=== PATIENT | male | born 1955 | race Caucasian/White ===

== ENCOUNTER 2016-06-03 07:30 | Emergency (ER) | payer OTHER ==
[~2016-06-03 07:30] MED LIST: /DIVA50TA PO; /TAMS4CA PO; BACL10TA PO; CARB20TAXR PO; CIPR250T2 PO; COLA50CA3 PO; DEPA1TAB3 PO; DILA2TAB PO; DUCO5TAB PO; FLOM5CAP PO; KETO10TAB PO; LEVA500T PO; MIRA3350 PO; NORCOTAB PO; PERCOCET PO; PROT1TAB2 PO; SENN8.6T76 PO; SENO8.6T9 PO; SOMA350T PO; TEGR200T PO; TYLE325T5 PO; ULTR50TA PO; toradol PO
--- NOTE | 2016-06-03 08:37 | REP ---
Portable chest: Single view. History: Chest pain left-sided. Comparison study: April 17, 2016. Findings: EKG monitoring electrodes overlie the chest. Heart size is borderline. Pulmonary vasculature is not increased. The lung love are clear. The pleural angles are sharp. No significant bony abnormality is seen. Impression: No active disease. Signed by Nelson Field MD 06/03/2016 08:28 A
[2016-06-03 08:39] LABS: BASO # 0.1 K/mm3 (0.0-0.2); BASO % 1.9 % (0.0-1.0); EOS # 0.2 K/mm3 (0.0-0.50); EOS % 2.6 % (0.0-3.0); LARGE UNSTAINED CELL # 0.1 K/mm3 (0.0-0.4); LYMPH # 1.7 K/mm3 (1.5-4.5); LYMPH % 27.6 % (24.0-44.0); MEAN CORPUSCULAR HEMOGLOBIN 26.5 pg (27.0-33.0); MEAN CORPUSCULAR HGB CONC 32.4 g/dl (32.0-36.5); MEAN CORPUSCULAR VOLUME 81.6 fl (80.0-96.0); MONO # 0.3 K/mm3 (0.0-0.8); NEUTROPHILS # 3.5 K/mm3 (1.8-7.7); NEUTROPHILS % 60.8 % (36.0-66.0); PLATELET COUNT, AUTOMATED 234 k/mm3 (150-450); WHITE BLOOD COUNT 5.7 K/mm3 (4.0-10.0)
[2016-06-03 08:42] LABS: INR 1.03
[2016-06-03] MEDS ORDERED: ASPIRIN 81 MG CHEW TABLET As Ordered ONE (08:45)
[2016-06-03 08:52] LABS: ANION GAP 8 MEQ/L (8-16); BLOOD UREA NITROGEN 18 MG/DL (7-18); CALCIUM LEVEL 8.8 MG/DL (8.8-10.2); CARBON DIOXIDE LEVEL 24 MEQ/L (21-32); CHLORIDE LEVEL 111 MEQ/L (98-107); CREATININE FOR GFR 0.78 MG/DL (0.70-1.30); GLOMERULAR FILTRATION RATE > 60.0 (>49); GLUCOSE, FASTING 94 MG/DL (80-110); POTASSIUM SERUM 4.6 MEQ/L (3.5-5.1); SODIUM LEVEL 143 MEQ/L (136-145)
[2016-06-03] MEDS ORDERED: ISOVUE-370 76% 100ML VIAL (Q9967) As Ordered ONE (10:05)
--- NOTE | 2016-06-03 11:41 | REP ---
CT pulmonary angiogram: With IV contrast. History: Chest pain. Comparison studies: Comparison chest CT with contrast June 22, 2012. Contrast dose: 75 cc's of Isovue [address] technique: Helical scanning is acquired and overlapping 1.5 mm and contiguous 3 mm axial images are reformatted. In addition, a 3-D work station is deployed to generate thick slab maximum intensity projection images in sagittal and coronal imaging projections. CT pulmonary angiographic findings: There is good opacification of the pulmonary arterial tree and there is no CT evidence of pulmonary embolism. The thoracic aorta enhances homogeneously and is normal in caliber, course and contour. There is no evidence of pleural or pericardial effusion. An accessory splenule is noted in the left upper quadrant. No adrenal lesion is seen. There is a cyst in the upper pole left kidney and there is evidence of fatty infiltration of the liver. Maximal intensity projection images show no evidence of vessel cutoff or filling defect. Visualization of the lung love show no evidence of significant pulmonary nodule or mass. No infiltrate is seen. Impression: No CT evidence of pulmonary embolism. Small cyst upper pole left kidney. Fatty infiltration of the liver. Otherwise no acute disease. Signed by Nelson Field MD 06/03/2016 02:05 P
--- NOTE | 2016-06-03 13:27 | EDDOCDS ---
Nurse's Notes [facility] Name: Ricardo Funez Age: 61 yrs Sex: Male : 1955 Arrival Date: 06/03/2016 Time: 07:30 Bed 11 Private MD: Diagnosis: Chest pain, unspecified Presentation: 06/03 07:39 Presenting complaint: Patient states: Pt presents with c/o left sided chest pain off dls and on since Sunday night after shoveling. Pt also has harsh cough. Aspirin was not taken prior to arrival. Adult Sepsis Screening: The patient does not have new or worsening altered mentation. Patient's respiratory rate is less than 22. Systolic blood pressure is greater than 100. Patient has a qSOFA score of 0- Negative Sepsis Screen. Suicide/Homicide risk assessment- the patient denies having any suicidal and/or homicidal ideations and does not present with any other emotional, behavioral or mental health complaints. Status: Patient is not a field services analyst or dependent. Transition of care: patient was not received from another setting of care. 07:39 Acuity: FRANCESCO Level 3 dls 07:39 Method Of Arrival: Walkin/Carried/Asstd dls Triage Assessment: 07:42 General: Appears in no apparent distress, well developed, well nourished, well groomed, dls Behavior is cooperative. Pain: Pain currently is 4 out of 10 on a pain scale. HIV screening NA for this visit Offered previously. Cardiovascular: Chest pain is described as Pain is 4 out of 10 on a pain scale. radiates Does not radiate. began 4 days ago. 13:26 Cardiovascular: Chest pain episodes are continuous. pml Historical: - Allergies: no known allergies; - Home Meds: 1. Depakote 500 mg Oral TbEC 1 tab 2 times per day 2. Flonase 50 mcg/actuation Nasal spsn 1 spray 2 times per day 3. Tegretol 200 mg Oral tab every 8 hours - PMHx: Chronic Back pain; Hypercholesterolemia; Hypertension; Kidney stones; Pancreatitis; Seizure Disorder; - PSHx: none; - Social history: Smoking status: Patient/guardian denies using No barriers to communication noted, The patient speaks fluent Pashto. - Family history: Not pertinent. - : The pt / caregiver states he / she is not on anticoagulants. Home medication list is obtained from [employer] import data. - Exposure Risk Screening:: None identified. Screenin:06 Screening information is obtained from the patient. Fall risk: No risks identified. pml Assistance ADL's: requires no assistance with activities of daily living. Abuse/DV Screen: The patient / caregiver reports he/she is: not in a situation that causes fear, pain or injury. Nutritional screening: No deficits noted. Advance Directives: Currently, there is no health care proxy. home support is adequate. Assessment: 08:06 General: Appears in no apparent distress, Behavior is appropriate for age, cooperative. pml Pain: Location: anterior aspect of left upper chest and left breast Pain currently is 5 out of 10 on a pain scale. Neurological: Level of Consciousness is awake, alert, Oriented to person, place, time. Cardiovascular: Capillary refill < 3 seconds Rhythm is sinus rhythm No ectopy. Cardiovascular: Chest pain is described as mild. Respiratory: Airway is patent Respiratory effort is even, unlabored. Respiratory: Breath sounds are clear bilaterally. Reports cough that is non-productive, since this AM. GI: Abdomen is non- distended. Derm: Skin is pink, warm & dry. 09:00 Adult Sepsis Screening: The patient does not have new or worsening altered mentation. pml Patient's respiratory rate is less than 22. Systolic blood pressure is greater than 100. Patient has a qSOFA score of 0- Negative Sepsis Screen. 09:15 General: Resting on stretcher, voices no complaints, resps easy and unlabored, skin pml p/w/d. sinus rhythm on monitor. . 10:33 General: Pt to CT - tolerated well, reports some intermittent nausea that resolved pml approx [address] scan. sinus rhythm on monitor. resps easy and unlabored, skin p/w/d . 11:00 Adult Sepsis Screening: The patient does not have new or worsening altered mentation. pml Patient's respiratory rate is less than 22. Patient has a qSOFA score of 0- Negative Sepsis Screen. 11:55 General: Appears in no apparent distress, Behavior is appropriate for age, crying. pml Pain: Location: anterior aspect of left upper chest Pain currently is 3 out of 10 on a pain scale. Neurological: Level of Consciousness is awake, alert, Oriented to person, place, time. Cardiovascular: Capillary refill < 3 seconds Rhythm is sinus rhythm No ectopy. Derm: Skin is pink, warm & dry. 12:45 General: diet tray provided. pt tolerating without difficulty. reports pain is 1/10. pml 13:24 General: Appears in no apparent distress, comfortable, Behavior is appropriate for age, pml cooperative. 13:24 Pain: Location: anterior aspect of left upper chest Pain currently is 1 out of 10 on a pml pain scale. Neurological: Level of Consciousness is awake, alert, Oriented to person, place, time. Cardiovascular: Capillary refill < 3 seconds Rhythm is sinus rhythm No ectopy. Respiratory: Airway is patent Respiratory effort is even, unlabored. Derm: Skin is pink, warm & dry. Vital Signs: 07:42 BP 148 / 94; Pulse 66; Resp 18; Temp 96.2(O); Pulse Ox 96% ; Weight 102.06 kg (R); dls Height 5 ft. 5 in. (165.10 cm); Pain 4/10; 07:51 BP 134 / 85 (auto/); pml 07:53 Pulse 62 MON; Pulse Ox 98% ; pml 08:06 Pulse 62 MON; Pulse Ox 98% ; pml 08:06 BP 125 / 61 (auto/); pml 08:21 Pulse 60 MON; Pulse Ox 97% ; pml 08:21 BP 124 / 76 (auto/); pml 08:36 Pulse 58 MON; Pulse Ox 97% ; pml 08:36 BP 122 / 59 (auto/); pml 08:51 Pulse 62 MON; Pulse Ox 96% ; pml 08:51 BP 118 / 64 (auto/); pml 09:06 Pulse 62 MON; Pulse Ox 97% ; pml 09:06 BP 112 / 72 (auto/); pml 09:21 Pulse 54 MON; Pulse Ox 97% ; pml 09:21 BP 112 / 72 (auto/); pml 09:36 Pulse 56 MON; Pulse Ox 95% ; pml 09:36 BP 113 / 76 (auto/); pml 09:51 Pulse 58 MON; Pulse Ox 97% ; pml 09:51 BP 115 / 78 (auto/); pml 10:06 Pulse 60 MON; Pulse Ox 97% ; pml 10:06 BP 109 / 77 (auto/); pml 10:32 Pulse 66 MON; Pulse Ox 99% ; pml 10:32 BP 139 / 85 (auto/); pml 10:36 BP 129 / 66 (auto/); pml 10:36 Pulse 62 MON; Pulse Ox 93% ; pml 10:51 Pulse 58 MON; Pulse Ox 96% ; pml 10:51 BP 126 / 74 (auto/); pml 11:06 Pulse 56 MON; Pulse Ox 96% ; pml 11:06 BP 137 / 75 (auto/); pml 11:21 Pulse 54 MON; Pulse Ox 96% ; pml 11:21 BP 136 / 77 (auto/); pml 11:36 Pulse 56 MON; Pulse Ox 97% ; pml 11:36 BP 140 / 77 (auto/); pml 11:56 Pulse 58 MON; Pulse Ox 97% ; pml 11:56 BP 107 / 65 (auto/); pml 12:06 Pulse 56 MON; Pulse Ox 97% ; pml 12:06 BP 105 / 64 (auto/); pml 12:21 Pulse 58 MON; Pulse Ox 97% ; pml 12:21 BP 106 / 67 (auto/); pml 12:36 Pulse 58 MON; Pulse Ox 98% ; pml 12:36 BP 108 / 68 (auto/); pml 13:25 BP 130 / 73; Pulse 78; Resp 18; Temp 97.1; Pulse Ox 96% on R/A; Pain 1/10; pml 07:42 Body Mass Index 37.44 (102.06 kg, 165.10 cm) [facility] Vitals: 07:42 Log In Time: June 03, 2016 at 07:31. [facility] ED Course: 07:31 Patient visited by Codie Velasquez Reg. hs2 07:31 Patient moved to Waiting hs2 07:41 Triage Initiated dls 07:45 Katy Gaming,RN is Primary Nurse. dls 07:45 Patient moved to 11 dls 07:54 Patient visited by Molly Pack. nb2 07:54 Placed in gown. Bed in low position. Call light in reach. Side rails up X2. Cardiac nb2 monitor on. Pulse ox on. NIBP on. 07:54 EKG done. (by ED staff). Reviewed by Jeremiah Landrum MD. dem1 07:56 Patient visited by Bri Vickers. dem1 08:05 [facility] Payment Agreement was scanned into [employer] and attached to record. dm19 08:06 The patient / caregiver is instructed regarding the plan of care and ED course. pml 08:06 Inserted peripheral IV: 20gauge IV in left hand and blood collected. Patient tolerated pml the procedure well. 08:08 Patient visited by Katy Gaming,RN. pml 08:15 Jeremiah Landrum MD is Attending Physician. ml 08:15 Patient visited by Jeremiah Landrum MD. ml 08:41 Chest, 1 View Returned. EDMS 09:17 Patient visited by Jyoti Leon PCA. ct3 09:58 Patient visited by Jyoti Leon PCA. ct3 10:07 Property. Warm blanket given. ct3 10:08 Patient visited by Jyoti Leon PCA. ct3 10:34 Patient visited by Katy Gaming,TABITHA. pml 11:07 Patient visited by Jyoti Leon PCA. ct3 11:45 Patient visited by Jyoti Leon PCA. ct3 12:04 CT Chest Angio R/O PE Returned. EDMS 12:15 EKG done. (by ED staff). Reviewed by Jeremiah Landrum MD. ct3 12:16 Patient visited by Jyoti Leon PCA. ct3 12:19 Patient visited by Katy Gaming RN. pml 12:46 Odette Epperson is Referral Physician. ml 12:47 Patient visited by Jyoti Leon PCA. ct3 12:47 Diet: Patient given regular meal. ct3 13:25 Discontinued lock intact, bleeding controlled, pressure dressing applied, No pml redness/swelling at site. No procedures done that require assistance. Administered Medications: 08:47 Drug: Aspirin 324 mg [aspirin 81 mg chewable tablet (4 tabs)] Route: PO; pml Order Results: Lab Order: CBC with Diff; SPEC'M 06/03/16 08:04 Test: WHITE BLOOD COUNT; Value: 5.7; Range: 4.0-10.0; Units: K/mm3; Status: F Test: RED BLOOD COUNT; Value: 5.77; Range: 4.30-6.10; Units: M/mm3; Status: F Test: HEMOGLOBIN; Value: 15.3; Range: 14.0-18.0; Units: g/dl; Status: F Test: HEMATOCRIT; Value: 47.1; Range: 42.0-52.0; Units: %; Status: F Test: MEAN CORPUSCULAR VOLUME; Value: 81.6; Range: 80.0-96.0; Units: fl; Status: F Test: MEAN CORPUSCULAR HEMOGLOBIN; Value: 26.5; Range: 27.0-33.0; Abnormal: Below low normal; Units: pg; Status: F Test: MEAN CORPUSCULAR HGB CONC; Value: 32.4; Range: 32.0-36.5; Units: g/dl; Status: F Test: RED CELL DISTRIBUTION WIDTH; Value: 14.0; Range: 11.5-14.5; Units: %; Status: F Test: PLATELET COUNT, AUTOMATED; Value: 234; Range: 150-450; Units: k/mm3; Status: F Test: NEUTROPHILS %; Value: 60.8; Range: 36.0-66.0; Units: %; Status: F Test: LYMPH %; Value: 27.6; Range: 24.0-44.0; Units: %; Status: F Test: MONO %; Value: 5.0; Range: 0.0-5.0; Units: %; Status: F Test: EOS %; Value: 2.6; Range: 0.0-3.0; Units: %; Status: F Test: BASO %; Value: 1.9; Range: 0.0-1.0; Abnormal: Above high normal; Units: %; Status: F Test: LARGE UNSTAINED CELL %; Value: 2.0; Range: 0.0-4.0; Units: %; Status: F Test: NEUTROPHILS #; Value: 3.5; Range: 1.8-7.7; Units: K/mm3; Status: F Test: LYMPH #; Value: 1.7; Range: 1.5-4.5; Units: K/mm3; Status: F Test: MONO #; Value: 0.3; Range: 0.0-0.8; Units: K/mm3; Status: F Test: EOS #; Value: 0.2; Range: 0.0-0.50; Units: K/mm3; Status: F Test: BASO #; Value: 0.1; Range: 0.0-0.2; Units: K/mm3; Status: F Test: LARGE UNSTAINED CELL #; Value: 0.1; Range: 0.0-0.4; Units: K/mm3; Status: F Lab Order: MED Profile; SPEC06/03/16 08:04 Test: GLUCOSE, FASTING; Value: 94; Range: 80-110; Units: MG/DL; Status: F Test: BLOOD UREA NITROGEN; Value: 18; Range: 7-18; Units: MG/DL; Status: F Test: CREATININE FOR GFR; Value: 0.78; Range: 0.70-1.30; Units: MG/DL; Status: F Test: GLOMERULAR FILTRATION RATE; Value: > 60.0; Range: >49; Status: F Test: SODIUM LEVEL; Value: 143; Range: 136-145; Units: MEQ/L; Status: F Test: POTASSIUM SERUM; Value: 4.6; Range: 3.5-5.1; Units: MEQ/L; Status: F Test: CHLORIDE LEVEL; Value: 111; Range: 98-107; Abnormal: Above high normal; Units: MEQ/L; Status: F Test: CARBON DIOXIDE LEVEL; Value: 24; Range: 21-32; Units: MEQ/L; Status: F Test: ANION GAP; Value: 8; Range: 8-16; Units: MEQ/L; Status: F Test: CALCIUM LEVEL; Value: 8.8; Range: 8.8-10.2; Units: MG/DL; Status: F Test Note: ; Units are mL/min/1.73 m2 Chronic Kidney Disease Staging per NKF: Stage I & II GFR >=60 Normal to Mildly Decreased Stage III GFR 30-59 Moderately Decreased Stage IV GFR 15-29 Severely Decreased Stage V GFR <15 Very Little GFR Left ESRD GFR <15 on MANAGEMENT EXPERT Lab Order: CIP; SPEC'06/03/16 08:04 Test: CPK CREATINE PHOSPHOKINASE; Value: 280; Range: 39-308; Units: U/L; Status: F Test: CK-MB VALUE MASS; Value: 2.1; Range: 0.0-3.6; Units: NG/ML; Status: F Test: MB/CK RELATIVE INDEX; Value: 0.75; Range: < OR =4; Status: F Test Note: ; DIAGNOSIS CRITERIA MMB ng/ml Relative Index (RI) NON-AMI < or = 5 N/A ISRA[place] ZONE > 5 < or = 4 AMI > 5 > 4 Lab Order: Troponin; [facility]06/03/16 08:04 Test: TROPONIN I; Value: < 0.02; Range: < 0.10; Units: NG/ML; Status: F Test Note: ; Troponin I Reference Interval for Siemens [place] LOCI: 99th Percentile= 0.00-0.045 ng/ml Risk Stratification: <= 0.10 ng/ml Decreased Risk for Adverse Clinical Events. 0.10-1.50 ng/ml Increased Risk for Adverse Clinical Events. Evaluation of additional criterion and/or repeat testing in 2-6 hours is suggested to rule out myocardial damage. >= 1.50 ng/ml Indicative of Myocardial Injury. Lab Order: D-Dimer Quant; 06/03/16 08:04 Test: D-DIMER QUANT; Value: < 270.0; Range: <500; Units: ng/ml; Status: F Lab Order: PT/INR; 06/03/16 08:04 Test: PROTHROMBIN TIME; Value: 13.6; Range: 12.3-14.5; Units: SECONDS; Status: F Test: INR; Value: 1.03; Status: F Test Note: ; THERAPUTIC HUMAN INR VALUES INDICATIONS NORMAL RANGES PROPHYLAXIS/TREATMENT OF: VENOUS THROMBOSIS 2.0-3.0 PULMONARY EMBOLISM 2.0-3.0 PREVENTION OF SYSTEMIC EMBOLISM FROM: TISSUE HEART VALVES 2.0-3.0 ACUTE MYOCARDIAL INFARCTION 2.0-3.0 VALVULAR HEART DISEASE 2.0-3.0 ATRIAL FIBRILLATION 2.0-3.0 MECHANICAL VALVES(HIGH RISK) 2.5-3.5 RECURRENT MYOCARDIAL INFARCTION 2.5-3.5 Lab Order: PTT; [facility]06/03/16 08:04 Test: PARTIAL THROMBOPLASTIN TIME; Value: 29.3; Range: 26.6-37.1; Units: SECONDS; Status: F Lab Order: CARDIAC MARKER PANEL; [facility]06/03/16 11:57 Test: CPK CREATINE PHOSPHOKINASE; Value: 228; Range: 39-308; Units: U/L; Status: F Test: CK-MB VALUE MASS; Value: 2.0; Range: 0.0-3.6; Units: NG/ML; Status: F Test: MB/CK RELATIVE INDEX; Value: 0.87; Range: < OR =4; Status: F Test: TROPONIN I; Value: < 0.02; Range: < 0.10; Units: NG/ML; Status: F Test Note: ; DIAGNOSIS CRITERIA MMB ng/ml Relative Index (RI) NON-AMI < or = 5 N/A ISRAEL ZONE > 5 < or = 4 AMI > 5 > 4 Radiology Order: Chest, 1 View Test: Chest, 1 View REASON FOR EXAMINATION: Chest Pain; Portable chest: Single view.; ; History: Chest pain left-sided.; ; Comparison study: April 17, 2016.; ; Findings: EKG monitoring electrodes overlie the chest. Heart size is; borderline. Pulmonary vasculature is not increased. The lung love are clear.; The pleural angles are sharp. No significant bony abnormality is seen.; ; Impression:; ; No active disease.; ; ; Signed by; Nelson Field MD 06/03/2016 08:28 A; Radiology Order: CT Chest Angio R/O PE Test: CT Chest Angio R/O PE REASON FOR EXAMINATION: cp; CT pulmonary angiogram: With IV contrast.; ; History: Chest pain.; ; Comparison studies: Comparison chest CT with contrast June 22, 2012.; ; Contrast dose: 75 cc's of Isovue 370 are administered intravenously.; ; CT technique: Helical scanning is acquired and overlapping 1.5 mm and contiguous; 3 mm axial images are reformatted. In addition, a 3-D work station is deployed; to generate thick slab maximum intensity projection images in sagittal and; coronal imaging projections.; ; CT pulmonary angiographic findings: There is good opacification of the pulmonary; arterial tree and there is no CT evidence of pulmonary embolism. The thoracic; aorta enhances homogeneously and is normal in caliber, course and contour. There; is no evidence of pleural or pericardial effusion. An accessory splenule is; noted in the left upper quadrant. No adrenal lesion is seen. There is a cyst in; the upper pole left kidney and there is evidence of fatty infiltration of the; liver. Maximal intensity projection images show no evidence of vessel cutoff or; filling defect. Visualization of the lung love show no evidence of significant; pulmonary nodule or mass. No infiltrate is seen.; ; Impression:; ; No CT evidence of pulmonary embolism. Small cyst upper pole left kidney. Fatty; infiltration of the liver. Otherwise no acute disease.; ; ; ; ; Unreviewed; Outcome: 12:47 Discharge ordered by Provider. 13:25 Discharge Assessment: Patient awake, alert and oriented x 3. No cognitive and/or pml functional deficits noted. Patient verbalized understanding of disposition instructions. patient administered narcotics - no. The following High Risk Discharge criteria are identified: None. Discharged to home ambulatory. Condition: good Condition: stable. Discharge instructions given to patient, Instructed on discharge instructions, follow up and referral plans. Demonstrated understanding of instructions, Pt was receptive of discharge instructions/ teaching. CT Study completed. 13:26 Patient left the ED. pml Signatures: Dispatcher [employer] EDMS Jeremiah Landrum MD MD ml Scott, Debra, RN RN dls Jyoti Leon, WELDING ROD COATER WELDING ROD COATER ct3 Katy Gaming RN RN pml Mack, Demeishia dem1 Codie Velasquez, Reg Reg hs2 Molly Pack2 Gale Tejada dm19 MTDD
--- NOTE | 2016-06-03 13:27 | EDDOCDS ---
Physician Documentation [facility] Name: Ricardo Funez Age: 61 yrs Sex: Male : 1955 Arrival Date: 06/03/2016 Time: 07:30 Bed 11 Private MD: Disposition: 06/03/16 12:47 Discharged to Home/Self Care. Impression: Chest pain, unspecified. - Condition is Stable. - Discharge Instructions: Nonspecific Chest Pain. - Medication Reconciliation, Local Pharmacy Hours form. - Follow up: Odette Epperson; When: 1 week. Follow up: Private Physician; When: 1 week. - Problem is new. - Symptoms have improved. - Notes: call to schedule follow up with dr epperson. return if worsening symptoms Historical: - Allergies: no known allergies; - Home Meds: 1. Depakote 500 mg Oral TbEC 1 tab 2 times per day 2. Flonase 50 mcg/actuation Nasal spsn 1 spray 2 times per day 3. Tegretol 200 mg Oral tab every 8 hours - PMHx: Chronic Back pain; Hypercholesterolemia; Hypertension; Kidney stones; Pancreatitis; Seizure Disorder; - PSHx: none; - Social history: Smoking status: Patient/guardian denies using No barriers to communication noted, The patient speaks fluent Trinidadian. - Family history: Not pertinent. - : The pt / caregiver states he / she is not on anticoagulants. Home medication list is obtained from [employer] import data. - Exposure Risk Screening:: None identified. Vital Signs: 06/03 07:42 BP 148 / 94; Pulse 66; Resp 18; Temp 96.2(O); Pulse Ox 96% ; Weight 102.06 kg / 225 lbs dls (R); Height 5 ft. 5 in. (165.10 cm); Pain 4/10; 07:51 BP 134 / 85 (auto/); pml 07:53 Pulse 62 MON; Pulse Ox 98% ; pml 08:06 Pulse 62 MON; Pulse Ox 98% ; pml 08:06 BP 125 / 61 (auto/); pml 08:21 Pulse 60 MON; Pulse Ox 97% ; pml 08:21 BP 124 / 76 (auto/); pml 08:36 Pulse 58 MON; Pulse Ox 97% ; pml 08:36 BP 122 / 59 (auto/); pml 08:51 Pulse 62 MON; Pulse Ox 96% ; pml 08:51 BP 118 / 64 (auto/); pml 09:06 Pulse 62 MON; Pulse Ox 97% ; pml 09:06 BP 112 / 72 (auto/); pml 09:21 Pulse 54 MON; Pulse Ox 97% ; pml 09:21 BP 112 / 72 (auto/); pml 09:36 Pulse 56 MON; Pulse Ox 95% ; pml 09:36 BP 113 / 76 (auto/); pml 09:51 Pulse 58 MON; Pulse Ox 97% ; pml 09:51 BP 115 / 78 (auto/); pml 10:06 Pulse 60 MON; Pulse Ox 97% ; pml 10:06 BP 109 / 77 (auto/); pml 10:32 Pulse 66 MON; Pulse Ox 99% ; pml 10:32 BP 139 / 85 (auto/); pml 10:36 BP 129 / 66 (auto/); pml 10:36 Pulse 62 MON; Pulse Ox 93% ; pml 10:51 Pulse 58 MON; Pulse Ox 96% ; pml 10:51 BP 126 / 74 (auto/); pml 11:06 Pulse 56 MON; Pulse Ox 96% ; pml 11:06 BP 137 / 75 (auto/); pml 11:21 Pulse 54 MON; Pulse Ox 96% ; pml 11:21 BP 136 / 77 (auto/); pml 11:36 Pulse 56 MON; Pulse Ox 97% ; pml 11:36 BP 140 / 77 (auto/); pml 11:56 Pulse 58 MON; Pulse Ox 97% ; pml 11:56 BP 107 / 65 (auto/); pml 12:06 Pulse 56 MON; Pulse Ox 97% ; pml 12:06 BP 105 / 64 (auto/); pml 12:21 Pulse 58 MON; Pulse Ox 97% ; pml 12:21 BP 106 / 67 (auto/); pml 12:36 Pulse 58 MON; Pulse Ox 98% ; pml 12:36 BP 108 / 68 (auto/); pml 13:25 BP 130 / 73; Pulse 78; Resp 18; Temp 97.1; Pulse Ox 96% on R/A; Pain 06/06; pml 07:42 Body Mass Index 37.44 (102.06 kg, 165.10 cm) dls MDM: 07:48 ECG WITH READING ER PHYS+CARDIAG ordered. EDMS 08:05 [facility] Payment Agreement was scanned into [employer] and attached to record. dm19 08:20 IV Saline Lock ordered. ml 08:20 Aspirin Chewable Tablet 324 mg PO once ordered. ml 08:22 CBC with Diff Ordered. EDMS 08:22 MED Profile Ordered. EDMS 08:22 CIP Ordered. EDMS 08:22 Troponin Ordered. EDMS 08:22 D-Dimer Quant Ordered. EDMS 08:22 PT/INR Ordered. EDMS 08:22 PTT Ordered. EDMS 08:22 Chest, 1 View Ordered. EDMS 08:22 Financial registration complete. dm19 09:17 CBC with Diff Reviewed. ml 09:17 MED Profile Reviewed. ml 09:17 CIP Reviewed. ml 09:17 Troponin Reviewed. ml 09:17 D-Dimer Quant Reviewed. ml 09:17 PT/INR Reviewed. ml 09:17 PTT Reviewed. ml 09:17 Chest, 1 View Reviewed. ml 09:59 Repeat EKG (put time details section) ordered. ml 09:59 Redraw CIP &Troponin (put time in details section) ordered. ml 10:00 CT Chest Angio R/O PE Ordered. EDMS 10:08 Redraw CIP &Troponin (put time in details section) complete. ar3 10:08 Repeat EKG (put time details section) complete. ar3 10:08 ECG WITH READING ER PHYS ordered. EDMS 10:09 CARDIAC MARKER PANEL Ordered. EDMS 12:29 REGULAR+DIET ordered. EDMS 12:41 CARDIAC MARKER PANEL Reviewed. ml 12:41 CT Chest Angio R/O PE Reviewed. ml Administered Medications: 08:47 Drug: Aspirin 324 mg [aspirin 81 mg chewable tablet (4 tabs)] Route: PO; pml Signatures: Dispatcher [employer] EDGA Jeremiah Landrum MD MD ml Scott, Debra RN RN Halima Oh, MIRELA [employer] ar3 Katy Gaming RN RN pml McLear, Diane dm19 The chart was reviewed and I authenticate all verbal orders and agree with the evaluation and treatment provided.Attachments: 08:05 [facility] Payment Agreement dm19 MTDD
--- NOTE | 2016-06-03 22:58 | ECGEPIP ---
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
--- NOTE | 2016-06-03 23:01 | ECGEPIP ---
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
[2016-06-05] MEDS ORDERED: NEOSPORIN OINT 0.9 GM PKT (FLOOR STOCK) As Ordered ONE (02:33)
--- NOTE | 2016-06-06 11:04 | EDDOCDS ---
Physician Documentation [facility] Name: Ricardo Funez Age: 61 yrs Sex: Male : 1955 Arrival Date: 06/03/2016 Time: 07:30 Bed 11 Private MD: Disposition: 06/03/16 12:47 Discharged to Home/Self Care. Impression: Chest pain, unspecified. - Condition is Stable. - Discharge Instructions: Nonspecific Chest Pain. - Medication Reconciliation, Local Pharmacy Hours form. - Follow up: Odette Epperson; When: 1 week. Follow up: Private Physician; When: 1 week. - Problem is new. - Symptoms have improved. - Notes: call to schedule follow up with dr epperson. return if worsening symptoms Historical: - Allergies: no known allergies; - Home Meds: 1. Depakote 500 mg Oral TbEC 1 tab 2 times per day 2. Flonase 50 mcg/actuation Nasal spsn 1 spray 2 times per day 3. Tegretol 200 mg Oral tab every 8 hours - PMHx: Chronic Back pain; Hypercholesterolemia; Hypertension; Kidney stones; Pancreatitis; Seizure Disorder; - PSHx: none; - Social history: Smoking status: Patient/guardian denies using No barriers to communication noted, The patient speaks fluent Mongolian. - Family history: Not pertinent. - : The pt / caregiver states he / she is not on anticoagulants. Home medication list is obtained from [employer] import data. - Exposure Risk Screening:: None identified. Vital Signs: 06/03 07:42 BP 148 / 94; Pulse 66; Resp 18; Temp 96.2(O); Pulse Ox 96% ; Weight 102.06 kg / 225 lbs dls (R); Height 5 ft. 5 in. (165.10 cm); Pain 4/10; 07:51 BP 134 / 85 (auto/); pml 07:53 Pulse 62 MON; Pulse Ox 98% ; pml 08:06 Pulse 62 MON; Pulse Ox 98% ; pml 08:06 BP 125 / 61 (auto/); pml 08:21 Pulse 60 MON; Pulse Ox 97% ; pml 08:21 BP 124 / 76 (auto/); pml 08:36 Pulse 58 MON; Pulse Ox 97% ; pml 08:36 BP 122 / 59 (auto/); pml 08:51 Pulse 62 MON; Pulse Ox 96% ; pml 08:51 BP 118 / 64 (auto/); pml 09:06 Pulse 62 MON; Pulse Ox 97% ; pml 09:06 BP 112 / 72 (auto/); pml 09:21 Pulse 54 MON; Pulse Ox 97% ; pml 09:21 BP 112 / 72 (auto/); pml 09:36 Pulse 56 MON; Pulse Ox 95% ; pml 09:36 BP 113 / 76 (auto/); pml 09:51 Pulse 58 MON; Pulse Ox 97% ; pml 09:51 BP 115 / 78 (auto/); pml 10:06 Pulse 60 MON; Pulse Ox 97% ; pml 10:06 BP 109 / 77 (auto/); pml 10:32 Pulse 66 MON; Pulse Ox 99% ; pml 10:32 BP 139 / 85 (auto/); pml 10:36 BP 129 / 66 (auto/); pml 10:36 Pulse 62 MON; Pulse Ox 93% ; pml 10:51 Pulse 58 MON; Pulse Ox 96% ; pml 10:51 BP 126 / 74 (auto/); pml 11:06 Pulse 56 MON; Pulse Ox 96% ; pml 11:06 BP 137 / 75 (auto/); pml 11:21 Pulse 54 MON; Pulse Ox 96% ; pml 11:21 BP 136 / 77 (auto/); pml 11:36 Pulse 56 MON; Pulse Ox 97% ; pml 11:36 BP 140 / 77 (auto/); pml 11:56 Pulse 58 MON; Pulse Ox 97% ; pml 11:56 BP 107 / 65 (auto/); pml 12:06 Pulse 56 MON; Pulse Ox 97% ; pml 12:06 BP 105 / 64 (auto/); pml 12:21 Pulse 58 MON; Pulse Ox 97% ; pml 12:21 BP 106 / 67 (auto/); pml 12:36 Pulse 58 MON; Pulse Ox 98% ; pml 12:36 BP 108 / 68 (auto/); pml 13:25 BP 130 / 73; Pulse 78; Resp 18; Temp 97.1; Pulse Ox 96% on R/A; Pain 06/06; pml 07:42 Body Mass Index 37.44 (102.06 kg, 165.10 cm) dls MDM: 07:48 ECG WITH READING ER PHYS+CARDIAG ordered. EDMS 08:05 [facility] [place] into [employer] and attached to record. dm19 08:20 IV Saline Lock ordered. ml 08:20 Aspirin Chewable Tablet 324 mg PO once ordered. ml 08:22 CBC with Diff Ordered. EDMS 08:22 MED Profile Ordered. EDMS 08:22 CIP Ordered. EDMS 08:22 Troponin Ordered. EDMS 08:22 D-Dimer Quant Ordered. EDMS 08:22 PT/INR Ordered. EDMS 08:22 PTT Ordered. EDMS 08:22 Chest, 1 View Ordered. EDMS 08:22 Financial registration complete. dm19 09:17 CBC with Diff Reviewed. ml 09:17 MED Profile Reviewed. ml 09:17 CIP Reviewed. ml 09:17 Troponin Reviewed. ml 09:17 D-Dimer Quant Reviewed. ml 09:17 PT/INR Reviewed. ml 09:17 PTT Reviewed. ml 09:17 Chest, 1 View Reviewed. ml 09:59 Repeat EKG (put time details section) ordered. ml 09:59 Redraw CIP &Troponin (put time in details section) ordered. ml 10:00 CT Chest Angio R/O PE Ordered. EDMS 10:08 Redraw CIP &Troponin (put time in details section) complete. ar3 10:08 Repeat EKG (put time details section) complete. ar3 10:08 ECG WITH READING ER PHYS ordered. EDMS 10:09 CARDIAC MARKER PANEL Ordered. EDMS 12:29 REGULAR+DIET ordered. EDMS 12:41 CARDIAC MARKER PANEL Reviewed. ml 12:41 CT Chest Angio R/O PE Reviewed. ml 15:19 T-Sheet-- Draft Copy was scanned into [employer] and attached to record. klr 06/04 08:54 ECG/EKG was scanned into [employer] and attached to record. gb 08:55 Radiology Report was scanned into [employer] and attached to record. gb Administered Medications: 06/03 08:47 Drug: Aspirin 324 mg [aspirin 81 mg chewable tablet (4 tabs)] Route: PO; pml Signatures: Dispatcher [employer] EDTX Jeremiah Landrum MD MD ml Scott, Debra RN RN dls Ileana Akers, Reg Reg gb Halima Cespedes, FOREIGN BANKNOTE TELLER FOREIGN BANKNOTE TELLER ar3 Katy Gaming RN RN pml Redder, Kathie klr McLear, Diane dm19 The chart was reviewed and I authenticate all verbal orders and agree with the evaluation and treatment provided.Attachments: 08:05 [facility] [place] dm19 15:19 T-Sheet-- Draft Copy klr 06/04 08:54 ECG/EKG gb Chart Complete MTDD
--- NOTE | 2016-06-06 11:04 | EDDOCDS ---
Physician Documentation [facility] Name: Ricardo Funez Age: 61 yrs Sex: Male : 1955 Arrival Date: 06/03/2016 Time: 07:30 Bed 11 Private MD: Disposition: 06/03/16 12:47 Discharged to Home/Self Care. Impression: Chest pain, unspecified. - Condition is Stable. - Discharge Instructions: Nonspecific Chest Pain. - Medication Reconciliation, Local Pharmacy Hours form. - Follow up: Odette Epperson; When: 1 week. Follow up: Private Physician; When: 1 week. - Problem is new. - Symptoms have improved. - Notes: call to schedule follow up with dr epperson. return if worsening symptoms Historical: - Allergies: no known allergies; - Home Meds: 1. Depakote 500 mg Oral TbEC 1 tab 2 times per day 2. Flonase 50 mcg/actuation Nasal spsn 1 spray 2 times per day 3. Tegretol 200 mg Oral tab every 8 hours - PMHx: Chronic Back pain; Hypercholesterolemia; Hypertension; Kidney stones; Pancreatitis; Seizure Disorder; - PSHx: none; - Social history: Smoking status: Patient/guardian denies using No barriers to communication noted, The patient speaks fluent Finnish. - Family history: Not pertinent. - : The pt / caregiver states he / she is not on anticoagulants. Home medication list is obtained from [employer] import data. - Exposure Risk Screening:: None identified. Vital Signs: 06/03 07:42 BP 148 / 94; Pulse 66; Resp 18; Temp 96.2(O); Pulse Ox 96% ; Weight 102.06 kg / 225 lbs dls (R); Height 5 ft. 5 in. (165.10 cm); Pain 4/10; 07:51 BP 134 / 85 (auto/); pml 07:53 Pulse 62 MON; Pulse Ox 98% ; pml 08:06 Pulse 62 MON; Pulse Ox 98% ; pml 08:06 BP 125 / 61 (auto/); pml 08:21 Pulse 60 MON; Pulse Ox 97% ; pml 08:21 BP 124 / 76 (auto/); pml 08:36 Pulse 58 MON; Pulse Ox 97% ; pml 08:36 BP 122 / 59 (auto/); pml 08:51 Pulse 62 MON; Pulse Ox 96% ; pml 08:51 BP 118 / 64 (auto/); pml 09:06 Pulse 62 MON; Pulse Ox 97% ; pml 09:06 BP 112 / 72 (auto/); pml 09:21 Pulse 54 MON; Pulse Ox 97% ; pml 09:21 BP 112 / 72 (auto/); pml 09:36 Pulse 56 MON; Pulse Ox 95% ; pml 09:36 BP 113 / 76 (auto/); pml 09:51 Pulse 58 MON; Pulse Ox 97% ; pml 09:51 BP 115 / 78 (auto/); pml 10:06 Pulse 60 MON; Pulse Ox 97% ; pml 10:06 BP 109 / 77 (auto/); pml 10:32 Pulse 66 MON; Pulse Ox 99% ; pml 10:32 BP 139 / 85 (auto/); pml 10:36 BP 129 / 66 (auto/); pml 10:36 Pulse 62 MON; Pulse Ox 93% ; pml 10:51 Pulse 58 MON; Pulse Ox 96% ; pml 10:51 BP 126 / 74 (auto/); pml 11:06 Pulse 56 MON; Pulse Ox 96% ; pml 11:06 BP 137 / 75 (auto/); pml 11:21 Pulse 54 MON; Pulse Ox 96% ; pml 11:21 BP 136 / 77 (auto/); pml 11:36 Pulse 56 MON; Pulse Ox 97% ; pml 11:36 BP 140 / 77 (auto/); pml 11:56 Pulse 58 MON; Pulse Ox 97% ; pml 11:56 BP 107 / 65 (auto/); pml 12:06 Pulse 56 MON; Pulse Ox 97% ; pml 12:06 BP 105 / 64 (auto/); pml 12:21 Pulse 58 MON; Pulse Ox 97% ; pml 12:21 BP 106 / 67 (auto/); pml 12:36 Pulse 58 MON; Pulse Ox 98% ; pml 12:36 BP 108 / 68 (auto/); pml 13:25 BP 130 / 73; Pulse 78; Resp 18; Temp 97.1; Pulse Ox 96% on R/A; Pain 06/06; pml 07:42 Body Mass Index 37.44 (102.06 kg, 165.10 cm) dls MDM: 07:48 ECG WITH READING ER PHYS+CARDIAG ordered. EDMS 08:05 [facility] [place] was scanned into [employer]. and attached to record. dm19 08:20 IV Saline Lock ordered. ml 08:20 Aspirin Chewable Tablet 324 mg PO once ordered. ml 08:22 CBC with Diff Ordered. EDMS 08:22 MED Profile Ordered. EDMS 08:22 CIP Ordered. EDMS 08:22 Troponin Ordered. EDMS 08:22 D-Dimer Quant Ordered. EDMS 08:22 PT/INR Ordered. EDMS 08:22 PTT Ordered. EDMS 08:22 Chest, 1 View Ordered. EDMS 08:22 Financial registration complete. dm19 09:17 CBC with Diff Reviewed. ml 09:17 MED Profile Reviewed. ml 09:17 CIP Reviewed. ml 09:17 Troponin Reviewed. ml 09:17 D-Dimer Quant Reviewed. ml 09:17 PT/INR Reviewed. ml 09:17 PTT Reviewed. ml 09:17 Chest, 1 View Reviewed. ml 09:59 Repeat EKG (put time details section) ordered. ml 09:59 Redraw CIP &Troponin (put time in details section) ordered. ml 10:00 CT Chest Angio R/O PE Ordered. EDMS 10:08 Redraw CIP &Troponin (put time in details section) complete. ar3 10:08 Repeat EKG (put time details section) complete. ar3 10:08 ECG WITH READING ER PHYS ordered. EDMS 10:09 CARDIAC MARKER PANEL Ordered. EDMS 12:29 REGULAR+DIET ordered. EDMS 12:41 CARDIAC MARKER PANEL Reviewed. ml 12:41 CT Chest Angio R/O PE Reviewed. ml 15:19 T-Sheet-- Draft Copy was scanned into [employer]. and attached to record. klr 06/04 08:54 ECG/EKG was scanned into [employer] and attached to record. gb 08:55 Radiology Report was scanned into [employer] and attached to record. gb Administered Medications: 06/03 08:47 Drug: Aspirin 324 mg [aspirin 81 mg chewable tablet (4 tabs)] Route: PO; pml Signatures: Dispatcher [employer] EDOH Jeremiah Landrum MD MD ml Scott, Debra RN RN dls Ileana Akers, Reg Reg gb Halima Cespedes, BOATBUILDER SUPERVISOR BOATBUILDER SUPERVISOR ar3 Katy Gaming RN RN pml Redder, Kathie klr McLear, Diane dm19 The chart was reviewed and I authenticate all verbal orders and agree with the evaluation and treatment provided.Attachments: 08:05 [facility] [place] dm19 15:19 T-Sheet-- Draft Copy klr 06/04 08:54 ECG/EKG gb Chart Complete MTDD
--- NOTE | 2016-06-06 11:05 | EDDOCDS ---
Nurse's Notes [facility] Name: Ricardo Santos Age: 61 yrs Sex: Male : 1955 Arrival Date: 06/03/2016 Time: 07:30 Bed 11 Private MD: Diagnosis: Chest pain, unspecified Presentation: 06/03 07:39 Presenting complaint: Patient states: Pt presents with c/o left sided chest pain off dls and on since Sunday night after shoveling. Pt also has harsh cough. Aspirin was not taken prior to arrival. Adult Sepsis Screening: The patient does not have new or worsening altered mentation. Patient's respiratory rate is less than 22. Systolic blood pressure is greater than 100. Patient has a qSOFA score of 0- Negative Sepsis Screen. Suicide/Homicide risk assessment- the patient denies having any suicidal and/or homicidal ideations and does not present with any other emotional, behavioral or mental health complaints. Status: Patient is not a health services information specialist or dependent. Transition of care: patient was not received from another setting of care. 07:39 Acuity: FRANCESCO Level 3 dls 07:39 Method Of Arrival: Walkin/Carried/Asstd dls Triage Assessment: 07:42 General: Appears in no apparent distress, well developed, well nourished, well groomed, dls Behavior is cooperative. Pain: Pain currently is 4 out of 10 on a pain scale. HIV screening NA for this visit Offered previously. Cardiovascular: Chest pain is described as Pain is 4 out of 10 on a pain scale. radiates Does not radiate. began 4 days ago. 13:26 Cardiovascular: Chest pain episodes are continuous. pml Historical: - Allergies: no known allergies; - Home Meds: 1. Depakote 500 mg Oral TbEC 1 tab 2 times per day 2. Flonase 50 mcg/actuation Nasal spsn 1 spray 2 times per day 3. Tegretol 200 mg Oral tab every 8 hours - PMHx: Chronic Back pain; Hypercholesterolemia; Hypertension; Kidney stones; Pancreatitis; Seizure Disorder; - PSHx: none; - Social history: Smoking status: Patient/guardian denies using No barriers to communication noted, The patient speaks fluent Kyrgyz. - Family history: Not pertinent. - : The pt / caregiver states he / she is not on anticoagulants. Home medication list is obtained from [employer] import data. - Exposure Risk Screening:: None identified. Screenin:06 Screening information is obtained from the patient. Fall risk: No risks identified. pml Assistance ADL's: requires no assistance with activities of daily living. Abuse/DV Screen: The patient / caregiver reports he/she is: not in a situation that causes fear, pain or injury. Nutritional screening: No deficits noted. Advance Directives: Currently, there is no health care proxy. home support is adequate. Assessment: 08:06 General: Appears in no apparent distress, Behavior is appropriate for age, cooperative. pml Pain: Location: anterior aspect of left upper chest and left breast Pain currently is 5 out of 10 on a pain scale. Neurological: Level of Consciousness is awake, alert, Oriented to person, place, time. Cardiovascular: Capillary refill < 3 seconds Rhythm is sinus rhythm No ectopy. Cardiovascular: Chest pain is described as mild. Respiratory: Airway is patent Respiratory effort is even, unlabored. Respiratory: Breath sounds are clear bilaterally. Reports cough that is non-productive, since this AM. GI: Abdomen is non- distended. Derm: Skin is pink, warm & dry. 09:00 Adult Sepsis Screening: The patient does not have new or worsening altered mentation. pml Patient's respiratory rate is less than 22. Systolic blood pressure is greater than 100. Patient has a qSOFA score of 0- Negative Sepsis Screen. 09:15 General: Resting on stretcher, voices no complaints, resps easy and unlabored, skin pml p/w/d. sinus rhythm on monitor. . 10:33 General: Pt to CT - tolerated well, reports some intermittent nausea that resolved pml approx [address] scan. sinus rhythm on monitor. resps easy and unlabored, skin p/w/d . 11:00 Adult Sepsis Screening: The patient does not have new or worsening altered mentation. pml Patient's respiratory rate is less than 22. Patient has a qSOFA score of 0- Negative Sepsis Screen. 11:55 General: Appears in no apparent distress, Behavior is appropriate for age, crying. pml Pain: Location: anterior aspect of left upper chest Pain currently is 3 out of 10 on a pain scale. Neurological: Level of Consciousness is awake, alert, Oriented to person, place, time. Cardiovascular: Capillary refill < 3 seconds Rhythm is sinus rhythm No ectopy. Derm: Skin is pink, warm & dry. 12:45 General: diet tray provided. pt tolerating without difficulty. reports pain is 1/10. pml 13:24 General: Appears in no apparent distress, comfortable, Behavior is appropriate for age, pml cooperative. 13:24 Pain: Location: anterior aspect of left upper chest Pain currently is 1 out of 10 on a pml pain scale. Neurological: Level of Consciousness is awake, alert, Oriented to person, place, time. Cardiovascular: Capillary refill < 3 seconds Rhythm is sinus rhythm No ectopy. Respiratory: Airway is patent Respiratory effort is even, unlabored. Derm: Skin is pink, warm & dry. Vital Signs: 07:42 BP 148 / 94; Pulse 66; Resp 18; Temp 96.2(O); Pulse Ox 96% ; Weight 102.06 kg (R); dls Height 5 ft. 5 in. (165.10 cm); Pain 4/10; 07:51 BP 134 / 85 (auto/); pml 07:53 Pulse 62 MON; Pulse Ox 98% ; pml 08:06 Pulse 62 MON; Pulse Ox 98% ; pml 08:06 BP 125 / 61 (auto/); pml 08:21 Pulse 60 MON; Pulse Ox 97% ; pml 08:21 BP 124 / 76 (auto/); pml 08:36 Pulse 58 MON; Pulse Ox 97% ; pml 08:36 BP 122 / 59 (auto/); pml 08:51 Pulse 62 MON; Pulse Ox 96% ; pml 08:51 BP 118 / 64 (auto/); pml 09:06 Pulse 62 MON; Pulse Ox 97% ; pml 09:06 BP 112 / 72 (auto/); pml 09:21 Pulse 54 MON; Pulse Ox 97% ; pml 09:21 BP 112 / 72 (auto/); pml 09:36 Pulse 56 MON; Pulse Ox 95% ; pml 09:36 BP 113 / 76 (auto/); pml 09:51 Pulse 58 MON; Pulse Ox 97% ; pml 09:51 BP 115 / 78 (auto/); pml 10:06 Pulse 60 MON; Pulse Ox 97% ; pml 10:06 BP 109 / 77 (auto/); pml 10:32 Pulse 66 MON; Pulse Ox 99% ; pml 10:32 BP 139 / 85 (auto/); pml 10:36 BP 129 / 66 (auto/); pml 10:36 Pulse 62 MON; Pulse Ox 93% ; pml 10:51 Pulse 58 MON; Pulse Ox 96% ; pml 10:51 BP 126 / 74 (auto/); pml 11:06 Pulse 56 MON; Pulse Ox 96% ; pml 11:06 BP 137 / 75 (auto/); pml 11:21 Pulse 54 MON; Pulse Ox 96% ; pml 11:21 BP 136 / 77 (auto/); pml 11:36 Pulse 56 MON; Pulse Ox 97% ; pml 11:36 BP 140 / 77 (auto/); pml 11:56 Pulse 58 MON; Pulse Ox 97% ; pml 11:56 BP 107 / 65 (auto/); pml 12:06 Pulse 56 MON; Pulse Ox 97% ; pml 12:06 BP 105 / 64 (auto/); pml 12:21 Pulse 58 MON; Pulse Ox 97% ; pml 12:21 BP 106 / 67 (auto/); pml 12:36 Pulse 58 MON; Pulse Ox 98% ; pml 12:36 BP 108 / 68 (auto/); pml 13:25 BP 130 / 73; Pulse 78; Resp 18; Temp 97.1; Pulse Ox 96% on R/A; Pain 1/10; pml 07:42 Body Mass Index 37.44 (102.06 kg, 165.10 cm) [facility] Vitals: 07:42 Log In Time: June 03, 2016 at 07:31. [facility] ED Course: 07:31 Patient visited by Codie Velasquez Reg. hs2 07:31 Patient moved to Waiting hs2 07:41 Triage Initiated dls 07:45 Katy Gaming,RN is Primary Nurse. dls 07:45 Patient moved to 11 dls 07:54 Patient visited by Molly Pack. nb2 07:54 Placed in gown. Bed in low position. Call light in reach. Side rails up X2. Cardiac nb2 monitor on. Pulse ox on. NIBP on. 07:54 EKG done. (by ED staff). Reviewed by Jeremiah Landrum MD. dem1 07:56 Patient visited by Bri Vickers. dem1 08:05 [facility] Payment Agreement was scanned into [employer]@ [employer] and attached to record. dm19 08:06 The patient / caregiver is instructed regarding the plan of care and ED course. pml 08:06 Inserted peripheral IV: 20gauge IV in left hand and blood collected. Patient tolerated pml the procedure well. 08:08 Patient visited by Katy Gaming,RN. pml 08:15 Jeremiah Landrum MD is Attending Physician. ml 08:15 Patient visited by Jeremiah Landrum MD. ml 08:41 Chest, 1 View Returned. EDMS 09:17 Patient visited by Jyoti Leon PCA. ct3 09:58 Patient visited by Jyoti Leon PCA. ct3 10:07 Property. Warm blanket given. ct3 10:08 Patient visited by Jyoti Leon PCA. ct3 10:34 Patient visited by Katy Gaming,TABITHA. pml 11:07 Patient visited by Jyoti Leon PCA. ct3 11:45 Patient visited by Jyoti Leon PCA. ct3 12:04 CT Chest Angio R/O PE Returned. EDMS 12:15 EKG done. (by ED staff). Reviewed by Jeremiah Landrum MD. ct3 12:16 Patient visited by Jyoti Leon PCA. ct3 12:19 Patient visited by Katy Gaming,TABITHA. pml 12:46 Odette Epperson is Referral Physician. ml 12:47 Patient visited by Jyoti Leon PCA. ct3 12:47 Diet: Patient given regular meal. ct3 13:25 Discontinued lock intact, bleeding controlled, pressure dressing applied, No pml redness/swelling at site. No procedures done that require assistance. 14:30 CT Chest Angio R/O PE Returned. EDMS 15:19 T-Sheet-- Draft Copy was scanned into [employer] and attached to record. klr 23:42 EKG-ADULT Returned. EDMS 23:42 ECG WITH READING ER PHYS Returned. EDMS 06/04 08:54 ECG/EKG was scanned into [employer] and attached to record. gb 08:55 Radiology Report was scanned into [employer] and attached to record. gb Administered Medications: 06/03 08:47 Drug: Aspirin 324 mg [aspirin 81 mg chewable tablet (4 tabs)] Route: PO; pml Order Results: Lab Order: CBC with Diff; SPEC'M 06/03/16 08:04 Test: WHITE BLOOD COUNT; Value: 5.7; Range: 4.0-10.0; Units: K/mm3; Status: F Test: RED BLOOD COUNT; Value: 5.77; Range: 4.30-6.10; Units: M/mm3; Status: F Test: HEMOGLOBIN; Value: 15.3; Range: 14.0-18.0; Units: g/dl; Status: F Test: HEMATOCRIT; Value: 47.1; Range: 42.0-52.0; Units: %; Status: F Test: MEAN CORPUSCULAR VOLUME; Value: 81.6; Range: 80.0-96.0; Units: fl; Status: F Test: MEAN CORPUSCULAR HEMOGLOBIN; Value: 26.5; Range: 27.0-33.0; Abnormal: Below low normal; Units: pg; Status: F Test: MEAN CORPUSCULAR HGB CONC; Value: 32.4; Range: 32.0-36.5; Units: g/dl; Status: F Test: RED CELL DISTRIBUTION WIDTH; Value: 14.0; Range: 11.5-14.5; Units: %; Status: F Test: PLATELET COUNT, AUTOMATED; Value: 234; Range: 150-450; Units: k/mm3; Status: F Test: NEUTROPHILS %; Value: 60.8; Range: 36.0-66.0; Units: %; Status: F Test: LYMPH %; Value: 27.6; Range: 24.0-44.0; Units: %; Status: F Test: MONO %; Value: 5.0; Range: 0.0-5.0; Units: %; Status: F Test: EOS %; Value: 2.6; Range: 0.0-3.0; Units: %; Status: F Test: BASO %; Value: 1.9; Range: 0.0-1.0; Abnormal: Above high normal; Units: %; Status: F Test: LARGE UNSTAINED CELL %; Value: 2.0; Range: 0.0-4.0; Units: %; Status: F Test: NEUTROPHILS #; Value: 3.5; Range: 1.8-7.7; Units: K/mm3; Status: F Test: LYMPH #; Value: 1.7; Range: 1.5-4.5; Units: K/mm3; Status: F Test: MONO #; Value: 0.3; Range: 0.0-0.8; Units: K/mm3; Status: F Test: EOS #; Value: 0.2; Range: 0.0-0.50; Units: K/mm3; Status: F Test: BASO #; Value: 0.1; Range: 0.0-0.2; Units: K/mm3; Status: F Test: LARGE UNSTAINED CELL #; Value: 0.1; Range: 0.0-0.4; Units: K/mm3; Status: F Lab Order: MED Profile; SPEC'M 06/03/16 08:04 Test: GLUCOSE, FASTING; Value: 94; Range: 80-110; Units: MG/DL; Status: F Test: BLOOD UREA NITROGEN; Value: 18; Range: 7-18; Units: MG/DL; Status: F Test: CREATININE FOR GFR; Value: 0.78; Range: 0.70-1.30; Units: MG/DL; Status: F Test: GLOMERULAR FILTRATION RATE; Value: > 60.0; Range: >49; Status: F Test: SODIUM LEVEL; Value: 143; Range: 136-145; Units: MEQ/L; Status: F Test: POTASSIUM SERUM; Value: 4.6; Range: 3.5-5.1; Units: MEQ/L; Status: F Test: CHLORIDE LEVEL; Value: 111; Range: 98-107; Abnormal: Above high normal; Units: MEQ/L; Status: F Test: CARBON DIOXIDE LEVEL; Value: 24; Range: 21-32; Units: MEQ/L; Status: F Test: ANION GAP; Value: 8; Range: 8-16; Units: MEQ/L; Status: F Test: CALCIUM LEVEL; Value: 8.8; Range: 8.8-10.2; Units: MG/DL; Status: F Test Note: ; Units are mL/min/1.73 m2 Chronic Kidney Disease Staging per NKF: Stage I & II GFR >=60 Normal to Mildly Decreased Stage III GFR 30-59 Moderately Decreased Stage IV GFR 15-29 Severely Decreased Stage V GFR <15 Very Little GFR Left ESRD GFR <15 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 Lab Order: CIP; SPEC'M 06/03/16 08:04 Test: CPK CREATINE PHOSPHOKINASE; Value: 280; Range: 39-308; Units: U/L; Status: F Test: CK-MB VALUE MASS; Value: 2.1; Range: 0.0-3.6; Units: NG/ML; Status: F Test: MB/CK RELATIVE INDEX; Value: 0.75; Range: < OR =4; Status: F Test Note: ; DIAGNOSIS CRITERIA MMB ng/ml Relative Index (RI) NON-AMI < or = 5 N/A ISRAEL ZONE > 5 < or = 4 AMI > 5 > 4 Lab Order: Troponin; [facility] 06/03/16 08:04 Test: TROPONIN I; Value: < 0.02; Range: < 0.10; Units: NG/ML; Status: F Test Note: ; Troponin I Reference Interval for [place] LOCI: 99th Percentile= 0.00-0.045 ng/ml Risk Stratification: <= 0.10 ng/ml Decreased Risk for Adverse Clinical Events. 0.10-1.50 ng/ml Increased Risk for Adverse Clinical Events. Evaluation of additional criterion and/or repeat testing in 2-6 hours is suggested to rule out myocardial damage. >= 1.50 ng/ml Indicative of Myocardial Injury. Lab Order: D-Dimer Quant; [facility] 06/03/16 08:04 Test: D-DIMER QUANT; Value: < 270.0; Range: <500; Units: ng/ml; Status: F Lab Order: PT/INR; [facility] 06/03/16 08:04 Test: PROTHROMBIN TIME; Value: 13.6; Range: 12.3-14.5; Units: SECONDS; Status: F Test: INR; Value: 1.03; Status: F Test Note: ; THERAPUTIC HUMAN INR VALUES INDICATIONS NORMAL RANGES PROPHYLAXIS/TREATMENT OF: VENOUS THROMBOSIS 2.0-3.0 PULMONARY EMBOLISM 2.0-3.0 PREVENTION OF SYSTEMIC EMBOLISM FROM: TISSUE HEART VALVES 2.0-3.0 ACUTE MYOCARDIAL INFARCTION 2.0-3.0 VALVULAR HEART DISEASE 2.0-3.0 ATRIAL FIBRILLATION 2.0-3.0 MECHANICAL VALVES(HIGH RISK) 2.5-3.5 RECURRENT MYOCARDIAL INFARCTION 2.5-3.5 Lab Order: PTT; [facility] 06/03/16 08:04 Test: PARTIAL THROMBOPLASTIN TIME; Value: 29.3; Range: 26.6-37.1; Units: SECONDS; Status: F Lab Order: CARDIAC MARKER PANEL; SPEC'M 06/03/16 11:57 Test: CPK CREATINE PHOSPHOKINASE; Value: 228; Range: 39-308; Units: U/L; Status: F Test: CK-MB VALUE MASS; Value: 2.0; Range: 0.0-3.6; Units: NG/ML; Status: F Test: MB/CK RELATIVE INDEX; Value: 0.87; Range: < OR =4; Status: F Test: TROPONIN I; Value: < 0.02; Range: < 0.10; Units: NG/ML; Status: F Test Note: ; DIAGNOSIS CRITERIA MMB ng/ml Relative Index (RI) NON-AMI < or = 5 N/A ISRAEL ZONE > 5 < or = 4 AMI > 5 > 4 Radiology Order: EKG-ADULT Test: EKG-ADULT REASON FOR EXAMINATION: Chest Pain; Stationary ECG Study; [facility] - ED; ; Test Date: 2016-06-03; Pat Name: RICARDO SANTOS Department:; Room: -; Gender: M Sanitary Aide: dm; : 1955 Requested By: Jeremiah Landrum; Order Number: [id number] Reading MD: Tab Malik; Measurements; Intervals [place]; Rate: 58 P: 39; MT: 175 QRS: -17; QRSD: 77 T: 11; QT: 414; QTc: 409; Interpretive Statements; SINUS BRADYCARDIA; NONSPECIFIC T-WAVE ABNORMALITY; SIMILAR TO 02/09/15; Electronically Signed On 06-03-2016 22:58:29 EST by Tab Malik; Radiology Order: Chest, 1 View Test: Chest, 1 View REASON FOR EXAMINATION: Chest Pain; Portable chest: Single view.; ; History: Chest pain left-sided.; ; Comparison study: April 17, 2016.; ; Findings: EKG monitoring electrodes overlie the chest. Heart size is; borderline. Pulmonary vasculature is not increased. The lung love are clear.; The pleural angles are sharp. No significant bony abnormality is seen.; ; Impression:; ; No active disease.; ; ; Signed by; Nelson Field MD 06/03/2016 08:28 A; Radiology Order: CT Chest Angio R/O PE Test: CT Chest Angio R/O PE REASON FOR EXAMINATION: cp; CT pulmonary angiogram: With IV contrast.; ; History: Chest pain.; ; Comparison studies: Comparison chest CT with contrast June 22, 2012.; ; Contrast dose: 75 cc's of Isovue 370 are administered intravenously.; ; CT technique: Helical scanning is acquired and overlapping 1.5 mm and contiguous; 3 mm axial images are reformatted. In addition, a 3-D work station is deployed; to generate thick slab maximum intensity projection images in sagittal and; coronal imaging projections.; ; CT pulmonary angiographic findings: There is good opacification of the pulmonary; arterial tree and there is no CT evidence of pulmonary embolism. The thoracic; aorta enhances homogeneously and is normal in caliber, course and contour. There; is no evidence of pleural or pericardial effusion. An accessory splenule is; noted in the left upper quadrant. No adrenal lesion is seen. There is a cyst in; the upper pole left kidney and there is evidence of fatty infiltration of the; liver. Maximal intensity projection images show no evidence of vessel cutoff or; filling defect. Visualization of the lung love show no evidence of significant; pulmonary nodule or mass. No infiltrate is seen.; ; Impression:; ; No CT evidence of pulmonary embolism. Small cyst upper pole left kidney. Fatty; infiltration of the liver. Otherwise no acute disease.; ; ; Signed by; Nelson Field MD 06/03/2016 02:05 P; Radiology Order: ECG WITH READING ER PHYS Test: ECG WITH READING ER PHYS REASON FOR EXAMINATION: CHEST PAIN; Stationary ECG Study; [facility] - ED; ; Test Date: 2016-06-03; Pat Name: RICARDO SANTOS Department:; Room: -; Gender: M Sanitary Aide: ct; : 1955 Requested By: Jeremiah Landrum; Order Number: [id number] Reading MD: Tab Malik; Measurements; Intervals [place]; Rate: 59 P: 53; MT: 193 QRS: -15; QRSD: 72 T: 7; QT: 428; QTc: 427; Interpretive Statements; SINUS BRADYCARDIA; ; Electronically Signed On 06-03-2016 23:01:25 EST by Tab Malik; Outcome: 12:47 Discharge ordered by Provider. 13:25 Discharge Assessment: Patient awake, alert and oriented x 3. No cognitive and/or pml functional deficits noted. Patient verbalized understanding of disposition instructions. patient administered narcotics - no. The following High Risk Discharge criteria are identified: None. Discharged to home ambulatory. Condition: good Condition: stable. Discharge instructions given to patient, Instructed on discharge instructions, follow up and referral plans. Demonstrated understanding of instructions, Pt was receptive of discharge instructions/ teaching. CT Study completed. 13:26 Patient left the ED. pml Signatures: Dispatcher [employer] EDMS Jeremiah Landrum MD MD ml Scott, Debra, RN RN dls Ileana Akers, Reg Reg gb Leon, Jyoti, BEATER LEAD BEATER LEAD ct3 Katy Gaming RN RN pml Bri Vickers dem1 Codie Velasquez, Reg Reg hs2 Pamela Malcolm Nicole nb2 Gale Tejada dm19 Chart Complete NERISSA
== END 2016-06-03 13:26 | disposition home or self-care (01) ==
LOC: M ED 07:30
DX: R07.9 Chest pain, unspecified (principal); R05 Cough; R00.1 Bradycardia, unspecified; I10 Essential (primary) hypertension; E78.5 Hyperlipidemia, unspecified; E78.00 Pure hypercholesterolemia, unspecified; M54.9 Dorsalgia, unspecified; G89.29 Other chronic pain; G40.909 Epilepsy, unspecified, not intractable, without status epilepticus; Z87.442 Personal history of urinary calculi; Z87.19 Personal history of other diseases of the digestive system; Z79.899 Other long term (current) drug therapy

== ENCOUNTER 2016-06-08 09:48 | Emergency (ER) | payer OTHER ==
[2016-06-08 12:04] LABS: BASO % 0.6 % (0.0-1.0); EOS # 0.1 K/mm3 (0.0-0.50); EOS % 2.1 % (0.0-3.0); LARGE UNSTAINED CELL # 0.1 K/mm3 (0.0-0.4); LARGE UNSTAINED CELL % 1.9 % (0.0-4.0); LYMPH % 30.5 % (24.0-44.0); MEAN CORPUSCULAR HEMOGLOBIN 26.9 pg (27.0-33.0); MEAN CORPUSCULAR HGB CONC 33.3 g/dl (32.0-36.5); MEAN CORPUSCULAR VOLUME 80.7 fl (80.0-96.0); MONO # 0.3 K/mm3 (0.0-0.8); NEUTROPHILS % 59.9 % (36.0-66.0); PLATELET COUNT, AUTOMATED 240 k/mm3 (150-450); RED CELL DISTRIBUTION WIDTH 13.2 % (11.5-14.5); WHITE BLOOD COUNT 6.6 K/mm3 (4.0-10.0)
[2016-06-08 12:30] LABS: ANION GAP 5 MEQ/L (8-16); BLOOD UREA NITROGEN 19 MG/DL (7-18); CALCIUM LEVEL 8.7 MG/DL (8.8-10.2); CARBAMAZEPINE (TEGRETOL) LEVEL < 0.5 UG/ML (4.0-10.0); CARBON DIOXIDE LEVEL 30 MEQ/L (21-32); CHLORIDE LEVEL 105 MEQ/L (98-107); CREATININE FOR GFR 0.82 MG/DL (0.70-1.30); GLOMERULAR FILTRATION RATE > 60.0 (>49); GLUCOSE, FASTING 79 MG/DL (80-110); SODIUM LEVEL 140 MEQ/L (136-145)
--- NOTE | 2016-06-08 13:13 | REP ---
PA and lateral chest 06/08/2016 Indication: Chest pain Comparison: CTA chest 06/03/2016 portable chest 06/03 17, PA and lateral chest 01/09/2016 Findings: Cardiomediastinal silhouette is normal. Lungs are clear bilaterally. There are mild degenerative changes in the thoracic spine. Soft tissues are within normal limits . Impression : no acute cardiopulmonary process or interval change Signed by Christy Bills MD 06/08/2016 01:05 P
--- NOTE | 2016-06-08 14:02 | REP ---
CT HEAD WITHOUT CONTRAST: HISTORY: Neuropathy. COMPARISON: 02/05/2016. Areas of decreased attentuation are present in the periventricular white matter. This represents small vessel ischemic disease. There is no intraparenchymal hemorrhage, mass, or midline shift. The ventricular system is normal in appearance. The subarachnoid space in the posterior fossa is dilated consistent with minimal cerebellar volume loss. There is no extracerebral collection. The visualized sinuses are clear. IMPRESSION: 1. Small vessel ischemic disease. 2. Minimal cerebellar volume loss. Signed by Placido Garrett MD 06/08/2016 02:21 P
--- NOTE | 2016-06-08 14:19 | EDDOCDS ---
Physician Documentation [facility] Name: Ricardo Funez Age: 61 yrs Sex: Male : 1955 Arrival Date: 06/08/2016 Time: 09:48 Bed 14 Private MD: Nikkie Vega D Disposition: 06/08/16 13:45 Discharged to Home/Self Care. Impression: Chest pain, unspecified. - Condition is Stable. - Discharge Instructions: Nonspecific Chest Pain. - Medication Reconciliation, Local Pharmacy Hours form. - Follow up: Nikkie Vega; When: 2 - 3 days; Reason: Further diagnostic work-up, Continuance of care. - Problem is an ongoing problem. - Symptoms are unchanged. Historical: - Allergies: no known allergies; - Home Meds: 1. Depakote 500 mg Oral TbEC 1 tab 2 times per day (Last dose: 06/04/2016) 2. Flonase 50 mcg/actuation Nasal spsn 1 spray 2 times per day (Last dose: 06/08/2016) 3. Tegretol 200 mg Oral tab every 8 hours (Last dose: 06/04/2016) - PMHx: Chronic Back pain; Hypercholesterolemia; Hypertension; Kidney stones; Pancreatitis; Seizure Disorder; - PSHx: none; - Social history: Smoking status: Patient states former smoker of tobacco. No barriers to communication noted, The patient speaks fluent Icelandic. - Family history: Not pertinent. - : The pt / caregiver states he / she is not on anticoagulants. Home medication list is obtained from the patient. - Exposure Risk Screening:: None identified. Vital Signs: 06/08 09:49 BP 185 / 100; Pulse 65; Resp 16; Temp 96.9; Pulse Ox 99% ; Weight 108.86 kg / 240 lbs; cmb Height 5 ft. 5 in. (165.10 cm); Pain 8/10; 09:58 BP 160 / 90 (auto/); jo3 09:59 Pulse 60 MON; Pulse Ox 98% ; jo3 10:13 BP 159 / 95 (auto/); jo3 10:13 Pulse 62 MON; Pulse Ox 97% ; jo3 10:28 BP 158 / 90 (auto/); jo3 10:28 Pulse 64 MON; Pulse Ox 96% ; jo3 10:41 Pulse 64 MON; Pulse Ox 97% ; jo3 10:43 BP 139 / 84 (auto/); jo3 10:58 BP 142 / 83 (auto/); jo3 10:58 Pulse 60 MON; Pulse Ox 97% ; jo3 11:13 BP 147 / 83 (auto/); jo3 11:13 Pulse 60 MON; Pulse Ox 97% ; jo3 11:38 BP 142 / 76 (auto/); jo3 11:38 Pulse 66 MON; Pulse Ox 98% ; jo3 11:43 BP 139 / 67 (auto/); jo3 11:43 Pulse 60 MON; Pulse Ox 96% ; jo3 11:58 BP 159 / 71 (auto/); jo3 11:58 Pulse 62 MON; Pulse Ox 96% ; jo3 12:13 BP 158 / 70 (auto/); jo3 12:13 Pulse 62 MON; Pulse Ox 96% ; jo3 12:28 BP 172 / 83 (auto/); jo3 12:28 Pulse 74 MON; jo3 12:43 BP 143 / 75 (auto/); jo3 12:43 Pulse 64 MON; Pulse Ox 97% ; jo3 12:58 BP 129 / 84 (auto/); jo3 12:58 Pulse 58 MON; Pulse Ox 98% ; jo3 13:42 BP 155 / 89 (auto/); jo3 13:42 Pulse 60 MON; Resp 18; Temp 97.3(T); Pulse Ox 97% ; jo3 09:49 Body Mass Index 39.94 (108.86 kg, 165.10 cm) cmb MDM: 09:55 ECG WITH READING ER PHYS+CARDIAG ordered. EDMS 11:10 [employer]/Pulse Ox/q 30 min VS ordered. dwg 11:10 IV Saline Lock ordered. dwg 11:10 Rhythm Strip to chart ordered. dwg 11:10 Undress patient appropriately for examination ordered. dwg 11:11 Basic Metabolic Profile Ordered. EDMS 11:11 CBC with Diff Ordered. EDMS 11:11 Cardiac Injury Profile Ordered. EDMS 11:11 Troponin Ordered. EDMS 11:20 VALPROIC ACID (DEPAKOTE) Ordered. EDMS 12:10 CT Spine,Cervical W/o Contrast Ordered. EDMS 12:11 Chest, 2 View (pa\E\lat) Ordered. EDMS 12:12 CARBAMAZEPINE (TEGRETOL) LEVEL Ordered. EDMS 12:32 Basic Metabolic Profile Reviewed. ke 12:32 CBC with Diff Reviewed. ke 12:32 VALPROIC ACID (DEPAKOTE) Reviewed. ke 12:32 CARBAMAZEPINE (TEGRETOL) LEVEL Reviewed. ke 12:32 Cardiac Injury Profile Reviewed. ke 12:32 Troponin Reviewed. ke 13:04 [facility] Payment Agreement was scanned into [employer] and attached to record. jp5 13:04 Financial registration complete. jp5 13:10 CT Head Without Contrast Ordered. EDMS Signatures: Dispatcher [employer] EDMS Lucien [place], Jose Matthews RN, RESEARCH EPIDEMIOLOGIST RESEARCH EPIDEMIOLOGIST Kierra MancusoRN RN jo3 Cait Anguiano RN RN rocky4 Jennifer Pahceco jp5 The chart was reviewed and I authenticate all verbal orders and agree with the evaluation and treatment provided.Corrections: (The following items were deleted from the chart) 11:20 11:15 VALPROIC ACID (DEPAKOTE)+LAB ordered. EDMS EDMS 12:12 12:10 CARBAMAZEPINE (TEGRETOL) LEVEL+LAB ordered. EDMS EDMS 12:39 11:11 ECG WITH READING ER PHYS+CARDIAG ordered. EDMS EDMS Attachments: 13:04 [facility] Payment Agreement jp5 MTDD
--- NOTE | 2016-06-08 14:19 | EDDOCDS ---
Nurse's Notes [facility] Name: Ricardo Funez Age: 61 yrs Sex: Male : 1955 Arrival Date: 06/08/2016 Time: 09:48 Bed 14 Private MD: Nikkie Vega D Diagnosis: Chest pain, unspecified Presentation: 06/08 09:53 Presenting complaint: Patient states: chest pain onset 1 hour ago 01/04 , was seen here [facility] Sunday for samer states both arms and hands and left leg are tingling 4 days. Aspirin was not taken prior to arrival. Adult Sepsis Screening: The patient does not have new or worsening altered mentation. Patient's respiratory rate is less than 22. Systolic blood pressure is greater than 100. Patient has a qSOFA score of 0- Negative Sepsis Screen. Suicide/Homicide risk assessment- the patient denies having any suicidal and/or homicidal ideations and does not present with any other emotional, behavioral or mental health complaints. Status: Patient is not a technical services librarian or dependent. Transition of care: patient was not received from another setting of care. 09:53 Acuity: FRANCESCO Level 3 [facility] 09:53 Method Of Arrival: Walkin/Carried/Asstd [facility] 09:53 Red Flag criteria, patient assessed and taken directly to a bed. [facility] Triage Assessment: 09:56 General: Appears. [facility] 14:17 HIV screening NA for this visit Offered previously. jo3 Historical: - Allergies: no known allergies; - Home Meds: 1. Depakote 500 mg Oral TbEC 1 tab 2 times per day (Last dose: 06/04/2016) 2. Flonase 50 mcg/actuation Nasal spsn 1 spray 2 times per day (Last dose: 06/08/2016) 3. Tegretol 200 mg Oral tab every 8 hours (Last dose: 06/04/2016) - PMHx: Chronic Back pain; Hypercholesterolemia; Hypertension; Kidney stones; Pancreatitis; Seizure Disorder; - PSHx: none; - Social history: Smoking status: Patient states former smoker of tobacco. No barriers to communication noted, The patient speaks fluent Jamaican. - Family history: Not pertinent. - : The pt / caregiver states he / she is not on anticoagulants. Home medication list is obtained from the patient. - Exposure Risk Screening:: None identified. Screenin:59 Screening information is obtained from the patient. Fall risk: No risks identified. jo3 Assistance ADL's: requires no assistance with activities of daily living. Abuse/DV Screen: The patient / caregiver reports he/she is: not in a situation that causes fear, pain or injury. Nutritional screening: No deficits noted. Advance Directives: There is no active DNR order. home support is adequate. Assessment: 10:10 General: Appears in no apparent distress, comfortable, Behavior is anxious, jo3 cooperative, pleasant. Neurological: Level of Consciousness is awake, alert, Oriented to person, place, time. Neurological: Freight Breaker are equal bilaterally Moves all extremities. Gait is steady, Speech is normal, Facial symmetry appears normal, Pupils are PERRLA, Pt reports MARIJA upper extremity "tingling". This too has been consistent since his last visit to the ED. When asked, pt states that he has no new symptoms since his discharge from the ED last week . Cardiovascular: Capillary refill is brisk Heart tones S1 S2 present Rhythm is sinus rhythm No ectopy. Chest pain Pt denies CP at this time. Reports that he continues to have the same CP that he has been having since his last visit to the ED. States that CP, when it occurs, is sharp in nature and goes across anterior chest equally on both sides. Cannot remember if pain worsens with breathing or palpation. CP is not accompanied by SOB or any other symptoms when it occurs. . Respiratory: Airway is patent Respiratory effort is even, unlabored. Derm: Skin is pink, warm & dry. normal. 11:00 Reassessment: Patient appears in no apparent distress at this time. No significant jo3 changes noted at this time. Awaiting visit from ED provider. Aware of plan of care . 11:44 Reassessment:. General: Appears in no apparent distress, comfortable, Behavior is jo3 cooperative. General: Pt reports that he has some CP at this time. Provider notified. No ECG changes noted . Neurological: Level of Consciousness is awake, alert, Oriented to person, place, time. Respiratory: Airway is patent Respiratory effort is even, unlabored. Derm: Skin is pink, warm & dry. 12:40 Reassessment: Patient appears in no apparent distress at this time. Patient states jo3 feeling better. Patient states symptoms have improved. Denies pain at this time. Awaiting results for disposition. Aware of plan of care . 13:30 Reassessment: Patient appears in no apparent distress at this time. Patient denies pain jo3 at this time. Awaiting disposition at this time. Aware of plan of care . 14:00 General: Appears in no apparent distress, comfortable, Behavior is appropriate for age, jo3 cooperative. Neurological: No deficits noted. Respiratory: Airway is patent Respiratory effort is even, unlabored. Derm: Skin is pink, warm & dry. Vital Signs: 09:49 BP 185 / 100; Pulse 65; Resp 16; Temp 96.9; Pulse Ox 99% ; Weight 108.86 kg; Height 5 cmb ft. 5 in. (165.10 cm); Pain 8/10; 09:58 BP 160 / 90 (auto/); jo3 09:59 Pulse 60 MON; Pulse Ox 98% ; jo3 10:13 BP 159 / 95 (auto/); jo3 10:13 Pulse 62 MON; Pulse Ox 97% ; jo3 10:28 BP 158 / 90 (auto/); jo3 10:28 Pulse 64 MON; Pulse Ox 96% ; jo3 10:41 Pulse 64 MON; Pulse Ox 97% ; jo3 10:43 BP 139 / 84 (auto/); jo3 10:58 BP 142 / 83 (auto/); jo3 10:58 Pulse 60 MON; Pulse Ox 97% ; jo3 11:13 BP 147 / 83 (auto/); jo3 11:13 Pulse 60 MON; Pulse Ox 97% ; jo3 11:38 BP 142 / 76 (auto/); jo3 11:38 Pulse 66 MON; Pulse Ox 98% ; jo3 11:43 BP 139 / 67 (auto/); jo3 11:43 Pulse 60 MON; Pulse Ox 96% ; jo3 11:58 BP 159 / 71 (auto/); jo3 11:58 Pulse 62 MON; Pulse Ox 96% ; jo3 12:13 BP 158 / 70 (auto/); jo3 12:13 Pulse 62 MON; Pulse Ox 96% ; jo3 12:28 BP 172 / 83 (auto/); jo3 12:28 Pulse 74 MON; jo3 12:43 BP 143 / 75 (auto/); jo3 12:43 Pulse 64 MON; Pulse Ox 97% ; jo3 12:58 BP 129 / 84 (auto/); jo3 12:58 Pulse 58 MON; Pulse Ox 98% ; jo3 13:42 BP 155 / 89 (auto/); jo3 13:42 Pulse 60 MON; Resp 18; Temp 97.3(T); Pulse Ox 97% ; jo3 09:49 Body Mass Index 39.94 (108.86 kg, 165.10 cm) cmb Vitals: 09:49 Log In Time: June 08, 2016 at 09:48. cmb ED Course: 09:49 Patient visited by Yue Duran. cmb 09:49 Nikkie Vega is Private Physician. cmb 09:49 Patient moved to Waiting cmb 09:51 RN notified that patient meets Red Flag criteria. cmb 09:51 Patient moved to 14 cmb 09:55 Triage Initiated mk4 09:59 The patient / caregiver is instructed regarding the plan of care and ED course. Cardiac jo3 monitor on. Pulse ox on. NIBP on. 10:06 Patient visited by Bri Vickers. dem1 10:06 EKG done. (by ED staff). Reviewed by Tab Malik MD. dem1 10:45 Patient visited by Kierra Ness,TABITHA. jo3 11:24 Patient visited by Jyoti Leon PCA. ct3 11:30 Inserted saline lock: 18 gauge in right antecubital area. Labs drawn. (by ED staff). jo3 Sent per order to lab. 11:48 Patient visited by Kierra Ness,TABITHA. jo3 11:48 VALPROIC ACID (DEPAKOTE) Sent. jo3 11:48 Basic Metabolic Profile Sent. jo3 11:48 CBC with Diff Sent. jo3 11:48 Cardiac Injury Profile Sent. jo3 11:48 Troponin Sent. jo3 12:04 Jose Navarro FNP is PHCP. ke 12:04 Patient visited by Jose Navarro FNP. ke 12:04 Patient visited by Jose Navarro FNP. ke 12:14 CARBAMAZEPINE (TEGRETOL) LEVEL Sent. jo3 12:31 Patient visited by Jose Navarro FNP. ke 13:04 [facility] Payment Agreement was scanned into [employer] and attached to record. jp5 13:05 Patient visited by Jose Navarro FNP. ke 13:34 Patient visited by Jose Navarro FNP. ke 13:42 Discontinued IV lock intact, bleeding controlled, pressure dressing applied, No jo3 redness/swelling at site. No procedures done that require assistance. 13:45 Nikkie Vega is Referral Physician. ke 13:45 Chest, 2 View (pa\\E\\lat) Returned. EDMS 14:14 Patient visited by Kierra Ness RN. jo3 Order Results: Lab Order: Basic Metabolic Profile; SPEC'M 06/08/16 11:41 Test: GLUCOSE, FASTING; Value: 79; Range: 80-110; Abnormal: Below low normal; Units: MG/DL; Status: F Test: BLOOD UREA NITROGEN; Value: 19; Range: 7-18; Abnormal: Above high normal; Units: MG/DL; Status: F Test: CREATININE FOR GFR; Value: 0.82; Range: 0.70-1.30; Units: MG/DL; Status: F Test: GLOMERULAR FILTRATION RATE; Value: > 60.0; Range: >49; Status: F Test: SODIUM LEVEL; Value: 140; Range: 136-145; Units: MEQ/L; Status: F Test: POTASSIUM SERUM; Value: 5.0; Range: 3.5-5.1; Units: MEQ/L; Status: F Test: CHLORIDE LEVEL; Value: 105; Range: 98-107; Units: MEQ/L; Status: F Test: CARBON DIOXIDE LEVEL; Value: 30; Range: 21-32; Units: MEQ/L; Status: F Test: ANION GAP; Value: 5; Range: 8-16; Abnormal: Below low normal; Units: MEQ/L; Status: F Test: CALCIUM LEVEL; Value: 8.7; Range: 8.8-10.2; Abnormal: Below low normal; Units: MG/DL; Status: F Test Note: ; Units are mL/min/1.73 m2 Chronic Kidney Disease Staging per NKF: Stage I & II GFR >=60 Normal to Mildly Decreased Stage III GFR 30-59 Moderately Decreased Stage IV GFR 15-29 Severely Decreased Stage V GFR <15 Very Little GFR Left ESRD GFR <15 on SENIOR SALES COMPENSATION ANALYST Lab Order: CBC with Diff; SPEC'M 06/08/16 11:41 Test: WHITE BLOOD COUNT; Value: 6.6; Range: 4.0-10.0; Units: K/mm3; Status: F Test: RED BLOOD COUNT; Value: 5.73; Range: 4.30-6.10; Units: M/mm3; Status: F Test: HEMOGLOBIN; Value: 15.4; Range: 14.0-18.0; Units: g/dl; Status: F Test: HEMATOCRIT; Value: 46.3; Range: 42.0-52.0; Units: %; Status: F Test: MEAN CORPUSCULAR VOLUME; Value: 80.7; Range: 80.0-96.0; Units: fl; Status: F Test: MEAN CORPUSCULAR HEMOGLOBIN; Value: 26.9; Range: 27.0-33.0; Abnormal: Below low normal; Units: pg; Status: F Test: MEAN CORPUSCULAR HGB CONC; Value: 33.3; Range: 32.0-36.5; Units: g/dl; Status: F Test: RED CELL DISTRIBUTION WIDTH; Value: 13.2; Range: 11.5-14.5; Units: %; Status: F Test: PLATELET COUNT, AUTOMATED; Value: 240; Range: 150-450; Units: k/mm3; Status: F Test: NEUTROPHILS %; Value: 59.9; Range: 36.0-66.0; Units: %; Status: F Test: LYMPH %; Value: 30.5; Range: 24.0-44.0; Units: %; Status: F Test: MONO %; Value: 5.0; Range: 0.0-5.0; Units: %; Status: F Test: EOS %; Value: 2.1; Range: 0.0-3.0; Units: %; Status: F Test: BASO %; Value: 0.6; Range: 0.0-1.0; Units: %; Status: F Test: LARGE UNSTAINED CELL %; Value: 1.9; Range: 0.0-4.0; Units: %; Status: F Test: NEUTROPHILS #; Value: 4.0; Range: 1.8-7.7; Units: K/mm3; Status: F Test: LYMPH #; Value: 2.0; Range: 1.5-4.5; Units: K/mm3; Status: F Test: MONO #; Value: 0.3; Range: 0.0-0.8; Units: K/mm3; Status: F Test: EOS #; Value: 0.1; Range: 0.0-0.50; Units: K/mm3; Status: F Test: BASO #; Value: 0.0; Range: 0.0-0.2; Units: K/mm3; Status: F Test: LARGE UNSTAINED CELL #; Value: 0.1; Range: 0.0-0.4; Units: K/mm3; Status: F Lab Order: Cardiac Injury Profile; SPEC'M 06/08/16 11:41 Test: CPK CREATINE PHOSPHOKINASE; Value: 194; Range: 39-308; Units: U/L; Status: F Test: CK-MB VALUE MASS; Value: 1.5; Range: 0.0-3.6; Units: NG/ML; Status: F Test: MB/CK RELATIVE INDEX; Value: 0.77; Range: < OR =4; Status: F Test Note: ; DIAGNOSIS CRITERIA MMB ng/ml Relative Index (RI) NON-AMI < or = 5 N/A [place] ZONE > 5 < or = 4 AMI > 5 > 4 Lab Order: Troponin; SPEC'M 06/08/16 11:41 Test: TROPONIN I; Value: < 0.02; Range: < 0.10; Units: NG/ML; Status: F Test Note: ; Troponin I Reference Interval for [place] LOCI: 99th Percentile= 0.00-0.045 ng/ml Risk Stratification: <= 0.10 ng/ml Decreased Risk for Adverse Clinical Events. 0.10-1.50 ng/ml Increased Risk for Adverse Clinical Events. Evaluation of additional criterion and/or repeat testing in 2-6 hours is suggested to rule out myocardial damage. >= 1.50 ng/ml Indicative of Myocardial Injury. Lab Order: VALPROIC ACID (DEPAKOTE); SPEC'M 06/08/16 11:41 Test: VALPROIC ACID (DEPAKOTE); Value: < 3.0; Range: 50.0-100.0; Abnormal: Below low normal; Units: UG/ML; Status: F Lab Order: CARBAMAZEPINE (TEGRETOL) LEVEL; SPEC'M 06/08/16 11:41 Test: CARBAMAZEPINE (TEGRETOL) LEVEL; Value: < 0.5; Range: 4.0-10.0; Abnormal: Below low normal; Units: UG/ML; Status: F Radiology Order: Chest, 2 View (pa\\E\\lat) Test: Chest, 2 View (pa\\E\\lat) REASON FOR EXAMINATION: Chest Pain; PA and lateral chest 06/08/2016; ; Indication: Chest pain; ; Comparison: CTA chest 06/03/2016 portable chest 06/03 17, PA and lateral chest; 01/09/2016; ; Findings: Cardiomediastinal silhouette is normal. Lungs are clear bilaterally.; There are mild degenerative changes in the thoracic spine.; ; Soft tissues are within normal limits .; ; Impression : no acute cardiopulmonary process or interval change; ; ; Signed by; Christy Bills MD 06/08/2016 01:05 P; Outcome: 13:45 Discharge ordered by Provider. ke 14:00 Discharge Assessment: Patient awake, alert and oriented x 3. No cognitive and/or jo3 functional deficits noted. Patient verbalized understanding of disposition instructions. patient administered narcotics - no. The following High Risk Discharge criteria are identified: None. Discharged to home ambulatory, with significant other. Condition: stable Condition: improved. Discharge instructions given to patient, Instructed on discharge instructions, follow up and referral plans. Demonstrated understanding of instructions, Pt was receptive of discharge instructions/ teaching. CT Study completed. Property sent home with patient. 14:17 Patient left the ED. jo3 Signatures: Dispatcher [employer] EDMS Jose Navarro, LAND DEVELOPER LAND DEVELOPER Kierra MancusoRN RN jo3 Jyoti Leon, INFECTION CONTROL COORDINATOR INFECTION CONTROL COORDINATOR ct3 Bri Vickers [place] cmb King, Margaret, RN RN rocky4 Jennifer Pacheco MTDD
--- NOTE | 2016-06-08 17:27 | REP ---
CT cervical spine without contrast 06/08/2016 Indication: chest pain Comparison: CT cervical spine 10/27/2014 at [facility], and 01/09/2013 performed at [facility]. Technique: 2 mm contiguous spiral axial sections performed through the cervical spine without contrast. Sagittal and coronal reconstructed images were also created and provided for interpretation. There is no evidence of acute cervical spine fracture. There is mild reversal of cervical lordosis in the upper cervical spine. As previously noted there is ossification of the posterior longitudinal ligament from mid C2 through the level of the posterior disc space at C 3-4, unchanged from prior studies. Moderate degenerative disc changes noted C3-4, and C5-6 with disc space narrowing, small posterior osteophytes at both levels and anterior marginal osteophytes at C4-5 and C5-6. There is also endplate sclerosis at C5-6. Prevertebral soft tissues at C2 are mildly generous in size but unchanged from prior studies. Impression 1. No acute fracture in the cervical spine. Soft tissues are stable in appearance. 2. Stable ossification of the posterior longitudinal ligament from mid C2 through C3-C4 disc space level. 3. Moderate degenerative disc changes C3-4 and C5-6 without change Signed by Christy Bills MD 06/08/2016 05:18 P
--- NOTE | 2016-06-09 07:21 | ECGEPIP ---
Stationary ECG Study [facility] - ED Test Date: 2016-06-08 Pat Name: MARCIN SANTOS Department: Room: - Gender: M Shade Bander: javi : 1955 Requested By: Tab Garcia Order Number: [id number] Reading MD: Consuelo Valenzuela Measurements Intervals [place] Rate: 60 P: 51 CA: 190 QRS: -21 QRSD: 77 T: 5 QT: 398 QTc: 400 Interpretive Statements SINUS RHYTHM SEPTAL MYOCARDIAL INFARCTION, PROBABLY OLD SIMILAR 06/03/16 Electronically Signed On 06-09-2016 7:21:06 EST by Consuelo Valenzuela
--- NOTE | 2016-06-10 15:18 | EDDOCDS ---
Physician Documentation [facility] Name: Ricardo Funez Age: 61 yrs Sex: Male : 1955 Arrival Date: 06/08/2016 Time: 09:48 Bed 14 Private MD: Nikkie Vega D Disposition: 06/08/16 13:45 Discharged to Home/Self Care. Impression: Chest pain, unspecified. - Condition is Stable. - Discharge Instructions: Nonspecific Chest Pain. - Medication Reconciliation, Local Pharmacy Hours form. - Follow up: Nikkie Vega; When: 2 - 3 days; Reason: Further diagnostic work-up, Continuance of care. - Problem is an ongoing problem. - Symptoms are unchanged. Historical: - Allergies: no known allergies; - Home Meds: 1. Depakote 500 mg Oral TbEC 1 tab 2 times per day (Last dose: 06/04/2016) 2. Flonase 50 mcg/actuation Nasal spsn 1 spray 2 times per day (Last dose: 06/08/2016) 3. Tegretol 200 mg Oral tab every 8 hours (Last dose: 06/04/2016) - PMHx: Chronic Back pain; Hypercholesterolemia; Hypertension; Kidney stones; Pancreatitis; Seizure Disorder; - PSHx: none; - Social history: Smoking status: Patient states former smoker of tobacco. No barriers to communication noted, The patient speaks fluent Macedonian. - Family history: Not pertinent. - : The pt / caregiver states he / she is not on anticoagulants. Home medication list is obtained from the patient. - Exposure Risk Screening:: None identified. Vital Signs: 06/08 09:49 BP 185 / 100; Pulse 65; Resp 16; Temp 96.9; Pulse Ox 99% ; Weight 108.86 kg / 240 lbs; cmb Height 5 ft. 5 in. (165.10 cm); Pain 8/10; 09:58 BP 160 / 90 (auto/); jo3 09:59 Pulse 60 MON; Pulse Ox 98% ; jo3 10:13 BP 159 / 95 (auto/); jo3 10:13 Pulse 62 MON; Pulse Ox 97% ; jo3 10:28 BP 158 / 90 (auto/); jo3 10:28 Pulse 64 MON; Pulse Ox 96% ; jo3 10:41 Pulse 64 MON; Pulse Ox 97% ; jo3 10:43 BP 139 / 84 (auto/); jo3 10:58 BP 142 / 83 (auto/); jo3 10:58 Pulse 60 MON; Pulse Ox 97% ; jo3 11:13 BP 147 / 83 (auto/); jo3 11:13 Pulse 60 MON; Pulse Ox 97% ; jo3 11:38 BP 142 / 76 (auto/); jo3 11:38 Pulse 66 MON; Pulse Ox 98% ; jo3 11:43 BP 139 / 67 (auto/); jo3 11:43 Pulse 60 MON; Pulse Ox 96% ; jo3 11:58 BP 159 / 71 (auto/); jo3 11:58 Pulse 62 MON; Pulse Ox 96% ; jo3 12:13 BP 158 / 70 (auto/); jo3 12:13 Pulse 62 MON; Pulse Ox 96% ; jo3 12:28 BP 172 / 83 (auto/); jo3 12:28 Pulse 74 MON; jo3 12:43 BP 143 / 75 (auto/); jo3 12:43 Pulse 64 MON; Pulse Ox 97% ; jo3 12:58 BP 129 / 84 (auto/); jo3 12:58 Pulse 58 MON; Pulse Ox 98% ; jo3 13:42 BP 155 / 89 (auto/); jo3 13:42 Pulse 60 MON; Resp 18; Temp 97.3(T); Pulse Ox 97% ; jo3 09:49 Body Mass Index 39.94 (108.86 kg, 165.10 cm) cmb MDM: 09:55 ECG WITH READING ER PHYS+CARDIAG ordered. EDMS 11:10 Curing Oven Attendant/Pulse Ox/q 30 min VS ordered. dwg 11:10 IV Saline Lock ordered. dwg 11:10 Rhythm Strip to chart ordered. dwg 11:10 Undress patient appropriately for examination ordered. dwg 11:11 Basic Metabolic Profile Ordered. EDMS 11:11 CBC with Diff Ordered. EDMS 11:11 Cardiac Injury Profile Ordered. EDMS 11:11 Troponin Ordered. EDMS 11:20 VALPROIC ACID (DEPAKOTE) Ordered. EDMS 12:10 CT Spine,Cervical W/o Contrast Ordered. EDMS 12:11 Chest, 2 View (pa\E\lat) Ordered. EDMS 12:12 CARBAMAZEPINE (TEGRETOL) LEVEL Ordered. EDMS 12:32 Basic Metabolic Profile Reviewed. ke 12:32 CBC with Diff Reviewed. ke 12:32 VALPROIC ACID (DEPAKOTE) Reviewed. ke 12:32 CARBAMAZEPINE (TEGRETOL) LEVEL Reviewed. ke 12:32 Cardiac Injury Profile Reviewed. ke 12:32 Troponin Reviewed. ke 13:04 [facility] Payment Agreement was scanned into [employer] and attached to record. jp5 13:04 Financial registration complete. jp5 13:10 CT Head Without Contrast Ordered. EDMS 06/09 09:37 T-Sheet-- Draft Copy was scanned into [employer] and attached to record. gb 09:37 ECG/EKG was scanned into [employer] and attached to record. gb Signatures: Dispatcher [employer] EDMS Lucien Colorado, RN RN Ileana Quiles, Elijah Reg gb Jose Navarro, WIREWORKER SUPERVISOR WIREWORKER SUPERVISOR Kierra Mancuso,RN RN jo3 Cait Anguiano, RN RN Jennifer Zamudio jp5 The chart was reviewed and I authenticate all verbal orders and agree with the evaluation and treatment provided.Corrections: (The following items were deleted from the chart) 06/08 11:20 11:15 VALPROIC ACID (DEPAKOTE)+LAB ordered. EDMS EDMS 12:12 12:10 CARBAMAZEPINE (TEGRETOL) LEVEL+LAB ordered. EDMS EDMS 12:39 11:11 ECG WITH READING ER PHYS+CARDIAG ordered. EDMS EDMS Attachments: 13:04 [facility] Payment Agreement jp5 06/09 09:37 T-Sheet-- Draft Copy gb 09:37 ECG/EKG gb Chart Complete MTDD
--- NOTE | 2016-06-10 15:18 | EDDOCDS ---
Physician Documentation [facility] Name: Ricardo Funez Age: 61 yrs Sex: Male : 1955 Arrival Date: 06/08/2016 Time: 09:48 Bed 14 Private MD: Nikkie Vega D Disposition: 06/08/16 13:45 Discharged to Home/Self Care. Impression: Chest pain, unspecified. - Condition is Stable. - Discharge Instructions: Nonspecific Chest Pain. - Medication Reconciliation, Local Pharmacy Hours form. - Follow up: Nikkie Vega; When: 2 - 3 days; Reason: Further diagnostic work-up, Continuance of care. - Problem is an ongoing problem. - Symptoms are unchanged. Historical: - Allergies: no known allergies; - Home Meds: 1. Depakote 500 mg Oral TbEC 1 tab 2 times per day (Last dose: 06/04/2016) 2. Flonase 50 mcg/actuation Nasal spsn 1 spray 2 times per day (Last dose: 06/08/2016) 3. Tegretol 200 mg Oral tab every 8 hours (Last dose: 06/04/2016) - PMHx: Chronic Back pain; Hypercholesterolemia; Hypertension; Kidney stones; Pancreatitis; Seizure Disorder; - PSHx: none; - Social history: Smoking status: Patient states former smoker of tobacco. No barriers to communication noted, The patient speaks fluent Kiswahili. - Family history: Not pertinent. - : The pt / caregiver states he / she is not on anticoagulants. Home medication list is obtained from the patient. - Exposure Risk Screening:: None identified. Vital Signs: 06/08 09:49 BP 185 / 100; Pulse 65; Resp 16; Temp 96.9; Pulse Ox 99% ; Weight 108.86 kg / 240 lbs; cmb Height 5 ft. 5 in. (165.10 cm); Pain 8/10; 09:58 BP 160 / 90 (auto/); jo3 09:59 Pulse 60 MON; Pulse Ox 98% ; jo3 10:13 BP 159 / 95 (auto/); jo3 10:13 Pulse 62 MON; Pulse Ox 97% ; jo3 10:28 BP 158 / 90 (auto/); jo3 10:28 Pulse 64 MON; Pulse Ox 96% ; jo3 10:41 Pulse 64 MON; Pulse Ox 97% ; jo3 10:43 BP 139 / 84 (auto/); jo3 10:58 BP 142 / 83 (auto/); jo3 10:58 Pulse 60 MON; Pulse Ox 97% ; jo3 11:13 BP 147 / 83 (auto/); jo3 11:13 Pulse 60 MON; Pulse Ox 97% ; jo3 11:38 BP 142 / 76 (auto/); jo3 11:38 Pulse 66 MON; Pulse Ox 98% ; jo3 11:43 BP 139 / 67 (auto/); jo3 11:43 Pulse 60 MON; Pulse Ox 96% ; jo3 11:58 BP 159 / 71 (auto/); jo3 11:58 Pulse 62 MON; Pulse Ox 96% ; jo3 12:13 BP 158 / 70 (auto/); jo3 12:13 Pulse 62 MON; Pulse Ox 96% ; jo3 12:28 BP 172 / 83 (auto/); jo3 12:28 Pulse 74 MON; jo3 12:43 BP 143 / 75 (auto/); jo3 12:43 Pulse 64 MON; Pulse Ox 97% ; jo3 12:58 BP 129 / 84 (auto/); jo3 12:58 Pulse 58 MON; Pulse Ox 98% ; jo3 13:42 BP 155 / 89 (auto/); jo3 13:42 Pulse 60 MON; Resp 18; Temp 97.3(T); Pulse Ox 97% ; jo3 09:49 Body Mass Index 39.94 (108.86 kg, 165.10 cm) cmb MDM: 09:55 ECG WITH READING ER PHYS+CARDIAG ordered. EDMS 11:10 Health Care Liaison/Pulse Ox/q 30 min VS ordered. dwg 11:10 IV Saline Lock ordered. dwg 11:10 Rhythm Strip to chart ordered. dwg 11:10 Undress patient appropriately for examination ordered. dwg 11:11 Basic Metabolic Profile Ordered. EDMS 11:11 CBC with Diff Ordered. EDMS 11:11 Cardiac Injury Profile Ordered. EDMS 11:11 Troponin Ordered. EDMS 11:20 VALPROIC ACID (DEPAKOTE) Ordered. EDMS 12:10 CT Spine,Cervical W/o Contrast Ordered. EDMS 12:11 Chest, 2 View (pa\E\lat) Ordered. EDMS 12:12 CARBAMAZEPINE (TEGRETOL) LEVEL Ordered. EDMS 12:32 Basic Metabolic Profile Reviewed. ke 12:32 CBC with Diff Reviewed. ke 12:32 VALPROIC ACID (DEPAKOTE) Reviewed. ke 12:32 CARBAMAZEPINE (TEGRETOL) LEVEL Reviewed. ke 12:32 Cardiac Injury Profile Reviewed. ke 12:32 Troponin Reviewed. ke 13:04 [facility] Payment Agreement was scanned into [employer] and attached to record. jp5 13:04 Financial registration complete. jp5 13:10 CT Head Without Contrast Ordered. EDMS 06/09 09:37 T-Sheet-- Draft Copy was scanned into [employer] and attached to record. gb 09:37 ECG/EKG was scanned into [employer] and attached to record. gb Signatures: Dispatcher [employer] EDMS Lucien Colorado, RN RN Ileana Quiles, Elijah Reg gb Jose Navarro, ARTIFICIAL MARBLE WORKER ARTIFICIAL MARBLE WORKER Kierra Mancuso,RN RN jo3 Cait Anguiano, RN RN Jennifer Zamudio jp5 The chart was reviewed and I authenticate all verbal orders and agree with the evaluation and treatment provided.Corrections: (The following items were deleted from the chart) 06/08 11:20 11:15 VALPROIC ACID (DEPAKOTE)+LAB ordered. EDMS EDMS 12:12 12:10 CARBAMAZEPINE (TEGRETOL) LEVEL+LAB ordered. EDMS EDMS 12:39 11:11 ECG WITH READING ER PHYS+CARDIAG ordered. EDMS EDMS Attachments: 13:04 [facility] Payment Agreement jp5 06/09 09:37 T-Sheet-- Draft Copy gb 09:37 ECG/EKG gb Chart Complete MTDD
--- NOTE | 2016-06-10 15:18 | EDDOCDS ---
Nurse's Notes [facility] Name: Ricardo Santos Age: 61 yrs Sex: Male : 1955 Arrival Date: 06/08/2016 Time: 09:48 Bed 14 Private MD: Nikkie Vega D Diagnosis: Chest pain, unspecified Presentation: 06/08 09:53 Presenting complaint: Patient states: chest pain onset 1 hour ago 01/04 , was seen here [facility] Sunday for samer states both arms and hands and left leg are tingling 4 days. Aspirin was not taken prior to arrival. Adult Sepsis Screening: The patient does not have new or worsening altered mentation. Patient's respiratory rate is less than 22. Systolic blood pressure is greater than 100. Patient has a qSOFA score of 0- Negative Sepsis Screen. Suicide/Homicide risk assessment- the patient denies having any suicidal and/or homicidal ideations and does not present with any other emotional, behavioral or mental health complaints. Status: Patient is not a customer service analyst or dependent. Transition of care: patient was not received from another setting of care. 09:53 Acuity: FRANCESCO Level 3 [facility] 09:53 Method Of Arrival: Walkin/Carried/Asstd [facility] 09:53 Red Flag criteria, patient assessed and taken directly to a bed. [facility] Triage Assessment: 09:56 General: Appears. [facility] 14:17 HIV screening NA for this visit Offered previously. jo3 Historical: - Allergies: no known allergies; - Home Meds: 1. Depakote 500 mg Oral TbEC 1 tab 2 times per day (Last dose: 06/04/2016) 2. Flonase 50 mcg/actuation Nasal spsn 1 spray 2 times per day (Last dose: 06/08/2016) 3. Tegretol 200 mg Oral tab every 8 hours (Last dose: 06/04/2016) - PMHx: Chronic Back pain; Hypercholesterolemia; Hypertension; Kidney stones; Pancreatitis; Seizure Disorder; - PSHx: none; - Social history: Smoking status: Patient states former smoker of tobacco. No barriers to communication noted, The patient speaks fluent [place]. - Family history: Not pertinent. - : The pt / caregiver states he / she is not on anticoagulants. Home medication list is obtained from the patient. - Exposure Risk Screening:: None identified. Screenin:59 Screening information is obtained from the patient. Fall risk: No risks identified. jo3 Assistance ADL's: requires no assistance with activities of daily living. Abuse/DV Screen: The patient / caregiver reports he/she is: not in a situation that causes fear, pain or injury. Nutritional screening: No deficits noted. Advance Directives: There is no active DNR order. home support is adequate. Assessment: 10:10 General: Appears in no apparent distress, comfortable, Behavior is anxious, jo3 cooperative, pleasant. Neurological: Level of Consciousness is awake, alert, Oriented to person, place, time. Neurological: Budget Accountant are equal bilaterally Moves all extremities. Gait is steady, Speech is normal, Facial symmetry appears normal, Pupils are PERRLA, Pt reports MARIJA upper extremity "tingling". This too has been consistent since his last visit to the ED. When asked, pt states that he has no new symptoms since his discharge from the ED last week . Cardiovascular: Capillary refill is brisk Heart tones S1 S2 present Rhythm is sinus rhythm No ectopy. Chest pain Pt denies CP at this time. Reports that he continues to have the same CP that he has been having since his last visit to the ED. States that CP, when it occurs, is sharp in nature and goes across anterior chest equally on both sides. Cannot remember if pain worsens with breathing or palpation. CP is not accompanied by SOB or any other symptoms when it occurs. . Respiratory: Airway is patent Respiratory effort is even, unlabored. Derm: Skin is pink, warm & dry. normal. 11:00 Reassessment: Patient appears in no apparent distress at this time. No significant jo3 changes noted at this time. Awaiting visit from ED provider. Aware of plan of care . 11:44 Reassessment:. General: Appears in no apparent distress, comfortable, Behavior is jo3 cooperative. General: Pt reports that he has some CP at this time. Provider notified. No ECG changes noted . Neurological: Level of Consciousness is awake, alert, Oriented to person, place, time. Respiratory: Airway is patent Respiratory effort is even, unlabored. Derm: Skin is pink, warm & dry. 12:40 Reassessment: Patient appears in no apparent distress at this time. Patient states jo3 feeling better. Patient states symptoms have improved. Denies pain at this time. Awaiting results for disposition. Aware of plan of care . 13:30 Reassessment: Patient appears in no apparent distress at this time. Patient denies pain jo3 at this time. Awaiting disposition at this time. Aware of plan of care . 14:00 General: Appears in no apparent distress, comfortable, Behavior is appropriate for age, jo3 cooperative. Neurological: No deficits noted. Respiratory: Airway is patent Respiratory effort is even, unlabored. Derm: Skin is pink, warm & dry. Vital Signs: 09:49 BP 185 / 100; Pulse 65; Resp 16; Temp 96.9; Pulse Ox 99% ; Weight 108.86 kg; Height 5 cmb ft. 5 in. (165.10 cm); Pain 8/10; 09:58 BP 160 / 90 (auto/); jo3 09:59 Pulse 60 MON; Pulse Ox 98% ; jo3 10:13 BP 159 / 95 (auto/); jo3 10:13 Pulse 62 MON; Pulse Ox 97% ; jo3 10:28 BP 158 / 90 (auto/); jo3 10:28 Pulse 64 MON; Pulse Ox 96% ; jo3 10:41 Pulse 64 MON; Pulse Ox 97% ; jo3 10:43 BP 139 / 84 (auto/); jo3 10:58 BP 142 / 83 (auto/); jo3 10:58 Pulse 60 MON; Pulse Ox 97% ; jo3 11:13 BP 147 / 83 (auto/); jo3 11:13 Pulse 60 MON; Pulse Ox 97% ; jo3 11:38 BP 142 / 76 (auto/); jo3 11:38 Pulse 66 MON; Pulse Ox 98% ; jo3 11:43 BP 139 / 67 (auto/); jo3 11:43 Pulse 60 MON; Pulse Ox 96% ; jo3 11:58 BP 159 / 71 (auto/); jo3 11:58 Pulse 62 MON; Pulse Ox 96% ; jo3 12:13 BP 158 / 70 (auto/); jo3 12:13 Pulse 62 MON; Pulse Ox 96% ; jo3 12:28 BP 172 / 83 (auto/); jo3 12:28 Pulse 74 MON; jo3 12:43 BP 143 / 75 (auto/); jo3 12:43 Pulse 64 MON; Pulse Ox 97% ; jo3 12:58 BP 129 / 84 (auto/); jo3 12:58 Pulse 58 MON; Pulse Ox 98% ; jo3 13:42 BP 155 / 89 (auto/); jo3 13:42 Pulse 60 MON; Resp 18; Temp 97.3(T); Pulse Ox 97% ; jo3 09:49 Body Mass Index 39.94 (108.86 kg, 165.10 cm) cmb Vitals: 09:49 Log In Time: June 08, 2016 at 09:48. cmb ED Course: 09:49 Patient visited by Yue Duran. cmb 09:49 Nikkie Vega is Private Physician. cmb 09:49 Patient moved to Waiting cmb 09:51 RN notified that patient meets Red Flag criteria. cmb 09:51 Patient moved to 14 cmb 09:55 Triage Initiated mk4 09:59 The patient / caregiver is instructed regarding the plan of care and ED course. Cardiac jo3 monitor on. Pulse ox on. NIBP on. 10:06 Patient visited by Bri Vickers. dem1 10:06 EKG done. (by ED staff). Reviewed by Tab Malik MD. dem1 10:45 Patient visited by Kierra Ness,TABITHA. jo3 11:24 Patient visited by Jyoti Leon PCA. ct3 11:30 Inserted saline lock: 18 gauge in right antecubital area. Labs drawn. (by ED staff). jo3 Sent per order to lab. 11:48 Patient visited by Kierra Ness,TABITHA. jo3 11:48 VALPROIC ACID (DEPAKOTE) Sent. jo3 11:48 Basic Metabolic Profile Sent. jo3 11:48 CBC with Diff Sent. jo3 11:48 Cardiac Injury Profile Sent. jo3 11:48 Troponin Sent. jo3 12:04 Jose Navarro FNP is PHCP. ke 12:04 Patient visited by Jose Navarro FNP. ke 12:04 Patient visited by Jose Navarro FNP. ke 12:14 CARBAMAZEPINE (TEGRETOL) LEVEL Sent. jo3 12:31 Patient visited by Jose Navarro FNP. ke 13:04 [facility] Payment Agreement was scanned into [employer] and attached to record. jp5 13:05 Patient visited by Jose Navarro FNP. ke 13:34 Patient visited by Jose Navarro FNP. ke 13:42 Discontinued IV lock intact, bleeding controlled, pressure dressing applied, No jo3 redness/swelling at site. No procedures done that require assistance. 13:45 Nikkie Vega is Referral Physician. ke 13:45 Chest, 2 View (pa\\E\\lat) Returned. EDMS 14:14 Patient visited by Kierra Ness,TABITHA. jo3 14:28 CT Head Without Contrast Returned. EDMS 17:33 CT Spine,Cervical W/o Contrast Returned. EDMS 06/09 07:41 EKG-ADULT Returned. EDMS 09:37 T-Sheet-- Draft Copy was scanned into [employer] and attached to record. gb 09:37 ECG/EKG was scanned into [employer] and attached to record. gb Order Results: Lab Order: Basic Metabolic Profile; SPEC'M 06/08/16 11:41 Test: GLUCOSE, FASTING; Value: 79; Range: 80-110; Abnormal: Below low normal; Units: MG/DL; Status: F Test: BLOOD UREA NITROGEN; Value: 19; Range: 7-18; Abnormal: Above high normal; Units: MG/DL; Status: F Test: CREATININE FOR GFR; Value: 0.82; Range: 0.70-1.30; Units: MG/DL; Status: F Test: GLOMERULAR FILTRATION RATE; Value: > 60.0; Range: >49; Status: F Test: SODIUM LEVEL; Value: 140; Range: 136-145; Units: MEQ/L; Status: F Test: POTASSIUM SERUM; Value: 5.0; Range: 3.5-5.1; Units: MEQ/L; Status: F Test: CHLORIDE LEVEL; Value: 105; Range: 98-107; Units: MEQ/L; Status: F Test: CARBON DIOXIDE LEVEL; Value: 30; Range: 21-32; Units: MEQ/L; Status: F Test: ANION GAP; Value: 5; Range: 8-16; Abnormal: Below low normal; Units: MEQ/L; Status: F Test: CALCIUM LEVEL; Value: 8.7; Range: 8.8-10.2; Abnormal: Below low normal; Units: MG/DL; Status: F Test Note: ; Units are mL/min/1.73 m2 Chronic Kidney Disease Staging per NKF: Stage I & II GFR >=60 Normal to Mildly Decreased Stage III GFR 30-59 Moderately Decreased Stage IV GFR 15-29 Severely Decreased Stage V GFR <15 Very Little GFR Left ESRD GFR <15 on PHYSICIAN'S ASSISTANT Lab Order: CBC with Diff; SPEC'M 06/08/16 11:41 Test: WHITE BLOOD COUNT; Value: 6.6; Range: 4.0-10.0; Units: K/mm3; Status: F Test: RED BLOOD COUNT; Value: 5.73; Range: 4.30-6.10; Units: M/mm3; Status: F Test: HEMOGLOBIN; Value: 15.4; Range: 14.0-18.0; Units: g/dl; Status: F Test: HEMATOCRIT; Value: 46.3; Range: 42.0-52.0; Units: %; Status: F Test: MEAN CORPUSCULAR VOLUME; Value: 80.7; Range: 80.0-96.0; Units: fl; Status: F Test: MEAN CORPUSCULAR HEMOGLOBIN; Value: 26.9; Range: 27.0-33.0; Abnormal: Below low normal; Units: pg; Status: F Test: MEAN CORPUSCULAR HGB CONC; Value: 33.3; Range: 32.0-36.5; Units: g/dl; Status: F Test: RED CELL DISTRIBUTION WIDTH; Value: 13.2; Range: 11.5-14.5; Units: %; Status: F Test: PLATELET COUNT, AUTOMATED; Value: 240; Range: 150-450; Units: k/mm3; Status: F Test: NEUTROPHILS %; Value: 59.9; Range: 36.0-66.0; Units: %; Status: F Test: LYMPH %; Value: 30.5; Range: 24.0-44.0; Units: %; Status: F Test: MONO %; Value: 5.0; Range: 0.0-5.0; Units: %; Status: F Test: EOS %; Value: 2.1; Range: 0.0-3.0; Units: %; Status: F Test: BASO %; Value: 0.6; Range: 0.0-1.0; Units: %; Status: F Test: LARGE UNSTAINED CELL %; Value: 1.9; Range: 0.0-4.0; Units: %; Status: F Test: NEUTROPHILS #; Value: 4.0; Range: 1.8-7.7; Units: K/mm3; Status: F Test: LYMPH #; Value: 2.0; Range: 1.5-4.5; Units: K/mm3; Status: F Test: MONO #; Value: 0.3; Range: 0.0-0.8; Units: K/mm3; Status: F Test: EOS #; Value: 0.1; Range: 0.0-0.50; Units: K/mm3; Status: F Test: BASO #; Value: 0.0; Range: 0.0-0.2; Units: K/mm3; Status: F Test: LARGE UNSTAINED CELL #; Value: 0.1; Range: 0.0-0.4; Units: K/mm3; Status: F Lab Order: Cardiac Injury Profile; SPEC'M 06/08/16 11:41 Test: CPK CREATINE PHOSPHOKINASE; Value: 194; Range: 39-308; Units: U/L; Status: F Test: CK-MB VALUE MASS; Value: 1.5; Range: 0.0-3.6; Units: NG/ML; Status: F Test: MB/CK RELATIVE INDEX; Value: 0.77; Range: < OR =4; Status: F Test Note: ; DIAGNOSIS CRITERIA MMB ng/ml Relative Index (RI) NON-AMI < or = 5 N/A [place]RAEL ZONE > 5 < or = 4 AMI > 5 > 4 Lab Order: Troponin; SPEC'M 06/08/16 11:41 Test: TROPONIN I; Value: < 0.02; Range: < 0.10; Units: NG/ML; Status: F Test Note: ; Troponin I Reference Interval for [employer] LOCI: 99th Percentile= 0.00-0.045 ng/ml Risk Stratification: <= 0.10 ng/ml Decreased Risk for Adverse Clinical Events. 0.10-1.50 ng/ml Increased Risk for Adverse Clinical Events. Evaluation of additional criterion and/or repeat testing in 2-6 hours is suggested to rule out myocardial damage. >= 1.50 ng/ml Indicative of Myocardial Injury. 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; : 1955 Requested By: Tab Garcia; Order Number: [id number] Reading MD: Consuelo Valenzuela; Measurements; Intervals [place]; Rate: 60 P: 51; MT: 190 QRS: -21; QRSD: 77 T: 5; QT: 398; QTc: 400; Interpretive Statements; SINUS RHYTHM; SEPTAL MYOCARDIAL INFARCTION, PROBABLY OLD; SIMILAR 06/03/16; Electronically Signed On 06-09-2016 7:21:06 EST by Consuelo Valenzuela; Radiology Order: Chest, 2 View (pa\\E\\lat) Test: Chest, 2 View (pa\\E\\lat) REASON FOR EXAMINATION: Chest Pain; PA and lateral chest 06/08/2016; ; Indication: Chest pain; ; Comparison: CTA chest 06/03/2016 portable chest 06/03 16, PA and lateral chest; 01/09/2016; ; Findings: Cardiomediastinal silhouette is normal. Lungs are clear bilaterally.; There are mild degenerative changes in the thoracic spine.; ; Soft tissues are within normal limits .; ; Impression : no acute cardiopulmonary process or interval change; ; ; Signed by; Christy Bills MD 06/08/2016 01:05 P; Radiology Order: CT Spine,Cervical W/o Contrast Test: CT Spine,Cervical W/o Contrast REASON FOR EXAMINATION: Chest Pain; CT cervical spine without contrast 06/08/2016; ; Indication: chest pain; ; Comparison: CT cervical spine 10/27/2014 at [facility], and 01/09/2013 performed at; [facility].; ; Technique: 2 mm contiguous spiral axial sections performed through the cervical; spine without contrast. Sagittal and coronal reconstructed images were also; created and provided for interpretation.; ; There is no evidence of acute cervical spine fracture. There is mild reversal of; cervical lordosis in the upper cervical spine. As previously noted there is; ossification of the posterior longitudinal ligament from mid C2 through the level; of the posterior disc space at C 3-4, unchanged from prior studies.; ; Moderate degenerative disc changes noted C3-4, and C5-6 with disc space; narrowing, small posterior osteophytes at both levels and anterior marginal; osteophytes at C4-5 and C5-6. There is also endplate sclerosis at C5-6.; Prevertebral soft tissues at C2 are mildly generous in size but unchanged from; prior studies.; ; Impression; 1. No acute fracture in the cervical spine. Soft tissues are stable in; appearance.; 2. Stable ossification of the posterior longitudinal ligament from mid C2; through C3-C4 disc space level.; 3. Moderate degenerative disc changes C3-4 and C5-6 without change; ; ; Signed by; Christy Bills MD 06/08/2016 05:18 P; Radiology Order: CT Head Without Contrast Test: CT Head Without Contrast REASON FOR EXAMINATION: neurapathy; CT HEAD WITHOUT CONTRAST:; ; HISTORY: Neuropathy.; ; COMPARISON: 02/05/2016.; ; Areas of decreased attentuation are present in the periventricular white matter.; This represents small vessel ischemic disease. There is no intraparenchymal; hemorrhage, mass, or midline shift. The ventricular system is normal in; appearance. The subarachnoid space in the posterior fossa is dilated consistent; with minimal cerebellar volume loss. There is no extracerebral collection. The; visualized sinuses are clear.; ; IMPRESSION:; ; 1. Small vessel ischemic disease.; ; 2. Minimal cerebellar volume loss.; ; ; Signed by; Placido Garrett MD 06/08/2016 02:21 P; Outcome: 06/08 13:45 Discharge ordered by Provider. ke 14:00 Discharge Assessment: Patient awake, alert and oriented x 3. No cognitive and/or jo3 functional deficits noted. Patient verbalized understanding of disposition instructions. patient administered narcotics - no. The following High Risk Discharge criteria are identified: None. Discharged to home ambulatory, with significant other. Condition: stable Condition: improved. Discharge instructions given to patient, Instructed on discharge instructions, follow up and referral plans. Demonstrated understanding of instructions, Pt was receptive of discharge instructions/ teaching. CT Study completed. Property sent home with patient. 14:17 Patient left the ED. jo3 Signatures: Dispatcher [employer] EDMS Ileana Akers, Reg Reg Jose Gamez, DARKROOM TECHNICIAN DARKROOM TECHNICIAN Kierra Mancuso,RN RN jo3 Jyoti Leon, FRUIT CUTTER FRUIT CUTTER ct3 Bri Vickers [place] cmb King, Margaret, RN RN mk4 Jennifer Pacheco jp5 Chart Complete [facility]ERIS[facility]
== END 2016-06-08 14:17 | disposition home or self-care (01) ==
LOC: M ED 09:48
DX: R07.89 Other chest pain (principal); I10 Essential (primary) hypertension; M54.9 Dorsalgia, unspecified; G89.29 Other chronic pain; Z87.442 Personal history of urinary calculi; Z87.891 Personal history of nicotine dependence; E78.00 Pure hypercholesterolemia, unspecified; G40.909 Epilepsy, unspecified, not intractable, without status epilepticus; Z87.19 Personal history of other diseases of the digestive system; Z79.899 Other long term (current) drug therapy

== ENCOUNTER 2016-06-13 06:18 | Emergency (ER) | payer OTHER ==
[2016-06-13 06:53] LABS: BASO % 0.3 % (0.0-1.0); EOS # 0.1 K/mm3 (0.0-0.50); LARGE UNSTAINED CELL # 0.1 K/mm3 (0.0-0.4); LARGE UNSTAINED CELL % 1.4 % (0.0-4.0); LYMPH # 1.5 K/mm3 (1.5-4.5); LYMPH % 26.6 % (24.0-44.0); MEAN CORPUSCULAR HGB CONC 33.5 g/dl (32.0-36.5); MEAN CORPUSCULAR VOLUME 80.7 fl (80.0-96.0); MONO # 0.2 K/mm3 (0.0-0.8); MONO % 3.3 % (0.0-5.0); NEUTROPHILS # 3.8 K/mm3 (1.8-7.7); NEUTROPHILS % 66.3 % (36.0-66.0); PLATELET COUNT, AUTOMATED 258 k/mm3 (150-450); RED CELL DISTRIBUTION WIDTH 13.3 % (11.5-14.5); WHITE BLOOD COUNT 5.8 K/mm3 (4.0-10.0)
[2016-06-13 07:16] LABS: ANION GAP 6 MEQ/L (8-16); BLOOD UREA NITROGEN 18 MG/DL (7-18); CALCIUM LEVEL 8.6 MG/DL (8.8-10.2); CARBON DIOXIDE LEVEL 27 MEQ/L (21-32); CHLORIDE LEVEL 110 MEQ/L (98-107); CREATININE FOR GFR 0.87 MG/DL (0.70-1.30); GLOMERULAR FILTRATION RATE > 60.0 (>49); GLUCOSE, FASTING 91 MG/DL (80-110); POTASSIUM SERUM 4.4 MEQ/L (3.5-5.1); SODIUM LEVEL 143 MEQ/L (136-145)
[2016-06-13 07:28] LABS: ALBUMIN 3.7 GM/DL (3.2-5.2); ALBUMIN/GLOBULIN RATIO 1.12 (1.00-1.93); ALKALINE PHOSPHATASE 94 U/L (45-117); ALT/SGPT 42 U/L (12-78); AST/SGOT 17 U/L (15-37); BILIRUBIN,DIRECT < 0.1 MG/DL (0.0-0.2); BILIRUBIN,TOTAL 0.3 MG/DL (0.2-1.0); CARBAMAZEPINE (TEGRETOL) LEVEL 9.4 UG/ML (4.0-10.0)
[2016-06-13] MEDS ORDERED: ACETAMINOPHEN 325 MG TAB As Ordered ONE (08:49)
--- NOTE | 2016-06-13 09:31 | EDDOCDS ---
Nurse's Notes [facility] Name: Ricardo Funez Age: 61 yrs Sex: Male : 1955 Arrival Date: 06/13/2016 Time: 06:18 Bed 11 Private MD: Nikkie Vega D Diagnosis: Chest pain, unspecified;Paresthesia of skin-suspect cervical radilcular symptoms and/or bilateral Carpal Tunnel, Cubital Tunnel Syndromes;Gastro-esophageal reflux disease with esophagitis;Spinal stenosis, cervical region Presentation: 06/13 06:24 Presenting complaint: EMS states: pt started having chest pain at approx 5:30 this AM, mlc described as stabbing. pt reports feeling dizzy and having left upper quad pain. 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 Adult Sepsis Screening: The patient does not have new or worsening altered mentation. Patient's respiratory rate is less than 22. Systolic blood pressure is greater than 100. Patient has a qSOFA score of 0- Negative Sepsis Screen. Status: Patient is not a equipment service associate or dependent. Transition of care: patient was not received from another setting of care. 06:24 Acuity: [place] Level 2 [facility] [place]:24 Method Of Arrival: Amb[place] [facility] [place] 06:28 Suicide/Homicide risk assessment- the patient denies having any suicidal and/or mlc homicidal ideations and does not present with any other emotional, behavioral or mental health complaints. 06:56 Care prior to arrival: Medications administered prior to arrival: ASA, NTG. mlc Triage Assessment: 06:28 General: Appears in no apparent distress, comfortable, Behavior is cooperative, quiet. mlc Pain: Location: xyphoid area Pain currently is 7 out of 10 on a pain scale. HIV screening NA for this visit Offered previously. The patient is triaged at the bedside. See Assessment in Nurses Notes section of ED record. Neurological: Level of Consciousness is awake, alert, obeys commands, Oriented to person, place, time. Cardiovascular: Rhythm is sinus rhythm Chest pain is described as Pain is 7 out of 10 on a pain scale. radiates Does not radiate. episodes are continuous began 1 hour prior to arrival. Derm: Skin is normal. Historical: - Allergies: No known drug Allergies; - Home Meds: 1. Depakote 500 mg Oral TbEC 1 tab 2 times per day (Last dose: 06/12/2016 18:30) 2. Tegretol 200 mg Oral tab every 12 hours (Last dose: 06/12/2016 18:30) 3. Flonase 50 mcg/actuation Nasal spsn 1 spray 2 times per day (Last dose: 06/12/2016 18:30) - PMHx: Chronic Back pain; Hypercholesterolemia; Hypertension; Kidney stones; Pancreatitis; Seizure Disorder; - PSHx: back; - The history from nurses notes was reviewed: and I agree with what is documented. - Social history: Smoking status: Patient states was never smoker of tobacco. No barriers to communication noted, The patient speaks fluent Wolof. - Family history: Not pertinent. - : The pt / caregiver states he / she is not on anticoagulants. Home medication list is obtained from the patient, [employer] import data. - Hospitalizations: : No recent hospitalization is reported. - Exposure Risk Screening:: None identified. - Immunization history:: All immunizations up-to-date. - Social history:: the patient is a non-smoker, the patient does not drink alcohol. Screenin:29 Screening information is obtained from the patient. Fall risk: No risks identified. mlc Assistance ADL's: requires no assistance with activities of daily living. Abuse/DV Screen: The patient / caregiver reports he/she is: not in a situation that causes fear, pain or injury. Nutritional screening: No deficits noted. Advance Directives: Currently, there is a health care proxy, Santa Funez, . home support is adequate. Assessment: 06:47 General: Appears in no apparent distress, comfortable, Behavior is appropriate for age, mlc cooperative. Pain: Location: xyphoid area Pain currently is 7 out of 10 on a pain scale. Neurological: Level of Consciousness is awake, alert, Oriented to person, place, time. Cardiovascular: Heart tones S1 S2 present Edema is 1+ to left ankle Rhythm is sinus rhythm. Respiratory: Airway is patent Respiratory effort is even, unlabored, Respiratory pattern is regular, Breath sounds are clear bilaterally. Reports cough that is. Derm: Skin is normal. 07:27 General: Appears in no apparent distress, comfortable, Behavior is appropriate for age, js13 cooperative. Pain: Pain currently is 7 out of 10 on a pain scale. Pain: Location: head and chest. Neurological: Level of Consciousness is awake, alert. Neurological: Level of Consciousness is awake, alert. Cardiovascular: Rhythm is sinus rhythm Chest pain is described as Pain is 7 out of 10 on a pain scale. quality is stabbing, radiates Does not radiate. Respiratory: Airway is patent Respiratory effort is even, unlabored, Respiratory pattern is regular, symmetrical. Derm: Skin is pink, warm & dry. 08:12 General: Appears in no apparent distress, comfortable, Behavior is appropriate for age, js13 cooperative. Neurological: Level of Consciousness is awake, alert. Cardiovascular: Rhythm is sinus rhythm Chest pain is described as Pain is 5 out of 10 on a pain scale. Respiratory: Airway is patent Respiratory effort is even, unlabored, Respiratory pattern is regular, symmetrical. Derm: Skin is pink, warm & dry. 08:45 Adult Sepsis Screening: The patient does not have new or worsening altered mentation. js13 Patient's respiratory rate is less than 22. Systolic blood pressure is greater than 100. Patient has a qSOFA score of 0- Negative Sepsis Screen. 09:27 General: Appears in no apparent distress, comfortable, Behavior is appropriate for age, js13 cooperative. Pain: Pain currently is 4 out of 10 on a pain scale. Neurological: Level of Consciousness is awake, alert. Cardiovascular: Rhythm is sinus rhythm Chest pain is described as Pain is 3 out of 10 on a pain scale. Respiratory: Airway is patent Respiratory effort is even, unlabored, Respiratory pattern is regular, symmetrical. Derm: Skin is pink, warm & dry. Vital Signs: 06:26 BP 117 / 67; Pulse 81; Resp 18; Temp 97.6(O); Pulse Ox 96% on R/A; Weight 113.4 kg (R); jarad Height 5 ft. 5 in. (165.10 cm) (R); Pain 7/10; 07:03 BP 123 / 69 (auto/); 13 07:03 Pulse 66 MON; Resp 16; Pulse Ox 98% on 2 lpm NC; 07:18 BP 108 / 56 (auto/); 07:18 Pulse 68 MON; Resp 16; Pulse Ox 96% on 2 lpm NC; 13 07:33 BP 126 / 62 (auto/); 13 07:33 Pulse 66 MON; Resp 16; Pulse Ox 97% on 2 lpm NC; 13 07:48 BP 126 / 70 (auto/); 07:48 Pulse 66 MON; Resp 16; Pulse Ox 96% on 2 lpm NC; js13 08:18 BP 132 / 80 (auto/); js13 08:18 Pulse 70 MON; Resp 16; Pulse Ox 98% on 2 lpm NC; js13 08:33 BP 135 / 62 (auto/); js13 08:33 Pulse 66 MON; Resp 16; Pulse Ox 98% on 2 lpm NC; js13 08:48 BP 137 / 70 (auto/); js13 08:48 Pulse 64 MON; Resp 16; Pulse Ox 98% on 2 lpm NC; js13 09:03 BP 127 / 86 (auto/); js13 09:03 Pulse 68 MON; Resp 16; Pulse Ox 99% on 2 lpm NC; js13 09:18 BP 124 / 64 (auto/); js13 09:18 Pulse 66 MON; Resp 16; Temp 97.9(O); Pulse Ox 99% on 2 lpm NC; Pain 4/10; js13 09:29 Pain 4/10; js13 06:26 Body Mass Index 41.60 (113.40 kg, 165.10 cm) jarad Vitals: 06:28 Log In Time N/A - ambulance arrival. [facility] [place] Course: 06:20 Patient visited by Farhana Massey, Plane Tender. ml3 06:20 Nikkie Vega is Private Physician. ml3 06:20 Michelle Mcdowell,RN is Primary Nurse. ml3 06:20 Patient moved to Waiting ml3 06:20 Patient moved to 11 ml3 06:25 Triage Initiated mlc 06:26 Patient visited by Patricia Ross PCA. ajrad 06:26 Pt greeted and oriented to ED. Patient advised of names of staff involved in care, jarad location of call jean, wait times and NPO status. Patient has correct armband on for positive identification. Placed in gown. Bed in low position. Call light in reach. Side rails up X2. electronic device monitor on. Pulse ox on. NIBP on. 06:30 Patient visited by Michelle Mcdowell RN. mlc 06:30 EKG done. (by ED staff). Reviewed by Jorge Guillen DO. cln 06:31 Patient visited by Nancy Shepherd PCA. cln 06:46 Basic Metabolic Profile Sent. mlc 06:46 CBC with Diff Sent. mlc 06:46 Cardiac Injury Profile Sent. mlc 06:46 Troponin Sent. mlc 06:47 Maintain field IV. Site clean & dry. Gauge & site: 22g left hand. . mlc 06:49 Patient visited by Michelle Mcdowell RN. mlc 07:01 Kierra Soria,RN is Primary Nurse. js13 07:02 Tab Malik MD is Attending Physician. pc 07:05 Patient visited by Tab Malik MD. pc 07:18 The patient / caregiver is instructed regarding the plan of care and ED course. js13 07:18 Inserted saline lock: 18 gauge in right antecubital area and blood collected. The js13 patient tolerated the procedure well. No procedures done that require assistance. Labs drawn. (by ED staff). Sent per order to lab. 07:27 LIVER PROFILE Sent. js13 07:30 Patient visited by Kierra Soria RN. js13 07:30 O2 via nasal cannula \T\ 2L/min. js13 08:14 Patient visited by Kierra Soria RN. js13 08:45 Patient visited by Jyoti Leon PCA. ct3 08:55 [facility] Payment Agreement was scanned into [employer] and attached to record. lg 09:17 Nikkie Vega is Referral Physician. pc 09:17 Toby Jack is Referral Physician. pc 09:17 Latoya Dinero MD is Referral Physician. pc 09:18 Trino Chirinos MD is Referral Physician. pc 09:28 Discontinued IV lock intact, bleeding controlled, pressure dressing applied, No js13 redness/swelling at site. Administered Medications: 08:30 Drug: Acetaminophen 650 mg [acetaminophen 325 mg tablet (2 tabs)] Route: PO; js13 09:29 Follow up: Pain 4/10 Adult; Response: Pain is decreased js13 Order Results: Lab Order: Basic Metabolic Profile; SPEC'M 06/13/16 06:44 Test: GLUCOSE, FASTING; Value: 91; Range: 80-110; Units: MG/DL; Status: F Test: BLOOD UREA NITROGEN; Value: 18; Range: 7-18; Units: MG/DL; Status: F Test: CREATININE FOR GFR; Value: 0.87; Range: 0.70-1.30; Units: MG/DL; Status: F Test: GLOMERULAR FILTRATION RATE; Value: > 60.0; Range: >49; Status: F Test: SODIUM LEVEL; Value: 143; Range: 136-145; Units: MEQ/L; Status: F Test: POTASSIUM SERUM; Value: 4.4; Range: 3.5-5.1; Units: MEQ/L; Status: F Test: CHLORIDE LEVEL; Value: 110; Range: 98-107; Abnormal: Above high normal; Units: MEQ/L; Status: F Test: CARBON DIOXIDE LEVEL; Value: 27; Range: 21-32; Units: MEQ/L; Status: F Test: ANION GAP; Value: 6; Range: 8-16; Abnormal: Below low normal; Units: MEQ/L; Status: F Test: CALCIUM LEVEL; Value: 8.6; Range: 8.8-10.2; Abnormal: Below low normal; Units: MG/DL; Status: F Test Note: ; Units are mL/min/1.73 m2 Chronic Kidney Disease Staging per NKF: Stage I & II GFR >=60 Normal to Mildly Decreased Stage III GFR 30-59 Moderately Decreased Stage IV GFR 15-29 Severely Decreased Stage V GFR <15 Very Little GFR Left ESRD GFR <15 on FITTER MACHINIST Lab Order: CBC with Diff; SPEC'M 06/13/16 06:44 Test: WHITE BLOOD COUNT; Value: 5.8; Range: 4.0-10.0; Units: K/mm3; Status: F Test: RED BLOOD COUNT; Value: 5.54; Range: 4.30-6.10; Units: M/mm3; Status: F Test: HEMOGLOBIN; Value: 15.0; Range: 14.0-18.0; Units: g/dl; Status: F Test: HEMATOCRIT; Value: 44.7; Range: 42.0-52.0; Units: %; Status: F Test: MEAN CORPUSCULAR VOLUME; Value: 80.7; Range: 80.0-96.0; Units: fl; Status: F Test: MEAN CORPUSCULAR HEMOGLOBIN; Value: 27.0; Range: 27.0-33.0; Units: pg; Status: F Test: MEAN CORPUSCULAR HGB CONC; Value: 33.5; Range: 32.0-36.5; Units: g/dl; Status: F Test: RED CELL DISTRIBUTION WIDTH; Value: 13.3; Range: 11.5-14.5; Units: %; Status: F Test: PLATELET COUNT, AUTOMATED; Value: 258; Range: 150-450; Units: k/mm3; Status: F Test: NEUTROPHILS %; Value: 66.3; Range: 36.0-66.0; Abnormal: Above high normal; Units: %; Status: F Test: LYMPH %; Value: 26.6; Range: 24.0-44.0; Units: %; Status: F Test: MONO %; Value: 3.3; Range: 0.0-5.0; Units: %; Status: F Test: EOS %; Value: 2.0; Range: 0.0-3.0; Units: %; Status: F Test: BASO %; Value: 0.3; Range: 0.0-1.0; Units: %; Status: F Test: LARGE UNSTAINED CELL %; Value: 1.4; Range: 0.0-4.0; Units: %; Status: F Test: NEUTROPHILS #; Value: 3.8; Range: 1.8-7.7; Units: K/mm3; Status: F Test: LYMPH #; Value: 1.5; Range: 1.5-4.5; Units: K/mm3; Status: F Test: MONO #; Value: 0.2; Range: 0.0-0.8; Units: K/mm3; Status: F Test: EOS #; Value: 0.1; Range: 0.0-0.50; Units: K/mm3; Status: F Test: BASO #; Value: 0.0; Range: 0.0-0.2; Units: K/mm3; Status: F Test: LARGE UNSTAINED CELL #; Value: 0.1; Range: 0.0-0.4; Units: K/mm3; Status: F Lab Order: Cardiac Injury Profile; SPEC'M 06/13/16 06:44 Test: CPK CREATINE PHOSPHOKINASE; Value: 118; Range: 39-308; Units: U/L; Status: F Test: CK-MB VALUE MASS; Value: 1.4; Range: 0.0-3.6; Units: NG/ML; Status: F Test: MB/CK RELATIVE INDEX; Value: 1.18; Range: < OR =4; Status: F Test Note: ; DIAGNOSIS CRITERIA MMB ng/ml Relative Index (RI) NON-AMI < or = 5 N/A [place] > 5 < or = 4 AMI > 5 > 4 Lab Order: Troponin; [facility] 06/13/16 06:44 Test: TROPONIN I; Value: < 0.02; Range: < 0.10; Units: NG/ML; Status: F Test Note: ; Troponin I Reference Interval for [facility] LOCI: 99th Percentile= 0.00-0.045 ng/ml Risk Stratification: <= 0.10 ng/ml Decreased Risk for Adverse Clinical Events. 0.10-1.50 ng/ml Increased Risk for Adverse Clinical Events. Evaluation of additional criterion and/or repeat testing in 2-6 hours is suggested to rule out myocardial damage. >= 1.50 ng/ml Indicative of Myocardial Injury. Lab Order: Lipase; SPEC' 06/13/16 06:44 Test: LIPASE; Value: 276; Range: 73-393; Units: U/L; Status: F Lab Order: DEPAKOTE; SPEC' 06/13/16 06:44 Test: VALPROIC ACID (DEPAKOTE); Value: 77.8; Range: 50.0-100.0; Units: UG/ML; Status: F Lab Order: Tegretol Level; [facility] 06/13/16 06:44 Test: CARBAMAZEPINE (TEGRETOL) LEVEL; Value: 9.4; Range: 4.0-10.0; Units: UG/ML; Status: F Lab Order: LIVER PROFILE; SPEC' 06/13/16 06:44 Test: AST/SGOT; Value: 17; Range: 15-37; Units: U/L; Status: F Test: ALT/SGPT; Value: 42; Range: 12-78; Units: U/L; Status: F Test: ALKALINE PHOSPHATASE; Value: 94; Range: 45-117; Units: U/L; Status: F Test: BILIRUBIN,TOTAL; Value: 0.3; Range: 0.2-1.0; Units: MG/DL; Status: F Test: BILIRUBIN,DIRECT; Value: < 0.1; Range: 0.0-0.2; Units: MG/DL; Status: F Test: TOTAL PROTEIN; Value: 7.0; Range: 6.4-8.2; Units: GM/DL; Status: F Test: ALBUMIN; Value: 3.7; Range: 3.2-5.2; Units: GM/DL; Status: F Test: ALBUMIN/GLOBULIN RATIO; Value: 1.12; Range: 1.00-1.93; Status: F Outcome: 09:19 Discharge ordered by Provider. 09:28 Discharge Assessment: Patient awake, alert and oriented x 3. No cognitive and/or 13 functional deficits noted. Patient verbalized understanding of disposition instructions. patient administered narcotics - no. The following High Risk Discharge criteria are identified: None. Discharged to home ambulatory, with significant other. Condition: stable. Discharge instructions given to patient, Instructed on discharge instructions, follow up and referral plans. medication usage, Demonstrated understanding of instructions, medications, Pt was receptive of discharge instructions/ teaching. Prescriptions given X 1. No special radiology studies were completed. Property :Personal belongings accompany Pt. 09:30 Patient left the ED. js13 Signatures: Tab Malik MD MD Shan Minor, Reg Reg lg Bryson, MarleenJustoAna Maria, Plane Tender Unit ml3 Patricia Ross, CHORUS DANCER CHORUS DANCER jarad Jyoti Leon, CHORUS DANCER CHORUS DANCER ct3 Kierra Soria,RN RN js13 Michelle Mcdowell RN RN mlc Nichols, Crystal, CHORUS DANCER CHORUS DANCER cln Corrections: (The following items were deleted from the chart) 07: 06:28 Home Meds: Depakote 500 mg Oral TbEC 1 tab 2 times per day; [facility] [place] js13 : 06:28 Home Meds: Tegretol 200 mg Oral tab every 12 hours; [facility] [place] js13 : 06:28 Home Meds: Flonase 50 mcg/actuation Nasal spsn 1 spray 2 times per day; [facility] [place] js13 MTDD
--- NOTE | 2016-06-13 09:31 | EDDOCDS ---
Physician Documentation [facility] Name: Ricardo Funez Age: 61 yrs Sex: Male : 1955 Arrival Date: 06/13/2016 Time: 06:18 Bed 11 Private MD: Nikkie Vega D Disposition: 06/13 08:59 Critical Care: Critical care not applicable. pc Disposition: 06/13/16 09:19 Discharged to Home/Self Care. Impression: Chest pain, unspecified, Paresthesia of skin - suspect cervical radilcular symptoms and/or bilateral Carpal Tunnel, Cubital Tunnel Syndromes, Gastro-esophageal reflux disease with esophagitis, Spinal stenosis, cervical region. - Condition is Stable. - Discharge Instructions: Nonspecific Chest Pain, Gastroesophageal Reflux Disease, Adult, Paresthesia. - Prescriptions for Protonix 40 mg Oral Tablet - take 1 tablet by ORAL route once daily; 30 tablet. - Medication Reconciliation, Local Pharmacy Hours form. - Follow up: Nikkie Vega; When: Call to arrange an appointment; Reason: Continuance of care. Follow up: Toby Jack; When: Call to arrange an appointment; Reason: Further diagnostic work-up, Recheck today's complaints, To establish care. Follow up: Latoya Dinero MD; When: Per Dr. Shaver, call to arrange a follow up appointment. Follow up: Trino Chirinos MD; When: Call to arrange an appointment; Reason: Further diagnostic work-up, To establish care. - Problem is an ongoing problem. - Symptoms have improved. HPI: 08:50 This 61 yrs old Male presents to ER via Ambulance with complaints of pc Epigastric Pain. 08:50 The history is obtained from the patient. He has multiple complaints. He has had pc recurring epigastric pain for 2 weeks, not associated with exertion, occurring mostly when laying down. The pain does not radiate and is not associated with any other symptoms. He has intermittent paresthesias of both hands, waking up with numb hands almost daily. He denies any weakness of his wrists or hands. He has known cervical disc disease with spinal stenosis. He has been having headaches since running out of his Depakote and Tegretol last week, but did restart them 2 days ago. He has been seen in this ED twice and his PCP's office once for the same in the past 10 days. Historical: - Allergies: No known drug Allergies; - Home Meds: 1. Depakote 500 mg Oral TbEC 1 tab 2 times per day (Last dose: 06/12/2016 18:30) 2. Tegretol 200 mg Oral tab every 12 hours (Last dose: 06/12/2016 18:30) 3. Flonase 50 mcg/actuation Nasal spsn 1 spray 2 times per day (Last dose: 06/12/2016 18:30) - PMHx: Chronic Back pain; Hypercholesterolemia; Hypertension; Kidney stones; Pancreatitis; Seizure Disorder; - PSHx: back; - The history from nurses notes was reviewed: and I agree with what is documented. - Social history: Smoking status: Patient states was never smoker of tobacco. No barriers to communication noted, The patient speaks fluent Swazi. - Family history: Not pertinent. - : The pt / caregiver states he / she is not on anticoagulants. Home medication list is obtained from the patient, [employer] import data. - Hospitalizations: : No recent hospitalization is reported. - Exposure Risk Screening:: None identified. - Immunization history:: All immunizations up-to-date. - Social history:: the patient is a non-smoker, the patient does not drink alcohol. ROS: 08:50 All systems are negative except as listed. pc Exam: 08:50 General Appearance: no acute distress, alert. pc 08:50 EENT: normal eye inspection, ears, nose and throat normal, pharynx normal, mucous membranes moist 08:50 Neck: The exam reveals no acute abnormalities. ROM is normal and painless. No nuchal rigidity is noted.. 08:50 Respiratory: no respiratory distress, normal breath sounds, chest non-tender. 08:50 CVS: regular pulse rate, regular rhythm, normal S1 and S2, no murmurs, strong peripheral pulses, normal capillary refill. 08:50 Abdomen: soft, no organomegaly, normal bowel sounds, mild tenderness in the epigastric area, without rebound, voluntary guarding is not appreciated, involuntary guarding is not appreciated. 08:50 Back: normal inspection. 08:50 Skin: skin color is normal, warm, dry. 08:50 Extremities: The extremities have a grossly normal appearance, are non-tender, without acute ROM abnormalities. 08:50 Neuro: oriented x 3, cranial nerves normal as tested, no motor deficits, no sensory deficits, mildly positive Tinel's biaterally . 08:50 Psych: normal mood. Vital Signs: 06:26 BP 117 / 67; Pulse 81; Resp 18; Temp 97.6(O); Pulse Ox 96% on R/A; Weight 113.4 kg / jarad 250 lbs (R); Height 5 ft. 5 in. (165.10 cm) (R); Pain 7/10; 07:03 BP 123 / 69 (auto/); js13 07:03 Pulse 66 MON; Resp 16; Pulse Ox 98% on 2 lpm NC; js13 07:18 BP 108 / 56 (auto/); js13 07:18 Pulse 68 MON; Resp 16; Pulse Ox 96% on 2 lpm NC; js13 07:33 BP 126 / 62 (auto/); js13 07:33 Pulse 66 MON; Resp 16; Pulse Ox 97% on 2 lpm NC; js13 07:48 BP 126 / 70 (auto/); js13 07:48 Pulse 66 MON; Resp 16; Pulse Ox 96% on 2 lpm NC; js13 08:18 BP 132 / 80 (auto/); js13 08:18 Pulse 70 MON; Resp 16; Pulse Ox 98% on 2 lpm NC; js13 08:33 BP 135 / 62 (auto/); js13 08:33 Pulse 66 MON; Resp 16; Pulse Ox 98% on 2 lpm NC; js13 08:48 BP 137 / 70 (auto/); js13 08:48 Pulse 64 MON; Resp 16; Pulse Ox 98% on 2 lpm NC; js13 09:03 BP 127 / 86 (auto/); js13 09:03 Pulse 68 MON; Resp 16; Pulse Ox 99% on 2 lpm NC; js13 09:18 BP 124 / 64 (auto/); js13 09:18 Pulse 66 MON; Resp 16; Temp 97.9(O); Pulse Ox 99% on 2 lpm NC; Pain 4/10; js13 09:29 Pain 4/10; js13 06:26 Body Mass Index 41.60 (113.40 kg, 165.10 cm) jarad MDM: 06:25 ECG WITH READING ER PHYS+CARDIAG ordered. EDMS 06:31 Choral Teacher/Pulse Ox/q 30 min VS ordered. may 06:31 IV Saline Lock ordered. may 06:31 Rhythm Strip to chart ordered. may 06:31 Undress patient appropriately for examination ordered. linda 06:32 Basic Metabolic Profile Ordered. EDMS 06:32 CBC with Diff Ordered. EDMS 06:32 Cardiac Injury Profile Ordered. EDMS 06:32 Troponin Ordered. EDMS 07:07 Misc. Nursing Order ordered. pc 07:07 Lipase Ordered. EDMS 07:07 DEPAKOTE Ordered. EDMS 07:07 Tegretol Level Ordered. EDMS 07:14 LIVER PROFILE Ordered. EDMS 07:29 Basic Metabolic Profile Reviewed. pc 07:29 CBC with Diff Reviewed. pc 07:29 Cardiac Injury Profile Reviewed. pc 07:29 Troponin Reviewed. pc 07:29 Lipase Reviewed. pc 07:29 DEPAKOTE Reviewed. pc 07:29 Tegretol Level Reviewed. pc 07:29 LIVER PROFILE Reviewed. pc 08:34 Financial registration complete. lg 08:55 [facility] Payment Agreement was scanned into [employer] and attached to record. lg 08:57 Differential Diagnosis: recurrent chest pain, r/o ACS; epigastric pain, likely GERD; pc paresthesias of bilateral UE's, r/o cervical radiculopathy and/or carpal and cubital tunnels syndrome; headaches with negative CTs. Plan: labs, EKG, d/w Neurology. Data reviewed: old medical records, vital signs, nurses notes, EKG(s), lab test results. Test interpretation: LAB - all labs as ordered have been reviewed, interpreted and considered in the overall management of the clinical presentation;. 08:57 Test interpretation: EKG. pc 08:59 The patient has been re-examined and re-evaluated. The patient's symptoms have mildly pc improved after treatment. Physician consultation: Dr. Karthikeyan Shaver regarding patient's condition, and he will arrange for Dr. Mik Dinero to see him for his seizures and for EMG studies and possible MRI. 08:59 Physician consultation: Dr. Toby Jack regarding patient's condition, and he will pc arrange to have him seen for stress testing. Disposition: The historical points, examination findings, and any diagnostic results supporting the provided diagnosis, were discussed with the patient or legal guardian. The need for outpatient follow up with the provider listed on their discharge instructions was discussed. They were encouraged to return to [facility], or the nearest ED, if symptoms worsen/persist, or for any other questions/concerns. 09:29 Acetaminophen Tablet 650 mg PO once ordered. EC:57 Rate is 74 beats/min. Rhythm is regular, Normal Sinus Rhythm. QRS [place] is Normal. [place] pc interval is normal. QRS interval is normal. QT interval is normal. No Q waves. T waves are Normal. No ST changes noted. Clinical impression: Normal Sinus Rhythm. Administered Medications: 08:30 Drug: Acetaminophen 650 mg [acetaminophen 325 mg tablet (2 tabs)] Route: PO; 13 09:29 Follow up: Pain 09/04 Adult; Response: Pain is decreased js Signatures: Dispatcher [employer] EDNE Tab Malik MD MD pc Newman, TABITHA Gardner RN, LoriLee, Reg Reg lg Sullivan, Jennifer, RN RN [facility] Michelle Mcdowell RN RN [facility] [place] The chart was reviewed and I authenticate all verbal orders and agree with the evaluation and treatment provided.Corrections: (The following items were deleted from the chart) 07:13 07:07 LIVER PROFILE+LAB ordered. [facility] 07:27 06:28 Home Meds: Depakote 500 mg Oral TbEC 1 tab 2 times per day; [place] [id number] 07:27 06:28 Home Meds: Tegretol 200 mg Oral tab every 12 hours; [place] [id number] :27 06:28 Home Meds: Flonase 50 mcg/actuation Nasal spsn 1 spray 2 times per day; [place] [id number] 08:57 08:50 Neuro: oriented x 3, cranial nerves normal as tested, no motor deficits, no pc sensory deficits, pc Attachments: 08:55 [facility]
--- NOTE | 2016-06-14 07:54 | ECGEPIP ---
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
--- NOTE | 2016-06-15 10:31 | EDDOCDS ---
Physician Documentation [facility] Name: Ricardo Funez Age: 61 yrs Sex: Male : 1955 Arrival Date: 06/13/2016 Time: 06:18 Bed 11 Private MD: Nikkie Vega D Disposition: 06/13 08:59 Critical Care: Critical care not applicable. pc Disposition: 06/13/16 09:19 Discharged to Home/Self Care. Impression: Chest pain, unspecified, Paresthesia of skin - suspect cervical radilcular symptoms and/or bilateral Carpal Tunnel, Cubital Tunnel Syndromes, Gastro-esophageal reflux disease with esophagitis, Spinal stenosis, cervical region. - Condition is Stable. - Discharge Instructions: Nonspecific Chest Pain, Gastroesophageal Reflux Disease, Adult, Paresthesia. - Prescriptions for Protonix 40 mg Oral Tablet - take 1 tablet by ORAL route once daily; 30 tablet. - Medication Reconciliation, Local Pharmacy Hours form. - Follow up: Nikkie Vega; When: Call to arrange an appointment; Reason: Continuance of care. Follow up: Toby Jack; When: Call to arrange an appointment; Reason: Further diagnostic work-up, Recheck today's complaints, To establish care. Follow up: Latoya Dinero MD; When: Per Dr. Shaver, call to arrange a follow up appointment. Follow up: Trino Chirinos MD; When: Call to arrange an appointment; Reason: Further diagnostic work-up, To establish care. - Problem is an ongoing problem. - Symptoms have improved. HPI: 08:50 This 61 yrs old Male presents to ER via Ambulance with complaints of pc Epigastric Pain. 08:50 The history is obtained from the patient. He has multiple complaints. He has had pc recurring epigastric pain for 2 weeks, not associated with exertion, occurring mostly when laying down. The pain does not radiate and is not associated with any other symptoms. He has intermittent paresthesias of both hands, waking up with numb hands almost daily. He denies any weakness of his wrists or hands. He has known cervical disc disease with spinal stenosis. He has been having headaches since running out of his Depakote and Tegretol last week, but did restart them 2 days ago. He has been seen in this ED twice and his PCP's office once for the same in the past 10 days. Historical: - Allergies: No known drug Allergies; - Home Meds: 1. Depakote 500 mg Oral TbEC 1 tab 2 times per day (Last dose: 06/12/2016 18:30) 2. Tegretol 200 mg Oral tab every 12 hours (Last dose: 06/12/2016 18:30) 3. Flonase 50 mcg/actuation Nasal spsn 1 spray 2 times per day (Last dose: 06/12/2016 18:30) - PMHx: Chronic Back pain; Hypercholesterolemia; Hypertension; Kidney stones; Pancreatitis; Seizure Disorder; - PSHx: back; - The history from nurses notes was reviewed: and I agree with what is documented. - Social history: Smoking status: Patient states was never smoker of tobacco. No barriers to communication noted, The patient speaks fluent Vietnamese. - Family history: Not pertinent. - : The pt / caregiver states he / she is not on anticoagulants. Home medication list is obtained from the patient, [employer] import data. - Hospitalizations: : No recent hospitalization is reported. - Exposure Risk Screening:: None identified. - Immunization history:: All immunizations up-to-date. - Social history:: the patient is a non-smoker, the patient does not drink alcohol. ROS: 08:50 All systems are negative except as listed. pc Exam: 08:50 General Appearance: no acute distress, alert. pc 08:50 EENT: normal eye inspection, ears, nose and throat normal, pharynx normal, mucous membranes moist 08:50 Neck: The exam reveals no acute abnormalities. ROM is normal and painless. No nuchal rigidity is noted.. 08:50 Respiratory: no respiratory distress, normal breath sounds, chest non-tender. 08:50 CVS: regular pulse rate, regular rhythm, normal S1 and S2, no murmurs, strong peripheral pulses, normal capillary refill. 08:50 Abdomen: soft, no organomegaly, normal bowel sounds, mild tenderness in the epigastric area, without rebound, voluntary guarding is not appreciated, involuntary guarding is not appreciated. 08:50 Back: normal inspection. 08:50 Skin: skin color is normal, warm, dry. 08:50 Extremities: The extremities have a grossly normal appearance, are non-tender, without acute ROM abnormalities. 08:50 Neuro: oriented x 3, cranial nerves normal as tested, no motor deficits, no sensory deficits, mildly positive Tinel's biaterally . 08:50 Psych: normal mood. Vital Signs: 06:26 BP 117 / 67; Pulse 81; Resp 18; Temp 97.6(O); Pulse Ox 96% on R/A; Weight 113.4 kg / jarad 250 lbs (R); Height 5 ft. 5 in. (165.10 cm) (R); Pain 7/10; 07:03 BP 123 / 69 (auto/); js13 07:03 Pulse 66 MON; Resp 16; Pulse Ox 98% on 2 lpm NC; js13 07:18 BP 108 / 56 (auto/); js13 07:18 Pulse 68 MON; Resp 16; Pulse Ox 96% on 2 lpm NC; js13 07:33 BP 126 / 62 (auto/); js13 07:33 Pulse 66 MON; Resp 16; Pulse Ox 97% on 2 lpm NC; js13 07:48 BP 126 / 70 (auto/); js13 07:48 Pulse 66 MON; Resp 16; Pulse Ox 96% on 2 lpm NC; js13 08:18 BP 132 / 80 (auto/); js13 08:18 Pulse 70 MON; Resp 16; Pulse Ox 98% on 2 lpm NC; js13 08:33 BP 135 / 62 (auto/); js13 08:33 Pulse 66 MON; Resp 16; Pulse Ox 98% on 2 lpm NC; js13 08:48 BP 137 / 70 (auto/); js13 08:48 Pulse 64 MON; Resp 16; Pulse Ox 98% on 2 lpm NC; js13 09:03 BP 127 / 86 (auto/); js13 09:03 Pulse 68 MON; Resp 16; Pulse Ox 99% on 2 lpm NC; js13 09:18 BP 124 / 64 (auto/); js13 09:18 Pulse 66 MON; Resp 16; Temp 97.9(O); Pulse Ox 99% on 2 lpm NC; Pain 4/10; js13 09:29 Pain 4/10; js13 06:26 Body Mass Index 41.60 (113.40 kg, 165.10 cm) jarad MDM: 06:25 ECG WITH READING ER PHYS+CARDIAG ordered. EDMS 06:31 Book Retailer/Pulse Ox/q 30 min VS ordered. may 06:31 IV Saline Lock ordered. may 06:31 Rhythm Strip to chart ordered. may 06:31 Undress patient appropriately for examination ordered. linda 06:32 Basic Metabolic Profile Ordered. EDMS 06:32 CBC with Diff Ordered. EDMS 06:32 Cardiac Injury Profile Ordered. EDMS 06:32 Troponin Ordered. EDMS 07:07 Misc. Nursing Order ordered. pc 07:07 Lipase Ordered. EDMS 07:07 DEPAKOTE Ordered. EDMS 07:07 Tegretol Level Ordered. EDMS 07:14 LIVER PROFILE Ordered. EDMS 07:29 Basic Metabolic Profile Reviewed. pc 07:29 CBC with Diff Reviewed. pc 07:29 Cardiac Injury Profile Reviewed. pc 07:29 Troponin Reviewed. pc 07:29 Lipase Reviewed. pc 07:29 DEPAKOTE Reviewed. pc 07:29 Tegretol Level Reviewed. pc 07:29 LIVER PROFILE Reviewed. pc 08:34 Financial registration complete. lg 08:55 [facility] Payment Agreement was scanned into [employer] and attached to record. lg 08:57 Differential Diagnosis: recurrent chest pain, r/o ACS; epigastric pain, likely GERD; pc paresthesias of bilateral UE's, r/o cervical radiculopathy and/or carpal and cubital tunnels syndrome; headaches with negative CTs. Plan: labs, EKG, d/w Neurology. Data reviewed: old medical records, vital signs, nurses notes, EKG(s), lab test results. Test interpretation: LAB - all labs as ordered have been reviewed, interpreted and considered in the overall management of the clinical presentation;. 08:57 Test interpretation: EKG. pc 08:59 The patient has been re-examined and re-evaluated. The patient's symptoms have mildly pc improved after treatment. Physician consultation: Dr. Karthikeyan Shaver regarding patient's condition, and he will arrange for Dr. Mik Dienro to see him for his seizures and for EMG studies and possible MRI. 08:59 Physician consultation: Dr. Toby Jack regarding patient's condition, and he will pc arrange to have him seen for stress testing. Disposition: The historical points, examination findings, and any diagnostic results supporting the provided diagnosis, were discussed with the patient or legal guardian. The need for outpatient follow up with the provider listed on their discharge instructions was discussed. They were encouraged to return to [facility], or the nearest ED, if symptoms worsen/persist, or for any other questions/concerns. 09:29 Acetaminophen Tablet 650 mg PO once ordered. js13 14: Trend VS was scanned into [employer] and attached to record. gb 14:26 Rhythm Strip was scanned into [employer] and attached to record. gb 14:27 PCR was scanned into [employer] and attached to record. gb 16:00 ECG/EKG was scanned into [employer] and attached to record. gj EC:57 Rate is 74 beats/min. Rhythm is regular, Normal Sinus Rhythm. QRS [place] is Normal. PA pc interval is normal. QRS interval is normal. QT interval is normal. No Q waves. T waves are Normal. No ST changes noted. Clinical impression: Normal Sinus Rhythm. Administered Medications: 08:30 Drug: Acetaminophen 650 mg [acetaminophen 325 mg tablet (2 tabs)] Route: PO; js13 09:29 Follow up: Pain 4/10 Adult; Response: Pain is decreased js13 Signatures: Dispatcher [employer] EDMS Tab Malik MD MD pc Newman, Jill New, RN RN jan Barnhardt, Gloria, Reg Reg gb Shan Minor, Reg Reg lg Kierra Soria RN RN [facility] Michelle Mcdowell RN RN mlc Beck, Gabriela gjb The chart was reviewed and I authenticate all verbal orders and agree with the evaluation and treatment provided.Corrections: (The following items were deleted from the chart) 07:13 07:07 LIVER PROFILE+LAB ordered. EDWV EDWV 07: 06:28 Home Meds: Depakote 500 mg Oral TbEC 1 tab 2 times per day; [place] [id number] 07: 06:28 Home Meds: Tegretol 200 mg Oral tab every 12 hours; [place] [address] 07: 06:28 Home Meds: Flonase 50 mcg/actuation Nasal spsn 1 spray 2 times per day; [place] [address] 08:57 08:50 Neuro: oriented x 3, cranial nerves normal as tested, no motor deficits, no pc sensory deficits, pc Attachments: 08:55 [facility] Payment Agreement lg 16:00 ECG/EKG gj Chart Complete MTDD
--- NOTE | 2016-06-15 10:31 | EDDOCDS ---
Physician Documentation [facility] Name: Ricardo Funez Age: 61 yrs Sex: Male : 1955 Arrival Date: 06/13/2016 Time: 06:18 Bed 11 Private MD: Nikkie Vega D Disposition: 06/13 08:59 Critical Care: Critical care not applicable. pc Disposition: 06/13/16 09:19 Discharged to Home/Self Care. Impression: Chest pain, unspecified, Paresthesia of skin - suspect cervical radilcular symptoms and/or bilateral Carpal Tunnel, Cubital Tunnel Syndromes, Gastro-esophageal reflux disease with esophagitis, Spinal stenosis, cervical region. - Condition is Stable. - Discharge Instructions: Nonspecific Chest Pain, Gastroesophageal Reflux Disease, Adult, Paresthesia. - Prescriptions for Protonix 40 mg Oral Tablet - take 1 tablet by ORAL route once daily; 30 tablet. - Medication Reconciliation, Local Pharmacy Hours form. - Follow up: Nikkie Vega; When: Call to arrange an appointment; Reason: Continuance of care. Follow up: Toby Jack; When: Call to arrange an appointment; Reason: Further diagnostic work-up, Recheck today's complaints, To establish care. Follow up: Latoya Dinero MD; When: Per Dr. Shaver, call to arrange a follow up appointment. Follow up: Trino Chirinos MD; When: Call to arrange an appointment; Reason: Further diagnostic work-up, To establish care. - Problem is an ongoing problem. - Symptoms have improved. HPI: 08:50 This 61 yrs old Male presents to ER via Ambulance with complaints of pc Epigastric Pain. 08:50 The history is obtained from the patient. He has multiple complaints. He has had pc recurring epigastric pain for 2 weeks, not associated with exertion, occurring mostly when laying down. The pain does not radiate and is not associated with any other symptoms. He has intermittent paresthesias of both hands, waking up with numb hands almost daily. He denies any weakness of his wrists or hands. He has known cervical disc disease with spinal stenosis. He has been having headaches since running out of his Depakote and Tegretol last week, but did restart them 2 days ago. He has been seen in this ED twice and his PCP's office once for the same in the past 10 days. Historical: - Allergies: No known drug Allergies; - Home Meds: 1. Depakote 500 mg Oral TbEC 1 tab 2 times per day (Last dose: 06/12/2016 18:30) 2. Tegretol 200 mg Oral tab every 12 hours (Last dose: 06/12/2016 18:30) 3. Flonase 50 mcg/actuation Nasal spsn 1 spray 2 times per day (Last dose: 06/12/2016 18:30) - PMHx: Chronic Back pain; Hypercholesterolemia; Hypertension; Kidney stones; Pancreatitis; Seizure Disorder; - PSHx: back; - The history from nurses notes was reviewed: and I agree with what is documented. - Social history: Smoking status: Patient states was never smoker of tobacco. No barriers to communication noted, The patient speaks fluent [place]. - Family history: Not pertinent. - : The pt / caregiver states he / she is not on anticoagulants. Home medication list is obtained from the patient, [employer] import data. - Hospitalizations: : No recent hospitalization is reported. - Exposure Risk Screening:: None identified. - Immunization history:: All immunizations up-to-date. - Social history:: the patient is a non-smoker, the patient does not drink alcohol. ROS: 08:50 All systems are negative except as listed. pc Exam: 08:50 General Appearance: no acute distress, alert. pc 08:50 EENT: normal eye inspection, ears, nose and throat normal, pharynx normal, mucous membranes moist 08:50 Neck: The exam reveals no acute abnormalities. ROM is normal and painless. No nuchal rigidity is noted.. 08:50 Respiratory: no respiratory distress, normal breath sounds, chest non-tender. 08:50 CVS: regular pulse rate, regular rhythm, normal S1 and S2, no murmurs, strong peripheral pulses, normal capillary refill. 08:50 Abdomen: soft, no organomegaly, normal bowel sounds, mild tenderness in the epigastric area, without rebound, voluntary guarding is not appreciated, involuntary guarding is not appreciated. 08:50 Back: normal inspection. 08:50 Skin: skin color is normal, warm, dry. 08:50 Extremities: The extremities have a grossly normal appearance, are non-tender, without acute ROM abnormalities. 08:50 Neuro: oriented x 3, cranial nerves normal as tested, no motor deficits, no sensory deficits, mildly positive Tinel's biaterally . 08:50 Psych: normal mood. Vital Signs: 06:26 BP 117 / 67; Pulse 81; Resp 18; Temp 97.6(O); Pulse Ox 96% on R/A; Weight 113.4 kg / jarad 250 lbs (R); Height 5 ft. 5 in. (165.10 cm) (R); Pain 7/10; 07:03 BP 123 / 69 (auto/); js13 07:03 Pulse 66 MON; Resp 16; Pulse Ox 98% on 2 lpm NC; js13 07:18 BP 108 / 56 (auto/); js13 07:18 Pulse 68 MON; Resp 16; Pulse Ox 96% on 2 lpm NC; js13 07:33 BP 126 / 62 (auto/); js13 07:33 Pulse 66 MON; Resp 16; Pulse Ox 97% on 2 lpm NC; js13 07:48 BP 126 / 70 (auto/); js13 07:48 Pulse 66 MON; Resp 16; Pulse Ox 96% on 2 lpm NC; js13 08:18 BP 132 / 80 (auto/); js13 08:18 Pulse 70 MON; Resp 16; Pulse Ox 98% on 2 lpm NC; js13 08:33 BP 135 / 62 (auto/); js13 08:33 Pulse 66 MON; Resp 16; Pulse Ox 98% on 2 lpm NC; js13 08:48 BP 137 / 70 (auto/); js13 08:48 Pulse 64 MON; Resp 16; Pulse Ox 98% on 2 lpm NC; js13 09:03 BP 127 / 86 (auto/); js13 09:03 Pulse 68 MON; Resp 16; Pulse Ox 99% on 2 lpm NC; js13 09:18 BP 124 / 64 (auto/); js13 09:18 Pulse 66 MON; Resp 16; Temp 97.9(O); Pulse Ox 99% on 2 lpm NC; Pain 4/10; js13 09:29 Pain 4/10; js13 06:26 Body Mass Index 41.60 (113.40 kg, 165.10 cm) jarad MDM: 06:25 ECG WITH READING ER PHYS+CARDIAG ordered. EDMS 06:31 Cartridge Maker/Pulse Ox/q 30 min VS ordered. may 06:31 IV Saline Lock ordered. may 06:31 Rhythm Strip to chart ordered. may 06:31 Undress patient appropriately for examination ordered. linda 06:32 Basic Metabolic Profile Ordered. EDMS 06:32 CBC with Diff Ordered. EDMS 06:32 Cardiac Injury Profile Ordered. EDMS 06:32 Troponin Ordered. EDMS 07:07 Misc. Nursing Order ordered. pc 07:07 Lipase Ordered. EDMS 07:07 DEPAKOTE Ordered. EDMS 07:07 Tegretol Level Ordered. EDMS 07:14 LIVER PROFILE Ordered. EDMS 07:29 Basic Metabolic Profile Reviewed. pc 07:29 CBC with Diff Reviewed. pc 07:29 Cardiac Injury Profile Reviewed. pc 07:29 Troponin Reviewed. pc 07:29 Lipase Reviewed. pc 07:29 DEPAKOTE Reviewed. pc 07:29 Tegretol Level Reviewed. pc 07:29 LIVER PROFILE Reviewed. pc 08:34 Financial registration complete. lg 08:55 [facility] [place] was scanned into [employer] and attached to record. lg 08:57 Differential Diagnosis: recurrent chest pain, r/o ACS; epigastric pain, likely GERD; pc paresthesias of bilateral UE's, r/o cervical radiculopathy and/or carpal and cubital tunnels syndrome; headaches with negative CTs. Plan: labs, EKG, d/w Neurology. Data reviewed: old medical records, vital signs, nurses notes, EKG(s), lab test results. Test interpretation: LAB - all labs as ordered have been reviewed, interpreted and considered in the overall management of the clinical presentation;. 08:57 Test interpretation: EKG. pc 08:59 The patient has been re-examined and re-evaluated. The patient's symptoms have mildly pc improved after treatment. Physician consultation: Dr. Karthikeyan Shaver regarding patient's condition, and he will arrange for Dr. Mik Dinero to see him for his seizures and for EMG studies and possible MRI. 08:59 Physician consultation: Dr. Toby Jack regarding patient's condition, and he will pc arrange to have him seen for stress testing. Disposition: The historical points, examination findings, and any diagnostic results supporting the provided diagnosis, were discussed with the patient or legal guardian. The need for outpatient follow up with the provider listed on their discharge instructions was discussed. They were encouraged to return to [facility], or the nearest ED, if symptoms worsen/persist, or for any other questions/concerns. 09:29 Acetaminophen Tablet 650 mg PO once ordered. js13 14: Trend VS was scanned into [employer] and attached to record. gb 14:26 Rhythm Strip was scanned into [employer] and attached to record. gb 14:27 PCR was scanned into [employer] and attached to record. gb 16:00 ECG/EKG was scanned into [employer] and attached to record. gj EC:57 Rate is 74 beats/min. Rhythm is regular, Normal Sinus Rhythm. QRS [place] is Normal. ID pc interval is normal. QRS interval is normal. QT interval is normal. No Q waves. T waves are Normal. No ST changes noted. Clinical impression: Normal Sinus Rhythm. Administered Medications: 08:30 Drug: Acetaminophen 650 mg [acetaminophen 325 mg tablet (2 tabs)] Route: PO; js13 09:29 Follow up: Pain 4/10 Adult; Response: Pain is decreased js13 Signatures: Dispatcher [employer] EDMS Tab Malik MD MD pc Newman, Jill New, RN RN jan Barnhardt, Gloria, Reg Reg gb Shan Minor, Reg Reg lg Kierra Soria RN RN [facility] Michelle Mcdowell RN RN mlc Beck, Gabriela gjb The chart was reviewed and I authenticate all verbal orders and agree with the evaluation and treatment provided.Corrections: (The following items were deleted from the chart) 07:13 07:07 LIVER PROFILE+LAB ordered. EDWI EDWI 07: 06:28 Home Meds: Depakote 500 mg Oral TbEC 1 tab 2 times per day; [place] [id number] 07: 06:28 Home Meds: Tegretol 200 mg Oral tab every 12 hours; [place] [id number] 07: 06:28 Home Meds: Flonase 50 mcg/actuation Nasal spsn 1 spray 2 times per day; [place] [id number] 08:57 08:50 Neuro: oriented x 3, cranial nerves normal as tested, no motor deficits, no pc sensory deficits, pc Attachments: 08:55 [facility] Payment Agreement lg 16:00 ECG/EKG gj Chart Complete MTDD
--- NOTE | 2016-06-15 10:31 | EDDOCDS ---
Nurse's Notes [facility] Name: Ricardo Santos Age: 61 yrs Sex: Male : 1955 Arrival Date: 06/13/2016 Time: 06:18 Bed 11 Private MD: Nikkie Vega D Diagnosis: Chest pain, unspecified;Paresthesia of skin-suspect cervical radilcular symptoms and/or bilateral Carpal Tunnel, Cubital Tunnel Syndromes;Gastro-esophageal reflux disease with esophagitis;Spinal stenosis, cervical region Presentation: 06/13 06:24 Presenting complaint: EMS states: pt started having chest pain at approx 5:30 this AM, mlc described as stabbing. pt reports feeling dizzy and having left upper quad pain. 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 Adult Sepsis Screening: The patient does not have new or worsening altered mentation. Patient's respiratory rate is less than 22. Systolic blood pressure is greater than 100. Patient has a qSOFA score of 0- Negative Sepsis Screen. Status: Patient is not a director of casework services or dependent. Transition of care: patient was not received from another setting of care. 06:24 Acuity: [facility] Level 2 [facility] 06:24 Method Of Arrival: Ambulance [facility] 06:28 Suicide/Homicide risk assessment- the patient denies having any suicidal and/or mlc homicidal ideations and does not present with any other emotional, behavioral or mental health complaints. 06:56 Care prior to arrival: Medications administered prior to arrival: ASA, NTG. mlc Triage Assessment: 06:28 General: Appears in no apparent distress, comfortable, Behavior is cooperative, quiet. mlc Pain: Location: xyphoid area Pain currently is 7 out of 10 on a pain scale. HIV screening NA for this visit Offered previously. The patient is triaged at the bedside. See Assessment in Nurses Notes section of ED record. Neurological: Level of Consciousness is awake, alert, obeys commands, Oriented to person, place, time. Cardiovascular: Rhythm is sinus rhythm Chest pain is described as Pain is 7 out of 10 on a pain scale. radiates Does not radiate. episodes are continuous began 1 hour prior to arrival. Derm: Skin is normal. Historical: - Allergies: No known drug Allergies; - Home Meds: 1. Depakote 500 mg Oral TbEC 1 tab 2 times per day (Last dose: 06/12/2016 18:30) 2. Tegretol 200 mg Oral tab every 12 hours (Last dose: 06/12/2016 18:30) 3. Flonase 50 mcg/actuation Nasal spsn 1 spray 2 times per day (Last dose: 06/12/2016 18:30) - PMHx: Chronic Back pain; Hypercholesterolemia; Hypertension; Kidney stones; Pancreatitis; Seizure Disorder; - PSHx: back; - The history from nurses notes was reviewed: and I agree with what is documented. - Social history: Smoking status: Patient states was never smoker of tobacco. No barriers to communication noted, The patient speaks fluent Georgian. - Family history: Not pertinent. - : The pt / caregiver states he / she is not on anticoagulants. Home medication list is obtained from the patient, [employer] import data. - Hospitalizations: : No recent hospitalization is reported. - Exposure Risk Screening:: None identified. - Immunization history:: All immunizations up-to-date. - Social history:: the patient is a non-smoker, the patient does not drink alcohol. Screenin:29 Screening information is obtained from the patient. Fall risk: No risks identified. mlc Assistance ADL's: requires no assistance with activities of daily living. Abuse/DV Screen: The patient / caregiver reports he/she is: not in a situation that causes fear, pain or injury. Nutritional screening: No deficits noted. Advance Directives: Currently, there is a health care proxy, Santa Santos, . home support is adequate. Assessment: 06:47 General: Appears in no apparent distress, comfortable, Behavior is appropriate for age, mlc cooperative. Pain: Location: xyphoid area Pain currently is 7 out of 10 on a pain scale. Neurological: Level of Consciousness is awake, alert, Oriented to person, place, time. Cardiovascular: Heart tones S1 S2 present Edema is 1+ to left ankle Rhythm is sinus rhythm. Respiratory: Airway is patent Respiratory effort is even, unlabored, Respiratory pattern is regular, Breath sounds are clear bilaterally. Reports cough that is. Derm: Skin is normal. 07:27 General: Appears in no apparent distress, comfortable, Behavior is appropriate for age, js13 cooperative. Pain: Pain currently is 7 out of 10 on a pain scale. Pain: Location: head and chest. Neurological: Level of Consciousness is awake, alert. Neurological: Level of Consciousness is awake, alert. Cardiovascular: Rhythm is sinus rhythm Chest pain is described as Pain is 7 out of 10 on a pain scale. quality is stabbing, radiates Does not radiate. Respiratory: Airway is patent Respiratory effort is even, unlabored, Respiratory pattern is regular, symmetrical. Derm: Skin is pink, warm & dry. 08:12 General: Appears in no apparent distress, comfortable, Behavior is appropriate for age, js13 cooperative. Neurological: Level of Consciousness is awake, alert. Cardiovascular: Rhythm is sinus rhythm Chest pain is described as Pain is 5 out of 10 on a pain scale. Respiratory: Airway is patent Respiratory effort is even, unlabored, Respiratory pattern is regular, symmetrical. Derm: Skin is pink, warm & dry. 08:45 Adult Sepsis Screening: The patient does not have new or worsening altered mentation. js13 Patient's respiratory rate is less than 22. Systolic blood pressure is greater than 100. Patient has a qSOFA score of 0- Negative Sepsis Screen. 09:27 General: Appears in no apparent distress, comfortable, Behavior is appropriate for age, js13 cooperative. Pain: Pain currently is 4 out of 10 on a pain scale. Neurological: Level of Consciousness is awake, alert. Cardiovascular: Rhythm is sinus rhythm Chest pain is described as Pain is 3 out of 10 on a pain scale. Respiratory: Airway is patent Respiratory effort is even, unlabored, Respiratory pattern is regular, symmetrical. Derm: Skin is pink, warm & dry. Vital Signs: 06:26 BP 117 / 67; Pulse 81; Resp 18; Temp 97.6(O); Pulse Ox 96% on R/A; Weight 113.4 kg (R); jarad Height 5 ft. 5 in. (165.10 cm) (R); Pain 7/10; 07:03 BP 123 / 69 (auto/); 13 07:03 Pulse 66 MON; Resp 16; Pulse Ox 98% on 2 lpm NC; 07:18 BP 108 / 56 (auto/); 07:18 Pulse 68 MON; Resp 16; Pulse Ox 96% on 2 lpm NC; 13 07:33 BP 126 / 62 (auto/); 13 07:33 Pulse 66 MON; Resp 16; Pulse Ox 97% on 2 lpm NC; 13 07:48 BP 126 / 70 (auto/); 07:48 Pulse 66 MON; Resp 16; Pulse Ox 96% on 2 lpm NC; js13 08:18 BP 132 / 80 (auto/); js13 08:18 Pulse 70 MON; Resp 16; Pulse Ox 98% on 2 lpm NC; js13 08:33 BP 135 / 62 (auto/); js13 08:33 Pulse 66 MON; Resp 16; Pulse Ox 98% on 2 lpm NC; js13 08:48 BP 137 / 70 (auto/); js13 08:48 Pulse 64 MON; Resp 16; Pulse Ox 98% on 2 lpm NC; js13 09:03 BP 127 / 86 (auto/); js13 09:03 Pulse 68 MON; Resp 16; Pulse Ox 99% on 2 lpm NC; js13 09:18 BP 124 / 64 (auto/); js13 09:18 Pulse 66 MON; Resp 16; Temp 97.9(O); Pulse Ox 99% on 2 lpm NC; Pain 4/10; js13 09:29 Pain 4/10; js13 06:26 Body Mass Index 41.60 (113.40 kg, 165.10 cm) jarad Vitals: 06:28 Log In Time N/A - ambulance arrival. [facility] ED Course: 06:20 Patient visited by Farhana Massey, Assembly Associate. ml3 06:20 Nikkie Vega is Private Physician. ml3 06:20 Michelle Mcdowell,RN is Primary Nurse. ml3 06:20 Patient moved to Waiting ml3 06:20 Patient moved to 11 ml3 06:25 Triage Initiated mlc 06:26 Patient visited by Patricia Ross PCA. jarad 06:26 Pt greeted and oriented to ED. Patient advised of names of staff involved in care, jarad location of call jean, wait times and NPO status. Patient has correct armband on for positive identification. Placed in gown. Bed in low position. Call light in reach. Side rails up X2. bus monitor on. Pulse ox on. NIBP on. 06:30 Patient visited by Michelle Mcdowell RN. mlc 06:30 EKG done. (by ED staff). Reviewed by Jose Enrique Guillen DO. cln 06:31 Patient visited by Nancy Shepherd PCA. cln 06:46 Basic Metabolic Profile Sent. mlc 06:46 CBC with Diff Sent. mlc 06:46 Cardiac Injury Profile Sent. mlc 06:46 Troponin Sent. mlc 06:47 Maintain field IV. Site clean & dry. Gauge & site: 22g left hand. . mlc 06:49 Patient visited by Michelle Mcdowell RN. mlc 07:01 Kierra Soria,RN is Primary Nurse. js13 07:02 Tab Malik MD is Attending Physician. pc 07:05 Patient visited by Tab Malik MD. pc 07:18 The patient / caregiver is instructed regarding the plan of care and ED course. js13 07:18 Inserted saline lock: 18 gauge in right antecubital area and blood collected. The js13 patient tolerated the procedure well. No procedures done that require assistance. Labs drawn. (by ED staff). Sent per order to lab. 07:27 LIVER PROFILE Sent. js13 07:30 Patient visited by Kierra Soria RN. js13 07:30 O2 via nasal cannula \T\ 2L/min. js13 08:14 Patient visited by Kierra Soria RN. js13 08:45 Patient visited by Jyoti Leon PCA. ct3 08:55 [facility] Payment Agreement was scanned into [employer] and attached to record. lg 09:17 Nikkie Vega is Referral Physician. pc 09:17 Toby Jack is Referral Physician. pc 09:17 Latoya Dinero MD is Referral Physician. pc 09:18 Trino Chirinos MD is Referral Physician. pc 09:28 Discontinued IV lock intact, bleeding controlled, pressure dressing applied, No js13 redness/swelling at site. 14:26 Trend VS was scanned into [employer] and attached to record. gb 14:26 Rhythm Strip was scanned into [employer] and attached to record. gb 14:27 PCR was scanned into [employer] and attached to record. gb 16:00 ECG/EKG was scanned into [employer] and attached to record. gjb 06/14 08:22 EKG-ADULT Returned. EDMS Administered Medications: 06/13 08:30 Drug: Acetaminophen 650 mg [acetaminophen 325 mg tablet (2 tabs)] Route: PO; js13 09:29 Follow up: Pain 4/10 Adult; Response: Pain is decreased js13 Attachments: 14:26 Trend VS gb 14:26 Rhythm Strip gb Order Results: Lab Order: Basic Metabolic Profile; SPEC'M 06/13/16 06:44 Test: GLUCOSE, FASTING; Value: 91; Range: 80-110; Units: MG/DL; Status: F Test: BLOOD UREA NITROGEN; Value: 18; Range: 7-18; Units: MG/DL; Status: F Test: CREATININE FOR GFR; Value: 0.87; Range: 0.70-1.30; Units: MG/DL; Status: F Test: GLOMERULAR FILTRATION RATE; Value: > 60.0; Range: >49; Status: F Test: SODIUM LEVEL; Value: 143; Range: 136-145; Units: MEQ/L; Status: F Test: POTASSIUM SERUM; Value: 4.4; Range: 3.5-5.1; Units: MEQ/L; Status: F Test: CHLORIDE LEVEL; Value: 110; Range: 98-107; Abnormal: Above high normal; Units: MEQ/L; Status: F Test: CARBON DIOXIDE LEVEL; Value: 27; Range: 21-32; Units: MEQ/L; Status: F Test: ANION GAP; Value: 6; Range: 8-16; Abnormal: Below low normal; Units: MEQ/L; Status: F Test: CALCIUM LEVEL; Value: 8.6; Range: 8.8-10.2; Abnormal: Below low normal; Units: MG/DL; Status: F Test Note: ; Units are mL/min/1.73 m2 Chronic Kidney Disease Staging per NKF: Stage I & II GFR >=60 Normal to Mildly Decreased Stage III GFR 30-59 Moderately Decreased Stage IV GFR 15-29 Severely Decreased Stage V GFR <15 Very Little GFR Left ESRD GFR <15 on INFANTRY SENIOR SERGEANT Lab Order: CBC with Diff; SPEC'M 06/13/16 06:44 Test: WHITE BLOOD COUNT; Value: 5.8; Range: 4.0-10.0; Units: K/mm3; Status: F Test: RED BLOOD COUNT; Value: 5.54; Range: 4.30-6.10; Units: M/mm3; Status: F Test: HEMOGLOBIN; Value: 15.0; Range: 14.0-18.0; Units: g/dl; Status: F Test: HEMATOCRIT; Value: 44.7; Range: 42.0-52.0; Units: %; Status: F Test: MEAN CORPUSCULAR VOLUME; Value: 80.7; Range: 80.0-96.0; Units: fl; Status: F Test: MEAN CORPUSCULAR HEMOGLOBIN; Value: 27.0; Range: 27.0-33.0; Units: pg; Status: F Test: MEAN CORPUSCULAR HGB CONC; Value: 33.5; Range: 32.0-36.5; Units: g/dl; Status: F Test: RED CELL DISTRIBUTION WIDTH; Value: 13.3; Range: 11.5-14.5; Units: %; Status: F Test: PLATELET COUNT, AUTOMATED; Value: 258; Range: 150-450; Units: k/mm3; Status: F Test: NEUTROPHILS %; Value: 66.3; Range: 36.0-66.0; Abnormal: Above high normal; Units: %; Status: F Test: LYMPH %; Value: 26.6; Range: 24.0-44.0; Units: %; Status: F Test: MONO %; Value: 3.3; Range: 0.0-5.0; Units: %; Status: F Test: EOS %; Value: 2.0; Range: 0.0-3.0; Units: %; Status: F Test: BASO %; Value: 0.3; Range: 0.0-1.0; Units: %; Status: F Test: LARGE UNSTAINED CELL %; Value: 1.4; Range: 0.0-4.0; Units: %; Status: F Test: NEUTROPHILS #; Value: 3.8; Range: 1.8-7.7; Units: K/mm3; Status: F Test: LYMPH #; Value: 1.5; Range: 1.5-4.5; Units: K/mm3; Status: F Test: MONO #; Value: 0.2; Range: 0.0-0.8; Units: K/mm3; Status: F Test: EOS #; Value: 0.1; Range: 0.0-0.50; Units: K/mm3; Status: F Test: BASO #; Value: 0.0; Range: 0.0-0.2; Units: K/mm3; Status: F Test: LARGE UNSTAINED CELL #; Value: 0.1; Range: 0.0-0.4; Units: K/mm3; Status: F Lab Order: Cardiac Injury Profile; SPEC'M 06/13/16 06:44 Test: CPK CREATINE PHOSPHOKINASE; Value: 118; Range: 39-308; Units: U/L; Status: F Test: CK-MB VALUE MASS; Value: 1.4; Range: 0.0-3.6; Units: NG/ML; Status: F Test: MB/CK RELATIVE INDEX; Value: 1.18; Range: < OR =4; Status: F Test Note: ; DIAGNOSIS CRITERIA MMB ng/ml Relative Index (RI) NON-AMI < or = 5 N/A ISRAEL ZONE > 5 < or = 4 AMI > 5 > 4 Lab Order: Troponin; SPEC06/13/16 06:44 Test: TROPONIN I; Value: < 0.02; Range: < 0.10; Units: NG/ML; Status: F Test Note: ; Troponin I Reference Interval for Collabera LOCI: 99th Percentile= 0.00-0.045 ng/ml Risk Stratification: <= 0.10 ng/ml Decreased Risk for Adverse Clinical Events. 0.10-1.50 ng/ml Increased Risk for Adverse Clinical Events. Evaluation of additional criterion and/or repeat testing in 2-6 hours is suggested to rule out myocardial damage. >= 1.50 ng/ml Indicative of Myocardial Injury. Lab Order: Lipase; SPEC'M 06/13/16 06:44 Test: LIPASE; Value: 276; Range: 73-393; Units: U/L; Status: F Lab Order: DEPAKOTE; SPEC'M 06/13/16 06:44 Test: VALPROIC ACID (DEPAKOTE); Value: 77.8; Range: 50.0-100.0; Units: UG/ML; Status: F Lab Order: Tegretol Level; SPECM 06/13/16 06:44 Test: CARBAMAZEPINE (TEGRETOL) LEVEL; Value: 9.4; Range: 4.0-10.0; Units: UG/ML; Status: F Lab Order: LIVER PROFILE; SPEC'M 06/13/16 06:44 Test: AST/SGOT; Value: 17; Range: 15-37; Units: U/L; Status: F Test: ALT/SGPT; Value: 42; Range: 12-78; Units: U/L; Status: F Test: ALKALINE PHOSPHATASE; Value: 94; Range: 45-117; Units: U/L; Status: F Test: BILIRUBIN,TOTAL; Value: 0.3; Range: 0.2-1.0; Units: MG/DL; Status: F Test: BILIRUBIN,DIRECT; Value: < 0.1; Range: 0.0-0.2; Units: MG/DL; Status: F Test: TOTAL PROTEIN; Value: 7.0; Range: 6.4-8.2; Units: GM/DL; Status: F Test: ALBUMIN; Value: 3.7; Range: 3.2-5.2; Units: GM/DL; Status: F Test: ALBUMIN/GLOBULIN RATIO; Value: 1.12; Range: 1.00-1.93; Status: F Radiology Order: EKG-ADULT Test: EKG-ADULT REASON FOR EXAMINATION: Chest Pain; Stationary ECG Study; [facility] - ED; ; Test Date: 2016-06-13; Pat Name: RICARDO SANTOS Department:; Room: -; Gender: M [employer]:; : 1955 Requested By: JOSE ENRIQUE Mancia; Order Number: [id number] Reading MD: Consuelo Valenzuela; Measurements; Intervals [place]; Rate: 74 P: 57; NH: 192 QRS: -21; QRSD: 74 T: 64; QT: 353; QTc: 392; Interpretive Statements; SINUS RHYTHM; BORDERLINE LEFT AXIS DEVIATION; NONSPECIFIC T-WAVE ABNORMALITY; DELAYED R PROGRESSION; INCREASED RATE 06/08/16; Electronically Signed On 06-14-2016 7:54:11 EST by Consuelo Valenzuela; Outcome: 09:19 Discharge ordered by Provider. 09:28 Discharge Assessment: Patient awake, alert and oriented x 3. No cognitive and/or js13 functional deficits noted. Patient verbalized understanding of disposition instructions. patient administered narcotics - no. The following High Risk Discharge criteria are identified: None. Discharged to home ambulatory, with significant other. Condition: stable. Discharge instructions given to patient, Instructed on discharge instructions, follow up and referral plans. medication usage, Demonstrated understanding of instructions, medications, Pt was receptive of discharge instructions/ teaching. Prescriptions given X 1. No special radiology studies were completed. Property :Personal belongings accompany Pt. 09:30 Patient left the ED. js13 Signatures: Dispatcher [employer] EDMS Tab Malik MD MD pc Oswald, Ileana, Reg Reg gb Shan Minor, Reg Reg lg Bryson, Farhana, Assembly Associate Unit ml3 Patricia Ross, ANAESTHETIC TECHNICIAN ANAESTHETIC TECHNICIAN jarad Jyoti Leon, ANAESTHETIC TECHNICIAN ANAESTHETIC TECHNICIAN ct3 Kierra SoriaRN RN js13 Michelle Mcdowell RN RN Jeanie Lima Crystal, ANAESTHETIC TECHNICIAN ANAESTHETIC TECHNICIAN cln Corrections: (The following items were deleted from the chart) : 06:28 Home Meds: Depakote 500 mg Oral TbEC 1 tab 2 times per day; [facility] js13 06:28 Home Meds: Tegretol 200 mg Oral tab every 12 hours; [facility] js13 06:28 Home Meds: Flonase 50 mcg/actuation Nasal spsn 1 spray 2 times per day; [facility] js13 Chart Complete [facility]
== END 2016-06-13 09:30 | disposition home or self-care (01) ==
LOC: M ED 06:18
DX: R07.9 Chest pain, unspecified (principal); M48.02 Spinal stenosis, cervical region; R20.9 Unspecified disturbances of skin sensation; K21.0 Gastro-esophageal reflux disease with esophagitis; G89.29 Other chronic pain; M54.9 Dorsalgia, unspecified; E78.00 Pure hypercholesterolemia, unspecified; I10 Essential (primary) hypertension; G40.909 Epilepsy, unspecified, not intractable, without status epilepticus; Z79.899 Other long term (current) drug therapy

== ENCOUNTER 2016-09-12 06:11 | Emergency (ER) | payer OTHER ==
[~2016-09-12] VITALS: Ht 165.1 cm; Wt 117.9 kg
[~2016-09-12 06:11] MED LIST changes: +FLON1SPR
[2016-09-12] MEDS ORDERED: IBUPROFEN 800 MG TAB PO ONE (07:30)
--- NOTE | 2016-09-12 07:32 | REP ---
Clinical: Lower chest pain. Rule out pneumonia. Technique: PA and lateral. Comparison: 06/08/2016. Findings: Mediastinum and cardiac silhouette are normal. Lung love demonstrate chronic-appearing changes. No focal consolidation, effusion, or pneumothorax. Skeletal structures appear intact. Impression: No focal consolidation. Signed by Justin Esteban MD 09/12/2016 07:23 A
[2016-09-12] MEDS ORDERED: TESS100C PO (08:15)
[2016-09-12 08:29] VITALS: BP 159/96
[2016-09-12] MEDS ORDERED: METAL LOCK LOOP XX ONE (15:31)
== END 2016-09-12 08:30 | disposition home or self-care (01) ==
LOC: M ED 07:41
DX: J06.9 Acute upper respiratory infection, unspecified (principal); S39.012A Strain of muscle, fascia and tendon of lower back, initial encounter; X58.XXXA Exposure to other specified factors, initial encounter; Y92.89 Other specified places as the place of occurrence of the external cause; Y93.89 Activity, other specified; Y99.8 Other external cause status; Z79.899 Other long term (current) drug therapy

== ENCOUNTER 2016-09-16 07:17 | Emergency (ER) | payer OTHER ==
[~2016-09-16] VITALS: Ht 165.1 cm; Wt 120.2 kg
[~2016-09-16 07:17] MED LIST changes: +TESS100C PO
[2016-09-16 07:31] VITALS: BP 172/88
[2016-09-16] MEDS ORDERED: CLAR1TAB2 PO (08:06)
[2016-09-16] MEDS ORDERED: IBUP600T26 PO (08:06)
== END 2016-09-16 08:16 | disposition home or self-care (01) ==
LOC: M ED 07:51
DX: H65.03 Acute serous otitis media, bilateral (principal); Z79.899 Other long term (current) drug therapy

== ENCOUNTER 2016-09-23 12:09 | Emergency (ER) | payer OTHER ==
[~2016-09-23] VITALS: Ht 165.1 cm; Wt 120.2 kg
[~2016-09-23 12:09] MED LIST changes: +CLAR1TAB2 PO; +IBUP600T26 PO
[2016-09-23 13:33] VITALS: BP 141/72
--- NOTE | 2016-09-23 15:17 | REP ---
RIGHT KNEE, FIVE VIEWS: HISTORY: Trauma. There is no acute fracture or dislocation. There is narrowing of the joint spaces. An osteophyte is present on the patella. IMPRESSION: Degenerative change, as described above. Signed by Placido Garrett MD 09/23/2016 03:57 P
== END 2016-09-23 13:41 | disposition home or self-care (01) ==
LOC: M ED 12:38
DX: S83.91XA Sprain of unspecified site of right knee, initial encounter (principal); W19.XXXA Unspecified fall, initial encounter; Y92.39 Other specified sports and athletic area as the place of occurrence of the external cause; Y93.54 Activity, bowling; Y99.8 Other external cause status; M54.5 Low back pain; R56.9 Unspecified convulsions; Z86.73 Personal history of transient ischemic attack (TIA), and cerebral infarction without residual deficits; Z87.442 Personal history of urinary calculi; Z79.899 Other long term (current) drug therapy

== ENCOUNTER 2016-09-29 18:02 | Emergency (ER) | payer OTHER ==
[~2016-09-29] VITALS: Ht 165.1 cm; Wt 120.2 kg
[2016-09-29 18:04] VITALS: BP 156/73
[2016-09-29] MEDS ORDERED: KETOROLAC 30 MG/ML VIAL (J1885) IM ONE (18:30)
[2016-09-29] MEDS ORDERED: METAL LOCK LOOP XX ONE (18:51)
== END 2016-09-29 20:31 | disposition home or self-care (01) ==
LOC: M ED 18:36
DX: M25.561 Pain in right knee (principal); R56.9 Unspecified convulsions; G47.9 Sleep disorder, unspecified; M54.5 Low back pain; Z79.899 Other long term (current) drug therapy; Z87.442 Personal history of urinary calculi
CPT/HCPCS: 73564; 96372; 99282; J1885

== ENCOUNTER 2016-10-14 12:17 | Emergency (ER) | payer OTHER, SELFPAY ==
[~2016-10-14] VITALS: Ht 165.1 cm; Wt 120.2 kg
[2016-10-14 13:12] VITALS: BP 150/71
== END 2016-10-14 13:18 | disposition home or self-care (01) ==
LOC: M ED 13:05
DX: S83.91XD Sprain of unspecified site of right knee, subsequent encounter (principal); W18.09XD Striking against other object with subsequent fall, subsequent encounter; Y92.39 Other specified sports and athletic area as the place of occurrence of the external cause; Y93.54 Activity, bowling; Y99.8 Other external cause status; G47.33 Obstructive sleep apnea (adult) (pediatric); G40.909 Epilepsy, unspecified, not intractable, without status epilepticus; Z87.442 Personal history of urinary calculi; Z96.0 Presence of urogenital implants; Z79.899 Other long term (current) drug therapy

== ENCOUNTER 2016-10-24 16:42 | Emergency (ER) | payer OTHER ==
[~2016-10-24] VITALS: Ht 165.1 cm; Wt 117.9 kg
[2016-10-24 16:42] VITALS: BP 147/84
[2016-10-24] MEDS ORDERED: AMOX875T PO (17:11)
[2016-10-25] MEDS ORDERED: PROPOFOL 200 MG/20 ML VIAL As Ordered ONE (07:40)
== END 2016-10-24 17:18 | disposition home or self-care (01) ==
LOC: M ED 17:16
DX: H65.92 Unspecified nonsuppurative otitis media, left ear (principal); G43.909 Migraine, unspecified, not intractable, without status migrainosus; Z87.442 Personal history of urinary calculi; Z79.899 Other long term (current) drug therapy

== ENCOUNTER → 2016-11-02 | Outpatient (REF) | payer OTHER ==
[~2016-11-02] MED LIST changes: +AMOX875T PO
[2016-11-02 18:53] LABS: BASO % 0.6 % (0.0-1.0); EOS # 0.1 K/mm3 (0.0-0.50); LARGE UNSTAINED CELL # 0.1 K/mm3 (0.0-0.4); LARGE UNSTAINED CELL % 1.3 % (0.0-4.0); LYMPH # 2.3 K/mm3 (1.5-4.5); LYMPH % 35.6 % (24.0-44.0); MEAN CORPUSCULAR HEMOGLOBIN 28.3 pg (27.0-33.0); MEAN CORPUSCULAR HGB CONC 33.5 g/dl (32.0-36.5); MEAN CORPUSCULAR VOLUME 84.6 fl (80.0-96.0); MONO # 0.4 K/mm3 (0.0-0.8); NEUTROPHILS # 3.5 K/mm3 (1.8-7.7); NEUTROPHILS % 54.5 % (36.0-66.0); PLATELET COUNT, AUTOMATED 249 k/mm3 (150-450); RED CELL DISTRIBUTION WIDTH 13.3 % (11.5-14.5); WHITE BLOOD COUNT 6.4 K/mm3 (4.0-10.0)
[2016-11-02 19:42] LABS: ALBUMIN 3.9 GM/DL (3.2-5.2); ALBUMIN/GLOBULIN RATIO 1.05 (1.00-1.93); ALKALINE PHOSPHATASE 108 U/L (45-117); ALT/SGPT 54 U/L (12-78); AMYLASE 46 U/L (25-115); ANION GAP 4 MEQ/L (8-16); AST/SGOT 16 U/L (15-37); BILIRUBIN,TOTAL 0.2 MG/DL (0.2-1.0); BLOOD UREA NITROGEN 16 MG/DL (7-18); CALCIUM LEVEL 9.3 MG/DL (8.8-10.2); CARBON DIOXIDE LEVEL 31 MEQ/L (21-32); CHLORIDE LEVEL 105 MEQ/L (98-107); GLOMERULAR FILTRATION RATE > 60.0 (>49); GLUCOSE, FASTING 105 MG/DL (80-110); POTASSIUM SERUM 4.4 MEQ/L (3.5-5.1); SODIUM LEVEL 140 MEQ/L (136-145); TOTAL PROTEIN 7.6 GM/DL (6.4-8.2)
== END ==
LOC: M SFHCPLAZ 15:07
PROVIDERS: ATTEND Nurse Practitioner Family
DX: R51 Headache (principal); R10.84 Generalized abdominal pain; G40.909 Epilepsy, unspecified, not intractable, without status epilepticus

== ENCOUNTER → 2016-11-03 | Outpatient (CLI) | payer OTHER ==
--- NOTE | 2016-11-03 07:50 | REP ---
Right upper quadrant sonography: History: Generalized abdominal pain. Question pancreatitis. Findings: Scan quality is inhibited to some degree by patient body habitus. Scanning through the right upper quadrant of the abdomen demonstrates normal sized thin-walled gallbladder without evidence of stone or polyp. Common bile duct is normal measuring 0.5 cm in greatest diameter. There is poor insonation of a hyperechoic liver diffusely consistent with fatty infiltration of the liver. No focal liver lesion is seen. The liver is not well visualized. The pancreas is obscured by abdominal gas. There is no visible ascites or right renal abnormality. The right kidney measures 13.6 x 7.4 x 7.1 cm. Impression: Findings consistent with significant fatty infiltration of the liver. Scan quality inhibited by bowel gas and patient body habitus. Otherwise negative. Signed by Nelson Field MD 11/03/2016 09:36 A
== END ==
LOC: M RAD 06:17
PROVIDERS: ATTEND Nurse Practitioner Family
DX: R10.84 Generalized abdominal pain (principal); K76.0 Fatty (change of) liver, not elsewhere classified; R93.9 Diagnostic imaging inconclusive due to excess body fat of patient

== ENCOUNTER → 2016-11-30 | Outpatient (CLI) | payer OTHER ==
[~2016-11-30] MED LIST changes: +ASPI81TA85 PO; +IBUP-1022 PO; +IBUP-1114 PO; -IBUP600T26 PO; +LEVA1TAB2 PO; -LEVA500T PO; +XARE15TA PO
--- NOTE | 2016-11-30 10:23 | REP ---
Hepatobiliary scan and gallbladder ejection fraction: History: Generalized abdominal pain. Dyspepsia. Technique: 6.6 mCi of technetium-99m mebrofenin was injected and sequential anterior images are acquired. 65 minutes after the mebrofenin injection, the patient consumed 8 ounces Ensure and an additional 60 minutes of imaging was acquired. Regions of interest are plotted around the gallbladder. Findings: The initial hepatocellular parenchymal uptake phase is normal and homogeneous. Intra- and extra-hepatic bile ducts and duodenum are labeled by the 10 -minute image. The gallbladder is first labeled on the 20 -minute image. There is normal washout from the liver parenchyma into the gallbladder and small intestine on subsequent images. The gallbladder ejection fraction is 58 %. Values greater than 35 % are considered normal with this technique. Impression: Normal hepatobiliary scan and normal gallbladder ejection fraction. Signed by Nelson Field MD 11/30/2016 10:13 A
== END ==
LOC: M RAD 06:55
PROVIDERS: ATTEND Nurse Practitioner Family
DX: R10.84 Generalized abdominal pain (principal); R10.13 Epigastric pain

== ENCOUNTER → 2016-12-04 | Outpatient (REF) | payer OTHER, SELFPAY | LOC: M SFHCPLAZ 09:22 | PROVIDERS: ATTEND Physician Assistant | DX: Z53.8 Procedure and treatment not carried out for other reasons (principal) ==

== ENCOUNTER → 2016-12-05 | Outpatient (CLI) | payer OTHER, SELFPAY ==
[2016-12-05 19:32] LABS: BASO # 0.1 K/mm3 (0.0-0.2); BASO % 0.8 % (0.0-1.0); EOS # 0.2 K/mm3 (0.0-0.50); EOS % 2.7 % (0.0-3.0); LARGE UNSTAINED CELL # 0.2 K/mm3 (0.0-0.4); LARGE UNSTAINED CELL % 2.5 % (0.0-4.0); LYMPH # 2.3 K/mm3 (1.5-4.5); LYMPH % 30.1 % (24.0-44.0); MEAN CORPUSCULAR HEMOGLOBIN 27.4 pg (27.0-33.0); MEAN CORPUSCULAR HGB CONC 32.9 g/dl (32.0-36.5); MEAN CORPUSCULAR VOLUME 83.2 fl (80.0-96.0); MONO # 0.4 K/mm3 (0.0-0.8); MONO % 5.8 % (0.0-5.0); NEUTROPHILS # 4.1 K/mm3 (1.8-7.7); NEUTROPHILS % 58.1 % (36.0-66.0); PLATELET COUNT, AUTOMATED 220 k/mm3 (150-450); RED CELL DISTRIBUTION WIDTH 13.5 % (11.5-14.5); WHITE BLOOD COUNT 7.1 K/mm3 (4.0-10.0)
[2016-12-05 19:42] LABS: INR 0.97
[2016-12-05 19:45] LABS: ANION GAP 5 MEQ/L (8-16); BLOOD UREA NITROGEN 16 MG/DL (7-18); CALCIUM LEVEL 8.9 MG/DL (8.8-10.2); CARBON DIOXIDE LEVEL 26 MEQ/L (21-32); CHLORIDE LEVEL 107 MEQ/L (98-107); CREATININE FOR GFR 0.74 MG/DL (0.70-1.30); GLOMERULAR FILTRATION RATE > 60.0 (>49); GLUCOSE, FASTING 80 MG/DL (80-110); POTASSIUM SERUM 4.5 MEQ/L (3.5-5.1); SODIUM LEVEL 138 MEQ/L (136-145)
== END ==
LOC: M LAB 17:01
PROVIDERS: ATTEND Physician Assistant
DX: Z01.812 Encounter for preprocedural laboratory examination (principal)

== ENCOUNTER 2016-12-18 17:13 | Emergency (ER) | payer OTHER ==
[~2016-12-18] VITALS: Ht 165.1 cm; Wt 120.4 kg
[~2016-12-18 17:13] MED LIST changes: -ASPI81TA85 PO; -IBUP-1114 PO; -XARE15TA PO
[2016-12-18] MEDS ORDERED: ASPI81TA85 PO (17:53)
--- NOTE | 2016-12-18 19:00 | REPUSA ---
Clinical history: Pain, swelling. Findings: There is a small area echogenic wall thickening in the distal right superficial femoral. T he common femoral, proximal superficial femoral, popliteal, and other deep venous structures compress normally and demonstrate normal color Doppler flow. Normal venous waveforms with augmentation are se en. Impression: Findings suspicious for a chronic nonocclusive thrombus in the distal right superficial femoral vein. .
[2016-12-18] MEDS ORDERED: XARE15TA PO (19:28)
[2016-12-18 19:33] VITALS: BP 151/98
== END 2016-12-18 19:39 | disposition home or self-care (01) ==
LOC: M ED 17:13
DX: I82.811 Embolism and thrombosis of superficial veins of right lower extremity (principal); Z87.442 Personal history of urinary calculi; Z96.0 Presence of urogenital implants; Z79.82 Long term (current) use of aspirin; Z79.899 Other long term (current) drug therapy

== ENCOUNTER → 2016-12-26 | Outpatient (CLI) | payer OTHER ==
[~2016-12-26] MED LIST changes: +ASPI81TA85 PO; +IBUP-1114 PO; +XARE15TA PO
--- NOTE | 2016-12-26 14:50 | REP ---
RIGHT LOWER EXTREMITY DOPPLER VENOUS ULTRASOUND: 12/26/2016 CLINICAL HISTORY: Followup possible DVT distal femoral vein. COMPARISON: 12/18/2016, 12/10/2013. FINDINGS: On today's study, standard duplex techniques were utilized. The distal superficial femoral vein of the deep system is suggested nonoccluding DVT, age indeterminate, on the previous examination. On today's study, the deep venous system was studied from the groin to the popliteal fossa. The color images show patency of the vessels throughout, particular the distal femoral vein which compresses poorly, fills completely wall to wall, and shows good augmentation and respiratory variation. There is still significant edema and swelling of the leg with pain which limits the compressibility of this region. Above and below, there is normal compressibility and similar filling of the vessel with color flow and both respiratory variation, augmented flow normal. IMPRESSION: There is no Doppler venous ultrasound evidence for DVT in the right lower extremity. The distal femoral vein on today's study is again poorly visualized in essence due to edema and swelling of the leg, but it is completely filled with color on flow images, and there was good respiratory variation and augmentation of flow at that vessel, above and below. I cannot see nonocclusive thrombus at this level today. Signed by Yash Chatman MD 12/26/2016 07:05 P
== END ==
LOC: M RAD 13:42
PROVIDERS: ATTEND Nurse Practitioner Family
DX: R93.8 Abnormal findings on diagnostic imaging of other specified body structures (principal)

== ENCOUNTER 2017-01-24 15:15 | Outpatient (RCR) | payer OTHER ==
[~2017-01-24 15:15] MED LIST changes: -IBUP-1114 PO
== END 2017-01-25 ==
LOC: M PT 15:15
PROVIDERS: ATTEND Orthopaedic Surgery
DX: Z51.89 Encounter for other specified aftercare (principal); S83.241A Other tear of medial meniscus, current injury, right knee, initial encounter; X58.XXXA Exposure to other specified factors, initial encounter; Y92.9 Unspecified place or not applicable; Y93.9 Activity, unspecified; Y99.9 Unspecified external cause status

== ENCOUNTER 2017-02-09 07:32 | Outpatient (RCR) | payer MEDICAID, OTHER ==
[2017-02-19] MEDS ORDERED: TYLE325T5 PO (20:56)
[2017-02-19] MEDS ORDERED: IBUP-1114 PO (20:56)
== END 2017-02-24 ==
LOC: M PT 07:32
PROVIDERS: ATTEND Orthopaedic Surgery
DX: Z51.89 Encounter for other specified aftercare (principal); S83.241A Other tear of medial meniscus, current injury, right knee, initial encounter; X58.XXXA Exposure to other specified factors, initial encounter; Y92.9 Unspecified place or not applicable; Y93.9 Activity, unspecified; Y99.9 Unspecified external cause status

== ENCOUNTER 2017-02-19 20:47 | Emergency (ER) | payer MEDICAID ==
[~2017-02-19] VITALS: Ht 165.1 cm; Wt 120.5 kg
[2017-02-19] MEDS ORDERED: TYLE325T5 PO (20:56)
[2017-02-19] MEDS ORDERED: IBUP-1114 PO (20:56)
[2017-02-19] MEDS ORDERED: OXYCODONE/APAP 5MG/325MG(BULK FOR ED) 1 TABLET PO ONE (23:00)
[2017-02-19 23:13] VITALS: BP 171/99
== END 2017-02-19 23:14 | disposition home or self-care (01) ==
LOC: M ED 20:47
DX: M25.461 Effusion, right knee (principal); I10 Essential (primary) hypertension; E78.00 Pure hypercholesterolemia, unspecified; G47.30 Sleep apnea, unspecified; Z98.890 Other specified postprocedural states; Z79.899 Other long term (current) drug therapy; Z87.442 Personal history of urinary calculi

== ENCOUNTER → 2017-02-23 | Outpatient (CLI) | payer MEDICAID ==
[~2017-02-23] MED LIST changes: +IBUP-1114 PO
--- NOTE | 2017-02-23 08:19 | REP ---
Right lower extremity deep vein duplex ultrasound: The deep veins demonstrate normal compression, normal Doppler color flow and normal Doppler waveforms with respiration augmentation at multiple levels from the popliteal vein to the common femoral vein. Impression: There is no right lower extremity deep vein thrombus. Signed by Lucien Kenny MD 02/23/2017 08:10 A
== END ==
LOC: M RAD 07:15
PROVIDERS: ATTEND Physician Assistant Medical
DX: M25.561 Pain in right knee (principal)

== ENCOUNTER 2017-02-28 15:16 | Emergency (ER) | payer MEDICAID, OTHER ==
[~2017-02-28] VITALS: Ht 167.6 cm; Wt 118.2 kg
--- NOTE | 2017-02-28 16:09 | REP ---
Portable chest, 03:57 p.m., single PA view: Comparison is a 09/12/2016 and 12/10/2013. Lung love are clear. Cardiac size is upper normal. The laura, mediastinum, bony thorax are unremarkable. There is a tiny granuloma of the right hemidiaphragm, unchanged from both prior studies. Impression: Essentially negative PA l chest. There is no interval change. Signed by Lucien Kenny MD 02/28/2017 04:01 P
[2017-02-28 16:10] LABS: BASO # 0.1 10^3/uL (0.0-0.2); BASO % 0.8 % (0.0-1.0); EOS # 0.2 10^3/uL (0.0-0.50); EOS % 2.6 % (0.0-3.0); IMMATURE GRANULOCYTE % 0.5 % (0-0); LYMPH # 2.6 10^3/uL (1.5-4.5); LYMPH % 34.1 % (24.0-44.0); MEAN CORPUSCULAR HEMOGLOBIN 26.4 pg (27.0-33.0); MEAN CORPUSCULAR HGB CONC 32.8 g/dl (32.0-36.5); MEAN CORPUSCULAR VOLUME 80.4 fl (80.0-96.0); MONO # 0.7 10^3/uL (0.0-0.8); MONO % 8.5 % (0.0-5.0); NEUTROPHILS # 4.1 10^3/uL (1.8-7.7); NEUTROPHILS % 53.5 % (36.0-66.0); PLATELET COUNT, AUTOMATED 169 10^3/uL (150-450); RED CELL DISTRIBUTION WIDTH 13.5 % (11.5-14.5); WHITE BLOOD COUNT 7.7 10^3/uL (4.0-10.0)
[2017-02-28 16:13] LABS: ADD MORPHOLOGY? NO
[2017-02-28 16:32] LABS: ALBUMIN 3.6 GM/DL (3.2-5.2); ALBUMIN/GLOBULIN RATIO 1.06 (1.00-1.93); ALKALINE PHOSPHATASE 110 U/L (45-117); ALT/SGPT 62 U/L (12-78); ANION GAP 9 MEQ/L (8-16); AST/SGOT 16 U/L (15-37); BILIRUBIN,DIRECT < 0.1 MG/DL (0.0-0.2); BILIRUBIN,TOTAL 0.3 MG/DL (0.2-1.0); BLOOD UREA NITROGEN 16 MG/DL (7-18); CALCIUM LEVEL 8.5 MG/DL (8.8-10.2); CARBON DIOXIDE LEVEL 25 MEQ/L (21-32); CHLORIDE LEVEL 105 MEQ/L (98-107); CREATININE FOR GFR 0.78 MG/DL (0.70-1.30); GLOMERULAR FILTRATION RATE > 60.0 (>49); GLUCOSE, FASTING 78 MG/DL (80-110); POTASSIUM SERUM 4.3 MEQ/L (3.5-5.1); SODIUM LEVEL 139 MEQ/L (136-145)
[2017-02-28] MEDS ORDERED: ASPIRIN 81 MG CHEW TABLET PO ONE (18:15)
[2017-02-28] MEDS: NITROGLYCERIN 0.4 MG SUBL TABLET SL PRN ×2 (18:24→19:11)
[2017-02-28 18:39] LABS: CARBAMAZEPINE (TEGRETOL) LEVEL 5.4 UG/ML (4.0-10.0)
[2017-02-28] MEDS ORDERED: ISOVUE-370 76% 100ML VIAL (Q9967) As Ordered ONE (18:39)
[2017-02-28 18:44] VITALS: BP 142/67
--- NOTE | 2017-02-28 19:00 | REPUSA ---
CLINICAL HISTORY: Edema. COMMENTS: Real time sonography with duplex doppler of the extremities bilaterally was performed with attention to the major deep venous structures. Evaluation reveals the common femoral, superficial femoral and popliteal veins bilaterally to be comp letely compressible without intraluminal thrombus. There is normal spontaneous phasic flow and augmen tation in all deep veins. The greater saphenous/common femoral vein junctions are patent bilaterally. IMPRESSION: No evidence of DVT in the lower extremities bilaterally. Thank you for your kind referral of this patient.
[2017-02-28 19:11] VITALS: BP 133/67
--- NOTE | 2017-02-28 19:40 | REPUSA ---
CLINICAL HISTORY: CP, exclude PE. TECHNIQUE: Multiple incremental axial, coronal and oblique images are obtained from the thoracic inle t to the upper abdomen. Intravenous contrast material was administered as per pulmonary embolism prot ocol. COMMENTS: There is excellent opacification of pulmonary arterial system without evidence for pulmonary embolism . Aorta is of normal caliber without evidence for dissection or aneurysm. There is no evidence of pleural or parenchymal mass. There are no pleural effusions. There is no evid ence of hilar or mediastinal lymphadenopathy. The heart and great vessels are within normal limits. Images of the upper abdomen demonstrate no evidence of adrenal mass. Small hital hernia is seen with thickening distal esophageal wall. Consider follow-up with upper endoscopy. The bony structures are free of lytic or blastic lesions. Multilevel degenerative changes are seen in volving the visualized thoracolumbar spine. Scattered calcifications are seen involving the aorta and major branches compatible with atherosclero sis. IMPRESSION: No evidence for pulmonary embolism. Small hital hernia is seen with thickening distal esophageal wall. Consider follow-up with upper end oscopy. Thank you for your kind referral of this patient.
--- NOTE | 2017-03-01 06:57 | ED PDOC ---
Post-Departure Follow-Up radiology report faxed to Consuelo Madrigal MD Mar 01, 2017 06:57
--- NOTE | 2017-03-01 07:54 | ECGEPIP ---
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
== END 2017-02-28 20:59 | disposition home or self-care (01) ==
LOC: M ED 15:16
DX: R07.9 Chest pain, unspecified (principal); R60.0 Localized edema; E78.9 Disorder of lipoprotein metabolism, unspecified; K75.81 Nonalcoholic steatohepatitis (NASH); M51.9 Unspecified thoracic, thoracolumbar and lumbosacral intervertebral disc disorder; R56.9 Unspecified convulsions; Z79.899 Other long term (current) drug therapy; Z87.442 Personal history of urinary calculi
CPT/HCPCS: 71010; 71275; 80048; 80076; 80156; 80164; 82550; 82553; 83690; 84443; 85025; 93000; 93041; 93970; 94760; 99285; Q9967

== ENCOUNTER 2017-06-25 05:45 | Emergency (ER) | payer OTHER | END 2017-06-25 07:22 | disposition home or self-care (01) | LOC: M ED 05:45 | DX: J20.9 Acute bronchitis, unspecified (principal); I25.10 Atherosclerotic heart disease of native coronary artery without angina pectoris; I10 Essential (primary) hypertension; K21.9 Gastro-esophageal reflux disease without esophagitis; I25.2 Old myocardial infarction; Z87.442 Personal history of urinary calculi; Z98.890 Other specified postprocedural states; Z86.69 Personal history of other diseases of the nervous system and sense organs | CPT/HCPCS: 71046 ==

== ENCOUNTER 2017-08-17 11:06 | Emergency (ER) | payer OTHER ==
[2017-08-17] MEDS: NS 1,000 ML IV (12:10)
[2017-08-17] MEDS: PANTOPRAZOLE 40MG INJ (PROTONIX) (C9113) IV (12:36)
[2017-08-17] MEDS: KETOROLAC 30 MG/ML VIAL (J1885) IV (12:36)
[2017-08-17] MEDS: ONDANSETRON 4MG/2ML VIAL (J2405) IV (12:37)
[2017-08-17 13:30] LABS: KETONE, URINE AUTO RFX NEGATIVE (NEGATIVE); LEUKOCYTE ESTERASE UR AUTO RFX NEGATIVE (NEGATIVE); MUCUS, URINE RFX SMALL (NEGATIVE); NITRITE, URINE AUTO RFX NEGATIVE (NEGATIVE); RBC, URINE AUTO RFX 0 /HPF (0-3); SQUAM EPITHELIAL CELL UR AURFX 0 /HPF (0-6); WBC, URINE AUTO RFX 0 /HPF (0-3)
[2017-08-17 13:32] LABS: BASO % 0.3 % (0.0-1.0); EOS # 0.1 10^3/uL (0.0-0.50); EOS % 1.1 % (0.0-3.0); HEMATOCRIT 49.7 % (42.0-52.0); IMMATURE GRANULOCYTE % 0.2 % (0-3.0); LYMPH # 0.5 10^3/uL (1.5-4.5); LYMPH % 5.7 % (24.0-44.0); MEAN CORPUSCULAR HEMOGLOBIN 26.1 pg (27.0-33.0); MEAN CORPUSCULAR HGB CONC 32.2 g/dl (32.0-36.5); MEAN CORPUSCULAR VOLUME 80.9 fl (80.0-96.0); MONO # 0.3 10^3/uL (0.0-0.8); MONO % 3.6 % (0.0-5.0); NEUTROPHILS # 7.9 10^3/uL (1.8-7.7); NEUTROPHILS % 89.1 % (36.0-66.0); PLATELET COUNT, AUTOMATED 208 10^3/uL (150-450); RED BLOOD COUNT 6.14 10^6/uL (4.30-6.10); RED CELL DISTRIBUTION WIDTH 13.9 % (11.5-14.5); WHITE BLOOD COUNT 8.9 10^3/uL (4.0-10.0)
[2017-08-17 13:33] LABS: ALBUMIN 3.9 GM/DL (3.2-5.2); ALBUMIN/GLOBULIN RATIO 0.95 (1.00-1.93); ALKALINE PHOSPHATASE 110 U/L (45-117); ALT/SGPT 62 U/L (12-78); ANION GAP 7 MEQ/L (8-16); AST/SGOT 24 U/L (7-37); BILIRUBIN,DIRECT 0.1 MG/DL (0.0-0.2); BILIRUBIN,TOTAL 0.6 MG/DL (0.2-1.0); BLOOD UREA NITROGEN 19 MG/DL (7-18); CALCIUM LEVEL 8.5 MG/DL (8.8-10.2); CARBON DIOXIDE LEVEL 26 MEQ/L (21-32); CHLORIDE LEVEL 108 MEQ/L (98-107); CREATININE FOR GFR 0.89 MG/DL (0.70-1.30); GLOMERULAR FILTRATION RATE > 60.0 (>49); GLUCOSE, FASTING 92 MG/DL (70-100); LIPASE 1359 U/L (73-393); POTASSIUM SERUM 4.4 MEQ/L (3.5-5.1); SODIUM LEVEL 141 MEQ/L (136-145)
[2017-08-17 13:42] LABS: INR 0.93; PROTHROMBIN TIME 12.5 SECONDS (12.4-14.5)
[2017-08-17] MEDS: PERCOCET 5MG/325MG TAB PO (14:55)
[2017-08-17 16:26] LABS: ETHYL ALCOHOL (ETHANOL) < 0.003 % (0.000-0.010)
== END 2017-08-17 15:30 | disposition home or self-care (01) ==
LOC: M ED 11:06
DX: K85.90 Acute pancreatitis without necrosis or infection, unspecified (principal); J45.909 Unspecified asthma, uncomplicated; G89.29 Other chronic pain; Z79.2 Long term (current) use of antibiotics; Z87.442 Personal history of urinary calculi
CPT/HCPCS: C9113

== ENCOUNTER 2017-08-20 05:59 | Emergency (ER) | payer OTHER ==
[2017-08-20 07:39] LABS: BASO % 0.4 % (0.0-1.0); EOS # 0.2 10^3/uL (0.0-0.50); EOS % 3.8 % (0.0-3.0); HEMATOCRIT 44.9 % (42.0-52.0); HEMOGLOBIN 14.4 g/dl (14.0-18.0); IMMATURE GRANULOCYTE % 0.4 % (0-3.0); LYMPH # 1.3 10^3/uL (1.5-4.5); LYMPH % 27.8 % (24.0-44.0); MEAN CORPUSCULAR HEMOGLOBIN 25.7 pg (27.0-33.0); MEAN CORPUSCULAR HGB CONC 32.1 g/dl (32.0-36.5); MEAN CORPUSCULAR VOLUME 80.2 fl (80.0-96.0); MONO # 0.4 10^3/uL (0.0-0.8); MONO % 8.2 % (0.0-5.0); NEUTROPHILS # 2.7 10^3/uL (1.8-7.7); NEUTROPHILS % 59.4 % (36.0-66.0); PLATELET COUNT, AUTOMATED 184 10^3/uL (150-450); RED CELL DISTRIBUTION WIDTH 13.3 % (11.5-14.5); WHITE BLOOD COUNT 4.5 10^3/uL (4.0-10.0)
[2017-08-20] MEDS ORDERED: ISOVUE-370 76% 100ML VIAL (Q9967) As Ordered (07:46)
[2017-08-20 07:48] LABS: ALBUMIN 3.5 GM/DL (3.2-5.2); ALBUMIN/GLOBULIN RATIO 0.95 (1.00-1.93); ALKALINE PHOSPHATASE 85 U/L (45-117); ALT/SGPT 58 U/L (12-78); ANION GAP 5 MEQ/L (8-16); AST/SGOT 24 U/L (7-37); BILIRUBIN,DIRECT 0.1 MG/DL (0.0-0.2); BILIRUBIN,TOTAL 0.4 MG/DL (0.2-1.0); BLOOD UREA NITROGEN 22 MG/DL (7-18); CALCIUM LEVEL 8.3 MG/DL (8.8-10.2); CARBON DIOXIDE LEVEL 27 MEQ/L (21-32); CHLORIDE LEVEL 109 MEQ/L (98-107); CREATININE FOR GFR 0.77 MG/DL (0.70-1.30); GLOMERULAR FILTRATION RATE > 60.0 (>49); GLUCOSE, FASTING 99 MG/DL (70-100); LIPASE 106 U/L (73-393); POTASSIUM SERUM 4.3 MEQ/L (3.5-5.1); SODIUM LEVEL 141 MEQ/L (136-145); TOTAL PROTEIN 7.2 GM/DL (6.4-8.2)
[2017-08-20] MEDS: ONDANSETRON 4MG/2ML VIAL (J2405) IV (07:50)
[2017-08-20] MEDS: NS 1,000 ML IV (07:50)
[2017-08-20] MEDS: MORPHINE 4 MG/ML 1ML VIAL (J2270) IV (07:51)
== END 2017-08-20 09:45 | disposition home or self-care (01) ==
LOC: M ED 05:59
DX: R10.12 Left upper quadrant pain (principal); R10.32 Left lower quadrant pain; I10 Essential (primary) hypertension; E78.5 Hyperlipidemia, unspecified; K21.9 Gastro-esophageal reflux disease without esophagitis; Z87.442 Personal history of urinary calculi; I25.2 Old myocardial infarction; Z86.73 Personal history of transient ischemic attack (TIA), and cerebral infarction without residual deficits; Z98.890 Other specified postprocedural states; Z80.7 Family history of other malignant neoplasms of lymphoid, hematopoietic and related tissues; Z80.0 Family history of malignant neoplasm of digestive organs; Z79.899 Other long term (current) drug therapy; Z79.2 Long term (current) use of antibiotics
CPT/HCPCS: J2270

== ENCOUNTER → 2017-09-12 | Outpatient (REF) | payer OTHER ==
[2017-09-12 12:20] LABS: BASO # 0.1 10^3/uL (0.0-0.2); EOS # 0.2 10^3/uL (0.0-0.50); EOS % 2.9 % (0.0-3.0); HEMATOCRIT 45.2 % (42.0-52.0); HEMOGLOBIN 14.7 g/dl (13.5-17.5); IMMATURE GRANULOCYTE % 0.3 % (0-3.0); LYMPH % 31.2 % (24.0-44.0); MEAN CORPUSCULAR HEMOGLOBIN 26.2 pg (27.0-33.0); MEAN CORPUSCULAR HGB CONC 32.5 g/dl (32.0-36.5); MEAN CORPUSCULAR VOLUME 80.4 fl (80.0-96.0); MONO # 0.5 10^3/uL (0.0-0.8); MONO % 8.4 % (0.0-5.0); NEUTROPHILS # 3.6 10^3/uL (1.8-7.7); NEUTROPHILS % 56.2 % (36.0-66.0); PLATELET COUNT, AUTOMATED 214 10^3/uL (150-450); RED BLOOD COUNT 5.62 10^6/uL (4.30-6.10); RED CELL DISTRIBUTION WIDTH 13.5 % (11.5-14.5); WHITE BLOOD COUNT 6.3 10^3/uL (4.0-10.0)
[2017-09-12 13:24] LABS: ALBUMIN 3.8 GM/DL (3.2-5.2); ALBUMIN/GLOBULIN RATIO 1.15 (1.00-1.93); ALKALINE PHOSPHATASE 107 U/L (45-117); ALT/SGPT 59 U/L (12-78); AMYLASE 55 U/L (25-115); ANION GAP 5 MEQ/L (8-16); AST/SGOT 19 U/L (7-37); BILIRUBIN,TOTAL 0.3 MG/DL (0.2-1.0); BLOOD UREA NITROGEN 14 MG/DL (7-18); CALCIUM LEVEL 8.8 MG/DL (8.8-10.2); CARBON DIOXIDE LEVEL 26 MEQ/L (21-32); CHLORIDE LEVEL 112 MEQ/L (98-107); GLOMERULAR FILTRATION RATE > 60.0 (>49); GLUCOSE, FASTING 102 MG/DL (70-100); LIPASE 430 U/L (73-393); POTASSIUM SERUM 4.3 MEQ/L (3.5-5.1); SODIUM LEVEL 143 MEQ/L (136-145); TOTAL PROTEIN 7.1 GM/DL (6.4-8.2)
== END ==
LOC: M SFHCPLAZ 10:14
DX: R10.9 Unspecified abdominal pain (principal)

== ENCOUNTER → 2017-09-12 | Outpatient (CLI) | payer OTHER ==
[~2017-09-12] MED LIST changes: -/DIVA50TA PO; -/TAMS4CA PO; -AMOX875T PO; -ASPI81TA85 PO; -BACL10TA PO; -CARB20TAXR PO; -CIPR250T2 PO; -CLAR1TAB2 PO; -COLA50CA3 PO; -DEPA1TAB3 PO; -DILA2TAB PO; -DUCO5TAB PO; -FLOM5CAP PO; -FLON1SPR; +GASTROGRAFIN SOLUTION 30ML (Q9963) As Ordered; -IBUP-1022 PO; -IBUP-1114 PO; +ISOVUE-370 76% 100ML VIAL (Q9967) As Ordered; -KETO10TAB PO; -LEVA1TAB2 PO; -MIRA3350 PO; -NORCOTAB PO; -PERCOCET PO; -PROT1TAB2 PO; -SENN8.6T76 PO; -SENO8.6T9 PO; -SOMA350T PO; -TEGR200T PO; -TESS100C PO; -TYLE325T5 PO; -ULTR50TA PO; -XARE15TA PO; -toradol PO
== END ==
LOC: M RAD 11:41
DX: N40.0 Benign prostatic hyperplasia without lower urinary tract symptoms (principal); N20.0 Calculus of kidney; K57.90 Diverticulosis of intestine, part unspecified, without perforation or abscess without bleeding; K76.0 Fatty (change of) liver, not elsewhere classified
CPT/HCPCS: Q9963

== ENCOUNTER → 2017-09-13 | Outpatient (REF) | payer OTHER | LOC: M SFHCPLAZ 13:25 | DX: N40.0 Benign prostatic hyperplasia without lower urinary tract symptoms (principal) ==

== ENCOUNTER 2017-09-14 10:29 | Emergency (ER) | payer OTHER ==
[2017-09-14 11:45] LABS: BASO % 0.5 % (0.0-1.0); EOS # 0.1 10^3/uL (0.0-0.50); EOS % 1.7 % (0.0-3.0); HEMATOCRIT 45.4 % (42.0-52.0); HEMOGLOBIN 14.9 g/dl (13.5-17.5); IMMATURE GRANULOCYTE % 0.2 % (0-3.0); LYMPH # 1.6 10^3/uL (1.5-4.5); LYMPH % 26.8 % (24.0-44.0); MEAN CORPUSCULAR HEMOGLOBIN 26.4 pg (27.0-33.0); MEAN CORPUSCULAR HGB CONC 32.8 g/dl (32.0-36.5); MEAN CORPUSCULAR VOLUME 80.4 fl (80.0-96.0); MONO # 0.4 10^3/uL (0.0-0.8); MONO % 6.2 % (0.0-5.0); NEUTROPHILS # 3.8 10^3/uL (1.8-7.7); NEUTROPHILS % 64.6 % (36.0-66.0); PLATELET COUNT, AUTOMATED 183 10^3/uL (150-450); RED BLOOD COUNT 5.65 10^6/uL (4.30-6.10); RED CELL DISTRIBUTION WIDTH 13.4 % (11.5-14.5); WHITE BLOOD COUNT 5.9 10^3/uL (4.0-10.0)
[2017-09-14] MEDS: TAMSULOSIN 0.4 MG CAP PO (12:08)
[2017-09-14] MEDS: KETOROLAC 30 MG/ML VIAL (J1885) IV (12:08)
[2017-09-14 12:14] LABS: LACTIC ACID SEPSIS PROTOCOL 1.2 MMOL/L (0.4-2.0)
[2017-09-14 12:14] LABS: ALBUMIN/GLOBULIN RATIO 1.18 (1.00-1.93); ALKALINE PHOSPHATASE 107 U/L (45-117); ALT/SGPT 61 U/L (12-78); ANION GAP 4 MEQ/L (8-16); AST/SGOT 25 U/L (7-37); BILIRUBIN,DIRECT 0.1 MG/DL (0.0-0.2); BILIRUBIN,TOTAL 0.5 MG/DL (0.2-1.0); BLOOD UREA NITROGEN 17 MG/DL (7-18); CALCIUM LEVEL 8.7 MG/DL (8.8-10.2); CARBON DIOXIDE LEVEL 26 MEQ/L (21-32); CHLORIDE LEVEL 111 MEQ/L (98-107); CREATININE FOR GFR 0.73 MG/DL (0.70-1.30); GLOMERULAR FILTRATION RATE > 60.0 (>49); GLUCOSE, FASTING 117 MG/DL (70-100); LIPASE 234 U/L (73-393); POTASSIUM SERUM 3.7 MEQ/L (3.5-5.1); SODIUM LEVEL 141 MEQ/L (136-145); TOTAL PROTEIN 7.4 GM/DL (6.4-8.2)
== END 2017-09-14 13:55 | disposition home or self-care (01) ==
LOC: M ED 10:29
DX: R10.9 Unspecified abdominal pain (principal); N28.1 Cyst of kidney, acquired; N20.0 Calculus of kidney; I10 Essential (primary) hypertension; N40.0 Benign prostatic hyperplasia without lower urinary tract symptoms; Z87.440 Personal history of urinary (tract) infections; Z86.69 Personal history of other diseases of the nervous system and sense organs; Z87.19 Personal history of other diseases of the digestive system; Z87.442 Personal history of urinary calculi; Z98.890 Other specified postprocedural states; Z80.8 Family history of malignant neoplasm of other organs or systems
CPT/HCPCS: J1885

== ENCOUNTER → 2017-09-28 | Outpatient (REF) | payer OTHER ==
[2017-09-28 18:57] LABS: AMORPHOUS SEDIMENT SMALL (NEGATIVE); APPEARANCE, URINE TURBID (CLEAR); BACTERIA, URINE AUTO NEGATIVE (NEGATIVE); BILIRUBIN, URINE AUTO NEGATIVE (NEGATIVE); BLOOD, URINE BLOOD 1+ (NEGATIVE); CALCIUM OXALATE CRYSTALS MODERATE; COLOR, URINE AMBER (YELLOW); GLUCOSE, URINE (UA) AUTO NEGATIVE (NEGATIVE); KETONE, URINE AUTO NEGATIVE (NEGATIVE); LEUKOCYTE ESTERASE, URINE AUTO NEGATIVE (NEGATIVE); MUCUS, URINE SMALL (NEGATIVE); NITRITE, URINE AUTO NEGATIVE (NEGATIVE); PROTEIN, URINE AUTO NEGATIVE (NEGATIVE); RBC, URINE AUTO 1 /HPF (0-3); SPECIFIC GRAVITY URINE AUTO 1.026 (1.002-1.035); SQUAMOUS EPITHELIAL CELL UR AU 0 /HPF (0-6); UROBILINOGEN, URINE AUTO 0.2 mg/dL (0.0-2.0); WBC, URINE AUTO 3 /HPF (0-3)
== END ==
LOC: M SMT 17:56
DX: R10.9 Unspecified abdominal pain (principal)

== ENCOUNTER → 2017-11-24 | Outpatient (CLI) | payer OTHER | LOC: M RAD 09:04 | DX: M51.27 Other intervertebral disc displacement, lumbosacral region (principal); M43.14 Spondylolisthesis, thoracic region; M47.814 Spondylosis without myelopathy or radiculopathy, thoracic region; M47.897 Other spondylosis, lumbosacral region; M47.892 Other spondylosis, cervical region; M50.21 Other cervical disc displacement, high cervical region; M50.222 Other cervical disc displacement at C5-C6 level | CPT/HCPCS: 72141 ==

== ENCOUNTER 2018-01-04 17:25 | Emergency (ER) | payer OTHER, SELFPAY | END 2018-01-04 17:39 | disposition home or self-care (01) | LOC: M ED 17:25 | DX: H66.92 Otitis media, unspecified, left ear (principal); I10 Essential (primary) hypertension; I25.2 Old myocardial infarction; Z79.899 Other long term (current) drug therapy | CPT/HCPCS: 99282 ==

== ENCOUNTER 2018-02-12 08:33 | Emergency (ER) | payer OTHER, SELFPAY ==
[2018-02-12 09:23] LABS: CALCIUM OXALATE CRYSTALS RFX SMALL; KETONE, URINE AUTO RFX NEGATIVE (NEGATIVE); LEUKOCYTE ESTERASE UR AUTO RFX NEGATIVE (NEGATIVE); MUCUS, URINE RFX SMALL (NEGATIVE); NITRITE, URINE AUTO RFX NEGATIVE (NEGATIVE); RBC, URINE AUTO RFX 1 /HPF (0-3); SPECIFIC GRAVITY UR AUTO RFX 1.023 (1.002-1.035); SQUAM EPITHELIAL CELL UR AURFX 0 /HPF (0-6); WBC, URINE AUTO RFX 1 /HPF (0-3)
[2018-02-12 09:25] LABS: BASO # 0.1 10^3/uL (0.0-0.2); BASO % 0.8 % (0.0-1.0); EOS # 0.1 10^3/uL (0.0-0.50); EOS % 1.8 % (0.0-3.0); HEMATOCRIT 46.9 % (42.0-52.0); HEMOGLOBIN 15.4 g/dl (13.5-17.5); IMMATURE GRANULOCYTE % 0.2 % (0-3.0); LYMPH # 1.8 10^3/uL (1.5-4.5); LYMPH % 27.7 % (24.0-44.0); MEAN CORPUSCULAR HEMOGLOBIN 26.5 pg (27.0-33.0); MEAN CORPUSCULAR HGB CONC 32.8 g/dl (32.0-36.5); MEAN CORPUSCULAR VOLUME 80.6 fl (80.0-96.0); MONO # 0.5 10^3/uL (0.0-0.8); MONO % 7.5 % (0.0-5.0); NEUTROPHILS # 4.1 10^3/uL (1.8-7.7); PLATELET COUNT, AUTOMATED 213 10^3/uL (150-450); RED BLOOD COUNT 5.82 10^6/uL (4.30-6.10); RED CELL DISTRIBUTION WIDTH 13.4 % (11.5-14.5); WHITE BLOOD COUNT 6.5 10^3/uL (4.0-10.0)
[2018-02-12] MEDS: KETOROLAC 30 MG/ML VIAL (J1885) IV (09:35)
[2018-02-12] MEDS: ONDANSETRON 4MG/2ML VIAL (J2405) IV (09:35)
[2018-02-12] MEDS: NS 1,000 ML IV (09:36)
[2018-02-12 09:42] LABS: ANION GAP 6 MEQ/L (8-16); BLOOD UREA NITROGEN 18 MG/DL (7-18); CALCIUM LEVEL 8.7 MG/DL (8.8-10.2); CARBON DIOXIDE LEVEL 25 MEQ/L (21-32); CHLORIDE LEVEL 111 MEQ/L (98-107); CREATININE FOR GFR 0.81 MG/DL (0.70-1.30); GLOMERULAR FILTRATION RATE > 60.0 (>49); GLUCOSE, FASTING 83 MG/DL (70-100); POTASSIUM SERUM 4.1 MEQ/L (3.5-5.1); SODIUM LEVEL 142 MEQ/L (136-145)
[2018-02-12 10:05] LABS: ALBUMIN/GLOBULIN RATIO 1.11 (1.00-1.93); ALKALINE PHOSPHATASE 90 U/L (45-117); ALT/SGPT 44 U/L (12-78); AST/SGOT 18 U/L (7-37); BILIRUBIN,DIRECT < 0.1 MG/DL (0.0-0.2); BILIRUBIN,TOTAL 0.3 MG/DL (0.2-1.0); LIPASE 237 U/L (73-393); TOTAL PROTEIN 7.6 GM/DL (6.4-8.2)
[2018-02-12] MEDS: MORPHINE 4 MG/ML 1ML VIAL/SYRINGE (J2270) IV (10:51)
== END 2018-02-12 12:12 | disposition home or self-care (01) ==
LOC: M ED 08:33
DX: R10.9 Unspecified abdominal pain (principal); I10 Essential (primary) hypertension; E78.5 Hyperlipidemia, unspecified; K21.9 Gastro-esophageal reflux disease without esophagitis; Z86.73 Personal history of transient ischemic attack (TIA), and cerebral infarction without residual deficits; Z87.442 Personal history of urinary calculi
CPT/HCPCS: J2270

== ENCOUNTER 2018-03-23 03:42 | Emergency (ER) | payer OTHER ==
[2018-03-23] MEDS ORDERED: KETOROLAC 30 MG/ML VIAL (J1885) As Ordered (04:40)
[2018-03-23 04:54] LABS: BASO # 0.1 10^3/uL (0.0-0.2); BASO % 0.8 % (0.0-1.0); EOS # 0.2 10^3/uL (0.0-0.50); EOS % 2.4 % (0.0-3.0); HEMATOCRIT 50.5 % (42.0-52.0); HEMOGLOBIN 16.2 g/dl (13.5-17.5); IMMATURE GRANULOCYTE % 0.2 % (0-3.0); LYMPH # 2.2 10^3/uL (1.5-4.5); LYMPH % 35.2 % (24.0-44.0); MEAN CORPUSCULAR HEMOGLOBIN 26.6 pg (27.0-33.0); MEAN CORPUSCULAR HGB CONC 32.1 g/dl (32.0-36.5); MEAN CORPUSCULAR VOLUME 83.1 fl (80.0-96.0); MONO # 0.4 10^3/uL (0.0-0.8); MONO % 6.5 % (0.0-5.0); NEUTROPHILS # 3.4 10^3/uL (1.8-7.7); NEUTROPHILS % 54.9 % (36.0-66.0); PLATELET COUNT, AUTOMATED 223 10^3/uL (150-450); RED BLOOD COUNT 6.08 10^6/uL (4.30-6.10); RED CELL DISTRIBUTION WIDTH 13.6 % (11.5-14.5); WHITE BLOOD COUNT 6.2 10^3/uL (4.0-10.0)
[2018-03-23] MEDS: TAMSULOSIN 0.4 MG CAP PO (05:00)
[2018-03-23] MEDS: NS 1,000 ML IV (05:01)
[2018-03-23] MEDS: MORPHINE 10 MG/ML 1ML VIAL (J2270) IV (05:01)
[2018-03-23] MEDS: KETOROLAC 30 MG/ML VIAL (J1885) IV (05:02)
[2018-03-23 05:06] LABS: ALBUMIN 4.2 GM/DL (3.2-5.2); ALBUMIN/GLOBULIN RATIO 1.17 (1.00-1.93); ALKALINE PHOSPHATASE 102 U/L (45-117); ALT/SGPT 47 U/L (12-78); ANION GAP 8 MEQ/L (8-16); AST/SGOT 19 U/L (7-37); BILIRUBIN,DIRECT 0.1 MG/DL (0.0-0.2); BILIRUBIN,TOTAL 0.5 MG/DL (0.2-1.0); BLOOD UREA NITROGEN 23 MG/DL (7-18); CALCIUM LEVEL 8.7 MG/DL (8.8-10.2); CARBON DIOXIDE LEVEL 26 MEQ/L (21-32); CHLORIDE LEVEL 110 MEQ/L (98-107); CREATININE FOR GFR 0.87 MG/DL (0.70-1.30); GLOMERULAR FILTRATION RATE > 60.0 (>49); GLUCOSE, FASTING 104 MG/DL (70-100); LIPASE 288 U/L (73-393); POTASSIUM SERUM 4.1 MEQ/L (3.5-5.1); SODIUM LEVEL 144 MEQ/L (136-145); TOTAL PROTEIN 7.8 GM/DL (6.4-8.2)
[2018-03-23 05:17] LABS: APPEARANCE, URINE CLEAR (CLEAR); BACTERIA, URINE AUTO NEGATIVE (NEGATIVE); BILIRUBIN, URINE AUTO NEGATIVE (NEGATIVE); BLOOD, URINE BLOOD NEGATIVE (NEGATIVE); COLOR, URINE YELLOW (YELLOW); GLUCOSE, URINE (UA) AUTO NEGATIVE (NEGATIVE); KETONE, URINE AUTO NEGATIVE (NEGATIVE); LEUKOCYTE ESTERASE, URINE AUTO NEGATIVE (NEGATIVE); MUCUS, URINE SMALL (NEGATIVE); NITRITE, URINE AUTO NEGATIVE (NEGATIVE); PROTEIN, URINE AUTO NEGATIVE (NEGATIVE); RBC, URINE AUTO 2 /HPF (0-3); SPECIFIC GRAVITY URINE AUTO 1.024 (1.002-1.035); SQUAMOUS EPITHELIAL CELL UR AU 1 /HPF (0-6); UROBILINOGEN, URINE AUTO 0.2 mg/dL (0.0-2.0); WBC, URINE AUTO 2 /HPF (0-3)
[2018-03-23] MEDS: MORPHINE 4 MG/ML 1ML VIAL/SYRINGE (J2270) IV (06:32)
== END 2018-03-23 07:35 | disposition home or self-care (01) ==
LOC: M ED 03:42
DX: S39.011A Strain of muscle, fascia and tendon of abdomen, initial encounter (principal); X58.XXXA Exposure to other specified factors, initial encounter; Y92.89 Other specified places as the place of occurrence of the external cause; I10 Essential (primary) hypertension; G47.30 Sleep apnea, unspecified; Z86.73 Personal history of transient ischemic attack (TIA), and cerebral infarction without residual deficits; Z87.442 Personal history of urinary calculi
CPT/HCPCS: J2270

== ENCOUNTER 2018-05-03 07:57 | Emergency (ER) | payer OTHER ==
[2018-05-03] MEDS: ACETAMINOPHEN 325 MG TAB PO (09:05)
== END 2018-05-03 09:06 | disposition home or self-care (01) ==
LOC: M ED 07:57
DX: S09.90XA Unspecified injury of head, initial encounter (principal); S23.3XXA Sprain of ligaments of thoracic spine, initial encounter; W00.9XXA Unspecified fall due to ice and snow, initial encounter; Y92.89 Other specified places as the place of occurrence of the external cause
CPT/HCPCS: 72072

== ENCOUNTER 2018-06-02 02:03 | Emergency (ER) | payer OTHER ==
[~2018-06-02] VITALS: Ht 165.1 cm; Wt 104.5 kg
[~2018-06-02 02:03] MED LIST changes: +/DIVA50TA PO; +/TAMS4CA PO; +AMOX500C PO; +AMOX875T PO; +ASPI81TA85 PO; +BACL10TA PO; +CARB20TA PO; +CARB20TAXR PO; +CIPR250T2 PO; +CLAR1TAB2 PO; +COLA50CA3 PO; +CYCL10TA PO; +DEPA1TAB3 PO; +DILA2TAB PO; +DUCO5TAB PO; +FLOM0.4C39 PO; +FLON1SPR; -GASTROGRAFIN SOLUTION 30ML (Q9963) As Ordered; +IBUP-1022 PO; +IBUP-1114 PO; +IBUP200C25 PO; -ISOVUE-370 76% 100ML VIAL (Q9967) As Ordered; +KETO10TAB PO; +LEVA1TAB2 PO; +MIRA3350 PO; +NORCOTAB PO; +PERCOCET PO; +PROAAER10 INH; +PROT1TAB2 PO; +ROBA750T4 PO; +SENN8.6T76 PO; +SENO8.6T9 PO; +SOMA350T PO; +TEGR200T PO; +TESS100C PO; +TRAM50TA2 PO; +TYLE325T5 PO; +ULTR50TA PO; +XARE15TA PO; +ZITHTAB PO; +ZOFR4TAB14 PO; +toradol PO
[2018-06-02 04:39] LABS: HEMATOCRIT 48.4 % (42.0-52.0); HEMOGLOBIN 15.6 g/dl (13.5-17.5); MEAN CORPUSCULAR HEMOGLOBIN 26.3 pg (27.0-33.0); MEAN CORPUSCULAR HGB CONC 32.2 g/dl (32.0-36.5); MEAN CORPUSCULAR VOLUME 81.6 fl (80.0-96.0); PLATELET COUNT, AUTOMATED 239 10^3/uL (150-450); RED BLOOD COUNT 5.93 10^6/uL (4.30-6.10); WHITE BLOOD COUNT 7.1 10^3/uL (4.0-10.0)
[2018-06-02 05:06] LABS: ALT/SGPT 45 U/L (12-78); BILIRUBIN,TOTAL 0.4 MG/DL (0.2-1.0); BLOOD UREA NITROGEN 17 MG/DL (7-18); CALCIUM LEVEL 8.6 MG/DL (8.8-10.2); CARBON DIOXIDE LEVEL 26 MEQ/L (21-32); CHLORIDE LEVEL 108 MEQ/L (98-107); CREATININE FOR GFR 0.86 MG/DL (0.70-1.30); GLOMERULAR FILTRATION RATE > 60.0 (>49); GLUCOSE, FASTING 96 MG/DL (70-100); PHOSPHORUS LEVEL 2.7 MG/DL (2.5-4.9); POTASSIUM SERUM 4.4 MEQ/L (3.5-5.1); SODIUM LEVEL 140 MEQ/L (136-145); TOTAL PROTEIN 7.5 GM/DL (6.4-8.2)
[2018-06-02] MEDS ORDERED: KETOROLAC 30 MG/ML VIAL (J1885) IV ONE (06:30)
[2018-06-02] MEDS ORDERED: NS 1,000 ML IV ONE (06:30)
[2018-06-02] MEDS ORDERED: MORPHINE 4 MG/ML 1ML VIAL/SYRINGE (J2270) IV ONE (06:30)
[2018-06-02] MEDS ORDERED: TAMSULOSIN 0.4 MG CAP PO ONE (07:00)
[2018-06-02] MEDS ORDERED: LIDO5DIS41 TOP (07:43)
[2018-06-02 07:58] VITALS: BP 169/97
== END 2018-06-02 08:04 | disposition home or self-care (01) ==
LOC: M ED 02:03
DX: N20.1 Calculus of ureter (principal); I10 Essential (primary) hypertension; Z96.0 Presence of urogenital implants; Z79.899 Other long term (current) drug therapy
CPT/HCPCS: 74176; 80053; 81001; 85027; 96361; 96374; 96375; 99284; J1885; J2270

== ENCOUNTER 2018-07-05 17:24 | Emergency (ER) | payer OTHER ==
[~2018-07-05] VITALS: Ht 165.1 cm; Wt 102.3 kg
[~2018-07-05 17:24] MED LIST changes: +LIDO5DIS41 TOP
[2018-07-05] MEDS ORDERED: CYCLOBENZAPRINE 10 MG TAB PO ONE (18:30)
[2018-07-05] MEDS ORDERED: KETOROLAC TROMETHAMINE 10 MG TAB PO ONE (18:30)
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
[2018-07-05] MEDS ORDERED: CYCL10TA PO (18:53)
[2018-07-05] MEDS ORDERED: KETO10TAB PO (18:53)
[2018-07-05 19:03] VITALS: BP 148/79
== END 2018-07-05 19:09 | disposition home or self-care (01) ==
LOC: M ED 17:24
DX: S16.1XXA Strain of muscle, fascia and tendon at neck level, initial encounter (principal); R51 Headache; V43.52XA Car driver injured in collision with other type car in traffic accident, initial encounter; Y92.9 Unspecified place or not applicable; Y93.9 Activity, unspecified; Y99.9 Unspecified external cause status; I25.2 Old myocardial infarction; I10 Essential (primary) hypertension; M54.9 Dorsalgia, unspecified; R56.9 Unspecified convulsions; K21.9 Gastro-esophageal reflux disease without esophagitis; Z87.442 Personal history of urinary calculi; M47.812 Spondylosis without myelopathy or radiculopathy, cervical region; Z79.899 Other long term (current) drug therapy

== ENCOUNTER 2018-08-19 06:42 | Emergency (ER) | payer OTHER ==
[~2018-08-19] VITALS: Ht 165.1 cm; Wt 104.5 kg
[~2018-08-19 06:42] MED LIST changes: -/DIVA50TA PO; -/TAMS4CA PO; +HYDR-3715 PO; -NORCOTAB PO; +OXYC1TAB23 PO
[2018-08-19 06:43] VITALS: BP 166/97
[2018-08-19] MEDS ORDERED: FLON1SPR NARES ×2 (06:51→07:18)
[2018-08-19] MEDS ORDERED: MUCI600T31 PO (06:51)
[2018-08-19] MEDS ORDERED: MUCI600T37 PO (07:09)
[2018-08-19] MEDS ORDERED: BENZ200C70 PO (07:09)
[2018-08-19] MEDS ORDERED: CLAR1TAB2 PO (07:21)
[2018-08-20] MEDS ORDERED: PROPOFOL 200 MG/20 ML VIAL As Ordered ONE (08:00)
== END 2018-08-19 07:29 | disposition home or self-care (01) ==
LOC: M ED 06:42
DX: J06.9 Acute upper respiratory infection, unspecified (principal); H65.02 Acute serous otitis media, left ear; J34.89 Other specified disorders of nose and nasal sinuses; G40.909 Epilepsy, unspecified, not intractable, without status epilepticus; Z86.73 Personal history of transient ischemic attack (TIA), and cerebral infarction without residual deficits; I10 Essential (primary) hypertension; E78.00 Pure hypercholesterolemia, unspecified; I25.2 Old myocardial infarction; G47.30 Sleep apnea, unspecified; K21.9 Gastro-esophageal reflux disease without esophagitis; Z87.442 Personal history of urinary calculi; M54.5 Low back pain; Z87.19 Personal history of other diseases of the digestive system; Z79.899 Other long term (current) drug therapy

== ENCOUNTER 2018-09-12 11:12 | Emergency (ER) | payer OTHER ==
[~2018-09-12] VITALS: Ht 165.1 cm; Wt 102.3 kg
[~2018-09-12 11:12] MED LIST changes: +BENZ200C70 PO; +FLON1SPR NARES; +MUCI600T31 PO; +MUCI600T37 PO
--- NOTE | 2018-09-12 12:44 | REP ---
Right upper extremity deep vein duplex ultrasound: The deep veins demonstrate normal compression, normal Doppler color flow and normal Doppler waveforms with respiration augmentation at multiple levels from the brachial veins to the jugular vein. Impression: There is no right upper extremity deep vein thrombus. Electronically Signed by Lucien Kenny MD 09/12/2018 12:36 P
[2018-09-12 12:53] VITALS: BP 156/95
[2018-09-12] MEDS ORDERED: ROBA500T PO (13:19)
[2018-09-12] MEDS ORDERED: MEDR4PAK PO (13:19)
== END 2018-09-12 13:25 | disposition home or self-care (01) ==
LOC: M ED 11:12
DX: M54.12 Radiculopathy, cervical region (principal); M62.838 Other muscle spasm; Z79.899 Other long term (current) drug therapy

== ENCOUNTER 2018-12-07 07:00 | Emergency (ER) | payer OTHER ==
[~2018-12-07] VITALS: Ht 167.6 cm; Wt 100.0 kg
[~2018-12-07 07:00] MED LIST changes: +MEDR4PAK PO; +ROBA500T PO
[2018-12-07 07:01] VITALS: BP 139/83
[2018-12-07] MEDS ORDERED: AMOX500C PO (07:35)
== END 2018-12-07 08:02 | disposition home or self-care (01) ==
LOC: M ED 07:00
DX: H66.93 Otitis media, unspecified, bilateral (principal); I25.2 Old myocardial infarction; I10 Essential (primary) hypertension; E78.5 Hyperlipidemia, unspecified; Z79.899 Other long term (current) drug therapy

== ENCOUNTER 2019-03-08 06:12 | Emergency (ER) | payer OTHER ==
[~2019-03-08] VITALS: Ht 165.1 cm; Wt 225.0 kg
[2019-03-08 06:12] VITALS: BP 158/92
[2019-03-08] MEDS ORDERED: CETI10CA2 PO (06:36)
== END 2019-03-08 06:44 | disposition home or self-care (01) ==
LOC: M ED 06:12
DX: J30.9 Allergic rhinitis, unspecified (principal); I10 Essential (primary) hypertension; I25.2 Old myocardial infarction; Z87.442 Personal history of urinary calculi; K21.9 Gastro-esophageal reflux disease without esophagitis; Z79.899 Other long term (current) drug therapy

== ENCOUNTER 2019-04-04 06:15 | Emergency (ER) | payer OTHER ==
[~2019-04-04] VITALS: Ht 165.1 cm; Wt 104.5 kg
[~2019-04-04 06:15] MED LIST changes: +CETI10CA2 PO
[2019-04-04] MEDS ORDERED: NS 1,000 ML IV ONE (06:45)
[2019-04-04 06:51] LABS: BASO # 0.1 10^3/uL (0.0-0.2); BASO % 0.9 % (0.0-1.0); EOS # 0.1 10^3/uL (0.0-0.5); EOS % 2.1 % (0.0-3.0); HEMATOCRIT 48.4 % (42.0-52.0); HEMOGLOBIN 15.5 g/dl (13.5-17.5); LYMPH # 1.8 10^3/uL (1.5-5.0); LYMPH % 33.9 % (24.0-44.0); MEAN CORPUSCULAR HEMOGLOBIN 26.8 pg (27.0-33.0); MEAN CORPUSCULAR VOLUME 83.7 fl (80.0-96.0); MONO # 0.4 10^3/uL (0.0-0.8); NEUTROPHILS % 55.7 % (36.0-66.0); PLATELET COUNT, AUTOMATED 216 10^3/uL (150-450); RED BLOOD COUNT 5.78 10^6/uL (4.30-6.10); WHITE BLOOD COUNT 5.3 10^3/uL (4.0-10.0)
[2019-04-04 07:03] LABS: PARTIAL THROMBOPLASTIN TIME 29.3 SECONDS (25.0-38.4)
[2019-04-04 07:09] LABS: INR 0.99; PROTHROMBIN TIME 12.8 SECONDS (11.8-14.0)
[2019-04-04 07:16] LABS: BLOOD UREA NITROGEN 21 MG/DL (7-18); CALCIUM LEVEL 8.7 MG/DL (8.8-10.2); CARBON DIOXIDE LEVEL 27 MEQ/L (21-32); CHLORIDE LEVEL 111 MEQ/L (98-107); GLOMERULAR FILTRATION RATE > 60.0 (>49); GLUCOSE, FASTING 90 MG/DL (70-100); POTASSIUM SERUM 4.4 MEQ/L (3.5-5.1); SODIUM LEVEL 142 MEQ/L (136-145)
--- NOTE | 2019-04-04 07:21 | REPVR ---
PROCEDURE INFORMATION: Exam: CT Abdomen And Pelvis Without Contrast Exam date and time: 04/04/2019 6:35 AM Clinical history: 64 years old, male; Abdominal pain; Localized; Right lower quadrant (rlq); Additional info: Hematuria, rlq pain TECHNIQUE: Imaging protocol: Computed tomography of the abdomen and pelvis without contrast. Radiation optimization: All CT scans at this facility use at least one of these dose optimization techniques: automated exposure control; mA and/or kV adjustment per patient size (includes targeted exams where dose is matched to clinical indication); or iterative reconstruction. COMPARISON: CT ABD PELVIS W/O CONTRAST 06/02/2018 3:57 AM FINDINGS: Mediastinum: There is a small sliding hiatal hernia. Liver: The liver is heterogeneous and severely hypoattenuated. Gallbladder and bile ducts: Normal. No calcified stones. No ductal dilation. Pancreas: Normal. No ductal dilation. Spleen: Normal. No splenomegaly. Adrenals: Normal. No mass. Kidneys and ureters: There is 1.9 cm left upper renal pole cyst. There is 4 mm stone adjacent to the left UVJ likely layering within the urinary bladder as no left-sided hydronephrosis is seen. There is a 3 mm left lower renal pole stone. Multiple right renal stones seen the largest measuring 4 mm in the lower pole. There is no right-sided hydronephrosis. Stomach and bowel: Unremarkable. No obstruction. No mucosal thickening. Appendix: No evidence of appendicitis. Intraperitoneal space: Unremarkable. No free air. No significant fluid collection. Vasculature: Unremarkable. No abdominal aortic aneurysm. Lymph nodes: Unremarkable. No enlarged lymph nodes. Bladder: There is apparent thickening of the urinary bladder wall. Reproductive: The prostate gland is massively enlarged measuring at least 8.0 x 8.5 cm indenting the urinary bladder and displacing it anteriorly. Bones/joints: There are anterior thoracic and lumbar spine osteophytes. Soft tissues: There small bilateral, left more than right fat-containing inguinal hernias. IMPRESSION: 1. Bilateral nephrolithiasis with no evidence of hydronephrosis or hydroureter. 2. 4 mm stone adjacent to the left UVJ possibly layering stones within the urinary bladder has no hydronephrosis seen on the left. 3. Massively enlarged prostate gland indenting the urinary bladder and displacing it anteriorly. Correlate with clinical history, physical exam and PSA level. 4. Apparent urinary bladder wall which could be attributed to under distention and muscular hypertrophy however underlying cystitis cannot be excluded. Correlate with clinical history and urinalysis. 5. 1.9 cm left upper renal pole cyst. 6. Small bilateral, left more than right fat-containing inguinal hernias. 7. Severe fatty infiltration of the liver. 8. Small sliding hernia. Electronically signed by: Stefan Fowler On 04/04/2019 07:21:17 AM
[2019-04-04] MEDS ORDERED: FLOM0.4C39 PO (08:07)
[2019-04-04 08:27] VITALS: BP 138/79
== END 2019-04-04 08:29 | disposition home or self-care (01) ==
LOC: M ED 06:15
DX: R31.9 Hematuria, unspecified (principal); N20.0 Calculus of kidney; N40.1 Benign prostatic hyperplasia with lower urinary tract symptoms; N28.1 Cyst of kidney, acquired; K76.0 Fatty (change of) liver, not elsewhere classified; K44.9 Diaphragmatic hernia without obstruction or gangrene; Z79.899 Other long term (current) drug therapy

== ENCOUNTER 2019-05-29 06:11 | Emergency (ER) | payer OTHER ==
[~2019-05-29] VITALS: Ht 165.1 cm; Wt 124.3 kg
[2019-05-29 06:11] VITALS: BP 158/79
[2019-05-29] MEDS ORDERED: FLUORESCEIN OPHTH 1 MG STRIP OD ONE (06:45)
[2019-05-29] MEDS ORDERED: TETRACAINE 0.5% OPHTH SOLN 4ML OD ONE (06:45)
[2019-05-29] MEDS ORDERED: POLYSOL OD (06:46)
== END 2019-05-29 07:07 | disposition home or self-care (01) ==
LOC: M ED 06:11
DX: H10.31 Unspecified acute conjunctivitis, right eye (principal); I25.10 Atherosclerotic heart disease of native coronary artery without angina pectoris; K21.9 Gastro-esophageal reflux disease without esophagitis; G47.33 Obstructive sleep apnea (adult) (pediatric); I10 Essential (primary) hypertension

== ENCOUNTER 2019-06-16 08:18 | Emergency (ER) | payer OTHER ==
[~2019-06-16] VITALS: Ht 175.3 cm; Wt 122.7 kg
[2019-06-16 08:18] VITALS: BP 159/84
[~2019-06-16 08:18] MED LIST changes: +POLYSOL OD
[2019-06-16] MEDS ORDERED: FLUTISP (08:24)
[2019-06-16] MEDS ORDERED: DOXY100C37 (08:24)
[2019-06-16] MEDS ORDERED: AZELASTINE 137MCG NASAL SPY 30 ML (ASTELIN) STA (09:01)
[2019-06-16] MEDS ORDERED: PSEUDOEPHEDRINE 30 MG TAB PO STA (09:02)
--- NOTE | 2019-06-16 09:23 | REP ---
PA and lateral chest: Comparison is 06/25/2017. The lung love are clear. The cardiac size is normal. The laura, mediastinum, and skeletal structures are unremarkable. Impression: Negative PA and lateral chest. There is no interval change. Electronically Signed by Lucien Kenny MD 06/16/2019 09:14 A
[2019-06-16] MEDS ORDERED: PSEU30TA88 PO (09:35)
[2019-06-16] MEDS ORDERED: AZEL0.055 NARES (09:36)
== END 2019-06-16 09:54 | disposition home or self-care (01) ==
LOC: M ED 08:18
DX: J06.9 Acute upper respiratory infection, unspecified (principal); R56.9 Unspecified convulsions; E78.5 Hyperlipidemia, unspecified; I10 Essential (primary) hypertension; G47.33 Obstructive sleep apnea (adult) (pediatric); Z79.899 Other long term (current) drug therapy

== ENCOUNTER 2019-06-30 07:04 | Emergency (ER) | payer OTHER ==
[~2019-06-30] VITALS: Ht 165.1 cm; Wt 121.6 kg
[~2019-06-30 07:04] MED LIST changes: +AZEL0.055 NARES; +DOXY100C37; +FLUTISP; +PSEU30TA88 PO
[2019-06-30 08:17] LABS: BASO # 0.1 10^3/uL (0.0-0.2); BASO % 1.1 % (0.0-1.0); EOS # 0.1 10^3/uL (0.0-0.5); EOS % 2.1 % (0.0-3.0); HEMOGLOBIN 15.3 g/dl (13.5-17.5); LYMPH # 1.9 10^3/uL (1.5-5.0); LYMPH % 31.4 % (24.0-44.0); MEAN CORPUSCULAR HGB CONC 32.6 g/dl (32.0-36.5); MONO # 0.4 10^3/uL (0.0-0.8); NEUTROPHILS # 3.6 10^3/uL (1.5-8.5); NEUTROPHILS % 58.2 % (36.0-66.0); PLATELET COUNT, AUTOMATED 235 10^3/uL (150-450); RED BLOOD COUNT 5.66 10^6/uL (4.30-6.10); WHITE BLOOD COUNT 6.1 10^3/uL (4.0-10.0)
[2019-06-30 08:44] LABS: ALT/SGPT 65 U/L (12-78); BILIRUBIN,DIRECT < 0.1 MG/DL (0.0-0.2); BILIRUBIN,TOTAL 0.3 MG/DL (0.2-1.0); BLOOD UREA NITROGEN 21 MG/DL (7-18); CALCIUM LEVEL 8.6 MG/DL (8.8-10.2); CARBON DIOXIDE LEVEL 24 MEQ/L (21-32); CHLORIDE LEVEL 110 MEQ/L (98-107); GLOMERULAR FILTRATION RATE > 60.0 (>49); GLUCOSE, FASTING 90 MG/DL (70-100); LIPASE 76 U/L (73-393); POTASSIUM SERUM 4.4 MEQ/L (3.5-5.1); SODIUM LEVEL 142 MEQ/L (136-145); TOTAL PROTEIN 7.4 GM/DL (6.4-8.2)
[2019-06-30] MEDS ORDERED: IBUPROFEN 800 MG TAB PO ONE (08:45)
[2019-06-30] MEDS ORDERED: KETOROLAC 60 MG/2 ML VIAL (J1885) IM ONE (09:00)
--- NOTE | 2019-06-30 10:44 | REP ---
CT of the abdomen and pelvis without IV or bowel contrast for bilateral flank pain: Comparison is 04/04/2019. There is a nonobstructive calculi in the lower pole of the right kidney one measuring 4 mm and the other measuring 5 mm. These are unchanged. There is a nonobstructive calcification at the mid pole left kidney measuring 4 mm. This is also unchanged. There is no hydronephrosis or perinephric stranding on the right on the left. There is a 2.0 cm left renal cyst, unchanged. No ureteral calculi. There are several bladder calculi that have changed in position from the prior study. There is no focal or diffuse bladder wall thickening. The prostate is significantly enlarged, as previously and effaces the bladder base. The visualized lung love are unremarkable. The there is hepato steatosis. This is unchanged. No focal liver masses are identified. The gallbladder, pancreas and spleen are normal size unremarkable. The adrenals are unremarkable. The abdominal aorta and periaortic area is unremarkable. There is no bowel distension or obstruction. The mesentery is unremarkable. There is no ascites. Pelvis: There is no adenopathy or ascites. The pelvic bowel loops are unremarkable. Impression: There are bilateral nonobstructive renal calculi, unchanged from the prior study. There is a 2 cm left renal cyst, unchanged from the prior study. There are mobile bladder calculi, unchanged. There is no hydronephrosis. The prostate is markedly enlarged and effaces the bladder base. Electronically Signed by Lucien Kenny MD 06/30/2019 10:35 A
[2019-06-30] MEDS ORDERED: ONDANSETRON 4MG/2ML VIAL (J2405) IV ONE (10:45)
[2019-06-30] MEDS ORDERED: MORPHINE 2 MG/ML 1ML VIAL (J2270) IV ONE (10:45)
[2019-06-30 11:05] VITALS: BP 131/64
[2019-06-30] MEDS ORDERED: ACETAMINOPHEN 500 MG TAB PO ONE (11:15)
[2019-06-30] MEDS ORDERED: FLOM0.4C39 PO (11:21)
== END 2019-06-30 11:28 | disposition home or self-care (01) ==
LOC: M ED 07:04
DX: N40.1 Benign prostatic hyperplasia with lower urinary tract symptoms (principal); R10.9 Unspecified abdominal pain; N28.1 Cyst of kidney, acquired; N21.0 Calculus in bladder; E78.5 Hyperlipidemia, unspecified; I10 Essential (primary) hypertension; I25.2 Old myocardial infarction; K21.9 Gastro-esophageal reflux disease without esophagitis; Z79.899 Other long term (current) drug therapy; Z87.448 Personal history of other diseases of urinary system; Z96.0 Presence of urogenital implants
CPT/HCPCS: 74176; 80048; 80076; 81001; 83690; 85025; 96372; 99283; J1885

== ENCOUNTER 2019-07-02 19:15 | Emergency (ER) | payer OTHER ==
[~2019-07-02] VITALS: Ht 165.1 cm; Wt 118.2 kg
[2019-07-02 19:17] VITALS: BP 155/81
[2019-07-02 20:53] LABS: BASO # 0.1 10^3/uL (0.0-0.2); BASO % 0.9 % (0.0-1.0); EOS # 0.2 10^3/uL (0.0-0.5); EOS % 2.5 % (0.0-3.0); HEMATOCRIT 48.7 % (42.0-52.0); HEMOGLOBIN 15.4 g/dl (13.5-17.5); LYMPH # 2.2 10^3/uL (1.5-5.0); LYMPH % 33.2 % (24.0-44.0); MEAN CORPUSCULAR HEMOGLOBIN 26.1 pg (27.0-33.0); MEAN CORPUSCULAR HGB CONC 31.6 g/dl (32.0-36.5); MEAN CORPUSCULAR VOLUME 82.7 fl (80.0-96.0); MONO # 0.4 10^3/uL (0.0-0.8); MONO % 6.2 % (0.0-5.0); NEUTROPHILS # 3.9 10^3/uL (1.5-8.5); NEUTROPHILS % 57.1 % (36.0-66.0); PLATELET COUNT, AUTOMATED 237 10^3/uL (150-450); RED BLOOD COUNT 5.89 10^6/uL (4.30-6.10); WHITE BLOOD COUNT 6.8 10^3/uL (4.0-10.0)
[2019-07-02] MEDS ORDERED: KETOROLAC 30 MG/ML VIAL (J1885) IV ONE (21:00)
[2019-07-02] MEDS ORDERED: ONDANSETRON 4MG/2ML VIAL (J2405) IV ONE (21:00)
[2019-07-02] MEDS ORDERED: NS 1,000 ML IV ONE (21:00)
[2019-07-02 21:13] LABS: ALBUMIN 4.2 GM/DL (3.2-5.2); ALT/SGPT 73 U/L (12-78); BILIRUBIN,DIRECT < 0.1 MG/DL (0.0-0.2); BILIRUBIN,TOTAL 0.4 MG/DL (0.2-1.0); LIPASE 247 U/L (73-393); TOTAL PROTEIN 7.7 GM/DL (6.4-8.2)
--- NOTE | 2019-07-02 22:49 | REPVR ---
PROCEDURE INFORMATION: Exam: CT Abdomen And Pelvis Without Contrast Exam date and time: 07/02/2019 10:18 PM Age: 64 years old Clinical indication: Abdominal pain; Generalized; Prior surgery; Additional info: HX of kidney stone with increased pain TECHNIQUE: Imaging protocol: Computed tomography of the abdomen and pelvis without contrast. Radiation optimization: All CT scans at this facility use at least one of these dose optimization techniques: automated exposure control; mA and/or kV adjustment per patient size (includes targeted exams where dose is matched to clinical indication); or iterative reconstruction. COMPARISON: CT ABD PELVIS W/O CONTRAST 06/30/2019 10:04 AM FINDINGS: Mediastinum: A small hiatal hernia is present. Liver: There is a diffuse decrease in hepatic parenchymal density, consistent with steatosis. Gallbladder and bile ducts: Normal. No calcified stones. No ductal dilation. Pancreas: Normal. No ductal dilation. Spleen: Normal. No splenomegaly. Adrenals: Normal. No mass. Kidneys and ureters: Bilateral nonobstructive renal calculi. Simple left renal cyst measures 2 cm. Stomach and bowel: There is increased feces throughout the colon consistent with constipation. Appendix: No evidence of appendicitis. Intraperitoneal space: Unremarkable. No free air. No significant fluid collection. Vasculature: Unremarkable. No abdominal aortic aneurysm. Lymph nodes: Unremarkable. No enlarged lymph nodes. Bladder: There is a calcification in the bladder located at the inner surface of the UV junction on the left. Unclear if this represents a bladder calculus or obstructive distal ureteral calculus. There is no significant proximal hydroureteronephrosis. Several other bladder calculi demonstrated. Reproductive: The prostate gland demonstrates marked hyperplasia. Bones/joints: Moderate central spinal stenosis at L2-L3, L3-L4 and the and L4-L5. In Soft tissues: Unremarkable. IMPRESSION: 1. There is a diffuse decrease in hepatic parenchymal density, consistent with steatosis. 2. A small hiatal hernia is present. 3. There is a calcification in the bladder located at the inner surface of the UV junction on the left. Unclear if this represents a bladder calculus or obstructive distal ureteral calculus at the UV junction. There is no significant proximal hydroureteronephrosis. 4. Several other bladder calculi demonstrated. 5. Marked prostatic hyperplasia. 6. There is increased feces throughout the colon consistent with constipation. Electronically signed by: Milton Montague On 07/02/2019 22:49:13 PM
[2019-07-02] MEDS ORDERED: LIDOCAINE 2% 5ML JELLY UROJET TOP ONE (23:45)
== END 2019-07-03 00:29 | disposition home or self-care (01) ==
LOC: M ED 19:15
DX: N40.0 Benign prostatic hyperplasia without lower urinary tract symptoms (principal); N21.0 Calculus in bladder; K44.9 Diaphragmatic hernia without obstruction or gangrene; G40.909 Epilepsy, unspecified, not intractable, without status epilepticus; Z79.899 Other long term (current) drug therapy
CPT/HCPCS: 74176; 80047; 80076; 81001; 83690; 85025; 96361; 96374; 96375; 99284; J1885; J2405

== ENCOUNTER → 2019-07-05 | Outpatient (CLI) | payer OTHER ==
[2019-07-07 14:07] LABS: PSA % FREE 37.9 % (.); PSA FREE 1.59 ng/mL; PSA TOTAL 4.2 ng/mL (0.0-4.0)
== END ==
LOC: M LAB 06:41
PROVIDERS: ATTEND Nurse Practitioner Family
DX: R97.20 Elevated prostate specific antigen [PSA] (principal)

== ENCOUNTER → 2019-07-26 | Outpatient (CLI) | payer OTHER ==
[2019-07-26 07:44] LABS: HEMATOCRIT 47.8 % (42.0-52.0); HEMOGLOBIN 15.4 g/dl (13.5-17.5); MEAN CORPUSCULAR HEMOGLOBIN 26.7 pg (27.0-33.0); MEAN CORPUSCULAR HGB CONC 32.2 g/dl (32.0-36.5); PLATELET COUNT, AUTOMATED 238 10^3/uL (150-450); RED BLOOD COUNT 5.76 10^6/uL (4.30-6.10); WHITE BLOOD COUNT 5.9 10^3/uL (4.0-10.0)
[2019-07-26 08:13] LABS: BLOOD UREA NITROGEN 17 MG/DL (7-18); CALCIUM LEVEL 8.6 MG/DL (8.8-10.2); CARBON DIOXIDE LEVEL 25 MEQ/L (21-32); CHLORIDE LEVEL 112 MEQ/L (98-107); CREATININE FOR GFR 0.77 MG/DL (0.70-1.30); GLOMERULAR FILTRATION RATE > 60.0 (>49); GLUCOSE, FASTING 117 MG/DL (70-100); POTASSIUM SERUM 4.2 MEQ/L (3.5-5.1); SODIUM LEVEL 141 MEQ/L (136-145)
== END ==
LOC: M LAB 06:27
PROVIDERS: ATTEND Urology
DX: Z01.818 Encounter for other preprocedural examination (principal); N21.0 Calculus in bladder; N39.0 Urinary tract infection, site not specified

== ENCOUNTER 2019-07-31 10:30 | Observation (INO) | payer OTHER ==
[~2019-07-31] VITALS: Ht 165.1 cm; Wt 121.5 kg
[~2019-07-31 10:30] MED LIST changes: +LIDOCAINE 1% MDV 20ML VIAL SQ PRN; +LR 1,000 ML IV ONE; +ceFAZolin SOD 2 GM in IV 1 EA IV ONE
[2019-07-31] MEDS ORDERED: MIDAZOLAM INJ 2 MG/2 ML VIAL (J2250) As Ordered ONE (10:58)
[2019-07-31] MEDS ORDERED: dexameTHASONE 4 MG/ML 1ML VIAL (J1100) As Ordered ONE ×2 (10:58→12:29)
[2019-07-31] MEDS ORDERED: fentaNYL 100 MCG/2 ML INJECTION (J3010) As Ordered ONE (10:58)
[2019-07-31] MEDS ORDERED: ONDANSETRON 4MG/2ML VIAL (J2405) As Ordered ONE (10:58)
[2019-07-31] MEDS ORDERED: propofoL 200 MG/20 ML VIAL As Ordered ONE (10:58)
[2019-07-31] MEDS ORDERED: LIDOCAINE 2% INJ 100 MG/5 ML SDV (FOR ANES.) As Ordered ONE (10:58)
[2019-07-31] MEDS ORDERED: fentaNYL 100 MCG/2 ML INJECTION (J3010) IV PRN ×2 (13:00→15:00)
[2019-07-31] MEDS ORDERED: LR 1,000 ML IV SCH ×2 (13:00→15:00)
[2019-07-31] MEDS ORDERED: ONDANSETRON 4MG/2ML VIAL (J2405) IV PRN ×2 (13:00→15:00)
[2019-07-31] MEDS ORDERED: ACETAMINOPHEN 1000MG 100ML IV BTL (OFIRMEV) (J0131 PER 10MG) As Ordered ONE (13:57)
[2019-07-31] MEDS ORDERED: ACETAMINOPHEN *IV* 1,000 MG IV ONE ×2 (14:15)
[2019-07-31] MEDS ORDERED: ALBUTEROL SULFATE 2.5 MG/0.5 ML INH NEB SOLN As Ordered ONE (14:34)
[2019-07-31] MEDS ORDERED: MORPHINE 2 MG/ML 1ML VIAL (J2270) As Ordered ONE (14:55)
[2019-07-31] MEDS ORDERED: MORPHINE 2 MG/ML 1ML VIAL (J2270) IV PRN (15:00)
--- NOTE | 2019-07-31 15:08 | REP ---
Portable chest x-ray: Single view. History: Chest pain. Comparison study: June 16, 2019. Findings: Monitoring electrode is seen. The lungs are symmetrically aerated and free of infiltrate. There is mild plate-like atelectasis in the left base overlying the heart and in the perihilar region. No infiltrate is seen. Heart size is unchanged. Aorta is somewhat tortuous. There are degenerative changes in the thoracic spine. Impression: Plate-like atelectatic changes left base. Otherwise no acute disease. Electronically Signed by Nelson Field MD 07/31/2019 08:07 P
[2019-07-31 16:00] VITALS: BP 140/78
[2019-07-31] MEDS ORDERED: FLUTICASONE PROP 0.05% NASAL SPRAY 16 GM (FLONASE) PRN (16:00)
[2019-07-31] MEDS ORDERED: ACETAMINOPHEN TAB 650MG DOSE (2X325MG) PO PRN (16:00)
--- NOTE | 2019-07-31 16:35 | HPEPDOC ---
[facility] Medical History & Physical Date of Admission Jul 31, 2019 Date of Service: Jul 31, 2019 Attending Physician: ROBIN GIFFORD MD History and Physical CHIEF COMPLAINT: chest pain post op HISTORY OF PRESENT ILLNESS: 64 y.o male w/ PMH of Renal calculi, seizure disorder & LINDSEY (non-compliant with CPAP) is seen in PACU for post-op chest pain. Patient underwent cystoscopy with lithotripsy & bladder stone removal. He reports waking up in PACU and immediately experiencing pleuritic chest pain. Pain is sharp and going across his entire chest, reproducible & worsened w/ deep inspiration/cough; he reports mild dyspnea & dry cough. He denies any nausea, vomiting, abdominal pain or diarrhea. He had no complaints leading up to the surgery. He is non-compliant with his CPAP, has not used it for at least 6 months. 10 point review of system is negative except for above PAST MEDICAL HISTORY: 1. Seizure disorder 2. LINDSEY 3. renal calculi PAST SURGICAL HISTORY: 1. Lithotripsy 2. L knee surgery SOCIAL HISTORY: never smoker social alcohol use denies drug use FAMILY HISTORY: positive for heart disease ALLERGIES: Please see below. HOME MEDICATIONS: Please see below. PHYSICAL EXAMINATION: VITAL SIGNS: See below GENERAL APPEARANCE: No distress HEENT: moist mucus membranes CARDIOVASCULAR: S1, S2, no murmurs LUNGS: diminished, poor air movement, basilar rhonchi, reproducible bilateral chest pain ABDOMEN: soft, non-tender, non-distended, +BS EXTREMITIES: ROM intact NEUROLOGICAL: No focal deficits PSYCHIATRIC: calm LABORATORY DATA: See below. IMAGING: CXR showing mild atelectasis, no other acute pathology MICROBIOLOGY: Please see below. ASSESSMENT: 65 y.o male being admitted for CP work up s/p cystoscopy & lithotripsy of bladder calculi. PLAN: 1. Chest pain - pleuritic in nature, EKG w/o acute abnormalities, likely musculoskeletal in nature, CXR showing mild atelectasis, incentive spirometry ordered, PT, initial blood work ordered. 2. s/p Cystosccopy & lithotripsy of bladder calculi - management as per Urologist, pain control 3. LINDSEY - has his CPAP at bedside, non-compliant at baseline, agrees to use it tonight. 4. Seizure disorder - continue home Depakote & Carbamazepine DVT Prophylaxis - Heparin SubQ GI Prophylaxis - not needed Vital Signs Vital Signs Date Time Temp Pulse Resp B/P (MAP) Pulse Ox O2 Delivery O2 Flow Rate FiO2 07/31/19 13:10 77 12 141/62 (88) 100 Non-Rebreather 100 07/31/19 12:55 96.5 Laboratory Data Labs 24H Laboratory Tests 2 07/31/19 12:34: Home Medications Scheduled Azelastine HCl (Azelastine HCl) 0.15% [place].pump, 2 SPRAY NARES BID Carbamazepine (Carbamazepine) 200 Mg Tab, 250 MG PO BID Divalproex Sodium (Depakote) 500 Mg Tab, 500 MG PO TID Tamsulosin HCl (Flomax) 0.4 Mg Capsule, 1 CAP PO DAILY once daily 1/2 hour following the same meal each day Miscellaneous Medications Fluticasone Propionate (Fluticasone Propionate) 16 Gm [place].susp Allergies Coded Allergies: No Known Allergies (Verified , 07/29/19) A-FIB/CHADSVASC A-FIB History Current/History of A-Fib/PAF?: No ROBIN GIFFORD MD Jul 31, 2019 16:35
[2019-07-31 17:02] LABS: HEMATOCRIT 49.6 % (42.0-52.0); HEMOGLOBIN 15.9 g/dl (13.5-17.5); MEAN CORPUSCULAR HEMOGLOBIN 26.2 pg (27.0-33.0); MEAN CORPUSCULAR HGB CONC 32.1 g/dl (32.0-36.5); MEAN CORPUSCULAR VOLUME 81.8 fl (80.0-96.0); PLATELET COUNT, AUTOMATED 238 10^3/uL (150-450); RED BLOOD COUNT 6.06 10^6/uL (4.30-6.10); WHITE BLOOD COUNT 7.6 10^3/uL (4.0-10.0)
[2019-07-31 17:27] LABS: ALBUMIN 4.2 GM/DL (3.2-5.2); ALT/SGPT 62 U/L (12-78); BILIRUBIN,TOTAL 0.5 MG/DL (0.2-1.0); BLOOD UREA NITROGEN 13 MG/DL (7-18); CALCIUM LEVEL 8.8 MG/DL (8.8-10.2); CARBON DIOXIDE LEVEL 26 MEQ/L (21-32); CHLORIDE LEVEL 106 MEQ/L (98-107); CREATININE FOR GFR 0.94 MG/DL (0.70-1.30); GLOMERULAR FILTRATION RATE > 60.0 (>49); GLUCOSE, FASTING 96 MG/DL (70-100); POTASSIUM SERUM 4.1 MEQ/L (3.5-5.1); SODIUM LEVEL 139 MEQ/L (136-145); TOTAL PROTEIN 7.6 GM/DL (6.4-8.2)
[2019-07-31 17:28] LABS: CK-MB VALUE MASS 3.3 NG/ML (<3.6); CPK CREATINE PHOSPHOKINASE 318 U/L (39-308); MB/CK RELATIVE INDEX 1.04 (< OR =4); TROPONIN I < 0.02 NG/ML (< 0.10)
[2019-07-31] MEDS ORDERED: NS 1,000 ML IV ONE (18:00)
[2019-07-31 18:30] VITALS: BP 126/75
[2019-07-31 19:30] VITALS: BP 118/59
[2019-07-31 20:30] VITALS: BP 110/61
[2019-07-31] MEDS: NS 1,000 ML IV SCH (20:51)
[2019-07-31] MEDS: carBAMazepine 100MG 5ML SUSP ORAL SYRINGE *DRAW UP EXACT DOSE PO SCH (21:37)
[2019-07-31] MEDS: DIVALPROEX 500 MG TAB PO SCH (21:37)
[2019-07-31 22:00] VITALS: BP 124/73
[2019-08-01 03:13] LABS: HEMATOCRIT 44.8 % (42.0-52.0); HEMOGLOBIN 14.7 g/dl (13.5-17.5); MEAN CORPUSCULAR HEMOGLOBIN 26.7 pg (27.0-33.0); MEAN CORPUSCULAR HGB CONC 32.8 g/dl (32.0-36.5); MEAN CORPUSCULAR VOLUME 81.5 fl (80.0-96.0); PLATELET COUNT, AUTOMATED 263 10^3/uL (150-450); WHITE BLOOD COUNT 14.9 10^3/uL (4.0-10.0)
[2019-08-01 04:00] LABS: ALBUMIN 3.3 GM/DL (3.2-5.2); ALT/SGPT 49 U/L (12-78); BILIRUBIN,TOTAL 0.3 MG/DL (0.2-1.0); BLOOD UREA NITROGEN 17 MG/DL (7-18); CALCIUM LEVEL 8.4 MG/DL (8.8-10.2); CARBON DIOXIDE LEVEL 25 MEQ/L (21-32); CHLORIDE LEVEL 110 MEQ/L (98-107); CREATININE FOR GFR 0.89 MG/DL (0.70-1.30); GLOMERULAR FILTRATION RATE > 60.0 (>49); GLUCOSE, FASTING 142 MG/DL (70-100); MAGNESIUM LEVEL 2.1 MG/DL (1.8-2.4); POTASSIUM SERUM 4.8 MEQ/L (3.5-5.1); SODIUM LEVEL 140 MEQ/L (136-145); TOTAL PROTEIN 6.5 GM/DL (6.4-8.2)
[2019-08-01 06:00] VITALS: BP 125/63
[2019-08-01] MEDS: NS 1,000 ML IV SCH (08:21)
[2019-08-01] MEDS: DIVALPROEX 500 MG TAB PO SCH (08:29)
[2019-08-01] MEDS: carBAMazepine 100MG 5ML SUSP ORAL SYRINGE *DRAW UP EXACT DOSE PO SCH (08:31)
[2019-08-01] MEDS ORDERED: TAMSULOSIN 0.4 MG CAP PO SCH (09:00)
[2019-08-01 10:00] VITALS: BP 148/88
[2019-08-01] MEDS ORDERED: CARB20TA PO (11:35)
[2019-08-01] MEDS ORDERED: DEPA1TAB3 PO (11:35)
[2019-08-01 14:00] VITALS: BP 138/68
--- NOTE | 2019-08-01 14:52 | ECGEPIP ---
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
--- NOTE | 2019-08-01 17:59 | DS.PDOC ---
Discharge Summary General Date of Admission Jul 31, 2019 at 15:55 Date of Discharge 08/01/19 Attending Physician: ROBIN GIFFORD MD Discharge Summary PROCEDURES PERFORMED DURING STAY: None. ADMITTING DIAGNOSES: 1. Pleuritic chest pain, lactic acidosis. DISCHARGE DIAGNOSES: 1. Pleuritic chest pain, lactic acidosis. COMPLICATIONS/CHIEF COMPLAINT: Bladder Calculi. HISTORY OF PRESENT ILLNESS: [64-year-old male was admitted for postop chest pain. Patient underwent cystoscopy with lithotripsy and removal of bladder calculi. Patient had pleuritic chest pain afterwards, lactate was elevated, treated with IV fluids and pain control. Cardiac workup was negative for ischemia. Patient with complete resolution of pain when evaluated the following morning, resting comfortably in bed, no complaint at this time. Patient is clinically and hemodynamically stable for discharge at this time. Patient is not compliant with CPAP, strongly recommended follow-up with sleep physician for b natacha mask fitting to improve compliance. Patient is in agreement with discharge plan. HOSPITAL COURSE: As above. DISCHARGE MEDICATIONS: Please see below. ALLERGIES: Please see below. PHYSICAL EXAMINATION: VITAL SIGNS: Please see below. GENERAL: No distress HEENT: Normocephalic, atraumatic, moist mucous membranes NECK: Supple CARDIOVASCULAR EXAMINATION: S1, S2, no murmurs RESPIRATORY EXAMINATION: Clear to auscultation, no wheezing ABDOMINAL EXAMINATION: Soft, nontender, nondistended, positive bowel sounds EXTREMITIES: Range of motion intact SKIN: No rash NEUROLOGICAL EXAMINATION: Alert and oriented 3, no focal deficits PSYCHIATRIC EXAMINATION: Calm and cooperative LABORATORY DATA: Please see below. IMAGING: Chest x-ray showing mild atelectasis PROGNOSIS: Fair ACTIVITY: As tolerated. DIET: Cardiac DISCHARGE PLAN: Follow-up with urologist, wax coating machine tender. Sleep physician and PCP within 1-2 weeks DISPOSITION: 01 Home, Self-Care. DISCHARGE INSTRUCTIONS: 1. As above. DISCHARGE CONDITION: Stable. TIME SPENT ON DISCHARGE: Greater than 22 minutes. Vital Signs/I&Os Vital Signs Date Time Temp Pulse Resp B/P (MAP) Pulse Ox O2 Delivery O2 Flow Rate FiO2 08/01/19 14:00 97.5 82 20 138/68 (91) 96 Room Air 07/31/19 13:45 2 07/31/19 13:10 100 I&O- Last 24 Hours up to 6 AM 08/01/19 06:00 Intake Total 4520 ml Output Total 820 ml Balance 3700 ml Laboratory Data Labs 24H Laboratory Tests 2 07/31/19 21:52: Lactic Acid Followup at 4 Hours 3.6*H 08/01/19 03:02: Nucleated Red Blood Cells % (auto) 0.0, Anion Gap 5L, Glomerular Filtration Rate > 60.0, Lactic Acid Level 2.1*H, Calcium Level 8.4L, Magnesium Level 2.1, Total Bilirubin 0.3, Aspartate Amino Transf (AST/SGOT) 18, Alanine Aminotransferase (ALT/SGPT) 49, Alkaline Phosphatase 86, Total Protein 6.5, Albumin 3.3#, Albumin/Globulin Ratio 1.03 08/01/19 07:20: Lactic Acid Followup at 4 Hours 1.8 CBC/BMP Laboratory Tests 08/01/19 03:02 Discharge Medications Scheduled Azelastine HCl (Azelastine HCl) 0.15% [place].pump, 2 SPRAY NARES BID Carbamazepine (Carbamazepine) 200 Mg Tab, 250 MG PO BID Divalproex Sodium (Depakote) 500 Mg Tab, 500 MG PO TID Tamsulosin HCl (Flomax) 0.4 Mg Capsule, 1 CAP PO DAILY once daily 1/2 hour following the same meal each day Miscellaneous Medications Fluticasone Propionate (Fluticasone Propionate) 16 Gm [place].susp, (Reported) Allergies Coded Allergies: No Known Allergies (Verified , 07/29/19) ROBIN GIFFORD MD Aug 01, 2019 17:59
--- NOTE | 2019-08-01 23:05 | RO ---
DATE OF PROCEDURE: 07/31/2019 PREPROCEDURE DIAGNOSIS: Bladder calculi. POSTPROCEDURE DIAGNOSIS: Bladder calculi. PROCEDURE: Cystoscopy with extraction of bladder calculi. SURGEON: Dr. Eddy Nunez [employer] AND LACROSSE COACH: ANESTHESIA: General. INDICATION FOR OPERATION: This is a 64-year-old white male who was found on office cystoscopy to have numerous bladder calculi. He was, therefore, scheduled for removal of the stones under anesthesia. DESCRIPTION OF PROCEDURE: The patient was anesthetized with general anesthesia, placed in the lithotomy position, prepped with Betadine paint and draped in an aseptic manner. Time-out was then performed. A #22-[place] cystoscope was then inserted into the meatus and advanced under direct vision of a 30-degree lens to the bladder. The patient had a moderate stricture in the bulbous portion of the urethra, which was easily traversed with the cystoscope. He also had obstructing lateral lobes of the prostate and a large vascular median lobe. In the bladder, the patient was found to have 2+ bladder trabeculation and numerous stones in the floor of the bladder. These were able to be flushed out through the cystoscope. Repeat inspection with 30- and 70-degree lenses showed no further stones remaining. The bladder was then drained, cystoscope was removed, and the patient was awakened and sent to recovery room in stable condition, having tolerated the procedure well.
== END 2019-08-01 14:43 | disposition home or self-care (01) ==
LOC: M SDC 10:30 → ENRESERVDT 15:33 → ENRESERVTM 15:33 → M SDC 15:54 → M MSPAV 15:55
PROVIDERS: ADMIT Internal Medicine; ATTEND Internal Medicine
DX: G89.18 Other acute postprocedural pain (principal); R07.1 Chest pain on breathing; N21.0 Calculus in bladder; E87.2 Acidosis; G47.33 Obstructive sleep apnea (adult) (pediatric); G40.909 Epilepsy, unspecified, not intractable, without status epilepticus; Z79.899 Other long term (current) drug therapy
CPT/HCPCS: 36415; 52310; 71045; 80053; 82365; 82550; 82553; 83605; 83735; 84145; 85027; 88300; 93005; 96360; 96361; 97116; 97161; J0131; J0690; J1100; J2250; J2270; J2405; J3010

== ENCOUNTER 2019-08-03 10:08 | Emergency (ER) | payer OTHER ==
[~2019-08-03] VITALS: Ht 165.1 cm; Wt 123.5 kg
[~2019-08-03 10:08] MED LIST changes: -LIDOCAINE 1% MDV 20ML VIAL SQ PRN; -LR 1,000 ML IV ONE; -ceFAZolin SOD 2 GM in IV 1 EA IV ONE
[2019-08-03 10:58] VITALS: BP 140/86
== END 2019-08-03 11:34 | disposition home or self-care (01) ==
LOC: M ED 10:08
DX: R35.0 Frequency of micturition (principal); Z98.890 Other specified postprocedural states; R56.9 Unspecified convulsions; Z79.899 Other long term (current) drug therapy

== ENCOUNTER → 2019-09-18 | Outpatient (CLI) | payer OTHER ==
[~2019-09-18] MED LIST changes: +CYCL-707 PO; -CYCL10TA PO
== END ==
LOC: M LABSMTC 09:55
PROVIDERS: ATTEND Family Medicine
DX: Z11.59 Encounter for screening for other viral diseases (principal); Z20.828 Contact with and (suspected) exposure to other viral communicable diseases

== ENCOUNTER → 2019-10-01 | Outpatient (REF) | payer OTHER ==
[~2019-10-01] MED LIST changes: +CARB1TAB20
[2019-10-01 12:09] LABS: BASO % 0.6 % (0.0-1.0); EOS # 0.2 10^3/uL (0.0-0.5); EOS % 2.6 % (0.0-3.0); HEMATOCRIT 47.2 % (42.0-52.0); HEMOGLOBIN 15.6 g/dl (13.5-17.5); LYMPH % 31.6 % (24.0-44.0); MEAN CORPUSCULAR HEMOGLOBIN 27.3 pg (27.0-33.0); MEAN CORPUSCULAR HGB CONC 33.1 g/dl (32.0-36.5); MEAN CORPUSCULAR VOLUME 82.5 fl (80.0-96.0); MONO # 0.5 10^3/uL (0.0-0.8); MONO % 7.2 % (0.0-5.0); NEUTROPHILS # 3.6 10^3/uL (1.5-8.5); NEUTROPHILS % 57.7 % (36.0-66.0); PLATELET COUNT, AUTOMATED 239 10^3/uL (150-450); RED BLOOD COUNT 5.72 10^6/uL (4.30-6.10); WHITE BLOOD COUNT 6.2 10^3/uL (4.0-10.0)
[2019-10-01 12:39] LABS: ALBUMIN 3.8 GM/DL (3.2-5.2); ALT/SGPT 64 U/L (12-78); BILIRUBIN,TOTAL 0.3 MG/DL (0.2-1.0); BLOOD UREA NITROGEN 17 MG/DL (7-18); CALCIUM LEVEL 9.2 MG/DL (8.8-10.2); CARBON DIOXIDE LEVEL 25 MEQ/L (21-32); CHLORIDE LEVEL 108 MEQ/L (98-107); CREATININE FOR GFR 0.77 MG/DL (0.70-1.30); GLOMERULAR FILTRATION RATE > 60.0 (>49); GLUCOSE, FASTING 93 MG/DL (70-100); LIPASE 146 U/L (73-393); POTASSIUM SERUM 4.5 MEQ/L (3.5-5.1); SODIUM LEVEL 140 MEQ/L (136-145); TOTAL PROTEIN 7.3 GM/DL (6.4-8.2); TROPONIN I < 0.02 NG/ML (< 0.10)
== END ==
LOC: M SFHCPLAZ 11:13
PROVIDERS: ATTEND Family Medicine
DX: R10.13 Epigastric pain (principal); R07.89 Other chest pain

== ENCOUNTER 2019-10-02 09:21 | Emergency (ER) | payer OTHER, SELFPAY ==
[~2019-10-02] VITALS: Ht 175.3 cm; Wt 125.9 kg
[~2019-10-02 09:21] MED LIST changes: -ASPI81TA85 PO; +ASPI81TA86 PO; -CARB1TAB20
[2019-10-02] MEDS ORDERED: CARB1TAB20 (09:29)
[2019-10-02 10:30] LABS: BASO % 0.6 % (0.0-1.0); EOS # 0.1 10^3/uL (0.0-0.5); EOS % 1.9 % (0.0-3.0); HEMATOCRIT 46.5 % (42.0-52.0); HEMOGLOBIN 14.9 g/dl (13.5-17.5); LYMPH # 1.7 10^3/uL (1.5-5.0); LYMPH % 25.7 % (24.0-44.0); MEAN CORPUSCULAR HEMOGLOBIN 26.2 pg (27.0-33.0); MEAN CORPUSCULAR VOLUME 81.9 fl (80.0-96.0); MONO # 0.4 10^3/uL (0.0-0.8); MONO % 5.8 % (0.0-5.0); NEUTROPHILS # 4.5 10^3/uL (1.5-8.5); NEUTROPHILS % 65.6 % (36.0-66.0); PLATELET COUNT, AUTOMATED 227 10^3/uL (150-450); RED BLOOD COUNT 5.68 10^6/uL (4.30-6.10); WHITE BLOOD COUNT 6.8 10^3/uL (4.0-10.0)
[2019-10-02 10:45] LABS: ALBUMIN 3.8 GM/DL (3.2-5.2); ALT/SGPT 64 U/L (12-78); BILIRUBIN,TOTAL 0.4 MG/DL (0.2-1.0); BLOOD UREA NITROGEN 16 MG/DL (7-18); CALCIUM LEVEL 8.9 MG/DL (8.8-10.2); CARBON DIOXIDE LEVEL 24 MEQ/L (21-32); CHLORIDE LEVEL 110 MEQ/L (98-107); CREATININE FOR GFR 0.74 MG/DL (0.70-1.30); GLOMERULAR FILTRATION RATE > 60.0 (>49); GLUCOSE, FASTING 85 MG/DL (70-100); POTASSIUM SERUM 4.4 MEQ/L (3.5-5.1); SODIUM LEVEL 141 MEQ/L (136-145); TOTAL PROTEIN 7.1 GM/DL (6.4-8.2)
[2019-10-02] MEDS ORDERED: KETOROLAC 60MG 2ML VIAL IM ONE (11:00)
[2019-10-02] MEDS ORDERED: KETOROLAC 30 MG/ML 1ML VIAL IV ONE (11:00)
[2019-10-02 11:18] VITALS: BP 150/80
== END 2019-10-02 11:20 | disposition home or self-care (01) ==
LOC: M ED 09:21
DX: R31.9 Hematuria, unspecified (principal); R10.31 Right lower quadrant pain; I10 Essential (primary) hypertension; E78.5 Hyperlipidemia, unspecified; R56.9 Unspecified convulsions; N40.0 Benign prostatic hyperplasia without lower urinary tract symptoms; K21.9 Gastro-esophageal reflux disease without esophagitis; Z86.73 Personal history of transient ischemic attack (TIA), and cerebral infarction without residual deficits; I25.2 Old myocardial infarction; Z87.442 Personal history of urinary calculi; Z79.899 Other long term (current) drug therapy
CPT/HCPCS: 36415; 80053; 81001; 83605; 85025; 96372; 99283; J1885

== ENCOUNTER → 2019-10-28 | Outpatient (CLI) | payer OTHER ==
[~2019-10-28] MED LIST changes: +ASPI81TA85 PO; -ASPI81TA86 PO; +CARB1TAB20
--- NOTE | 2019-10-28 17:13 | REPVR ---
PROCEDURE INFORMATION: Exam: MR Lumbar Spine Without Contrast. Exam date and time: 10/28/2019 4:15 PM Age: 64 years old Clinical indication: Low back pain; Additional info: Acute midline low back pain TECHNIQUE: Imaging protocol: Multiplanar magnetic resonance images of the lumbar spine without intravenous contrast. COMPARISON: MRI-Spine, L.S. without con 11/24/2017 9:52 AM FINDINGS: Vertebrae: Unremarkable. Epidural lipomatosis at L3, L4 and L5. Spinal cord: Normal signal. No cord compression. L1-L2: No significant disc disease. No significant spinal canal stenosis. No neural foraminal stenosis. L2-L3: No significant disc disease. No significant spinal canal stenosis. No neural foraminal stenosis. L3-L4: Mild bulging annulus at L3-L4 mildly flattens the ventral surface of the thecal sac without significant central spinal stenosis. There is mild thickening of both ligamentum flavum associated with mild bilateral facet joint arthropathy. There is moderate foraminal stenosis on the right and moderate to severe foraminal stenosis on the left. There is no lateral recess stenosis. L4-L5: There is a diffusely bulging annulus at L4-L5 without central spinal stenosis.. Bilateral thickened ligamentum flavum and bilateral facet joint arthropathy is demonstrated. There is moderate to severe bilateral foraminal stenosis. L5-S1: There is a diffusely bulging annulus at L5-S1 with a broad left foraminal disc protrusion grossly stable in comparison to the prior study of 11/24/2017. Lateral components of the bulging annulus and protrusion on the left tucks the exiting L5 nerve roots far laterally. There is no compression of the S1 nerve roots as they exit from the thecal sac. There is bilateral facet joint arthropathy and thickened ligamentum flavum. Soft tissues: Unremarkable. IMPRESSION: 1. No significant interval change in comparison to 11/24/2017. 2. Bulging annulus at L3-L4 without central spinal stenosis. Degenerative facet joint arthropathy and foraminal stenosis. 3. Bulging annulus at L4-L5 without central spinal stenosis. Degenerative facet joint arthropathy and foraminal stenosis. 4. Diffusely bulging annulus at L5-S1 with a broad left foraminal disc protrusion. Lateral components of the disc in the foraminal zones touches the exiting L5 nerve roots far laterally. 5. Epidural lipomatosis from L3-L5 without significant thecal sac compression. Electronically signed by: Milton Montague On 10/28/2019 17:12:43 PM
== END ==
LOC: M RAD 14:43
PROVIDERS: ATTEND Family Medicine
DX: M51.26 Other intervertebral disc displacement, lumbar region (principal); E88.2 Lipomatosis, not elsewhere classified

== ENCOUNTER 2020-03-23 08:00 | Outpatient (RCR) | payer OTHER ==
[~2020-03-23 08:00] MED LIST changes: -ASPI81TA85 PO; +ASPI81TA86 PO
== END 2020-03-27 ==
LOC: M PT 08:00
PROVIDERS: ATTEND Orthopaedic Surgery
DX: Z47.89 Encounter for other orthopedic aftercare (principal); M50.10 Cervical disc disorder with radiculopathy, unspecified cervical region; M48.02 Spinal stenosis, cervical region

== ENCOUNTER → 2020-04-20 | Outpatient (CLI) | payer OTHER ==
--- NOTE | 2020-04-20 15:53 | REP ---
INDICATION: PAIN LT SHOULDER, R/O ROTATOR CUFF TEAR. COMPARISON: None. TECHNIQUE: Coronal oblique T1, T2 fat sat, sagittal oblique T2 fat sat, axial T2 fat sat, gradient echo. FINDINGS: Rotator cuff: There is tendinopathy/tendinitis of the subscapularis, supraspinatus and infraspinatus tendons. There may be a partial undersurface tear of the distal infraspinatus tendon. Acromioclavicular joint: There are mild hypertrophic degenerative changes of the acromioclavicular joint with mild subchondral marrow edema and a tiny amount of fluid in the joint. Acromion: Type 2 Biceps Tendon: The biceps tendon is within the bicipital groove with a mild amount of surrounding fluid. Hill Sach's deformity: None. Deltoid muscle: No abnormal signal. Biceps labral complex: There is fraying of the biceps labral complex. Labrum: There is irregularity of the superior labrum compatible with a tear. Cartilage: No defects. Bone marrow: Mild subcortical cystic changes are seen in the anterior humeral head. Joint fluid: No effusion. IMPRESSION: Tendinopathy/tendinitis of the subscapularis, supraspinatus and infraspinatus tendons. There may be a partial undersurface tear of the distal infraspinatus tendon. Mild hypertrophic degenerative changes acromioclavicular joint with type 2 acromion. There is fraying of the biceps labral complex. There appears to be a tear of the superior labrum. <Electronically signed by Lucien Bryson > 04/20/20 [id number]
== END ==
LOC: M RAD 14:25
PROVIDERS: ATTEND Orthopaedic Surgery
DX: M75.32 Calcific tendinitis of left shoulder (principal); M25.512 Pain in left shoulder

== ENCOUNTER → 2020-05-06 | Outpatient (CLI) | payer OTHER ==
[2020-05-06 06:43] LABS: BASO # 0.1 10^3/uL (0.0-0.2); BASO % 0.8 % (0.0-1.0); EOS # 0.2 10^3/uL (0.0-0.5); HEMATOCRIT 49.8 % (42.0-52.0); HEMOGLOBIN 15.1 g/dl (13.5-17.5); LYMPH # 1.9 10^3/uL (1.5-5.0); LYMPH % 30.4 % (24.0-44.0); MEAN CORPUSCULAR HEMOGLOBIN 25.6 pg (27.0-33.0); MEAN CORPUSCULAR HGB CONC 30.3 g/dl (32.0-36.5); MEAN CORPUSCULAR VOLUME 84.6 fl (80.0-96.0); MONO # 0.4 10^3/uL (0.0-0.8); MONO % 6.6 % (0.0-5.0); NEUTROPHILS # 3.7 10^3/uL (1.5-8.5); NEUTROPHILS % 58.9 % (36.0-66.0); PLATELET COUNT, AUTOMATED 233 10^3/uL (150-450); RED BLOOD COUNT 5.89 10^6/uL (4.30-6.10); WHITE BLOOD COUNT 6.3 10^3/uL (4.0-10.0)
[2020-05-06 07:01] LABS: ERYTHROCYTE SEDIMENTATION RATE 5 mm/hr (0-20)
[2020-05-06 07:08] LABS: C REACTIVE PROTEIN QUANTITATIV 0.45 MG/DL (0.00-0.30); RHEUMATOID FACTOR QUANT 13.2 IU/ML (<15.0)
[2020-05-07 15:07] LABS: ANTINUCLEAR ANTIBODIES DIRECT Negative (Negative)
== END ==
LOC: M LAB 06:06
PROVIDERS: ATTEND Orthopaedic Surgery
DX: M50.10 Cervical disc disorder with radiculopathy, unspecified cervical region (principal)

== ENCOUNTER → 2020-06-02 | Outpatient (CLI) | payer OTHER ==
[2020-06-02 09:09] LABS: PLATELET COUNT, AUTOMATED 221 10^3/uL (150-450)
[2020-06-02 09:28] LABS: INR 0.98; PROTHROMBIN TIME 13.2 SECONDS (12.5-14.3)
== END ==
LOC: M LAB 08:26
PROVIDERS: ATTEND Physical Medicine & Rehabilitation
DX: M47.22 Other spondylosis with radiculopathy, cervical region (principal)

== ENCOUNTER → 2020-06-28 | Outpatient (CLI) | payer OTHER | LOC: M LAB 08:48 | PROVIDERS: ATTEND Family Medicine | DX: I20.8 Other forms of angina pectoris (principal) ==

== ENCOUNTER → 2020-09-14 | Outpatient (REF) | payer OTHER ==
[2020-09-14 15:50] LABS: APPEARANCE, URINE CLEAR (CLEAR); BACTERIA, URINE AUTO NEGATIVE (NEGATIVE); BASO # 0.1 10^3/uL (0.0-0.2); BASO % 0.7 % (0.0-1.0); BILIRUBIN, URINE AUTO NEGATIVE (NEGATIVE); BLOOD, URINE BLOOD NEGATIVE (NEGATIVE); COLOR, URINE YELLOW (YELLOW); EOS # 0.2 10^3/uL (0.0-0.5); EOS % 2.3 % (0.0-3.0); GLUCOSE, URINE (UA) AUTO NEGATIVE (NEGATIVE); HEMATOCRIT 47.8 % (42.0-52.0); HEMOGLOBIN 14.9 g/dl (13.5-17.5); KETONE, URINE AUTO NEGATIVE (NEGATIVE); LEUKOCYTE ESTERASE, URINE AUTO NEGATIVE (NEGATIVE); LYMPH # 2.2 10^3/uL (1.5-5.0); LYMPH % 31.6 % (24.0-44.0); MEAN CORPUSCULAR HGB CONC 31.2 g/dl (32.0-36.5); MEAN CORPUSCULAR VOLUME 83.6 fl (80.0-96.0); MONO # 0.6 10^3/uL (0.0-0.8); MUCUS, URINE SMALL (NEGATIVE); NEUTROPHILS # 3.9 10^3/uL (1.5-8.5); NITRITE, URINE AUTO NEGATIVE (NEGATIVE); PLATELET COUNT, AUTOMATED 261 10^3/uL (150-450); PROTEIN, URINE AUTO NEGATIVE (NEGATIVE); RBC, URINE AUTO 1 /HPF (0-3); RED BLOOD COUNT 5.72 10^6/uL (4.30-6.10); SPECIFIC GRAVITY URINE AUTO 1.021 (1.002-1.035); SQUAMOUS EPITHELIAL CELL UR AU 0 /HPF (0-6); WBC, URINE AUTO 1 /HPF (0-3); WHITE BLOOD COUNT 6.9 10^3/uL (4.0-10.0)
[2020-09-14 16:09] LABS: ALT/SGPT 83 U/L (12-78); BILIRUBIN,TOTAL 0.3 MG/DL (0.2-1.0); BLOOD UREA NITROGEN 16 MG/DL (7-18); CALCIUM LEVEL 9.4 MG/DL (8.8-10.2); CARBON DIOXIDE LEVEL 31 MEQ/L (21-32); CHLORIDE LEVEL 108 MEQ/L (98-107); CREATININE FOR GFR 0.92 MG/DL (0.70-1.30); GLOMERULAR FILTRATION RATE > 60.0 (>49); GLUCOSE, FASTING 101 MG/DL (70-100); LIPASE 104 U/L (73-393); POTASSIUM SERUM 4.7 MEQ/L (3.5-5.1); SODIUM LEVEL 142 MEQ/L (136-145); TOTAL PROTEIN 7.6 GM/DL (6.4-8.2)
== END ==
LOC: M SFHCPLAZ 13:37
PROVIDERS: ATTEND Family Medicine
DX: R10.31 Right lower quadrant pain (principal)

== ENCOUNTER → 2020-09-15 | Outpatient (CLI) | payer OTHER ==
[~2020-09-15] MED LIST changes: +ISOVUE-370 76% 100ML VIAL As Ordered ONE
--- NOTE | 2020-09-15 08:55 | REP ---
INDICATION: RIGHT LOWER QUAD ABD PAIN. COMPARISON: 07/02/2019 TECHNIQUE: Axial contrast-enhanced images from the lung bases to the pubic symphysis using 100 cc Isovue 370 intravenous contrast material. Delayed images of the abdomen along with coronal and sagittal reformations obtained. This CT examination was performed using the following dose reduction techniques: Automated exposure control, adjustment of mA and/or kv according to the patient's size, and the use of iterative reconstruction technique. FINDINGS: Liver demonstrates diffuse fatty infiltration without focal hepatic lesion. The spleen, pancreas, gallbladder, and bilateral adrenal glands are normal. Kidneys demonstrate 5 mm nonobstructing right renal calculus along with few bilateral hypodensities suggesting simple cysts measuring up to 14 mm on the right kidney and 2.1 cm on the left kidney. The enteric system includes small hiatal hernia at the gastroesophageal junction and colonic diverticulosis. There is no evidence for bowel obstruction or acute inflammatory process. Normal terminal ileum and appendix are identified in the right lower quadrant. Pelvis demonstrates significantly enlarged heterogeneous prostate gland with mass effect on the base of the bladder which includes few small dependent bladder calculi. No ascites. No free air. No intraperitoneal or retroperitoneal adenopathy. Abdominal aorta and vasculature without aneurysm or dissection. Musculoskeletal structures are intact and without acute osseous abnormality. Lung bases are clear. IMPRESSION: 1. No acute abdominopelvic pathology appreciated. 2. Hepatosteatosis. 3. Chronic renal changes including small cysts and 5 mm nonobstructing right renal calculus as well as few small bladder calculi. 4. Diverticulosis without acute diverticulitis. 5. Significantly enlarged heterogeneous prostate gland. <Electronically signed by Justin Esteban > 09/15/20 [id number]
== END ==
LOC: M RAD 07:57
PROVIDERS: ATTEND Family Medicine
DX: R10.9 Unspecified abdominal pain (principal)

== ENCOUNTER → 2020-10-04 | Outpatient (REF) | payer OTHER ==
[~2020-10-04] MED LIST changes: -ISOVUE-370 76% 100ML VIAL As Ordered ONE
== END ==
LOC: M SMT 13:11
PROVIDERS: ATTEND Urology
DX: R39.9 Unspecified symptoms and signs involving the genitourinary system (principal)

== ENCOUNTER → 2020-10-05 | Outpatient (CLI) | payer OTHER | LOC: M LAB 06:39 | PROVIDERS: ATTEND Urology | DX: R39.9 Unspecified symptoms and signs involving the genitourinary system (principal) ==

== ENCOUNTER 2020-11-23 12:07 | Outpatient (RCR) | payer OTHER ==
[~2020-11-23 12:07] MED LIST changes: -DOXY100C37; +DOXY1CAP62
== END 2020-11-24 ==
LOC: M PT 12:07
PROVIDERS: ATTEND Physician Assistant
DX: M25.512 Pain in left shoulder (principal)

== ENCOUNTER 2020-12-17 11:00 | Outpatient (RCR) | payer OTHER | END 2020-12-25 | LOC: M PT 11:00 | PROVIDERS: ATTEND Physician Assistant | DX: M25.512 Pain in left shoulder (principal) ==

== ENCOUNTER 2021-01-28 06:59 | Emergency (ER) | payer OTHER ==
[~2021-01-28] VITALS: Ht 165.1 cm; Wt 124.1 kg
[2021-01-28] MEDS ORDERED: HYDR-3713 (07:36)
[2021-01-28] MEDS ORDERED: FINA5TAB2 (07:36)
[2021-01-28] MEDS ORDERED: NS 1,000 ML IV ONE (07:55)
[2021-01-28] MEDS ORDERED: KETOROLAC 30 MG/ML 1ML VIAL IV ONE (07:55)
[2021-01-28 07:58] LABS: BASO # 0.1 10^3/uL (0.0-0.2); BASO % 0.7 % (0.0-1.0); EOS # 0.1 10^3/uL (0.0-0.5); EOS % 1.4 % (0.0-3.0); HEMATOCRIT 48.6 % (42.0-52.0); HEMOGLOBIN 15.6 g/dl (13.5-17.5); LYMPH % 22.4 % (24.0-44.0); MEAN CORPUSCULAR HEMOGLOBIN 26.4 pg (27.0-33.0); MEAN CORPUSCULAR HGB CONC 32.1 g/dl (32.0-36.5); MEAN CORPUSCULAR VOLUME 82.4 fl (80.0-96.0); MONO # 0.5 10^3/uL (0.0-0.8); MONO % 5.6 % (2.0-8.0); NEUTROPHILS # 6.1 10^3/uL (1.5-8.5); NEUTROPHILS % 69.4 % (36.0-66.0); PLATELET COUNT, AUTOMATED 281 10^3/uL (150-450); WHITE BLOOD COUNT 8.8 10^3/uL (4.0-10.0)
[2021-01-28 08:16] LABS: BILIRUBIN,DIRECT 0.1 MG/DL (0.0-0.2); BILIRUBIN,TOTAL 0.4 MG/DL (0.2-1.0); TOTAL PROTEIN 7.7 GM/DL (6.4-8.2)
--- NOTE | 2021-01-28 08:31 | REP ---
INDICATION: R flank pain, hx of stones COMPARISON: 09/15/2020 TECHNIQUE: Axial noncontrast images from the lung bases to the pubic symphysis with coronal and sagittal reformations. This CT examination was performed using the following dose reduction techniques: Automated exposure control, adjustment of mA and/or kv according to the patient's size, and use of iterative reconstruction technique. FINDINGS: Lung bases are clear. Visualized heart and pericardium normal. Liver demonstrates fatty infiltration without focal hepatic lesion. Spleen, pancreas, gallbladder, bilateral adrenal glands are normal. Kidneys demonstrate subtle hypodensities suggesting cysts along with 4 mm nonobstructing right renal calculus. No perinephric stranding or hydroureteronephrosis. The enteric system is unremarkable and without obstruction or acute inflammatory process. Normal terminal ileum and appendix identified in the right lower quadrant. Hiatal hernia at the gastroesophageal junction noted. Pelvis demonstrates markedly enlarged prostate gland measuring 8.8 cm maximal diameter with significant mass effect on the bladder wall itself demonstrating wall thickening and dependent bladder stones. No ascites. No free air. No adenopathy. No focal inflammatory stranding. Abdominal aorta without aneurysm. Musculoskeletal structures are intact and without acute osseous abnormality. IMPRESSION: 1. 4 mm nonobstructing right nephrolith. Bilateral renal hypodensities likely representing cysts may be followed by outpatient ultrasound. 2. Markedly enlarged prostate gland with mass effect on the base of the bladder along with small dependent bladder calculi. <Electronically signed by Justin Esteban > 01/28/21 0863
[2021-01-28] MEDS ORDERED: KETO10TAB PO (08:42)
[2021-01-28 08:51] VITALS: BP 160/80
--- NOTE | 2021-01-29 06:45 | ED PDOC ---
Post-Departure Follow-Up ct abd/p faxed to dr santillan for fu Jeremiah Plaza MD Jan 29, 2021 06:45
== END 2021-01-28 08:53 | disposition home or self-care (01) ==
LOC: M ED 06:59
DX: N20.0 Calculus of kidney (principal); Z79.51 Long term (current) use of inhaled steroids; Z79.899 Other long term (current) drug therapy; Z87.442 Personal history of urinary calculi
CPT/HCPCS: 74176; 80047; 80076; 81001; 83690; 85025; 96374; 99284; J1885

== ENCOUNTER 2021-02-04 07:06 | Inpatient (IN) | payer OTHER ==
[~2021-02-04] VITALS: Ht 167.6 cm; Wt 121.3 kg
[~2021-02-04 07:06] MED LIST changes: -CARB1TAB20; +CARB1TAB20 PO; +DOXY-443; -DOXY1CAP62; +FINA5TAB2 PO; +HYDR-3713
[2021-02-04] MEDS ORDERED: AMOX875T2 PO (07:18)
[2021-02-04] MEDS ORDERED: NS 1,000 ML IV ONE (08:05)
[2021-02-04] MEDS ORDERED: KETOROLAC 30 MG/ML 1ML VIAL IV ONE (08:50)
[2021-02-04 09:07] LABS: BASO # 0.1 10^3/uL (0.0-0.2); BASO % 0.9 % (0.0-1.0); EOS # 0.2 10^3/uL (0.0-0.5); EOS % 1.9 % (0.0-3.0); HEMATOCRIT 50.2 % (42.0-52.0); HEMOGLOBIN 16.2 g/dl (13.5-17.5); LYMPH % 25.4 % (24.0-44.0); MEAN CORPUSCULAR HGB CONC 32.3 g/dl (32.0-36.5); MEAN CORPUSCULAR VOLUME 83.5 fl (80.0-96.0); MONO # 0.5 10^3/uL (0.0-0.8); MONO % 5.9 % (2.0-8.0); NEUTROPHILS # 5.2 10^3/uL (1.5-8.5); NEUTROPHILS % 65.4 % (36.0-66.0); PLATELET COUNT, AUTOMATED 261 10^3/uL (150-450); RED BLOOD COUNT 6.01 10^6/uL (4.30-6.10); WHITE BLOOD COUNT 7.9 10^3/uL (4.0-10.0)
[2021-02-04 09:18] LABS: ALBUMIN 3.9 GM/DL (3.2-5.2); BILIRUBIN,DIRECT 0.1 MG/DL (0.0-0.2); BILIRUBIN,TOTAL 0.5 MG/DL (0.2-1.0); TOTAL PROTEIN 7.6 GM/DL (6.4-8.2)
[2021-02-04] MEDS ORDERED: ONDANSETRON 4MG/2ML VIAL IV ONE (10:25)
[2021-02-04] MEDS ORDERED: MORPHINE 4 MG/ML 1ML VIAL/SYRINGE (J2270) IV ONE (10:25)
[2021-02-04] MEDS ORDERED: MORPHINE 2 MG/ML 1ML VIAL (J2270) IV PRN (12:25)
[2021-02-04] MEDS ORDERED: ONDANSETRON 4 MG TAB PO SCH (12:25)
[2021-02-04] MEDS ORDERED: KETOROLAC 30 MG/ML 1ML VIAL IV PRN ×2 (12:25→14:25)
[2021-02-04] MEDS ORDERED: ACETAMINOPHEN TAB 650MG DOSE (2X325MG) PO PRN (12:25)
[2021-02-04 12:37] LABS: RSV AMPLIFICATION NEGATIVE (NEGATIVE)
[2021-02-04] MEDS: NS 1,000 ML IV SCH ×4 (12:45→21:19)
[2021-02-04] MEDS ORDERED: ONDANSETRON 4MG/2ML VIAL IV PRN (13:00)
[2021-02-04] MEDS ORDERED: FLOM0.4C39 PO (13:44)
[2021-02-04] MEDS ORDERED: DIVA500T94 PO (13:44)
[2021-02-04] MEDS ORDERED: KETO10TAB PO (13:44)
[2021-02-04] MEDS ORDERED: HOME MED LIST COMPLETE! XX SCH (13:55)
[2021-02-04] MEDS: ENOXAPARIN 40MG/0.4ML SYRINGE (J1650 PER 10MG) SC SCH (14:46)
[2021-02-04 16:14] LABS: ALBUMIN 3.5 GM/DL (3.2-5.2); ALT/SGPT 73 U/L (12-78); BILIRUBIN,TOTAL 0.6 MG/DL (0.2-1.0); BLOOD UREA NITROGEN 20 MG/DL (7-18); CALCIUM LEVEL 8.5 MG/DL (8.8-10.2); CARBON DIOXIDE LEVEL 27 MEQ/L (21-32); CHLORIDE LEVEL 111 MEQ/L (98-107); CHOLESTEROL LEVEL 211 MG/DL (<200); CHOLESTEROL RISK RATIO 3.836 (<5); CREATININE FOR GFR 0.71 MG/DL (0.70-1.30); GLOMERULAR FILTRATION RATE > 60.0 (>49); GLUCOSE, FASTING 76 MG/DL (70-100); HDL CHOLESTEROL 55 MG/DL (>40); LDL CHOLESTEROL 145 MG/DL (<100); NON-HDL-C 156 MG/DL; POTASSIUM SERUM 4.4 MEQ/L (3.5-5.1); SODIUM LEVEL 140 MEQ/L (136-145); TOTAL PROTEIN 7.1 GM/DL (6.4-8.2); TRIGLYCERIDES LEVEL 56 MG/DL (<150)
[2021-02-04] MEDS: DIVALPROEX 500 MG TAB PO SCH ×2 (16:29→20:43)
[2021-02-04] MEDS: cefTRIAXone SOD 1 GM in D5W MINI-BAG PLUS 50 ML IV SCH (16:30)
[2021-02-04 18:00] VITALS: BP 171/103
[2021-02-04] MEDS: FINASTERIDE 5 MG TAB PO SCH (20:43)
[2021-02-04] MEDS: carBAMazepine 200MG TABLET PO SCH (20:44)
[2021-02-04] MEDS ORDERED: MORPHINE 2 MG/ML 1ML VIAL (J2270) IV ONE (20:55)
[2021-02-04] MEDS ORDERED: TAMSULOSIN 0.4 MG CAP PO SCH (21:00)
[2021-02-04 22:00] VITALS: BP 162/102
[2021-02-05] VITALS: BP 154/94
[2021-02-05] MEDS: NS 1,000 ML IV SCH ×2 (03:06→08:37)
[2021-02-05 06:00] VITALS: BP 158/94
[2021-02-05 07:27] LABS: HEMATOCRIT 45.2 % (42.0-52.0); HEMOGLOBIN 14.4 g/dl (13.5-17.5); MEAN CORPUSCULAR HEMOGLOBIN 26.9 pg (27.0-33.0); MEAN CORPUSCULAR HGB CONC 31.9 g/dl (32.0-36.5); MEAN CORPUSCULAR VOLUME 84.3 fl (80.0-96.0); PLATELET COUNT, AUTOMATED 208 10^3/uL (150-450); RED BLOOD COUNT 5.36 10^6/uL (4.30-6.10); WHITE BLOOD COUNT 7.3 10^3/uL (4.0-10.0)
[2021-02-05 07:45] LABS: ALBUMIN 3.2 GM/DL (3.2-5.2); ALT/SGPT 61 U/L (12-78); BILIRUBIN,TOTAL 0.6 MG/DL (0.2-1.0); BLOOD UREA NITROGEN 16 MG/DL (7-18); CARBON DIOXIDE LEVEL 29 MEQ/L (21-32); CHLORIDE LEVEL 110 MEQ/L (98-107); CREATININE FOR GFR 0.69 MG/DL (0.70-1.30); GLOMERULAR FILTRATION RATE > 60.0 (>49); GLUCOSE, FASTING 74 MG/DL (70-100); POTASSIUM SERUM 4.8 MEQ/L (3.5-5.1); SODIUM LEVEL 141 MEQ/L (136-145); TOTAL PROTEIN 6.6 GM/DL (6.4-8.2)
[2021-02-05] MEDS: carBAMazepine 200MG TABLET PO SCH ×2 (08:37→20:08)
[2021-02-05] MEDS: ENOXAPARIN 40MG/0.4ML SYRINGE (J1650 PER 10MG) SC SCH (08:38)
[2021-02-05] MEDS: DIVALPROEX 500 MG TAB PO SCH ×3 (08:38→20:08)
[2021-02-05] MEDS: cefTRIAXone SOD 1 GM in D5W MINI-BAG PLUS 50 ML IV SCH (17:34)
[2021-02-05] MEDS: TAMSULOSIN 0.4 MG CAP PO SCH (17:35)
[2021-02-05] MEDS: FINASTERIDE 5 MG TAB PO SCH (20:08)
[2021-02-05 22:00] VITALS: BP 141/76
[2021-02-06] MEDS ORDERED: HYOSCYAMINE SULFATE 0.125 MG SUBL TABLET PO ONE (05:40)
[2021-02-06 06:00] VITALS: BP 155/81
[2021-02-06] MEDS: carBAMazepine 200MG TABLET PO SCH ×2 (09:11→20:17)
[2021-02-06] MEDS: DIVALPROEX 500 MG TAB PO SCH ×3 (09:11→20:17)
[2021-02-06] MEDS: ENOXAPARIN 40MG/0.4ML SYRINGE (J1650 PER 10MG) SC SCH (09:12)
[2021-02-06] MEDS ORDERED: PROHANCE 279.3MG/ML 15ML VIAL As Ordered ONE (13:14)
[2021-02-06] MEDS ORDERED: PROHANCE 279.3MG/ML 5ML VIAL As Ordered ONE (13:14)
[2021-02-06 14:00] VITALS: BP 146/87
[2021-02-06] MEDS: TAMSULOSIN 0.4 MG CAP PO SCH (17:19)
[2021-02-06] MEDS: FINASTERIDE 5 MG TAB PO SCH (20:17)
[2021-02-07 06:00] VITALS: BP 143/79
[2021-02-07 06:00] LABS: HEMATOCRIT 45.9 % (42.0-52.0); HEMOGLOBIN 14.7 g/dl (13.5-17.5); MEAN CORPUSCULAR HEMOGLOBIN 26.6 pg (27.0-33.0); PLATELET COUNT, AUTOMATED 206 10^3/uL (150-450); RED BLOOD COUNT 5.53 10^6/uL (4.30-6.10); WHITE BLOOD COUNT 7.4 10^3/uL (4.0-10.0)
[2021-02-07 06:29] LABS: BLOOD UREA NITROGEN 18 MG/DL (7-18); CALCIUM LEVEL 8.6 MG/DL (8.8-10.2); CARBON DIOXIDE LEVEL 27 MEQ/L (21-32); CHLORIDE LEVEL 108 MEQ/L (98-107); CREATININE FOR GFR 0.82 MG/DL (0.70-1.30); GLOMERULAR FILTRATION RATE > 60.0 (>49); GLUCOSE, FASTING 100 MG/DL (70-100); POTASSIUM SERUM 4.1 MEQ/L (3.5-5.1); SODIUM LEVEL 142 MEQ/L (136-145)
[2021-02-07] MEDS: carBAMazepine 200MG TABLET PO SCH ×2 (08:51→20:31)
[2021-02-07] MEDS: DIVALPROEX 500 MG TAB PO SCH ×3 (08:51→20:31)
[2021-02-07] MEDS: ENOXAPARIN 40MG/0.4ML SYRINGE (J1650 PER 10MG) SC SCH (08:54)
[2021-02-07] MEDS ORDERED: NORCO, ANEXSIA 5/325MG TABLET (HYDROcodone/ACETAMINOPHEN) PO PRN (12:40)
[2021-02-07] MEDS ORDERED: MORPHINE 2 MG/ML 1ML VIAL (J2270) IV PRN (12:40)
[2021-02-07] MEDS: NORCO, ANEXSIA 5/325MG TABLET (HYDROcodone/ACETAMINOPHEN) PO PRN (13:23)
[2021-02-07 14:00] VITALS: BP 145/97
[2021-02-07] MEDS: TAMSULOSIN 0.4 MG CAP PO SCH (16:30)
[2021-02-07] MEDS: FINASTERIDE 5 MG TAB PO SCH (20:31)
[2021-02-07 22:00] VITALS: BP 148/98
[2021-02-08] MEDS: NORCO, ANEXSIA 5/325MG TABLET (HYDROcodone/ACETAMINOPHEN) PO PRN (00:25)
[2021-02-08 06:00] VITALS: BP 146/98
[2021-02-08 06:17] LABS: HEMATOCRIT 47.2 % (42.0-52.0); HEMOGLOBIN 15.1 g/dl (13.5-17.5); MEAN CORPUSCULAR HEMOGLOBIN 26.5 pg (27.0-33.0); MEAN CORPUSCULAR VOLUME 82.8 fl (80.0-96.0); PLATELET COUNT, AUTOMATED 220 10^3/uL (150-450); WHITE BLOOD COUNT 8.7 10^3/uL (4.0-10.0)
[2021-02-08 06:49] LABS: BLOOD UREA NITROGEN 21 MG/DL (7-18); CALCIUM LEVEL 9.1 MG/DL (8.8-10.2); CARBON DIOXIDE LEVEL 28 MEQ/L (21-32); CHLORIDE LEVEL 109 MEQ/L (98-107); CREATININE FOR GFR 0.82 MG/DL (0.70-1.30); GLOMERULAR FILTRATION RATE > 60.0 (>49); GLUCOSE, FASTING 91 MG/DL (70-100); POTASSIUM SERUM 4.2 MEQ/L (3.5-5.1); SODIUM LEVEL 141 MEQ/L (136-145)
[2021-02-08] MEDS: carBAMazepine 200MG TABLET PO SCH ×2 (08:30→21:01)
[2021-02-08] MEDS: DIVALPROEX 500 MG TAB PO SCH ×3 (08:30→21:01)
[2021-02-08] MEDS: ENOXAPARIN 40MG/0.4ML SYRINGE (J1650 PER 10MG) SC SCH (08:53)
[2021-02-08] MEDS ORDERED: NORCO, ANEXSIA 5/325MG TABLET (HYDROcodone/ACETAMINOPHEN) PO SCH (12:00)
[2021-02-08 14:00] VITALS: BP 144/98
[2021-02-08] MEDS ORDERED: MOM 30ML SUSPENSION UDC PO PRN (14:00)
[2021-02-08] MEDS ORDERED: SENOKOT S TAB PO PRN (14:00)
[2021-02-08] MEDS: NORCO, ANEXSIA 5/325MG TABLET (HYDROcodone/ACETAMINOPHEN) PO SCH ×3 (14:52→23:57)
[2021-02-08] MEDS: MIRALAX *UNIT DOSE* 17GM PACKET PO SCH (14:52)
[2021-02-08] MEDS: TAMSULOSIN 0.4 MG CAP PO SCH (17:27)
[2021-02-08] MEDS: FINASTERIDE 5 MG TAB PO SCH (21:01)
[2021-02-08 22:00] VITALS: BP 144/96
[2021-02-09] MEDS: NORCO, ANEXSIA 5/325MG TABLET (HYDROcodone/ACETAMINOPHEN) PO SCH (05:09)
[2021-02-09 06:00] VITALS: BP 139/91
[2021-02-09 06:21] LABS: HEMATOCRIT 45.9 % (42.0-52.0); HEMOGLOBIN 14.5 g/dl (13.5-17.5); MEAN CORPUSCULAR HEMOGLOBIN 26.5 pg (27.0-33.0); MEAN CORPUSCULAR HGB CONC 31.6 g/dl (32.0-36.5); MEAN CORPUSCULAR VOLUME 83.8 fl (80.0-96.0); PLATELET COUNT, AUTOMATED 210 10^3/uL (150-450); RED BLOOD COUNT 5.48 10^6/uL (4.30-6.10); WHITE BLOOD COUNT 8.9 10^3/uL (4.0-10.0)
[2021-02-09 06:57] LABS: BLOOD UREA NITROGEN 20 MG/DL (7-18); CALCIUM LEVEL 8.7 MG/DL (8.8-10.2); CARBON DIOXIDE LEVEL 27 MEQ/L (21-32); CHLORIDE LEVEL 107 MEQ/L (98-107); CREATININE FOR GFR 0.78 MG/DL (0.70-1.30); GLOMERULAR FILTRATION RATE > 60.0 (>49); GLUCOSE, FASTING 95 MG/DL (70-100); POTASSIUM SERUM 4.5 MEQ/L (3.5-5.1); SODIUM LEVEL 141 MEQ/L (136-145)
[2021-02-09] MEDS: carBAMazepine 200MG TABLET PO SCH ×2 (08:04→20:34)
[2021-02-09] MEDS: DIVALPROEX 500 MG TAB PO SCH ×3 (08:04→20:34)
[2021-02-09] MEDS: MIRALAX *UNIT DOSE* 17GM PACKET PO SCH (08:06)
[2021-02-09] MEDS: ENOXAPARIN 40MG/0.4ML SYRINGE (J1650 PER 10MG) SC SCH (08:35)
[2021-02-09] MEDS ORDERED: NALOXONE INJ 0.4MG/1ML VIAL (J2310 PER 1MG) IV PRN (10:45)
[2021-02-09] MEDS: MORPHINE 15 MG SA TAB PO SCH ×2 (13:15→20:33)
[2021-02-09 14:00] VITALS: BP 140/95
[2021-02-09] MEDS ORDERED: MORPHINE 30 MG TAB **MSIR PO PRN (14:00)
[2021-02-09] MEDS: LIDOCAINE 2% 5ML JELLY UROJET TOP PRN (15:08)
[2021-02-09] MEDS: TAMSULOSIN 0.4 MG CAP PO SCH (17:55)
[2021-02-09] MEDS: FINASTERIDE 5 MG TAB PO SCH (20:34)
[2021-02-09 22:00] VITALS: BP 135/76
[2021-02-10 06:00] VITALS: BP 139/86
[2021-02-10 06:18] LABS: HEMATOCRIT 48.6 % (42.0-52.0); HEMOGLOBIN 15.4 g/dl (13.5-17.5); MEAN CORPUSCULAR HEMOGLOBIN 26.7 pg (27.0-33.0); MEAN CORPUSCULAR HGB CONC 31.7 g/dl (32.0-36.5); MEAN CORPUSCULAR VOLUME 84.4 fl (80.0-96.0); PLATELET COUNT, AUTOMATED 238 10^3/uL (150-450); RED BLOOD COUNT 5.76 10^6/uL (4.30-6.10); WHITE BLOOD COUNT 8.6 10^3/uL (4.0-10.0)
[2021-02-10 06:45] LABS: BLOOD UREA NITROGEN 24 MG/DL (7-18); CALCIUM LEVEL 9.2 MG/DL (8.8-10.2); CARBON DIOXIDE LEVEL 28 MEQ/L (21-32); CHLORIDE LEVEL 105 MEQ/L (98-107); CREATININE FOR GFR 0.89 MG/DL (0.70-1.30); GLOMERULAR FILTRATION RATE > 60.0 (>49); GLUCOSE, FASTING 99 MG/DL (70-100); POTASSIUM SERUM 4.4 MEQ/L (3.5-5.1); SODIUM LEVEL 141 MEQ/L (136-145)
[2021-02-10] MEDS: carBAMazepine 200MG TABLET PO SCH (08:31)
[2021-02-10] MEDS: MIRALAX *UNIT DOSE* 17GM PACKET PO SCH (08:31)
[2021-02-10] MEDS: DIVALPROEX 500 MG TAB PO SCH ×2 (08:31→15:18)
[2021-02-10] MEDS: MORPHINE 15 MG SA TAB PO SCH (08:31)
[2021-02-10] MEDS ORDERED: MORPHINE 15 MG SA TAB PO ONE (10:00)
[2021-02-10] MEDS ORDERED: LIDOCAINE 2% 5ML JELLY UROJET TOP ONE (12:40)
[2021-02-10] MEDS ORDERED: LIDOCAINE 2% 5ML JELLY UROJET TOP PRN (12:45)
[2021-02-10 14:00] VITALS: BP 151/89
[2021-02-10] MEDS ORDERED: LIDO2URO TOP (15:01)
[2021-02-10] MEDS ORDERED: SENN-52 PO (15:01)
[2021-02-10] MEDS ORDERED: MSIR30TA PO (15:01)
[2021-02-10] MEDS ORDERED: MIRA1POW3 PO (15:01)
[2021-02-10] MEDS ORDERED: MORP15TASA PO (15:01)
[2021-02-10] MEDS: LIDOCAINE 2% 5ML JELLY UROJET TOP PRN (15:18)
[2021-02-10] MEDS ORDERED: MORPHINE 30 MG SA TAB PO SCH (21:00)
[2021-02-10] MEDS ORDERED: MORPHINE 15 MG SA TAB PO SCH (21:00)
[2021-02-13] MEDS ORDERED: ROLLMIS8 XX ×3 (10:32→11:05)
== END 2021-02-10 16:20 | disposition home health service (06) | DRG 501 ==
LOC: M ED 07:06 → M ED INP 07:07 → ENRESERV 17:17 → M MSPAV 18:02 → OBSVTOIN 02-07 16:04
PROVIDERS: ADMIT Internal Medicine; ATTEND General Practice
DX: N40.1 Benign prostatic hyperplasia with lower urinary tract symptoms (principal); R56.9 Unspecified convulsions; K75.81 Nonalcoholic steatohepatitis (NASH); E66.01 Morbid (severe) obesity due to excess calories; K52.9 Noninfective gastroenteritis and colitis, unspecified; G47.33 Obstructive sleep apnea (adult) (pediatric); D62 Acute posthemorrhagic anemia; N20.0 Calculus of kidney; R31.0 Gross hematuria; M51.36 Other intervertebral disc degeneration, lumbar region; K44.9 Diaphragmatic hernia without obstruction or gangrene; E78.5 Hyperlipidemia, unspecified; H66.92 Otitis media, unspecified, left ear; N13.9 Obstructive and reflux uropathy, unspecified; R33.9 Retention of urine, unspecified; Z68.41 Body mass index [BMI] 40.0-44.9, adult; K59.00 Constipation, unspecified; Z86.73 Personal history of transient ischemic attack (TIA), and cerebral infarction without residual deficits; Z20.822 Contact with and (suspected) exposure to COVID-19; Z79.899 Other long term (current) drug therapy

== ENCOUNTER 2021-02-13 12:36 | Emergency (ER) | payer OTHER ==
[~2021-02-13] VITALS: Ht 165.1 cm; Wt 111.4 kg
[~2021-02-13 12:36] MED LIST changes: +AMOX875T2 PO; +DIVA500T94 PO; -DOXY-443; +DOXY1CAP62; +LIDO2URO TOP; +MIRA1POW3 PO; +MORP15TASA PO; +MSIR30TA PO; +ROLLMIS8 XX; +SENN-52 PO
[2021-02-13] MEDS ORDERED: KETOROLAC 30 MG/ML 1ML VIAL IV ONE (14:10)
[2021-02-13] MEDS ORDERED: NS 1,000 ML IV SCH (14:10)
[2021-02-13 14:19] LABS: BASO # 0.1 10^3/uL (0.0-0.2); BASO % 0.6 % (0.0-1.0); EOS # 0.2 10^3/uL (0.0-0.5); EOS % 1.6 % (0.0-3.0); HEMATOCRIT 48.1 % (42.0-52.0); HEMOGLOBIN 15.4 g/dl (13.5-17.5); LYMPH # 1.6 10^3/uL (1.5-5.0); LYMPH % 16.5 % (24.0-44.0); MEAN CORPUSCULAR HEMOGLOBIN 26.7 pg (27.0-33.0); MEAN CORPUSCULAR VOLUME 83.4 fl (80.0-96.0); MONO # 0.8 10^3/uL (0.0-0.8); MONO % 8.5 % (2.0-8.0); NEUTROPHILS % 72.4 % (36.0-66.0); PLATELET COUNT, AUTOMATED 311 10^3/uL (150-450); RED BLOOD COUNT 5.77 10^6/uL (4.30-6.10); WHITE BLOOD COUNT 9.6 10^3/uL (4.0-10.0)
[2021-02-13 14:50] LABS: ALBUMIN 3.9 GM/DL (3.2-5.2); ALT/SGPT 46 U/L (12-78); BILIRUBIN,DIRECT 0.1 MG/DL (0.0-0.2); BILIRUBIN,TOTAL 0.5 MG/DL (0.2-1.0); BLOOD UREA NITROGEN 17 MG/DL (7-18); CALCIUM LEVEL 9.1 MG/DL (8.8-10.2); CARBON DIOXIDE LEVEL 27 MEQ/L (21-32); CHLORIDE LEVEL 104 MEQ/L (98-107); CREATININE FOR GFR 0.73 MG/DL (0.70-1.30); GLOMERULAR FILTRATION RATE > 60.0 (>49); GLUCOSE, FASTING 99 MG/DL (70-100); LIPASE 195 U/L (73-393); POTASSIUM SERUM 4.8 MEQ/L (3.5-5.1); SODIUM LEVEL 138 MEQ/L (136-145); TOTAL PROTEIN 7.8 GM/DL (6.4-8.2)
--- NOTE | 2021-02-13 16:35 | REP ---
INDICATION: right flank pain; r/o stone. COMPARISON: None. TECHNIQUE: Imaging protocol: Computed tomography of the abdomen and pelvis without IV contrast. Contiguous 3 mm thick axial projection images were obtained through the abdomen and pelvis. 2D sagittal and coronal reconstructions were performed. Radiation optimization: All CT scans at this facility use at least one of these dose optimization techniques: automated exposure control; mA and/or kV adjustment per patient size (includes targeted exams where dose is matched to clinical indication); or iterative reconstruction. FINDINGS: Heart and lung bases: There is linear scarring in the middle lobe of the right lung, the antral basal segment of the lower lobe of the right lung and the posterior basal segment of the lower lobe of the left lung. There are no pleural effusions. The heart size is normal. There is no pericardial effusion. Liver: Fatty infiltration. Gallbladder: Normal. Spleen: Normal unenhanced appearance. There is a benign splenule anterior to the spleen. Pancreas: Normal unenhanced appearance. Adrenal glands: Normal unenhanced appearance. Kidneys/bladder: There is a 4 mm stone in a lower pole calyx of the right kidney. There is no ureterolithiasis or hydronephrosis. The left kidney has a normal unenhanced appearance. There are approximately 10 stones in the urinary bladder, measuring up to 3 mm in diameter. There is thickening of the wall of the urinary bladder consistent with bladder outlet obstruction and or cystitis. There is a Downs catheter with the balloon in the prostate gland. Pelvic structures: Prostate gland measures 8.5 cm in diameter and contains coarse calcifications. There are bilateral seminal vesicle cysts. There is no free fluid in the pelvis. GI tract: There is a small hiatal hernia. There is scattered colonic diverticuli without evidence of acute inflammation. There is a normal appendix demonstrated. Abdominal wall and mesentery: There are no abdominal wall defects. Abdominal aorta and vascular structures: There is minimal calcific vascular disease of the abdominal aorta. Bony structures: There is moderate multilevel degenerative disc disease of the lower thoracic and lumbar spine with moderate levoscoliosis. There is moderate arthritis of both SI joints. The hips are unremarkable. IMPRESSION: 1. There is right nephrolithiasis without obstruction. 2. There is thickening of the wall of the urinary bladder consistent with bladder outlet obstruction and or cystitis. There are multiple stones within the urinary bladder consistent with recently passed stones. 3. There is marked prostatomegaly. 4. There is a Downs catheter present with the balloon inflated within the prostate gland. 5. There is a small hiatal hernia. 6. There is colonic diverticulosis without diverticulitis. 7. There is fatty liver infiltration. 8. Thoracolumbar degenerative disc disease with levoscoliosis. Incidental Findings: Downs catheter balloon inflated within the prostate gland. The critical information above was relayed directly by me by telephone to HERLINDA LINARES on 02/13/2021 at 4:31 pm with readback verification. <Electronically signed by Jordy Min > 02/13/21 [id number]
[2021-02-13 16:41] VITALS: BP 143/84
[2021-02-13] MEDS ORDERED: PERCOCET 5MG/325MG TAB PO ONE (17:10)
== END 2021-02-13 17:25 | disposition home or self-care (01) ==
LOC: M ED 12:36
DX: N20.0 Calculus of kidney (principal); N21.0 Calculus in bladder; T83.091A Other mechanical complication of indwelling urethral catheter, initial encounter; K57.30 Diverticulosis of large intestine without perforation or abscess without bleeding; K76.0 Fatty (change of) liver, not elsewhere classified; M51.85 Other intervertebral disc disorders, thoracolumbar region; M41.9 Scoliosis, unspecified; I25.2 Old myocardial infarction; I10 Essential (primary) hypertension; Z86.73 Personal history of transient ischemic attack (TIA), and cerebral infarction without residual deficits; K21.9 Gastro-esophageal reflux disease without esophagitis; R56.9 Unspecified convulsions; G89.29 Other chronic pain; M54.5 Low back pain; Z79.899 Other long term (current) drug therapy
CPT/HCPCS: 74176; 80048; 80076; 81001; 83690; 85025; 87086; 93041; 96361; 96374; 99284; J1885

== ENCOUNTER 2021-02-14 03:09 | Emergency (ER) | payer OTHER ==
[~2021-02-14] VITALS: Ht 165.1 cm; Wt 124.8 kg
[2021-02-14 03:10] VITALS: BP 163/101
[2021-02-14] MEDS ORDERED: ACETAMINOPHEN TAB 650MG DOSE (2X325MG) PO ONE (05:05)
== END 2021-02-14 05:13 | disposition home or self-care (01) ==
LOC: M ED 03:09
DX: T83.098A Other mechanical complication of other urinary catheter, initial encounter (principal); Y92.89 Other specified places as the place of occurrence of the external cause; Z86.73 Personal history of transient ischemic attack (TIA), and cerebral infarction without residual deficits; Z87.442 Personal history of urinary calculi; Z79.899 Other long term (current) drug therapy

== ENCOUNTER 2021-02-18 19:27 | Emergency (ER) | payer OTHER ==
[~2021-02-18] VITALS: Ht 165.1 cm; Wt 121.0 kg
[2021-02-18] MEDS ORDERED: LIDOCAINE 2% 5ML JELLY UROJET As Ordered ONE (21:53)
[2021-02-18] MEDS ORDERED: LIDOCAINE 2% 5ML JELLY UROJET TOP ONE (21:55)
[2021-02-18 22:16] LABS: BASO # 0.1 10^3/uL (0.0-0.2); BASO % 0.5 % (0.0-1.0); EOS # 0.1 10^3/uL (0.0-0.5); EOS % 0.9 % (0.0-3.0); HEMATOCRIT 43.7 % (42.0-52.0); HEMOGLOBIN 14.2 g/dl (13.5-17.5); LYMPH # 1.3 10^3/uL (1.5-5.0); LYMPH % 8.8 % (24.0-44.0); MEAN CORPUSCULAR HEMOGLOBIN 26.9 pg (27.0-33.0); MEAN CORPUSCULAR HGB CONC 32.5 g/dl (32.0-36.5); MEAN CORPUSCULAR VOLUME 82.9 fl (80.0-96.0); MONO # 1.7 10^3/uL (0.0-0.8); MONO % 10.9 % (2.0-8.0); NEUTROPHILS % 78.4 % (36.0-66.0); PLATELET COUNT, AUTOMATED 298 10^3/uL (150-450); RED BLOOD COUNT 5.27 10^6/uL (4.30-6.10); WHITE BLOOD COUNT 15.3 10^3/uL (4.0-10.0)
[2021-02-18 22:46] LABS: BLOOD UREA NITROGEN 17 MG/DL (7-18); CALCIUM LEVEL 8.4 MG/DL (8.8-10.2); CARBON DIOXIDE LEVEL 25 MEQ/L (21-32); CHLORIDE LEVEL 105 MEQ/L (98-107); CREATININE FOR GFR 1.05 MG/DL (0.70-1.30); GLOMERULAR FILTRATION RATE > 60.0 (>49); GLUCOSE, FASTING 141 MG/DL (70-100); POTASSIUM SERUM 4.1 MEQ/L (3.5-5.1); SODIUM LEVEL 139 MEQ/L (136-145)
[2021-02-19 01:15] VITALS: BP 135/79
[2021-02-20] MEDS ORDERED: LIDO2GEL26 TOP (15:47)
[2021-02-20] MEDS ORDERED: MIRA3350 PO (15:47)
[2021-02-20] MEDS ORDERED: MORP-69 PO (15:47)
[2021-02-20] MEDS ORDERED: MORP15TA2 PO (15:47)
[2021-02-20] MEDS ORDERED: SENN-123 PO (15:47)
== END 2021-02-19 01:30 | disposition home or self-care (01) ==
LOC: M ED 19:27
DX: T83.091A Other mechanical complication of indwelling urethral catheter, initial encounter (principal); R31.9 Hematuria, unspecified; E78.5 Hyperlipidemia, unspecified; N40.1 Benign prostatic hyperplasia with lower urinary tract symptoms

== ENCOUNTER 2021-02-19 12:15 | Emergency (ER) | payer OTHER ==
[~2021-02-19] VITALS: Ht 165.1 cm; Wt 121.3 kg
[2021-02-19] MEDS ORDERED: LIDOCAINE 2% 5ML JELLY UROJET TOP ONE (13:00)
[2021-02-19 14:10] VITALS: BP 138/72
[2021-02-20] MEDS ORDERED: MIRA3350 PO (15:47)
[2021-02-20] MEDS ORDERED: SENN-123 PO (15:47)
[2021-02-20] MEDS ORDERED: MORP-69 PO (15:47)
[2021-02-20] MEDS ORDERED: LIDO2GEL26 TOP (15:47)
[2021-02-20] MEDS ORDERED: MORP15TA2 PO (15:47)
== END 2021-02-19 14:19 | disposition home or self-care (01) ==
LOC: M ED 12:15
DX: T83.091A Other mechanical complication of indwelling urethral catheter, initial encounter (principal); I10 Essential (primary) hypertension; N40.1 Benign prostatic hyperplasia with lower urinary tract symptoms; G47.33 Obstructive sleep apnea (adult) (pediatric); Z79.899 Other long term (current) drug therapy; Z87.442 Personal history of urinary calculi; Z87.440 Personal history of urinary (tract) infections; Z86.73 Personal history of transient ischemic attack (TIA), and cerebral infarction without residual deficits; Z87.19 Personal history of other diseases of the digestive system; Z86.69 Personal history of other diseases of the nervous system and sense organs; Z98.890 Other specified postprocedural states

== ENCOUNTER 2021-02-20 11:08 | Observation (INO) | payer OTHER ==
[~2021-02-20] VITALS: Ht 165.1 cm; Wt 119.6 kg
[2021-02-20] MEDS ORDERED: NS 1,000 ML IV SCH (11:30)
[2021-02-20] MEDS ORDERED: MORPHINE 4 MG/ML 1ML VIAL/SYRINGE (J2270) IV ONE (11:30)
[2021-02-20 11:58] LABS: BASO # 0.1 10^3/uL (0.0-0.2); BASO % 0.5 % (0.0-1.0); EOS # 0.3 10^3/uL (0.0-0.5); EOS % 2.6 % (0.0-3.0); HEMATOCRIT 42.8 % (42.0-52.0); HEMOGLOBIN 13.7 g/dl (13.5-17.5); LYMPH # 1.3 10^3/uL (1.5-5.0); LYMPH % 10.8 % (24.0-44.0); MEAN CORPUSCULAR HEMOGLOBIN 26.4 pg (27.0-33.0); MEAN CORPUSCULAR VOLUME 82.6 fl (80.0-96.0); MONO # 0.9 10^3/uL (0.0-0.8); MONO % 7.7 % (2.0-8.0); NEUTROPHILS # 9.2 10^3/uL (1.5-8.5); NEUTROPHILS % 78.1 % (36.0-66.0); PLATELET COUNT, AUTOMATED 329 10^3/uL (150-450); RED BLOOD COUNT 5.18 10^6/uL (4.30-6.10); WHITE BLOOD COUNT 11.8 10^3/uL (4.0-10.0)
[2021-02-20 12:38] LABS: ALT/SGPT 59 U/L (12-78); BILIRUBIN,DIRECT < 0.1 MG/DL (0.0-0.2); BILIRUBIN,TOTAL 0.5 MG/DL (0.2-1.0); BLOOD UREA NITROGEN 20 MG/DL (7-18); CALCIUM LEVEL 8.7 MG/DL (8.8-10.2); CARBON DIOXIDE LEVEL 26 MEQ/L (21-32); CHLORIDE LEVEL 107 MEQ/L (98-107); CREATININE FOR GFR 0.84 MG/DL (0.70-1.30); GLOMERULAR FILTRATION RATE > 60.0 (>49); GLUCOSE, FASTING 109 MG/DL (70-100); LIPASE 131 U/L (73-393); SODIUM LEVEL 139 MEQ/L (136-145); TOTAL PROTEIN 7.4 GM/DL (6.4-8.2)
[2021-02-20] MEDS: GASTROGRAFIN SOLUTION 30ML PO SCH ×2 (13:09→13:39)
[2021-02-20 13:20] LABS: CARBAMAZEPINE (TEGRETOL) LEVEL < 0.5 UG/ML (4.0-10.0); VALPROIC ACID (DEPAKOTE) < 3.0 UG/ML (50.0-100.0)
[2021-02-20] MEDS ORDERED: ISOVUE-370 76% 100ML VIAL As Ordered ONE (13:44)
--- NOTE | 2021-02-20 14:17 | REP ---
INDICATION: gen abd pain s/p erickson. COMPARISON: 02/13/2021 TECHNIQUE: Standard helical technique with intravenous and oral bowel preparatory contrast administration. 100 cc Isovue 370 was administered. FINDINGS: The lung bases are unchanged. The liver, gallbladder, spleen, pancreas, and adrenal glands are within normal limits. There are left renal cysts status quo. Right nephroliths are again seen status quo. There is no obstructive uropathy. There are right renal cysts status quo. The bowel loops and the mesenteries are essentially unchanged and again seen to be within normal limits. There is no evidence of free air. There is a trace amount of free pelvic fluid. There is prostatomegaly status quo. A Erickson balloon catheter is seen in the urinary bladder decompressing it. 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 Calcifications are again seen along the posterior wall of the urinary bladder. The osseous structures are unchanged IMPRESSION: 1. Calcifications as described above. 2. No evidence of acute disease or significant change compared to the prior exam with findings as described above. <Electronically signed by Justyn Sanchez > 02/20/21 0275
[2021-02-20] MEDS ORDERED: ACETAMINOPHEN TAB 650MG DOSE (2X325MG) PO PRN (15:40)
[2021-02-20] MEDS ORDERED: ONDANSETRON 4MG/2ML VIAL IV PRN (15:40)
[2021-02-20] MEDS ORDERED: MORP15TA2 PO (15:47)
[2021-02-20] MEDS ORDERED: MIRA3350 PO (15:47)
[2021-02-20] MEDS ORDERED: MORP-69 PO (15:47)
[2021-02-20] MEDS ORDERED: LIDO2GEL26 TOP (15:47)
[2021-02-20] MEDS ORDERED: SENN-123 PO (15:47)
[2021-02-20] MEDS ORDERED: HOME MED LIST COMPLETE! XX SCH (15:50)
--- NOTE | 2021-02-20 15:59 | HPEPDOC ---
General Date of Admission 02/20/21 Date of Service: Feb 20, 2021 Chief Complaint The patient is a 65-year-old male admitted with a reason for visit of Abdominal Pain. Source: Patient History of Present Illness Patient is 65 years old male with past medical history of seizure, TIA, LINDSEY, steatohepatitis, BPH, chronic back pain and bladder calculi s/p removal and p ancreatitis who presented to [facility] with suprapubic abdominal pain and low back pain. Patient was recently hospitalized due to back pain and he was found to have right nephrolithiasis with right kidney stone around 6 mm. Urology team recommended lithotripsy in the outpatient settings. Before discharge patient developed urinary retention and Garcia catheter was placed. For past few days patient reported increased suprapubic abdominal pain and he visited emergency room daily. Yesterday his Garcia catheter was changed. Patient reported increased suprapubic pain with hematuria. Patient denied fever, chills, nausea, vomiting, chest pain, diarrhea. In ER patient was found to have white blood count of 11.8, UA from 02/18/2021 was positive for blood and leukocytes esterase. CT abdomen and pelvis showed no nephrolithiasis. There is right kidney stone around 6 mm nonobstructive. Home Medications Scheduled Carbamazepine (Carbamazepine) 200 Mg Tablet, 200 MG PO BID, (Reported) Divalproex Sodium (Divalproex Sodium) 500 Mg Tablet.dr, 500 MG PO TID, (Reported) Finasteride (Finasteride) 5 Mg Tablet, 5 MG PO QHS, (Reported) Morphine Sulfate (Morphine Sulfate ER) 15 Mg Tablet.er, 15 MG PO BID Polyethylene Glycol 3350 (Miralax) 17 Gm Powd.pack, 1 PKT PO DAILY Tamsulosin HCl (Flomax) 0.4 Mg Capsule, 0.8 MG PO QHS, (Reported) Scheduled PRN Lidocaine HCl (Lidocaine HCl) 5 Ml Jel.pf.cherelle, 0 DOSE TOP Q6HP PRN for PAIN AT GARCIA SITE Morphine Sulfate (Morphine Sulfate) 30 Mg Tablet, 15 MG PO Q4HP PRN for SEVERE PAIN (PS 8-10) Sennosides/Docusate Sodium (Senna Plus Tablet) 1 Each Tablet, 2 TAB PO BIDP PRN for CONSTIPATION Allergies Coded Allergies: No Known Allergies (Verified , 07/29/19) Past Medical History Medical History - Kidney stones - Pancreatitis - TIA - Seizures - LINDSEY - Degenerative disc disease in lumbar spine - Cervical spine disc herniation - Degenerative spondylosis - Steatohepatitis - BPH - Hyperlipidemia - Bladder calculi Surgical History - Left rotator cuff surgery - Right meniscal repair - Right ureter lithotripsy Family History Father: ; h/o pancreatic cancer. Mother: ; h/o diabetes mellitus Siblings: Sister ; h/o Hodgkins lymphoma Children: Youngest daughter in remission from Hodgkins lymphoma Social History * Smoker: Denies Alcohol: Denies Drugs: denies A-FIB/CHADSVASC A-FIB History Current/History of A-Fib/PAF?: No Current PO Anticoag Therapy: No Review of Systems Constitutional: Denies: Chills, Fever Eyes: Denies: Pain ENT: Denies: Head Aches Skin: Denies: Rash Pulmonary: Denies: Dyspnea Cardiovascular: Denies: Chest Pain Gastrointestinal: Reports: Abdominal Pain (Suprapubic); Denies: Nausea Genitourinary: Reports: Dysuria, Hematuria Hematologic: Denies: Bruising Endocrine: Denies: Polydipsia Musculoskeletal: Denies: Neck Pain Neurological: Denies: Weakness Psych: Reports: Mood Normal Physical Examination General Exam: Positive: Alert, Cooperative ENT Exam: Positive: Atraumatic Neck Exam: Positive: Supple; Negative: JVD Chest Exam: Positive: Clear to auscultation Heart Exam: Positive: Rate Normal Telemetry: Positive: No significant arrhythmia Abdomen Exam: Positive: Normal bowel sounds Extremity Exam: Negative: Clubbing Skin Exam: Positive: Nl turgor and temperature Neuro Exam: Positive: Strength at 5/5 X4 ext Psych Exam: Positive: Mental status NL Vital Signs Vital Signs Date Time Temp Pulse Resp B/P (MAP) Pulse Ox O2 Delivery O2 Flow Rate FiO2 02/20/21 14:45 85 114/66 (82) 93 Room Air 02/20/21 13:29 97.6 17 Laboratory Data Labs 24H Laboratory Tests 2 02/20/21 11:50: Immature Granulocyte % (Auto) 0.3, Neutrophils (%) (Auto) 78.1H, Lymphocytes (%) (Auto) 10.8L, Monocytes (%) (Auto) 7.7, Eosinophils (%) (Auto) 2.6, Basophils (%) (Auto) 0.5, Neutrophils # (Auto) 9.2H, Lymphocytes # (Auto) 1.3L, Monocytes # (Auto) 0.9H, Eosinophils # (Auto) 0.3, Basophils # (Auto) 0.1, Nucleated Red Blood Cells % (auto) 0.0, Anion Gap 6L, Glomerular Filtration Rate > 60.0, Calcium Level 8.7L, Total Bilirubin 0.5, Direct Bilirubin < 0.1, Aspartate Amino Transf (AST/SGOT) 40H, Alanine Aminotransferase (ALT/SGPT) 59, Alkaline Phosphatase 97, Total Protein 7.4, Albumin 3.0L, Albumin/Globulin Ratio 0.7, Lipase 131, Valproic Acid (Depakene) Level < 3.0L, Carbamazepine (Tegretol) Level < 0.5L 02/20/21 15:07: CBC/BMP Laboratory Tests 02/20/21 11:50 Assessment/Plan Patient is 65 years old male with past medical history of seizure, TIA, LINDSEY, steatohepatitis, BPH, chronic back pain and bladder calculi s/p removal and pancreatitis who presented to [facility] with suprapubic abdominal pain and low back pain. Patient was recently hospitalized due to back pain and he was found to have right nephrolithiasis with right kidney stone around 6 mm. Urology team recommended lithotripsy in the outpatient settings. Before discharge patient developed urinary retention and Garcia catheter was placed. For past few days patient reported increased suprapubic abdominal pain and he visited emergency room daily. Yesterday his Garcia catheter was changed. Patient reported increased suprapubic pain with hematuria. Patient denied fever, chills, nausea, vomiting, chest pain, diarrhea. In ER patient was found to have white blood count of 11.8, UA from 02/18/2021 was positive for blood and leukocytes esterase. CT abdomen and pelvis showed no nephrolithiasis. There is right kidney stone around 6 mm nonobstructive. Problems (1) Suprapubic abdominal pain Status: Acute Problem Text: Most likely patient developed acute interstitial cystitis versus traumatization due to Garcia catheter Dr. López will see patient tonight for possible removal Garcia and voiding trial Patient has positive leukocyte esterase, mild leukocytosis. I will start ciprofloxacin p.o. empirically UA pending (2) Seizure Status: Chronic Problem Text: Continue home meds (3) Indwelling urinary catheter present Status: Chronic Problem Text: See above (4) Nephrolithiasis Status: Chronic Problem Text: Follow-up with urologist in the outpatient settings (5) Hematuria Status: Acute Problem Text: Most likely secondary to Garcia catheter Continue to monitor (6) Right renal stone Status: Chronic Problem Text: Follow-up with urologist in the outpatient settings CT scan negative for hydronephrosis (7) Back pain Status: Chronic Problem Text: MRI was done on 02/08/2021 and showed 1. Degenerative changes with a mild central spinal stenosis at L2-L3. 2. There is a bulging annulus at L5-S1 associated with a broad left posterolateral and foraminal disc protrusion touching the left L5 nerve root far laterally. Continue pain management (8) Hyperlipidemia Status: Chronic Problem Text: Continue statin Plan / VTE VTE Prophylaxis Ordered?: Yes NATALIA BRASHER DO Feb 20, 2021 15:59
[2021-02-20] MEDS ORDERED: MORPHINE 30 MG TAB **MSIR PO PRN (16:05)
[2021-02-20] MEDS ORDERED: LIDOCAINE 2% JELLY 5ML TUBE TOP PRN (16:05)
[2021-02-20] MEDS ORDERED: MIRALAX *UNIT DOSE* 17GM PACKET PO PRN (16:05)
[2021-02-20] MEDS ORDERED: SENOKOT S TAB PO PRN (16:05)
[2021-02-20] MEDS ORDERED: PILL CUTTER 1 EACH XX PRN (16:15)
[2021-02-20 16:19] LABS: RSV AMPLIFICATION NEGATIVE (NEGATIVE)
[2021-02-20 17:23] VITALS: BP 148/76
[2021-02-20] MEDS: CIPROFLOXACIN 250MG TAB PO SCH (18:11)
--- NOTE | 2021-02-20 19:00 | SMCUROLCON ---
Urology Consultation General Date of Consultation 02/20/21 Reason For Consultation This patient is seen for Hematuria Indwelling Urinary Catheter Present. History of Present Illness Per discussion with patient and review of EMR: Patient is 65 years old male with past medical history of seizure, TIA, LINDSEY, steatohepatitis, BPH, chronic back pain and bladder calculi s/p removal and pancreatitis who presented to [facility] ED with suprapubic abdominal pain and low back pain. Patient states that had some blood in his underwear this morning. His urine has been clear over that last 24 hours. Patient was recently hospitalized due to back pain and he was found to have right nephrolithiasis with right kidney stone around 6 mm. Urology team recommended lithotripsy in the outpatient settings. Before discharge patient developed urinary retention and Garcia catheter was placed. For past few days patient reported increased suprapubic abdominal pain and he visited emergency room daily. Yesterday his Garcia catheter was changed. Patient reported increased suprapubic pain with hematuria. Patient denied fever, chills, nausea, vomiting, chest pain, diarrhea. In ER patient was found to have white blood count of 11.8, UA from 02/18/2021 was positive for blood and leukocytes esterase. CT abdomen and pelvis showed no nephrolithiasis. There is right kidney stone around 6 mm nonobstructive. A/P CT scan FINDINGS: The lung bases are unchanged. The liver, gallbladder, spleen, pancreas, and adrenal glands are within normal limits. There are left renal cysts status quo. Right nephroliths are again seen status quo. There is no obstructive uropathy. There are right renal cysts status quo. The bowel loops and the mesenteries are essentially unchanged and again seen to be within normal limits. There is no evidence of free air. There is a trace amount of free pelvic fluid. There is prostatomegaly status quo. A Garcia balloon catheter is seen in the urinary bladder decompressing it. 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 Calcifications are again seen along the posterior wall of the urinary bladder. The osseous structures are unchanged IMPRESSION: 1. Calcifications as described above. 2. No evidence of acute disease or significant change compared to the prior exam with findings as described above. Medications Current Medications Current Medications Medications (Trade) Dose Ordered Sig/Clifford Route PRN Reason Start Time Stop Time Status Last Admin Dose Admin Acetaminophen (Tylenol Tab) 650 mg Q4H PRN PO MILD PAIN or TEMP > 101 02/20/21 15:40 Carbamazepine (TEGretol) 200 mg BID PO 02/20/21 21:00 Ciprofloxacin (Cipro) 250 mg BID@06,18 PO 02/20/21 18:00 02/20/21 18:11 Diatrizoate Meglum/ Diatrizoate Sod (Gastrografin) 10 ml Q30M PO 02/20/21 12:15 02/20/21 12:46 DC 02/20/21 13:39 Divalproex Sodium (Depakote) 500 mg TID PO 02/20/21 21:00 Finasteride (Proscar) 5 mg QHS PO 02/20/21 21:00 Heparin Sodium (Porcine) (Heparin) 5,000 units Q12H SC 02/20/21 21:00 Home Med (Home Med List Complete!) ASDIRECTED XX 02/20/21 15:50 02/20/21 15:49 DC Lidocaine HCl (Lidocaine 2% Jelly) PAINFUL PROCEDURES AT [facility] Q6H PRN TOP PAINFUL PROCEDURES AT [facility] 02/20/21 16:05 Morphine Sulfate (Ms Contin) 15 mg BID PO 02/20/21 21:00 Morphine Sulfate (Msir) 15 mg Q4H PRN PO PAIN LEVEL 8-10 02/20/21 16:05 Ondansetron HCl (ZOFRAN INJection) 4 mg Q6H PRN IV NAUSEA 02/20/21 15:40 Polyethylene Glycol (Miralax) 1 pkt DAILY PRN PO CONSTIPATION 02/20/21 16:05 Senna/Docusate Sodium (Senokot S) 2 tab BID PRN PO CONSTIPATION 02/20/21 16:05 Sodium Chloride 1,000 ml @ 150 mls/hr Q6H40M IV 02/20/21 11:30 02/20/21 17:15 DC 02/20/21 11:52 Tamsulosin HCl (Flomax) 0.8 mg QHS PO 02/20/21 21:00 Allergies Allergies: Coded Allergies: No Known Allergies (Verified , 07/29/19) Review of Systems General: Reports: Normal Appetite, Other Symptoms; Denies: ROS Unobtainable, Chills, Night Sweats, Fatigue, Malaise Constitutional: Reports: Malaise, Other; Denies: Fever, Chills, Sweats, Weakness Gastrointestinal: Reports: Other Symptoms; Denies: Nausea, Vomiting, Abdominal Pain, Diarrhea, Constipation, Melena, Hematochezia Genitourinary: Reports: Other Symptoms (bladder spasm resulting in leakage around the cath. The cath is draining clear urine. ) Physical Examination Abdomen Exam: Normal Bowel Sounds, BS Hyperactive, BS Hypoactive, Soft, Tenderness, Hepatospenomegaly, Mass, Hernia, Other (obese ) Male Exam: Normal Genital Exam (Prostate exam deferred ) Vital Signs/I&O Vital Signs Date Time Temp Pulse Resp B/P (MAP) Pulse Ox O2 Delivery O2 Flow Rate FiO2 02/20/21 16:45 80 17 128/72 (90) 96 Room Air 02/20/21 13:29 97.6 Laboratory Data 24H Labs Laboratory Tests 2 02/20/21 11:50: Immature Granulocyte % (Auto) 0.3, Neutrophils (%) (Auto) 78.1H, Lymphocytes (%) (Auto) 10.8L, Monocytes (%) (Auto) 7.7, Eosinophils (%) (Auto) 2.6, Basophils (%) (Auto) 0.5, Neutrophils # (Auto) 9.2H, Lymphocytes # (Auto) 1.3L, Monocytes # (Auto) 0.9H, Eosinophils # (Auto) 0.3, Basophils # (Auto) 0.1, Nucleated Red Blood Cells % (auto) 0.0, Anion Gap 6L, Glomerular Filtration Rate > 60.0, Calcium Level 8.7L, Total Bilirubin 0.5, Direct Bilirubin < 0.1, Aspartate Amino Transf (AST/SGOT) 40H, Alanine Aminotransferase (ALT/SGPT) 59, Alkaline Phosph atase 97, Total Protein 7.4, Albumin 3.0L, Albumin/Globulin Ratio 0.7, Lipase 131, Valproic Acid (Depakene) Level < 3.0L, Carbamazepine (Tegretol) Level < 0.5L 02/20/21 15:07: Coronavirus (COVID-19)(PCR) NEGATIVE, Influenza Type A (RT-PCR) NEGATIVE, Influenza Type B (RT-PCR) NEGATIVE, Respiratory Syncytial Virus (PCR) NEGATIVE CBC/BMP Laboratory Tests 02/20/21 11:50 Assessment Patient with abd pain and draining Garcia cath with clear urine. Patient symptoms may be associated with bladder spasms. CT scan with nonobstructing right kidney stones. No other pathology was noted on the A/P CT scan. Plan I performed a bladder fill and pull. I filled his bladder to 225cc and removed the cath. Patient voided 190 cc and an unmeasured amount was leaked on the bed. Will leave cath out and monitor UOP. Treatment plan regarding RT. renal pelvic nonobstructive stone. ODALYS BALTAZAR MD Feb 20, 2021 18:34
[2021-02-20] MEDS: DIVALPROEX 500 MG TAB PO SCH (20:33)
[2021-02-20] MEDS: HEPARIN SOD (PORCINE) 5000UNITS/ML 1ML VIAL/SYRINGE SC SCH (20:33)
[2021-02-20] MEDS: carBAMazepine 200MG TABLET PO SCH (20:35)
[2021-02-20] MEDS: MORPHINE 15 MG SA TAB PO SCH (20:35)
[2021-02-20] MEDS ORDERED: TAMSULOSIN 0.4 MG CAP PO SCH (21:00)
[2021-02-20] MEDS ORDERED: FINASTERIDE 5 MG TAB PO SCH (21:00)
[2021-02-20 21:51] VITALS: BP 118/75
[2021-02-21 05:51] VITALS: BP 119/69
[2021-02-21] MEDS: CIPROFLOXACIN 250MG TAB PO SCH (05:52)
[2021-02-21 06:57] LABS: HEMATOCRIT 39.4 % (42.0-52.0); HEMOGLOBIN 12.8 g/dl (13.5-17.5); MEAN CORPUSCULAR HEMOGLOBIN 26.8 pg (27.0-33.0); MEAN CORPUSCULAR HGB CONC 32.5 g/dl (32.0-36.5); MEAN CORPUSCULAR VOLUME 82.6 fl (80.0-96.0); PLATELET COUNT, AUTOMATED 315 10^3/uL (150-450); RED BLOOD COUNT 4.77 10^6/uL (4.30-6.10); WHITE BLOOD COUNT 7.8 10^3/uL (4.0-10.0)
[2021-02-21 07:23] LABS: ALBUMIN 2.8 GM/DL (3.2-5.2); ALT/SGPT 53 U/L (12-78); BILIRUBIN,TOTAL 0.4 MG/DL (0.2-1.0); BLOOD UREA NITROGEN 18 MG/DL (7-18); CALCIUM LEVEL 8.2 MG/DL (8.8-10.2); CARBON DIOXIDE LEVEL 27 MEQ/L (21-32); CHLORIDE LEVEL 107 MEQ/L (98-107); GLOMERULAR FILTRATION RATE > 60.0 (>49); GLUCOSE, FASTING 97 MG/DL (70-100); MAGNESIUM LEVEL 2.3 MG/DL (1.8-2.4); POTASSIUM SERUM 3.9 MEQ/L (3.5-5.1); SODIUM LEVEL 140 MEQ/L (136-145); TOTAL PROTEIN 6.6 GM/DL (6.4-8.2)
[2021-02-21] MEDS: HEPARIN SOD (PORCINE) 5000UNITS/ML 1ML VIAL/SYRINGE SC SCH (08:39)
[2021-02-21] MEDS: carBAMazepine 200MG TABLET PO SCH (08:39)
[2021-02-21] MEDS: DIVALPROEX 500 MG TAB PO SCH (08:39)
[2021-02-21] MEDS: MORPHINE 15 MG SA TAB PO SCH ×2 (08:39→08:40)
[2021-02-21 10:30] LABS: PTH INTACT 112.7 PG/ML (18.5-88.0)
[2021-02-21] MEDS ORDERED: CIPR-250 PO (10:57)
[2021-02-21] MEDS ORDERED: MORP15TA2 PO (13:15)
--- NOTE | 2021-02-21 14:48 | DS.PDOC ---
Discharge Summary General Date of Admission Feb 20, 2021 at 11:09 Date of Discharge 02/21/21 Discharge Summary PROCEDURES PERFORMED DURING STAY: [None]. ADMITTING DIAGNOSES: Suprapubic abdominal pain Seizure Indwelling urinary catheter present Nephrolithiasis Hematuria Right renal stone Back pain Hyperlipidemia DISCHARGE DIAGNOSES: Suprapubic abdominal pain Seizure Indwelling urinary catheter present Nephrolithiasis Hematuria Right renal stone Back pain Hyperlipidemia Hyperparathyroidism COMPLICATIONS/CHIEF COMPLAINT: Hematuria Indwelling Urinary Catheter Present. HISTORY OF PRESENT ILLNESS:Patient is 65 years old male with past medical history of seizure, TIA, LINDSEY, steatohepatitis, BPH, chronic back pain and bladder calculi s/p removal and pancreatitis who presented to [facility] ED with suprapubic abdominal pain and low back pain. Patient was recently hospitalized due to back pain and he was found to have right nephrolithiasis with right kidney stone around 6 mm. Urology team recommended lithotripsy in the outpatient settings. Before discharge patient developed urinary retention and Garcia catheter was placed. For past few days patient reported increased suprapubic abdominal pain and he visited emergency room daily. Yesterday his Garcia catheter was changed. Patient reported increased suprapubic pain with hematuria. Patient denied fever, chills, nausea, vomiting, chest pain, diarrhea. In ER patient was found to have white blood count of 11.8, UA from 02/18/2021 was positive for blood and leukocytes esterase. CT abdomen and pelvis showed no nephrolithiasis. There is right kidney stone around 6 mm nonobstructive. HOSPITAL COURSE: During the hospital stay the following discharge (1) Suprapubic abdominal pain Most likely patient developed acute interstitial cystitis versus traumatization due to Garcia catheter Dr. López removed catheter, patient was able to urinate without any difficulties in the morning Patient has positive leukocyte esterase, mild leukocytosis. I started ciprofloxacin p.o. empirically. Dr. May recommended to discharge patient with close follow-up UA pending (2) Seizure Continue home meds (3) Indwelling urinary catheter present Removed See above (4) Nephrolithiasis Follow-up with urologist in the outpatient settings. Patient was found to have increased level of parathyroid hormone. He will need follow-up with two needle machine operator for work-up and possible parathyroidectomy (5) Hematuria Most likely secondary to Garcia catheter Follow-up with urologist (6) Right renal stone Follow-up with urologist in the outpatient settings CT scan negative for hydronephrosis (7) Back pain MRI was done on 02/08/2021 and showed 1. Degenerative changes with a mild central spinal stenosis at L2-L3. 2. There is a bulging annulus at L5-S1 associated with a broad left posterolateral and foraminal disc protrusion touching the left L5 nerve root far laterally. Patient received pain management (8) Hyperlipidemia Continue statin DISCHARGE MEDICATIONS: Please see below. ALLERGIES: Please see below. PHYSICAL EXAMINATION ON DISCHARGE: VITAL SIGNS: Please see below. Physical Examination General Exam: Positive: Alert, Cooperative ENT Exam: Positive: Atraumatic Neck Exam: Positive: Supple; Negative: JVD Chest Exam: Positive: Clear to auscultation Heart Exam: Positive: Rate Normal Telemetry: Positive: No significant arrhythmia Abdomen Exam: Positive: Normal bowel sounds Extremity Exam: Negative: Clubbing Skin Exam: Positive: Nl turgor and temperature Neuro Exam: Positive: Strength at 5/5 X4 ext Psych Exam: Positive: Mental status NL LABORATORY DATA: Please see below. IMAGING: See above PROGNOSIS: Fair ACTIVITY: [As tolerated]. DIET: Cardiac DISPOSITION: 01 Home, Self-Care. DISCHARGE INSTRUCTIONS: Follow-up with PCP and urologist ]. DISCHARGE CONDITION: [Stable]. TIME SPENT ON DISCHARGE: 40minutes. Vital Signs/I&Os Vital Signs Date Time Temp Pulse Resp B/P (MAP) Pulse Ox O2 Delivery O2 Flow Rate FiO2 02/21/21 05:51 97.9 78 20 119/69 (86) 95 Room Air I&O- Last 24 Hours up to 6 AM 02/21/21 06:00 Intake Total 1050 ml Output Total 500 ml Balance 550 ml Laboratory Data Labs 24H Laboratory Tests 2 02/20/21 15:07: Coronavirus (COVID-19)(PCR) NEGATIVE, Influenza Type A (RT-PCR) NEGATIVE, Influenza Type B (RT-PCR) NEGATIVE, Respiratory Syncytial Virus (PCR) NEGATIVE 02/21/21 06:46: Nucleated Red Blood Cells % (auto) 0.0, Anion Gap 6L, Glomerular Filtration Rate > 60.0, Calcium Level 8.2L, Magnesium Level 2.3, Total Bilirubin 0.4, Aspartate Amino Transf (AST/SGOT) 28, Alanine Aminotransferase (ALT/SGPT) 53, Alkaline Phosphatase 88, Total Protein 6.6, Albumin 2.8L, Albumin/Globulin Ratio 0.7 CBC/BMP Laboratory Tests 02/21/21 06:46 Discharge Medications Scheduled Carbamazepine (Carbamazepine) 200 Mg Tablet, 200 MG PO BID, (Reported) Ciprofloxacin HCl (Cipro) 250 Mg Tablet, 250 MG PO BID@,18 Divalproex Sodium (Divalproex Sodium) 500 Mg Tablet.dr, 500 MG PO TID, (Reported) Finasteride (Finasteride) 5 Mg Tablet, 5 MG PO QHS, (Reported) Morphine Sulfate (Morphine Sulfate ER) 15 Mg Tablet.er, 15 MG PO BID, (Reported) Tamsulosin HCl (Flomax) 0.4 Mg Capsule, 0.8 MG PO QHS, (Reported) Scheduled PRN Morphine Sulfate (Morphine Sulfate) 15 Mg Tablet, 15 MG PO Q4H PRN for PAIN LEVEL 8-10 Polyethylene Glycol 3350 (Miralax) 119 Gm Powder, 17 GM PO DAILY PRN for CONSTIPATION, (Reported) Sennosides/Docusate Sodium (Senna-Plus Tablet) 8.6 Mg-50 Mg Tablet, 2 TAB PO BID PRN for CONSTIPATION, (Reported) lidocaine HCL (lidocaine HCL) 2 % Jelly.ml., 1 APPLIC TOP Q6H PRN for PAINFUL [place] OCEDURES, (Reported) PAIN AT [facility] SITE Allergies Coded Allergies: No Known Allergies (Verified , 07/29/19) NATALIA BRASHER DO Feb 21, 2021 14:48
--- NOTE | 2021-02-21 18:14 | IPNPDOC ---
Subjective Review oF Systems Chief Complaint The patient is a 65-year-old male admitted with a reason for visit of Hematuria Indwelling Urinary Catheter Present. Events since Last Encounter No acute events o/n. Patient notes that his pelvic pain went away after the catheter was removed. He has been voiding w/o difficulty since catheter removal yesterday. Objective Physical Examination General Exam: Alert, Cooperative, No Acute Distress Chest Exam: Normal air movement Heart Exam: Positive: Rate Normal ABDOMEN EXAM: Soft; No: Tenderness Skin Exam: Nl turgor and temperature Neuro Exam: Normal Speech Psych Exam: Mental status NL, Mood NL Vital Signs/I&O Vital Signs Date Time Temp Pulse Resp B/P (MAP) Pulse Ox O2 Delivery O2 Flow Rate FiO2 02/21/21 05:51 97.9 78 20 119/69 (86) 95 Room Air I&O- Last 24 Hours up to 6 AM 02/21/21 06:00 Intake Total 1050 ml Output Total 500 ml Balance 550 ml Laboratory Data Labs 24H Laboratory Tests 2 02/21/21 06:46: Nucleated Red Blood Cells % (auto) 0.0, Anion Gap 6L, Glomerular Filtration Rate > 60.0, Calcium Level 8.2L, Magnesium Level 2.3, Total Bilirubin 0.4, Aspartate Amino Transf (AST/SGOT) 28, Alanine Aminotransferase (ALT/SGPT) 53, Alkaline Phosphatase 88, Total Protein 6.6, Albumin 2.8L, Albumin/Globulin Ratio 0.7 CBC/BMP Laboratory Tests 02/21/21 06:46 Assessment/Plan Date Seen The patient was seen on 02/21/21. Patient Summary This is a 65 y/o M w/ nonobstructing R kidney stones, bladder stones, and urinary retention 2/2 BPH, admitted for severe pelvic pain 2/2 Downs catheter. Since catheter removal, he has been voiding w/o difficulty and his pain has resolved. PVRs obtained have demonstrated 0cc. I explained that he has gone into urinary retention previously as he has an extremely large prostate. His pelvic pain has been due to the catheter balloon hitting the prostate. Fortunately, he has been able to void okay since catheter removal yesterday. I explained that there is no guarantee that this will continue. He is currently scheduled for a cystoscopy, R ureteroscopy w/ laser lithotripsy, and bladder stone removal in a few weeks. I recommended that we change his proposed procedure to a cystoscopy, button transurethral electrovaporization of the pr ostate, and bladder stone removal, as his more pressing issues over the last week or so have been related to BPH, retention, and pain from the catheter when he has been in retention. I discussed the proposed procedure w/ the patient and his . Given the size of his prostate, this procedure would likely take about 3 hrs and therefore I would recommend treating the R kidney stones at a later time. He and his were both in agreement w/ the change in procedure. He can be discharged, and my office will change his scheduled procedure. He will continue flomax and proscar for now and let us know if he experiences any additional difficulty voiding prior to his procedure. Plan/VTE VTE Prophylaxis Ordered?: Yes VTE Exclusion Mechanical Proph: N/A:VTE Prophy Ordered Plan - ok to leave the catheter out as PVR was 0cc - continue flomax and proscar - will change the patient's procedure on 03/09 as noted above to address BPH and retention as well as the bladder stones - ok for discharge DURAN CHASE MD Feb 21, 2021 18:14
== END 2021-02-21 13:11 | disposition home or self-care (01) ==
LOC: M ED 11:08 → EDBD 11:08 → M ED INP 11:09 → ENRESERV 16:39 → M MSPAV 17:13
PROVIDERS: ADMIT Internal Medicine; ATTEND Internal Medicine
DX: R31.9 Hematuria, unspecified (principal); Z96.0 Presence of urogenital implants; N20.0 Calculus of kidney; N21.0 Calculus in bladder; R10.30 Lower abdominal pain, unspecified; M54.9 Dorsalgia, unspecified; R33.9 Retention of urine, unspecified; D72.829 Elevated white blood cell count, unspecified; N40.0 Benign prostatic hyperplasia without lower urinary tract symptoms; M51.36 Other intervertebral disc degeneration, lumbar region; M48.061 Spinal stenosis, lumbar region without neurogenic claudication; E21.3 Hyperparathyroidism, unspecified; R56.9 Unspecified convulsions; E78.5 Hyperlipidemia, unspecified; G47.33 Obstructive sleep apnea (adult) (pediatric); Z86.73 Personal history of transient ischemic attack (TIA), and cerebral infarction without residual deficits; Z87.19 Personal history of other diseases of the digestive system; K75.81 Nonalcoholic steatohepatitis (NASH); Z87.442 Personal history of urinary calculi; Z79.899 Other long term (current) drug therapy; Z79.2 Long term (current) use of antibiotics; Z79.891 Long term (current) use of opiate analgesic
CPT/HCPCS: 36415; 74177; 80048; 80053; 80076; 80156; 80164; 83690; 83735; 83970; 85025; 85027; 87631; 93041; 96361; 96372; 96374; 99285; J1644; J2270; Q9963; Q9967

== ENCOUNTER → 2021-02-28 | Outpatient (CLI) | payer OTHER ==
[~2021-02-28] MED LIST changes: +CIPR-250 PO; +LIDO2GEL26 TOP; +MORP-69 PO; +MORP15TA2 PO; +SENN-123 PO
[2021-02-28 07:10] LABS: HEMATOCRIT 46.6 % (42.0-52.0); MEAN CORPUSCULAR HEMOGLOBIN 26.6 pg (27.0-33.0); MEAN CORPUSCULAR HGB CONC 32.2 g/dl (32.0-36.5); MEAN CORPUSCULAR VOLUME 82.8 fl (80.0-96.0); PLATELET COUNT, AUTOMATED 422 10^3/uL (150-450); RED BLOOD COUNT 5.63 10^6/uL (4.30-6.10); WHITE BLOOD COUNT 7.8 10^3/uL (4.0-10.0)
[2021-02-28 07:12] LABS: APPEARANCE, URINE CLOUDY (CLEAR); BACTERIA, URINE AUTO 1+ (NEGATIVE); BILIRUBIN, URINE AUTO NEGATIVE (NEGATIVE); BLOOD, URINE BLOOD 3+ (NEGATIVE); COLOR, URINE YELLOW (YELLOW); GLUCOSE, URINE (UA) AUTO NEGATIVE (NEGATIVE); KETONE, URINE AUTO NEGATIVE (NEGATIVE); LEUKOCYTE ESTERASE, URINE AUTO 3+ (NEGATIVE); MUCUS, URINE LARGE (NEGATIVE); NITRITE, URINE AUTO NEGATIVE (NEGATIVE); PROTEIN, URINE AUTO 2+ mg/dL (NEGATIVE); RBC, URINE AUTO TNTC /HPF (0-3); SQUAMOUS EPITHELIAL CELL UR AU 0 /HPF (0-6); UROBILINOGEN, URINE AUTO 0.2 mg/dL (0.0-2.0); WBC, URINE AUTO 129 /HPF (0-3)
[2021-02-28 07:24] LABS: INR 0.96; PROTHROMBIN TIME 13.2 SECONDS (12.7-14.5)
[2021-02-28 07:25] LABS: PARTIAL THROMBOPLASTIN TIME 33.1 SECONDS (25.9-37.0)
[2021-02-28 07:35] LABS: BLOOD UREA NITROGEN 19 MG/DL (7-18); CARBON DIOXIDE LEVEL 27 MEQ/L (21-32); CHLORIDE LEVEL 108 MEQ/L (98-107); CREATININE FOR GFR 0.93 MG/DL (0.70-1.30); GLOMERULAR FILTRATION RATE > 60.0 (>49); GLUCOSE, FASTING 138 MG/DL (70-100); POTASSIUM SERUM 4.1 MEQ/L (3.5-5.1); SODIUM LEVEL 142 MEQ/L (136-145)
[2021-02-28 07:36] LABS: CALCIUM LEVEL 9.1 MG/DL (8.8-10.2)
--- NOTE | 2021-02-28 08:07 | REP ---
INDICATION: CALCULUS IN BLADDER; PER OP- LABS AND EKG FIRST COMPARISON: 07/31/2019 TECHNIQUE: PA and lateral. FINDINGS: The mediastinum and cardiac silhouette are normal. The lung love are clear and without acute consolidation, effusion, or pneumothorax. The skeletal structures are intact and normal. IMPRESSION: No acute cardiopulmonary process. <Electronically signed by Justin Esteban > 02/28/21 0803
--- NOTE | 2021-03-01 16:49 | ECGEPIP ---
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 Possible old inferior wall myocardial infarct. Nonspecific T wave abnormality, consider lateral ischemia Overall no significant change compared with 07/31/2019. Electronically Signed on 03-01-2021 16:49:22 EDT by Anuj Marie
== END ==
LOC: M LAB 06:07
PROVIDERS: ATTEND Nurse Practitioner Women's Health
DX: N20.0 Calculus of kidney (principal)

== ENCOUNTER → 2021-03-03 | Outpatient (REF) | payer OTHER ==
[2021-03-03 18:58] LABS: APPEARANCE, URINE HAZY (CLEAR); BACTERIA, URINE AUTO NEGATIVE (NEGATIVE); BILIRUBIN, URINE AUTO NEGATIVE (NEGATIVE); BLOOD, URINE BLOOD 3+ (NEGATIVE); CALCIUM OXALATE CRYSTALS SMALL; COLOR, URINE YELLOW (YELLOW); GLUCOSE, URINE (UA) AUTO NEGATIVE (NEGATIVE); KETONE, URINE AUTO TRACE mg/dL (NEGATIVE); LEUKOCYTE ESTERASE, URINE AUTO 3+ (NEGATIVE); MUCUS, URINE MODERATE (NEGATIVE); NITRITE, URINE AUTO NEGATIVE (NEGATIVE); PROTEIN, URINE AUTO 1+ mg/dL (NEGATIVE); RBC, URINE AUTO 100 /HPF (0-3); SPECIFIC GRAVITY URINE AUTO 1.026 (1.002-1.035); SQUAMOUS EPITHELIAL CELL UR AU 0 /HPF (0-6); UROBILINOGEN, URINE AUTO 0.2 mg/dL (0.0-2.0); WBC, URINE AUTO 124 /HPF (0-3)
== END ==
LOC: M SMT 16:53
PROVIDERS: ATTEND Urology
DX: Z01.818 Encounter for other preprocedural examination (principal); N21.0 Calculus in bladder; N40.1 Benign prostatic hyperplasia with lower urinary tract symptoms; N39.0 Urinary tract infection, site not specified

== ENCOUNTER → 2021-03-04 | Outpatient (CLI) | payer OTHER | LOC: M LABSMTC 09:04 | PROVIDERS: ATTEND Urology | DX: Z01.812 Encounter for preprocedural laboratory examination (principal); Z20.822 Contact with and (suspected) exposure to COVID-19 ==

== ENCOUNTER 2021-03-09 11:32 | Day surgery (SDC) | payer OTHER ==
[~2021-03-09] VITALS: Ht 165.1 cm; Wt 118.4 kg
[~2021-03-09 11:32] MED LIST changes: +DOXY-443; -DOXY1CAP62; +LR 1,000 ML IV ONE
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
--- OUTSIDE RECORDS SUMMARY | 2021-03-09 11:37 | CCD ---
Author Author [facility] Organization 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 Active confirmed 979285156 Problem Non-seasonal allergic rhinitis, unspecified trigger J30.89 Active confirmed 73258709 Problem Prostatic hypertrophy N40.0 Active confirmed 564026299 Problem Elevated PSA R97.20 Active confirmed 0929127 05 Problem Other chronic pain G89.29 Active confirmed 8 1172525 Problem BPH loc w urin obs/LUTS N40.1 Active confirmed 131137326 Problem DDD (degenerative disc disease), lumbar M51.36 Active confirmed 16397531 Problem Arm paresthesia, left R20.2 Active confirmed 24789480073553455 Problem Stable angina pectoris I20.8 Active confirmed 559973071 Problem Nephrolithiasis N20.0 Active confirmed 9557 0007 Problem Enlarged prostate N40.0 Active confirmed 24 7327884 ALLERGIES No Known Allergies ENCOUNTERS from 1955 to 2020-12-21 Encounter Location Date Provider Diagnosis [address] [phone] [place] [address] Nov, Radha Bush Non-seasonal allergic rhinit is, unspecified trigger J30.89 and Seizure disorder G40.909 IMMUNIZATIONS Vaccine Route Administration Date Status Influenza 6mo & up Fluzone Unknown Jan 30, 2017 Admin istered Influenza 6mo & up Fluzone Unknown Jan 29, 2016 Admin istered SOCIAL HISTORY Tobacco Use: Social History Observation Description Date Details (start date - stop date) Never Smoker Sex Assigned At : Social History Observation Description Sex Assigned At Unknown Education: Question Answer Notes Level of Education: Finished High School Audit Question Answer Notes Total Score: 1 Interpretation: Alcohol Education Language: Question Answer Notes Languages spoken: Austrian Gnosticist: Question Answer Notes Gnosticist 21 Moravian Sexual Hx: Question Answer Notes Had sex in the last 12 months (vaginal, oral, or anal)? Yes Have you ever had an STD? No Prevention Strategies discussed: Other with Women only Use protection? No Drug and Alcohol Question Answer Notes Total Score: 0 Interpretation: No problems reported Alcohol Screening: Question Answer Notes Did you have a drink containing alcohol in the past year? No Points 0 Interpretation Negative BMI Care Goal Follow-Up Question Answer Notes Above Normal BMI Follow-Up Lifestyle education regarding t Tobacco Use: Question Answer Notes Are you a: never smoker REASON FOR REFERRAL No Information VITAL SIGNS No information MEDICATIONS Medication SIG (Take, Route, Frequency, Duration) Notes Start Da te End Date Status Azelastine HCl 0.15 % 2 sprays in each nostril Nasally twice daily for 90 days Jul, Active Depakote 500 MG 1 tablet Orally TID Active Tamsulosin HCl 0.4 MG 2 capsule Orally before bedtime 10 2020 Active Flonase 50 MCG/DOSE 2 sprays in each nostril Luke ally Once a day as needed for 90 days Jan, Active Finasteride 5 MG 1 tablet Orally Once a day September, Active PROCEDURES No Information RESULTS No Results REASON FOR VISIT refiils MEDICAL (GENERAL) HISTORY Type Description Date Medical History Seizure disorder - saw DIANNE dyer urology in the past; last seizure 14 years ago Medical History H/o kidney stones Medical History DDD lumbar spine - injections from pain management in the past Medical History 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 May Medical History Hyperlipidemia Medical History bladder stones Surgical History lithotripsy-Dr. Rosas, [facility] Urology 12/08 Surgical History T & A Surgical History Right meniscal repair SOS 07/2017 Hospitalization History seizures 2007 Hospitalization History pancreatitis 12/07, 01/07 Hospitalization History Bladder Stones 07/2019 Goals Section No Information Health Concerns No Information MEDICAL EQUIPMENT No Information MENTAL STATUS No Information FUNCTIONAL STATUS No Information ASSESSMENTS Encounter Date Diagnosis Assessment Notes Treatment Notes Treatm ent Clinical Notes Nov, Non-seasonal allergic rhinit is, unspecified trigger (ICD-10 - J30.89) Nov, Seizure disorder (ICD-10 - G40.909) PLAN OF TREATMENT Medication Medication Name Sig Start Date Stop Date Tamsulosin HCl 0.4 MG 2 capsule Orally before bedtime September, Flonase 50 MCG/DOSE 2 sprays in each nostril Luke ally Once a day as needed for 90 days Jan, Finasteride 5 MG 1 tablet Orally Once a day September, Next Appt Details Provider Name:Ramez May, 01:45:00 PM, [address] [address], , [place], [address], Insurance Providers Payer Name Payer Address Payer Phone Insured Name Patient Relati onship to Insured Coverage Start Date Coverage End Date [facility] (NON MEDICAID MANAGED CARE) CORPORATE CLAIMS DEPT [address] [facility] [address] MARCIN SANTOS JR self
--- OUTSIDE RECORDS SUMMARY | 2021-03-09 11:37 | CCD | Continuity of Care Document ---
Author Author Ricardo SANTIZO MD Organization Unknown Address [address] [place] [address], it e [address] [place] [address] Phone [phone] Care Team Providers Care Search Marketing Specialist Name Role Phone Ricardo Bauer MD AUTM [phone] Radha Bush MD AUTM [phone] Problems Active Problems Provider Date Abdominal pain [...] Unknown Azelastine HCL (Nasal) 0.15% Solut ion [place] Two Sprays In Each Nostril Twice A Day Unk nown Fluticasone Propionate 50mcg/Act Suspension [place] Two Sprays In Each Nostril Every Day as Needed Unknown Carina Covid-19 Vaccine 0.5ml Ankita pension Unknown Atorvastatin Calcium 40mg Tablets Take One Tablet By Mouth Every Day Unknown Clopidogrel Bisulfate 75mg Tablets Take One Tablet By Mouth Every Day Unknown Polymyxin B Sulfate/Trimethoprim Sulfate 83419-2.1Unit/ML-% Solution Instill 1 Drop In The Right [...] Result H/L Range Note Covid-19 [facility] 11/10/2020 [place] [id number] [phone] Covid-19 NOT DETECTED Covid-19 [facility] NOT DETECTED [...] DECISIONS. Procedures Date Code Description Status 12/20/2020 27215 X-Ray Shoulder Complete Complete d 11/11/2020 42639 Surgical Arthroscopy Shoulder W/ Rotator Cuff RPR Completed 11/11/2020 26539 Surgical Arthroscopy [place] W/Corac oacrm Ligm RLS Completed 11/11/2020 01411 Surgical Arthroscopy Shoulder DS TL Claviculc Completed 10/18/2020 49136 Moderate Sedation Se rvices; Same Phys Intl 15 Mins; PT >= 5 Years Completed 10/18/2020 31204 Epidurography Radiological Super vision & Interpretation Completed 10/18/2020 19352 NJX Aa&/STRD TFRML Epi Lumbar/Sa cral 1 Level Completed 10/11/2020 53141 Office/Outpatient Established Mo d MDM 30-39 Min Completed 08/23/2020 21716 Office/Outpatient Established Mo d MDM 30-39 Min Completed 08/09/2020 93615 Moderate Sedation Se rvices; Same Phys Intl 15 Mins; PT >= 5 Years Completed 08/09/2020 75612 Epidurography Radiological Super vision & Interpretation Completed 08/09/2020 94479 NJX Aa&/STRD TFRML Epi Lumbar/Sa cral 1 Level Completed Medical Devices Description No Information Available Encounters Type Date Location Provider Dx Diagnosis Office Visit 12/20/2020 8:00a Yonis Santizo MD Z4 7.89 Encounter for other orthopedic aftercare Office Visit 11/19/2020 11:30a DARRYL Cota Z47.89 Encounter for other orthopedic aftercare Office Visit 10/11/2020 8:45a Yoins Santizo MD M7 5.42 Impingement syndrome of left shoulder M19.012 Primary osteoarthritis, left shoulder M75.82 Other shoulder lesions, left shoulder Office Visit 08/23/2020 11:00a DARRYL Enrique M47.817 Spondyls w/o myelopathy or radiculopathy, lumbosacr region M51.37 Other intervertebral disc de generation, lumbosacral region M51.27 Other intervertebral disc di splacement, lumbosacral region E66.01 Morbid (severe) obesity due to excess calories Z68.41 Body mass index [BMI]40.0-44 .9, adult Assessments Date Code Description Provider 12/20/2020 Z47.89 Encounter for other orthopedic a campos Santizo MD 11/19/2020 Z47.89 Encounter for other orthopedic a DARRYL Ingram 11/11/2020 M75.112 Incomplete rotator c uff tear or rupture of left shoulder, not specified as traumatic Paul Santizo MD 11/11/2020 M75.42 Impingement syndrome of left mitchell leticia Santizo MD 11/11/2020 M19.012 Primary osteoarthritis, left mitchell leticia Santizo MD 11/04/2020 M75.42 Impingement syndrome of left mitchell leticia Santizo MD 11/04/2020 M19.012 Primary osteoarthritis, left [...] 10/11/2020 M19.012 Primary osteoarthritis, left mitchell leticia ManciaZaida Eddy Santizo MD 10/11/2020 M75.82 Other shoulder lesions, left mitchell leticia ManciaZaida Eddy Santizo MD 09/01/2020 Z20.828 Contact w [...] vi ral communicable diseases Rahul Arizmendi MD 07/07/2020 Z20.828 Contact with and (begum spected) exposure to other viral communicable diseases Rahul Arizmendi MD 07/07/2020 Z20.828 Contact with and (begum spected) exposure to other viral communicable diseases Lab 07/07/2020 Z01.818 Encounter for other preprocedura l examination Rahul Arizmendi MD 07/07/2020 Z01.818 Encounter for other preprocedura l examination Lab Plan of Treatment Future Appointment(s):* 01/26/2021 8:15 am - Paul Santizo MD at [place] 12/20/2020 - Paul Santizo MD* Z47.89 Encounter for other orthopedic aftercare* Follow up:* 3 week left shoulder princess with DPV Functional Status Description No Information Available Mental Status Description No Information Available Referrals Refer to Reason for Referral Status Appt Date Blanche Santizo MD SURGERY PER [facility] NO A UTH REQUIRED FOR LEFT SHOULDER SURGERY (60809, 34393, C1713, AND 13260) AND CODE 37682 IS NOT COVERED TO SURGERY NT Created [address] [place] [phone] Rahul Arizmendi MD epidural steroid injections inj(13312) received written authorization and codes (76397 and 21349) no authorization required to surgery numbness and tingling ---10/11/20 RECEIVED WRITTEN AUTH Created [address] [place] [address] [phone] Blanche Santizo MD DME PER LANG AT [facility] FOR SHOULDER IMMOBILIZER(L3670) TO CRISPIN NT Created [address] [place] [address] [phone]
--- OUTSIDE RECORDS SUMMARY | 2021-03-09 11:37 | CCD ---
Author Author [facility] Organization [facility] Address Unknown Phone Unavailable Care Team Providers Care Business Banking Manager Name Role Phone Radha Bush Unavailable PROBLEMS Type Condition ICD9-CM Code BPL27-RY Code Onset Dates Condition S tatus W/U Status Risk SNOMED Code Notes Problem Obesity E66.9 Active confirmed 618923114 Problem Seizure disorder G40.909 Active confirmed 12 8328216 Problem Fatty liver disease, nonalcoholic K76.0 Active confirmed 509243298 Problem DDD (degenerative disc disease), lumbar M51.36 Active confirmed 72841102 Problem Obstructive sleep apnea syndrome G47.33 Active conf irmed 82861404 Problem Non-seasonal allergic rhinitis, unspecified trigger J30.89 Active confirmed 17771896 Problem Prostatic hypertrophy N40.0 Active confirmed 080594489 Problem Arm paresthesia, left R20.2 Active confirmed [id number] Problem BPH loc w urin obs/LUTS N40.1 Active confirmed 763934097 Problem 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.812 Active confirmed 810234974 Problem Insomnia, unspecified type G47.00 Active confirmed 819580329 Problem Other chronic pain G89.29 Active confirmed 8 9186336 Problem Stable angina pectoris I20.8 Active confirmed 086271792 Problem Nephrolithiasis N20.0 Active confirmed 9557 0007 Problem Enlarged prostate N40.0 Active confirmed 24 6042757 Problem Elevated PSA R97.20 Active confirmed 1495080 05 ALLERGIES No Known Allergies ENCOUNTERS from 1955 to 2021-02-07 Encounter Location Date Provider Diagnosis [phone] [place] [address] Jan, Radha Bush Left acute otitis media H66. 92 ; Insomnia, unspecified type G47.00 ; Obstructive sleep apnea syndrome G47.33 and Elevated BP without diagnosis of hypertension R03.0 IMMUNIZATIONS Vaccine Route Administration Date Status Influenza [...] School Audit Question Answer Notes Total Score: 0 Interpretation: Alcohol Education Language: Question Answer Notes Languages spoken: Korean Caodaism: Question Answer Notes Caodaism 21 Amish Sexual Hx: Question Answer Notes Had sex [...] REASON FOR REFERRAL No Information VITAL SIGNS Weight 277 lbs Jan, Height 65 in Jan, BMI 46.09 kg/m2 Jan, Heart Rate 91 /min Jan, Respiratory Rate 18 /min Jan, Temperature 96.8 degrees Fahrenheit Jan, Oximetry 97 Jan, Blood pressure systolic 150 mm Hg Jan, Blood pressure diastolic 90 mm Hg Jan, MEDICATIONS Medication SIG (Take, Route, Frequency, Duration) Notes Start Da te End Date Status Finasteride 5 MG 1 tablet Orally Once a day September, Active Flonase 50 MCG/DOSE 2 sprays in each nostril Luke ally Once a day as needed for 90 days Jan, Active Depakote 500 MG 1 tablet Orally TID Active Tamsulosin HCl 0.4 MG 2 capsule Orally before bedtime 10 M 2020 Active Amoxicillin-Pot Clavulanate 875-125 MG 1 tablet Orally every 12 hrs for 10 day(s) Jan, Active Azelastine HCl 0.15 % 2 sprays in each nostril Nasally twice daily for 90 days Jul, Active PROCEDURES No Information RESULTS No Results REASON FOR VISIT left ear ache MEDICAL (GENERAL) HISTORY Type Description Date Medical [...] History bladder stones Surgical [facility]08 Surgical History T & A Surgical History Right meniscal repair SOS 07/2017 Hospitalization History seizures 2006 Hospitalization History pancreatitis 12/07, 01/07 Hospitalization History Bladder Stones 07/2019 Goals Section No Information Health Concerns No Information MEDICAL EQUIPMENT No Information MENTAL STATUS No Information FUNCTIONAL STATUS No Information ASSESSMENTS Encounter Date Diagnosis Assessment Notes Treatment Notes Treatm ent Clinical Notes Jan, Left acute otitis media (ICD-10 - H66.92) Discussed risks and benefits of antibiotics vs. watchful waiting for likely viral infection; he elected to start antibiotic. Jan, Insomnia, unspecified type (ICD-10 - G47.00) I discussed risks of various sleep medications including OTC unisom or benadryl (which may increase risk of dementia), trazodone (risk of priapism) and ambien (risk of sleepwalking, oversedation, and dependence). He elected to try OTC Unisom or diphenhydramine. I recommended he use CPAP every night he takes sedating medications. Jan, Obstructive sleep apnea syndrome (ICD-10 - G47.3 3) He is going to see who prescribed his CPAP; I recommended he follow up with prescriber to make sure settings are correct. Jan, Elevated BP without diagnosis of hypertension (I CD-10 - R03.0) Recheck in 1 month; may be elevated due to pain from kidney stones. PLAN OF TREATMENT Medication Medication Name Sig Start Date Stop Date Amoxicillin-Pot Clavulanate 875-125 MG 1 tablet Orally every 12 hrs for 10 day(s) Jan, Treatment Notes Assessment Notes Clinical Notes Left acute otitis media Discussed risks and benefits of antibiotics vs. watchful waiting for likely viral infection; he elected to start antibiotic. Insomnia, unspecified type I discussed r isks of various sleep medications including OTC unisom or benadryl (which may increase risk of dementia), trazodone (risk of priapism) and ambien (risk of sleepwalking, oversedation, and dependence). He elected to try OTC Unisom or diphenhydramine. I recommended he use CPAP every night he takes sedating medications. Obstructive sleep apnea syndrome He is g bishop to see who prescribed his CPAP; I recommended he follow up with prescriber to make sure settings are correct. Elevated BP without diagnosis of hypertension Recheck in 1 month; may be elevated due to pain from kidney stones. Next Appt Details 1 month Reason:F/u BP/insomnia Provider Name:Palak Espinosa, 2021-01-27 0 09:00:00 AM, [address], , [place], [address], Provider Name:Radha Bush, 2021-02-15 11:15:00 AM, [address] [place] [address] , [place], [address], Provider Name:Radha Bush, 2021-03-11 08:00:00 AM, [address] [place] [address] , [place], [address], Provider Name:Ramez May, 01:45:00 PM, [address], , [place], [address], Follow Up:1 monthF/u BP/insomnia Insurance Providers Payer Name Payer Address Payer Phone Insured Name Patient Relati onship to Insured Coverage Start Date Coverage End Date [employer] (NON MEDICAID MANAGED CARE) CORPORATE CLAIMS DEPT [address] [facility] [address] MARCIN SANTOS JR self
--- OUTSIDE RECORDS SUMMARY | 2021-03-09 11:37 | CCD ---
Author Author [facility] Organization [facility] Address Unknown Phone Unavailable Care Team Providers Care Millwright Supervisor Name Role Phone Palak Espinosa Unavailable PROBLEMS Type Condition ICD9-CM Code EXI61-DC Code Onset Dates Condition S tatus W/U Status Risk SNOMED Code Notes Problem Fatty liver disease, nonalcoholic K76.0 Active confirmed 738025082 Problem Obesity E66.9 Active confirmed 121786026 Problem Obstructive sleep apnea syndrome G47.33 Active conf irmed 75870605 Problem Seizure disorder G40.909 Active confirmed 12 5149089 Problem Other chronic pain G89.29 Active confirmed 8 3263104 Problem DDD (degenerative disc disease), lumbar M51.36 Active confirmed 24410553 Problem Non-seasonal allergic rhinitis, unspecified trigger J30.89 Active confirmed 06058112 Problem 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.812 Active confirmed 558662420 Problem Stable angina pectoris I20.8 Active confirmed 923172056 Problem Nephrolithiasis N20.0 Active confirmed 9557 0007 Problem Enlarged prostate N40.0 Active confirmed 24 8835892 Problem Urinary retention due to benign prostatic hyperplasia N28.89 Active confirmed 301676014 Problem Arm paresthesia, left R20.2 Active confirmed 49718970995595165 Problem Kidney stone N20.0 Active confirmed 0472374 7 Problem Prostatic hypertrophy N40.0 Active confirmed 377578516 Problem Elevated PSA R97.20 Active confirmed 5903237 05 Problem BPH loc w urin obs/LUTS N40.1 Active confirmed 838660738 Problem Insomnia, unspecified type G47.00 Active confirmed 386882452 Problem Bladder stones N21.0 Active confirmed 19467 003 ALLERGIES No Known Allergies ENCOUNTERS from 1955 to 2021-02-15 Encounter Location Date Provider Diagnosis [facility] [phone] [place] [address] Jan, Palak Espinosa Urinary retention due to benign prostati c hyperplasia N28.89 ; Bladder stones N21.0 ; Kidney stone N20.0 and Pre-op testing Z01.818 IMMUNIZATIONS Vaccine Route Administration Date Status Influenza [...] Education Language: Question Answer Notes Languages spoken: Monegasque Mosque: Question Answer Notes Mosque 21 Yazidism Sexual Hx: Question Answer Notes Had sex [...] FOR REFERRAL No Information VITAL SIGNS Weight 275 lbs Jan, Weight-kg 124.74 kg Jan, Height 65 in Jan, BMI 45.76 kg/m2 Jan, Heart Rate 107 /min Jan, Respiratory Rate 18 /min Jan, Temperature 98.4 degrees Fahrenheit Jan, Oximetry 95% Jan, Blood pressure systolic 162 mm Hg Jan, Blood pressure diastolic 98 mm Hg Jan, MEDICATIONS Medication SIG (Take, Route, Frequency, Duration) Notes Start Da te End Date Status Tamsulosin HCl 0.4 MG 2 capsule Orally before bedtime 10 M 2020 Active Morphine Sulfate ER 15 MG 1 tablet Orally every 12 hrs on [facility] di scharge/7 days Jan, 24 Jan, 2021 Active MiraLax 17 GM 1 packet mixed with 8 ounces of fluid Or ally Once a day x 10 days on hospital discharge 02/10/21 Jan, 27 Jan, 2021 Active Flonase 50 MCG/DOSE 2 sprays in each nostril Luke ally Once a day as needed for 90 days Jan, Unknown Carbamazepine (Antipsychotic) 200mg po bid/discharge 02/10 Active Lidocaine HCl 2 % 1 application as needed Exte rnally q 6 hours as needed to [place] site x 5 days Jan, Active Depakote 500 MG 1 tablet Orally TID Active Finasteride 5 MG 1 tablet Orally Once a day September, Active Senna Plus 50-8.6 MG 2 capsules at bedtime with a full glass of water as needed Orally Once a day x 10 days on hospital discharge 02/10/21 Jan, 2 Jan, Active Azelastine HCl 0.15 % 2 sprays in each nostril Nasally twice daily for 90 days Jul, Unknown PROCEDURES from 1955 to 2021-02-15 Procedure Date Ordered Result Body Site Voiding Trial 2021-02-14 N/A Erickson Catheter Coude Insertion 16F 2021-02-14 N/A Med: Lidocaine Jelly 2% 6ml Intravesically (Glydo) 2021-02-14 N/A RESULTS No Results REASON FOR VISIT [facility] ED f/u kidney stones MEDICAL (GENERAL) HISTORY Type Description Date Medical History Seizure disorder - saw [facility] urology in the past; last seizure 14 [...] History bladder stones Surgical History lithotripsy-Dr. Rosas, [facility] Urology 12/08 Surgical History T & A Surgical History Right meniscal repair SOS 07/2017 Hospitalization History seizures 2007 Hospitalization History pancreatitis 12/07, 01/07 Hospitalization History Bladder Stones 07/2019 Goals Section No Information Health Concerns No Information MEDICAL EQUIPMENT No Information MENTAL STATUS No Information FUNCTIONAL STATUS No Information ASSESSMENTS Encounter Date Diagnosis Assessment Notes Treatment Notes Treatm ent Clinical Notes Jan, Urinary retention due to jerardo ign prostatic hyperplasia (ICD-10 - N28.89) Jan, Bladder stones (ICD-10 - N21.0) Jan, Kidney stone (ICD-10 - N20.0) Jan, Pre-op testing (ICD-10 - Z01.818) PLAN OF TREATMENT Treatment Notes Test Name Order Date PLZ CHEST 2 VIEW 2021-02-14 Electrocardiogram (EKG) 2021-02-14 Future Test Test Name Order Date Basic Metabolic Profile (BMP) 20210214 CBC - Complete Blood Count 20210214 PT & APTT [id number] UA URINALYSIS 20210214 URINE CULTURE [id number] Next Appt Details Provider Name:Radha Lynch Eleazar, 2021-02-25 11:15:00 AM, [address] [place] [address] , [place], [address], Provider Name:Radha Lynch Eleazar, 2021-03-11 08:00:00 AM, [address] [place] [address], , [place], [address], Provider Name:Ramez May, 01:45:00 PM, [address], , [place], [address], Insurance Providers Payer Name Payer Address Payer Phone Insured Name Patient Relati onship to Insured Coverage Start Date Coverage End Date [facility] (NON MEDICAID MANAGED CARE) CORPORATE CLAIMS DEPT [address] [facility] [id number] MARCIN SANTOS JR self
--- OUTSIDE RECORDS SUMMARY | 2021-03-09 11:37 | CCD | Continuity of Care Document ---
Author Author Ricardo SANTIZO MD Organization Unknown Address [address] [place] [address], it e [address] [place] [address] Phone [phone] Care Team Providers Care Appraisal Manager Name Role Phone Ricardo Bauer MD AUTM [phone] Radha Bush MD AUTM [phone] Problems Active Problems Provider Date Abdominal pain [...] Unknown Azelastine HCL (Nasal) 0.15% Solut ion [place] Two Sprays In Each Nostril Twice A Day Unk nown Fluticasone Propionate 50mcg/Act Suspension [place] Two Sprays In Each Nostril Every Day as Needed Unknown Carina Covid-19 Vaccine 0.5ml Ankita pension Unknown Atorvastatin Calcium 40mg Tablets Take One Tablet By Mouth Every Day Unknown Clopidogrel Bisulfate 75mg Tablets Take One Tablet By Mouth Every Day Unknown Polymyxin B Sulfate/Trimethoprim Sulfate 19619-5.1Unit/ML-% Solution Instill 1 Drop In The Right [...] Result H/L Range Note Covid-19 CAH 11/10/2020 [address] [place] [phone] [phone] Covid-19 NOT DETECTED Covid-19 Reenter NOT DETECTED [...] DECISIONS. Procedures Date Code Description Status 12/20/2020 91704 X-Ray Shoulder Complete Complete d 11/11/2020 08169 Surgical Arthroscopy Shoulder W/ Rotator Cuff RPR Completed 11/11/2020 77945 Surgical Arthroscopy Mitchell W/Corac oacrm Ligm RLS Completed 11/11/2020 69840 Surgical Arthroscopy Shoulder DS TL Claviculc Completed 10/18/2020 55001 Moderate Sedation Se rvices; Same Phys Intl 15 Mins; PT >= 5 Years Completed 10/18/2020 20570 Epidurography Radiological Super vision & Interpretation Completed 10/18/2020 44851 NJX Aa&/STRD TFRML Epi Lumbar/Sa cral 1 Level Completed 10/11/2020 10762 Office/Outpatient Established Mo d MDM 30-39 Min Completed 08/23/2020 53784 Office/Outpatient Established Mo d MDM 30-39 Min Completed 08/09/2020 90095 Moderate Sedation Se rvices; Same Phys Intl 15 Mins; PT >= 5 Years Completed 08/09/2020 30209 Epidurography Radiological Super vision & Interpretation Completed 08/09/2020 60087 NJX Aa&/STRD TFRML Epi Lumbar/Sa cral 1 Level Completed Medical Devices Description No Information Available Encounters Type Date Location Provider Dx Diagnosis Office Visit 11/19/2020 11:30a DARRYL Cota Z47.89 [...] of left shoulder, not specified as traumatic DZaida Santizo MD 11/11/2020 M75.42 Impingement syndrome of left mitchell leticia Paul Santizo MD 11/11/2020 M19.012 Primary osteoarthritis, left mitchell leticia Paul Santizo MD 11/04/2020 M75.42 Impingement syndrome of left mitchell leticia Paul Santizo MD 11/04/2020 M19.012 Primary osteoarthritis, left mitchell zackaryRamirez MD 10/18/2020 M47.816 Spondylosis without myelopathy or [...] M75.42 Impingement syndrome of left mitchell leticia D. Eddy Santizo MD 10/11/2020 M19.012 Primary osteoarthritis, [...] preprocedura l examination Lab Plan of Treatment 12/20/2020 - Paul Santizo MD* Z47.89 Encounter for other orthopedic aftercare* Follow up:* 3 week left shoulder princess with DPV Functional Status Description No Information Available Mental Status Description No Information Available Referrals Refer to Reason for Referral Status Appt Date Blanche Santizo MD SURGERY PER [facility] NO A UTH REQUIRED FOR LEFT SHOULDER SURGERY (83028, 19701, C1713, AND 70940) AND CODE 46772 IS NOT COVERED TO SURGERY NT Created [address] [place] [phone] Rahul Arizmendi MD epidural steroid injections inj(00091) received written authorization and codes (61849 and 22107) no authorization required to surgery numbness and tingling ---10/11/20 RECEIVED WRITTEN AUTH Created [address] [place] [address] [phone] Blanche Santizo MD DME PER LANG AT [facility] PROVAL FOR SHOULDER IMMOBILIZER(L3670) TO [place] NT Created [address] [place] [phone] [phone] Blanche Santizo MD FRANCESCO INJ(46099) RECEIVED WRITTEN AUT H TO SURGERY NT Created [address] [place] [address] [phone]
--- OUTSIDE RECORDS SUMMARY | 2021-03-09 11:37 | CCD | Continuity of Care Document ---
Author Author Ricardo PHELAN SC Organization Unknown Address [address] [place] [address] Phone [phone] Care Team Providers Care Brass Cutter Name Role Phone Ricardo Bauer MD AUTM [phone] Radha Bush MD AUTM [phone] Problems Active Problems Provider Date Abdominal pain [...] Smoking Smoking Status Reviewed: 11/11/19 Denies Smoking Allergies and adverse reactions Description No Known Drug Allergies Medications Active Medications SIG Qnty Indications Ordering Provide r Date Hydrocodone-Acetaminophen 5-325mg Tablets 1 tab every 4-6 hours for as needed post op pain. 20tabs DZaida Santizo MD 10/22/[address] Unknown Tegretol Unknown Tamsulosin HCL 0.4mg Capsules Unknown Finasteride 5mg Tablets Take One Tablet By Mouth Every Day Unknown Azelastine HCL (Nasal) 0.15% Solut ion [place] Two Sprays In Each Nostril Twice A Day Unk nown Fluticasone Propionate 50mcg/Act Suspension [place] Two Sprays In Each Nostril Every Day as Needed Unknown Carina Covid-19 Vaccine 0.5ml Ankita pension Unknown Atorvastatin Calcium 40mg Tablets Take One Tablet By Mouth Every Day Unknown Clopidogrel Bisulfate 75mg Tablets Take One Tablet By Mouth Every Day Unknown Polymyxin B Sulfate/Trimethoprim Sulfate 92690-9.1Unit/ML-% Solution Instill 1 Drop In The Right [...] Result H/L Range Note Covid-19 CAH 11/10/2020 [place] [id number] [phone] Covid-19 NOT DETECTED Covid-19 Reenter NOT DETECTED 1 1 { PROCEDURAL CONTROL VALID KIT LOT [...] DECISIONS. Procedures Date Code Description Status 12/20/2020 03363 X-Ray Shoulder Complete Complete d 11/11/2020 10659 Surgical Arthroscopy Shoulder W/ Rotator Cuff RPR Completed 11/11/2020 16249 Surgical Arthroscopy Lexus W/Corac oacrm Ligm RLS Completed 11/11/2020 10249 Surgical Arthroscopy Shoulder DS TL Claviculc Completed 10/18/2020 39282 Moderate Sedation Se rvices; Same Phys Intl 15 Mins; PT >= 5 Years Completed 10/18/2020 44106 Epidurography Radiological Super vision & Interpretation Completed 10/18/2020 55031 NJX Aa&/STRD TFRML Epi Lumbar/Sa cral 1 Level Completed 10/11/2020 87054 Office/Outpatient Established Mo d MDM 30-39 Min Completed Medical Devices Description No Information Available Encounters Type Date Location Provider Dx Diagnosis Office Visit 01/26/2021 8:15a Yonis Santizo MD Z4 7.89 Encounter for other orthopedic aftercare Office Visit 12/20/2020 8:00a Yonis Santizo MD Z4 7.89 Encounter for other orthopedic aftercare Office Visit 11/19/2020 11:30a DARRYL Cota Z47.89 Encounter for other orthopedic aftercare Office Visit 10/11/2020 8:45a Yonis Santizo MD M7 5.42 Impingement syndrome of left shoulder M19.012 Primary osteoarthritis, left shoulder M75.82 Other shoulder lesions, left shoulder Assessments Date Code Description Provider 01/26/2021 Z47.89 Encounter for other orthopedic a ftercare Paul Santizo MD 12/20/2020 Z47.89 Encounter for other orthopedic a campos Santizo MD 11/19/2020 Z47.89 Encounter for other orthopedic a ftercare DARRYL Pryor 11/11/2020 M75.112 Incomplete rotator c uff tear or rupture of left shoulder, not specified as traumatic Paul Santizo MD 11/11/2020 M75.42 Impingement syndrome of left lexus leticia Miller Eddy Santizo MD 11/11/2020 M19.012 Primary osteoarthritis, left lexus leticia ManciaZaida Santizo MD 11/04/2020 M75.42 Impingement syndrome of left lexus leticia Mancia. Eddy Santizo MD 11/04/2020 M19.012 Primary osteoarthritis, left lexus leticia ManciaZaida Santizo MD 10/18/2020 M47.816 Spondylosis without myelopathy [...] Lab 10/11/2020 M75.42 Impingement syndrome of left lexus leticia Blanche. Eddy Santizo MD 10/11/2020 M19.012 Primary osteoarthritis, left lexus leticia Mancia. Eddy Santizo MD 10/11/2020 M75.82 Other shoulder lesions, left lexus kelly Paul Santizo MD Plan of Treatment 01/26/2021 - Paul Santizo MD* Z47.89 Encounter for other orthopedic aftercare* Follow up:* in 1 month with DPV Functional Status Description No Information Available Mental Status Description No Information Available Referrals Refer to Dr Reason for Referral Status Appt Date Blanche Santizo MD SURGERY PER [facility] NO A UTH REQUIRED FOR LEFT SHOULDER SURGERY (42180, 42839, C1713, AND 99614) AND CODE 93370 IS NOT COVERED TO SURGERY NT Created [address] [place] [address], [address] [address] [phone] Rahul Arizmendi MD epidural steroid injections inj(79089) received written authorization and codes (02333 and 61352) no authorization required to surgery numbness and tingling ---10/11/20 RECEIVED WRITTEN AUTH Created [address] [place] [address] [phone] Blanche Santizo MD DME PER LANG AT [facility] FOR SHOULDER IMMOBILIZER(L3670) TO [facility] NT Created [address] [place] [phone] [phone]
--- OUTSIDE RECORDS SUMMARY | 2021-03-09 11:37 | CCD ---
Author Author [facility] Organization [facility] Address Unknown Phone Unavailable Care Team Providers Care Inspector And Unloader Name Role Phone Radha Bush Unavailable PROBLEMS Type Condition ICD9-CM Code QSG44-QN Code Onset Dates Condition S tatus W/U Status Risk SNOMED Code Notes Problem Obesity E66.9 Active confirmed 946832249 Problem Seizure disorder G40.909 Active confirmed 12 1242322 Problem Fatty liver disease, nonalcoholic K76.0 Active confirmed 697362235 Problem DDD (degenerative disc disease), lumbar M51.36 Active confirmed 26423870 Problem Obstructive sleep apnea syndrome G47.33 Active conf irmed 05232822 Problem Non-seasonal allergic rhinitis, unspecified trigger J30.89 Active confirmed 22759983 Problem Prostatic hypertrophy N40.0 Active confirmed 598006959 Problem Arm paresthesia, left R20.2 Active confirmed [id number] Problem BPH loc w urin obs/LUTS N40.1 Active confirmed 850164264 Problem 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.812 Active confirmed 406489491 Problem Insomnia, unspecified type G47.00 Active confirmed 590999647 Problem Other chronic pain G89.29 Active confirmed 8 1083811 Problem Stable angina pectoris I20.8 Active confirmed 140013060 Problem Nephrolithiasis N20.0 Active confirmed 9557 0007 Problem Enlarged prostate N40.0 Active confirmed 24 2092909 Problem Elevated PSA R97.20 Active confirmed 4739473 05 ALLERGIES No Known Allergies ENCOUNTERS from 1955 to 2021-02-11 Encounter Location Date Provider Diagnosis [place] [phone] [place] [address] 17 Jan, 2021 Radha Bush Low income Z59.6 IMMUNIZATIONS Vaccine Route Administration Date Status Influenza [...] Education Language: Question Answer Notes Languages spoken: Polish Oriental Orthodox: Question Answer Notes Oriental Orthodox 21 Anglican Sexual Hx: Question Answer Notes Had sex [...] Notes Start Da te End Date Status Flonase 50 MCG/DOSE 2 sprays in each nostril Luke ally Once a day as needed for 90 days Jan, Unknown Senna Plus 50-8.6 MG 2 capsules at bedtime with a full glass of water as needed Orally Once a day x 10 days on hospital discharge 02/10/21 16 Jan, 2021 2 7 Jan, 2021 Active Carbamazepine (Antipsychotic) 200mg po bid/discharge 02/10 Active Finasteride 5 MG 1 tablet Orally Once a day September, Active Depakote 500 MG 1 tablet Orally TID Active Morphine Sulfate ER 30 MG 1/2 tablet Orally every 4 ho urs as needed for severe pain 8-10 x 4 days on [facility] discharge 02/10/21 16 Jan, 2021 20 Jan, 2021 Act caitie Tamsulosin HCl 0.4 MG 2 capsule Orally before bedtime 10 M 2020 Active Morphine Sulfate ER 15 MG 1 tablet Orally every 12 hrs on [facility] di scharge/7 days Jan, Jan, Active Azelastine HCl 0.15 % 2 sprays in each nostril Nasally twice daily for 90 days Jul, Unknown Lidocaine HCl 2 % 1 application as needed Exte rnally q 6 hours as needed to erickson site x 5 days Jan, Active MiraLax 17 GM 1 packet mixed with 8 ounces of fluid Or ally Once a day x 10 days on hospital discharge 02/10/21 Jan, Jan, Active PROCEDURES No Information RESULTS No Results REASON FOR VISIT [facility] d/c 02/10 Kidney Calculus MEDICAL (GENERAL) HISTORY Type Description Date Medical History Seizure disorder - saw [place] [facility] in the past; last seizure 14 [...] History bladder stones Surgical History lithotripsy-Dr. Rosas, [facility] Urology 12/08 Surgical History T & A Surgical History Right meniscal repair SOS 07/2017 Hospitalization History seizures 2006 Hospitalization History pancreatitis 12/07, 01/07 Hospitalization History Bladder Stones 07/2019 Goals Section No Information Health Concerns No Information MEDICAL EQUIPMENT No Information MENTAL STATUS No Information FUNCTIONAL STATUS No Information ASSESSMENTS Encounter Date Diagnosis Assessment Notes Treatment Notes Treatm ent Clinical Notes Jan, Low income (ICD-10 - Z59.6) Jan, Other Discussion with patient about his recent hospitalization. Patient reports he came home with a Erickson. Erickson is running clear urine to gravity at this time. Patient reports that he lives with his , is using a walker, and is in the process of an evaluation for Home Health Services. Medication reconciliation completed. Social Determinants of Health Screening Tool Completed. Patient reports that he probably will need getting to his MD appointments as his works. Gave him the phone number to the [employer] transportation services. 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 PLAN OF TREATMENT Next Appt Details Provider Name:Palak Espinosa, 2020-09-2 0 09:00:00 AM, [address], , [place], [address], Provider Name:Radha Bush, 2021-02-15 11:15:00 AM, [address] [place] [address], , [place], [address], Provider Name:Radha Bush, 2021-03-11 08:00:00 AM, [address] [place] [address], , [place], [address], Provider Name:Ramez May, 01:45:00 PM, [address], , [place], [address], Insurance Providers Payer Name Payer Address Payer Phone Insured Name Patient Relati onship to Insured Coverage Start Date Coverage End Date JOVANY (NON MEDICAID MANAGED CARE) CORPORATE CLAIMS DEPT [address] [facility] [address] MARCIN SANTOS JR self
--- OUTSIDE RECORDS SUMMARY | 2021-03-09 11:37 | CCD ---
Author Author [facility] Organization [facility] Address Unknown Phone Unavailable Care Team Providers Care Physician Primary Care Sports Medicine Name Role Phone Eleazar Radha Unavailable PROBLEMS Type Condition ICD9-CM Code [id number] Code Onset Dates Condition S tatus W/U Status Risk SNOMED Code Notes Problem Fatty liver disease, nonalcoholic K76.0 Active confirmed 003920626 Problem Obesity E66.9 Active confirmed 502148696 Problem DDD (degenerative disc disease), lumbar M51.36 Active confirmed 25545325 Problem Other chronic pain G89.29 Active confirmed 8 9615022 Problem 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.812 Active confirmed 341877714 Problem Urinary retention due to benign prostatic hyperplasia N28.89 Active confirmed 990749524 Problem Obstructive sleep apnea syndrome G47.33 Active conf irmed 13561809 Problem Kidney stone N20.0 Active confirmed 6295478 7 Problem Seizure disorder G40.909 Active confirmed 12 0078053 Problem Non-seasonal allergic rhinitis, unspecified trigger J30.89 Active confirmed 26561021 Problem BPH loc w urin obs/LUTS N40.1 Active confirmed 612107106 Problem Insomnia, unspecified type G47.00 Active confirmed 548115099 Problem Bladder stones N21.0 Active confirmed 16493 003 ALLERGIES No Known Allergies ENCOUNTERS from 1955 to 2021-03-03 Encounter Location Date Provider Diagnosis [facility] [address] [facility] [phone] [place] [address] Feb, Radha Bush Pre-op evaluation Z01.818 ; Kidney stone N20.0 ; Bladder stones N21.0 ; BPH loc w urin obs/LUTS N40.1 ; Seizure disorder G40.909 ; Obstructive sleep apnea syndrome G47.33 ; Other chronic pain G89.29 and DDD (degenerative disc disease), lumbar M51.36 IMMUNIZATIONS Vaccine Route Administration Date Status Influenza [...] Education Language: Question Answer Notes Languages spoken: Occitan Adventist: Question Answer Notes Adventist 21 Methodist Sexual Hx: Question Answer Notes Had sex [...] FOR REFERRAL No Information VITAL SIGNS Weight 266 lbs Feb, Height 65 in Feb, BMI 44.26 kg/m2 Feb, Heart Rate 104 /min Feb, Respiratory Rate 18 /min Feb, Temperature 96.8 degrees Fahrenheit Feb, Oximetry 97 Feb, Blood pressure systolic 132 mm Hg Feb, Blood pressure diastolic 82 mm Hg Feb, MEDICATIONS Medication SIG (Take, Route, Frequency, Duration) Notes Start Da te End Date Status Tamsulosin HCl 0.4 MG 2 capsule Orally before bedtime 10 M 2020 Active Carbamazepine (Antipsychotic) 200mg po bid/discharge 02/10 Active Percocet 5-325 MG 1 tablet as needed Orally every 6 hrs, MDD 4 24 Jan, 2021 Active Depakote 500 MG 1 tablet Orally TID Active Azelastine HCl 0.15 % 2 sprays in each nostril Nasally twice daily for 90 days Jul, Unknown Finasteride 5 MG 1 tablet Orally Once a day September, Active Lidocaine HCl 2 % 1 application as needed Exte rnally q 6 hours as needed to erickson site x 5 days Jan, Active Flonase 50 MCG/DOSE 2 sprays in each nostril Luke ally Once a day as needed for 90 days Jan, Unknown PROCEDURES No Information RESULTS No Results REASON FOR VISIT Preoperative evaluation for cystoscopy, button TURP, and bladder stone removal b y Dr. May at [facility] on 03/09/21, surgeon's fax [phone]; diagnosis code N 21.0, N20.0 MEDICAL (GENERAL) HISTORY Type Description Date Medical History Seizure disorder - saw [place] [facility] in the past; last seizure ~2006 Medical History H/o kidney stones Medical History [...] History bladder stones Surgical History lithotripsy-Dr. Rosas, [facility] Urology 12/08 Surgical History T & A Surgical History Right meniscal repair SOS 07/2017 Hospitalization History seizures 2006 Hospitalization History pancreatitis 12/07, 01/07 Hospitalization History Bladder Stones 07/2019 Hospitalization History Kidney stones, pancreatitis, enlarged prostate, bladder stones. Admitted for one week. 02/2021 Goals Section No Information Health Concerns No Information MEDICAL EQUIPMENT No Information MENTAL STATUS No Information FUNCTIONAL STATUS No Information ASSESSMENTS Encounter Date Diagnosis Assessment Notes Treatment Notes Treatm ent Clinical Notes Feb, Pre-op evaluation (ICD-10 - Z01.818) I discussed the risks vs. benefits of surgery with the patient in generic terms. I feel that the patient is at low risk for perioperative complications. He does not need to hold any medications for surgery. The patient knows that there is always some risk with surgery and that each individual has to make a decision regarding whether the benefits of surgery outweigh the risks in order to proceed. I advised the patient to direct further questions regarding the specifics of the proposed surgical procedure and specific risks to the surgeon. At this time I feel that the patient's acute and chronic medical conditions are sufficiently optimized to proceed with surgery. Feb, Kidney stone (ICD-10 - N20.0) Surgery is planned. Feb, Bladder stones (ICD-10 - N21.0) Surgery is planned. Feb, BPH loc w urin obs/LUTS (ICD-10 - N40.1) Surgery is planned. Feb, Seizure disorder (ICD-10 - G40.909) Last seizure was in 2006. Feb, Obstructive sleep apnea syndrome (ICD-10 - G47.3 3) He reports he is compliant with CPAP nightly. Feb, Other chronic pain (ICD-10 - G89.29) Feb, DDD (degenerative disc disease), lumbar (ICD-10 - M51.36) PLAN OF TREATMENT Medication Medication Name Sig Start Date Stop Date Tamsulosin HCl 0.4 MG 2 capsule Orally before bedtime September, Finasteride 5 MG 1 tablet Orally Once a day September, Carbamazepine (Antipsychotic) Percocet 5-325 MG 1 tablet as needed Orally every 6 hrs, MDD 4 2 4 Jan, 2021 Depakote 500 MG 1 tablet Orally TID Treatment Notes Assessment Notes Clinical Notes Pre-op evaluation I discussed the risk s vs. benefits of surgery with the patient in generic terms. I feel that the patient is at low risk for perioperative complications.He does not need to hold any medications for surge ry.The patient knows that there is always some risk with surgery and that each individual has to make a decision regarding whether the benefits of surgery outweigh the risks in order to proceed. I advised the patient to direct further questions regarding the specifics of the proposed surgical procedure and specific risks to the surgeon.At this time I feel that the patient's acute and chronic medical conditions are sufficiently optimized to proceed with surgery. Kidney stone Surgery is planned. Bladder stones Surgery is planned. BPH loc w urin obs/LUTS Surgery is plann ed. Seizure disorder Last seizure was in 2006. Obstructive sleep apnea syndrome He repo rts he is compliant with CPAP nightly. Next Appt Details cancel appt 03/10, 03/11; schedule f/u i n 6 months Reason: Provider Name:Palak Espinosa, 2020-10-2 1 08:00:00 AM, [address], , [place], [address], Provider Name:Radha Lynch Eleazar, 2021-09-05 08:15:00 AM, [address], , [place], [address], Provider Name:Ramez May, 01:45:00 PM, [address], , [place], [address], Insurance Providers Payer Name Payer Address Payer Phone Insured Name Patient Relati onship to Insured Coverage Start Date Coverage End Date LAYLA[place] (NON MEDICAID MANAGED CARE) CORPORATE CLAIMS DEPT [address] [facility] [address] MARCIN SANTOS JR self
--- OUTSIDE RECORDS SUMMARY | 2021-03-09 11:37 | CCD ---
Author Author [facility] Organization [facility] Address Unknown Phone Unavailable Care Team Providers Care Meat Specialist Name Role Phone Ramez May Unavailable PROBLEMS Type Condition ICD9-CM Code BGW24-GF Code Onset Dates Condition S tatus W/U Status Risk SNOMED Code Notes Problem Obstructive sleep apnea syndrome G47.33 Active conf irmed 36858212 Problem Seizure disorder G40.909 Active confirmed 12 5549264 Problem DDD (degenerative disc disease), lumbar M51.36 Active confirmed 06939065 Problem Other chronic pain G89.29 Active confirmed 8 1795263 Problem Non-seasonal allergic rhinitis, unspecified trigger J30.89 Active confirmed 10730356 Problem 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.812 Active confirmed 528629973 Problem Arm paresthesia, left R20.2 Active confirmed 45398466416806085 Problem Prostatic hypertrophy N40.0 Active confirmed 351651445 Problem Nephrolithiasis N20.0 Active confirmed 9557 0007 Problem Elevated PSA R97.20 Active confirmed 1997559 05 Problem BPH loc w urin obs/LUTS N40.1 Active confirmed 197671818 Problem Preop testing Z01.818 Active confirmed 90789 9001 Problem Enlarged prostate N40.0 Active confirmed 24 0997312 Problem Obesity E66.9 Active confirmed 441639790 Problem UTI (urinary tract infection) N39.0 Active confirm ed 33066092 Problem Stable angina pectoris I20.8 Active confirmed 221332714 Problem Fatty liver disease, nonalcoholic K76.0 Active confirmed 627425510 Problem Insomnia, unspecified type G47.00 Active confirmed 462157013 Problem Bladder stones N21.0 Active confirmed 83990 003 Problem Kidney stone N20.0 Active confirmed 6163655 7 Problem Urinary retention due to benign prostatic hyperplasia N28.89 Active confirmed 913147369 ALLERGIES No Known Allergies ENCOUNTERS from 1955 to 2021-03-02 Encounter Location Date Provider Diagnosis [facility] [address] [phone] [place] [address] Feb, Ramez May Bladder stones N21.0 ; BPH loc w urin ob s/LUTS N40.1 ; Preop testing Z01.818 and UTI (urinary tract infection) N39.0 IMMUNIZATIONS Vaccine Route Administration Date Status Influenza [...] Education Language: Question Answer Notes Languages spoken: Swiss Latter Day: Question Answer Notes Latter Day 21 Gnosticism Sexual Hx: Question Answer Notes Had sex [...] Orally before bedtime 10 M 2020 Active Azelastine HCl 0.15 % 2 sprays in each nostril Nasally twice daily for 90 days Jul, Unknown Flonase 50 MCG/DOSE 2 sprays in each nostril Luke ally Once a day as needed for 90 days Jan, Unknown Percocet 5-325 MG 1 tablet as needed Orally every 6 hrs, MDD 4 24 Jan, 2021 Active Depakote 500 MG 1 tablet Orally TID Active Finasteride 5 MG 1 tablet Orally Once a day September, Active Carbamazepine (Antipsychotic) 200mg po bid/discharge 02/10 Active Lidocaine HCl 2 % 1 application as needed Exte rnally q 6 hours as needed to erickson site x 5 days 16 Jan, 2021 Active PROCEDURES No Information RESULTS No Results REASON FOR VISIT Urine Culture MEDICAL (GENERAL) HISTORY Type Description Date Medical History Seizure disorder - saw [place] [facility] in the past; last seizure [...] History bladder stones Surgical History lithotripsy-Dr. Rosas, [facility] Urology 12/08 Surgical History T & A Surgical History Right meniscal repair SOS 07/2017 Hospitalization History seizures 2006 Hospitalization History pancreatitis 12/07, 01/07 Hospitalization History Bladder Stones 07/2019 Goals Section No Information Health Concerns No Information MEDICAL EQUIPMENT No Information MENTAL STATUS No Information FUNCTIONAL STATUS No Information ASSESSMENTS Encounter Date Diagnosis Assessment Notes Treatment Notes Treatm ent Clinical Notes Feb, Bladder stones (ICD-10 - N21.0) Feb, BPH loc w urin obs/LUTS (ICD-10 - N40.1) Feb, Preop testing (ICD-10 - Z01.818) Feb, UTI (urinary tract infection) (ICD-10 - N39.0) PLAN OF TREATMENT Medication Medication Name Sig Start Date Stop Date Percocet 5-325 MG 1 tablet as needed Orally every 6 hrs, MDD 4 2 4 Jan, 2021 Treatment Notes Test Name Order Date URINE CULTURE 2021-03-01 UA URINALYSIS 2021-03-01 Next Appt Details Provider Name:Radha Cris Bush, 2021-03-03 01:45:00 PM, [address] [facility], , [place], [address], Provider Name:Radha Bush, 2021-03-10 11:15:00 AM, [address] [facility], , [place], [address], Provider Name:Radha Lynch Milanamaria a, 2021-03-11 08:00:00 AM, [address] [facility], , [place], [address], Provider Name:Palak Espinosa, 2021-02-26 1 08:00:00 AM, [address], , [place], [address], Provider Name:Ramez May, 01:45:00 PM, [address], , [place], [address], Insurance Providers Payer Name Payer Address Payer Phone Insured Name Patient Relati onship to Insured Coverage Start Date Coverage End Date JOVANY (NON MEDICAID MANAGED CARE) CORPORATE CLAIMS DEPT [address] [facility] [address] MARCIN SANTOS JR self
--- OUTSIDE RECORDS SUMMARY | 2021-03-09 11:37 | CCD | Continuity of Care Document ---
Author Author Ricardo SANTIZO MD Organization Unknown Address [address] [place] [address], it e [address] [place] [address] Phone [phone] Care Team Providers Care Real Estate Officer Name Role Phone Ricardo Bauer MD AUTM [phone] Radha Bush MD AUTM [phone] Problems Active Problems Provider Date Abdominal pain [...] Unknown Azelastine HCL (Nasal) 0.15% Solut ion Procious Two Sprays In Each Nostril Twice A Day Unk nown Fluticasone Propionate 50mcg/Act Suspension Procious Two Sprays In Each Nostril Every Day as Needed Unknown Carina Covid-19 Vaccine 0.5ml Ankita pension Unknown Atorvastatin Calcium 40mg Tablets Take One Tablet By Mouth Every Day Unknown Clopidogrel Bisulfate 75mg Tablets Take One Tablet By Mouth Every Day Unknown Polymyxin B Sulfate/Trimethoprim Sulfate 01383-3.1Unit/ML-% Solution Instill 1 Drop In The Right [...] Result H/L Range Note Covid-19 CAH 11/10/2020 [place] [id number] [phone] Covid-19 NOT DETECTED Covid-19 Reenter NOT DETECTED [...] DECISIONS. Procedures Date Code Description Status 12/20/2020 88774 X-Ray Shoulder Complete Complete d 11/11/2020 72037 Surgical Arthroscopy Shoulder W/ Rotator Cuff RPR Completed 11/11/2020 83780 Surgical Arthroscopy Mitchell W/Corac oacrm Ligm RLS Completed 11/11/2020 30724 Surgical Arthroscopy Shoulder DS TL Claviculc Completed 10/18/2020 04012 Moderate Sedation Se rvices; Same Phys Intl 15 Mins; PT >= 5 Years Completed 10/18/2020 12356 Epidurography Radiological Super vision & Interpretation Completed 10/18/2020 19263 NJX Aa&/STRD TFRML Epi Lumbar/Sa cral 1 Level Completed 10/11/2020 63948 Office/Outpatient Established Mo d MDM 30-39 Min Completed 08/23/2020 46691 Office/Outpatient Established Mo d MDM 30-39 Min Completed 08/09/2020 44013 Moderate Sedation Se rvices; Same Phys Intl 15 Mins; PT >= 5 Years Completed 08/09/2020 79429 Epidurography Radiological Super vision & Interpretation Completed 08/09/2020 93770 NJX Aa&/STRD TFRML Epi Lumbar/Sa cral 1 [...] M75.42 Impingement syndrome of left mitchell leticia Mancia. Eddy Santizo MD 10/11/2020 M19.012 Primary osteoarthritis, [...] 8:45 am - Paul Santizo MD at [facility] 01/26/2021 - Paul Santizo MD* Z47.89 Encounter for other orthopedic aftercare* Follow up:* in 1 month with [facility] Functional Status Description No Information Available Mental Status Description No Information Available Referrals Refer to Dr Reason for Referral Status Appt Date Blanche Santizo MD SURGERY PER [facility] NO A UTH REQUIRED FOR LEFT SHOULDER SURGERY (93092, 01921, C1713, AND 24592) AND CODE 35237 IS NOT COVERED TO SURGERY NT Created [address] [place] [address] [phone] Rahul Arizmendi MD epidural steroid injections inj(62850) received written authorization and codes (42832 and 08155) no authorization required to surgery numbness and tingling ---10/11/20 RECEIVED WRITTEN AUTH Created [address] [place] [phone] Blanche Santizo MD DME PER [facility] AT [facility] PROVIA FOR SHOULDER IMMOBILIZER(L3670) TO CRISPIN NT Created [address] [place] [phone]
--- OUTSIDE RECORDS SUMMARY | 2021-03-09 11:37 | CCD ---
Author Author [facility] Organization [facility] Address Unknown Phone Unavailable Care Team Providers Care Senior Program Planner Name Role Phone Ramez May Unavailable PROBLEMS Type Condition ICD9-CM Code [id number] Code Onset Dates Condition S tatus W/U Status Risk SNOMED Code Notes Problem Fatty liver disease, nonalcoholic K76.0 Active confirmed 813112797 Problem Obesity E66.9 Active confirmed 993583595 Problem Obstructive sleep apnea syndrome G47.33 Active conf irmed 41274357 Problem Seizure disorder G40.909 Active confirmed 12 6828835 Problem Other chronic pain G89.29 Active confirmed 8 2972448 Problem DDD (degenerative disc disease), lumbar M51.36 Active confirmed 43511462 Problem Non-seasonal allergic rhinitis, unspecified trigger J30.89 Active confirmed 83031376 Problem 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.812 Active confirmed 072712509 Problem Stable angina pectoris I20.8 Active confirmed 832371001 Problem Nephrolithiasis N20.0 Active confirmed 9557 0007 Problem Enlarged prostate N40.0 Active confirmed 24 3145528 Problem Urinary retention due to benign prostatic hyperplasia N28.89 Active confirmed 751562390 Problem Arm paresthesia, left R20.2 Active confirmed 57021220693379313 Problem Kidney stone N20.0 Active confirmed 7936518 7 Problem Prostatic hypertrophy N40.0 Active confirmed 334095805 Problem Benign prostatic hyperplasia with lower urinary tract symptoms N40.1 Active confirmed 035981837 Problem Elevated PSA R97.20 Active confirmed 8683837 05 Problem BPH loc w urin obs/LUTS N40.1 Active confirmed 194225054 Problem Insomnia, unspecified type G47.00 Active confirmed 612802142 Problem Bladder stones N21.0 Active confirmed 71518 003 ALLERGIES No Known Allergies ENCOUNTERS from 1955 to 2021-02-24 Encounter Location Date Provider Diagnosis [facility] [address] [phone] [place] [address] Jan, Ramez May IMMUNIZATIONS Vaccine Route Administration Date Status Influenza [...] Education Language: Question Answer Notes Languages spoken: Ghanaian Zoroastrian: Question Answer Notes Zoroastrian 21 [employer] Sexual Hx: Question Answer Notes Had sex [...] needed Orally every 6 hrs, MDD 4 Jan, Active Depakote 500 MG 1 tablet Orally TID Active Finasteride 5 MG 1 tablet Orally Once a day September, Active Carbamazepine (Antipsychotic) 200mg po bid/discharge 02/10 Active Lidocaine HCl 2 % 1 application as needed Exte rnally q 6 hours as needed to [place] site x 5 days 16 Jan, 2021 Active PROCEDURES No Information RESULTS No Results REASON FOR VISIT Surgery Change MEDICAL (GENERAL) HISTORY Type Description Date Medical [...] History bladder stones Surgical History lithotripsy-Dr. Rosas, [facility] Urology 12/08 Surgical History T & A Surgical History Right meniscal repair SOS 07/2017 Hospitalization History seizures 2006 Hospitalization History pancreatitis 12/07, 01/07 Hospitalization History Bladder Stones 07/2019 Goals Section No Information Health Concerns No Information MEDICAL EQUIPMENT No Information MENTAL STATUS No Information FUNCTIONAL STATUS No Information ASSESSMENTS No Information PLAN OF TREATMENT Medication Medication Name Sig Start Date Stop Date Percocet 5-325 MG 1 tablet as needed Orally every 6 hrs, MDD 4 2 4 Jan, 2021 Next Appt Details Provider Name:Radha Lynch Eleazar, 2021-03-03 01:45:00 PM, [address] [place] [address] , [place], [address], Provider Name:Radha Bush, 2021-03-10 11:15:00 AM, [address] [place] [address] , [place], [address], Provider Name:Radha Bush, 2021-03-11 08:00:00 AM, [address] [place] [address] , [place], [address], Provider Name:Palak Espinosa, 2021-02-26 1 08:00:00 AM, [address], , [place], [address], Provider Name:Ramez May, 01:45:00 PM, [address], , [place], [address], Insurance Providers Payer Name Payer Address Payer Phone Insured Name Patient Relati onship to Insured Coverage Start Date [facility]age End Date [facility] CORPORATE CLAIMS DEPT [address] [facility] [address] MARCIN SANTOS JR self
--- OUTSIDE RECORDS SUMMARY | 2021-03-09 11:37 | CCD ---
Author Author [facility] Organization [facility] Address Unknown Phone Unavailable Care Team Providers Care Weapons Engineer Name Role Phone Palak Espinosa Unavailable PROBLEMS Type Condition ICD9-CM Code [id number] Code Onset Dates Condition S tatus W/U Status Risk SNOMED Code Notes Problem Fatty liver disease, nonalcoholic K76.0 Active confirmed 176952982 Problem Obesity E66.9 Active confirmed 536056745 Problem Obstructive sleep apnea syndrome G47.33 Active conf irmed 66360928 Problem Seizure disorder G40.909 Active confirmed 12 0361132 Problem Other chronic pain G89.29 Active confirmed 8 0578551 Problem DDD (degenerative disc disease), lumbar M51.36 Active confirmed 52185816 Problem Non-seasonal allergic rhinitis, unspecified trigger J30.89 Active confirmed 30802541 Problem 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.812 Active confirmed 083886837 Problem Stable angina pectoris I20.8 Active confirmed 907893490 Problem Nephrolithiasis N20.0 Active confirmed 9557 0007 Problem Enlarged prostate N40.0 Active confirmed 24 8371077 Problem Urinary retention due to benign prostatic hyperplasia N28.89 Active confirmed 636519176 Problem Arm paresthesia, left R20.2 Active confirmed 53015338644328757 Problem Kidney stone N20.0 Active confirmed 0392883 7 Problem Prostatic hypertrophy N40.0 Active confirmed 921681004 Problem Elevated PSA R97.20 Active confirmed 0986523 05 Problem BPH loc w urin obs/LUTS N40.1 Active confirmed 034510608 Problem Insomnia, unspecified type G47.00 Active confirmed 329275654 Problem Bladder stones N21.0 Active confirmed 72136 003 ALLERGIES No Known Allergies ENCOUNTERS from 1955 to 2021-02-18 Encounter Location Date Provider Diagnosis [facility] [address] [phone] [address] Jan, Palak Francisca IMMUNIZATIONS Vaccine Route Administration Date Status Influenza [...] Education Language: Question Answer Notes Languages spoken: Czech Yarsanism: Question Answer Notes Yarsanism 21 Rastafari Sexual Hx: Question Answer Notes Had sex [...] Orally before bedtime 10 M 2020 Active Percocet 5-325 MG 1 tablet as needed Orally every 6 hrs, MDD 4 Jan, Active MiraLax 17 GM 1 packet mixed with 8 ounces of fluid Or ally Once a day x 10 days on hospital discharge 02/10/21 Jan, Jan, Active Morphine Sulfate ER 15 MG 1 tablet Orally every 12 hrs on [facility] di scharge/7 days Jan, Jan, Active Flonase 50 MCG/DOSE 2 sprays [...] Jan, 2021 2 7 Jan, 2021 Active Azelastine HCl 0.15 % 2 sprays in each nostril Nasally twice daily for 90 days Jul, Unknown PROCEDURES No Information RESULTS No Results REASON FOR VISIT kidney stone pain MEDICAL (GENERAL) HISTORY Type Description Date Medical History Seizure disorder - saw [facility] in the past; last seizure 14 [...] History bladder stones Surgical History lithotripsy-Dr. Rosas, [facility] Urology 12/08 Surgical History T & [...] Jan, 2021 Next Appt Details Provider Name:Radha Bush, 2021-02-21 08:15:00 AM, [address] [facility], , , [address], Provider Name:Ramez May, 11:30:00 AM, [address], , , [address], Provider Name:Radha Bush, 2021-03-03 01:45:00 PM, [address] [facility] [phone], , [address], Provider Name:Radha Lynch Milanamaria a, 2021-03-11 08:00:00 AM, [address] [facility], , , [address], Provider Name:Ramez May, 09:30:00 AM, [address], , , [address], Provider Name:Ramez May, 01:45:00 PM, [address], , , [address], Insurance Providers Payer Name Payer Address Payer Phone Insured Name Patient Relati onship to Insured Coverage Start Date Coverage End Date [facility] (NON MEDICAID MANAGED CARE) CORPORATE CLAIMS DEPT [address] [facility] [id number] MARCIN SANTOS JR self
--- OUTSIDE RECORDS SUMMARY | 2021-03-09 11:39 | CCD ---
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 Next Of Kin RT [address] [place] [id number] [place] [address] Unavailable [place] Next [place] [facility] [place] [address] IHCSCH Next Of Kin [address] [place] [address] [place] [address] GROUND [employer] MAINTENANCE Next Of Kin [address] [address] [place] GOVT CIVILIAN Next Of [place] [id number] [place] Next Of Kin [address] [place] [address] US FED GOVT Next Of [place] [id number] HUERTAS THE WHEEL MAN [place] [address] UE Next Of Kin Unknown Unavailable Yahir SANTOS Next [place] Kin [address] [place] [address] PRE[place] [address] SANTA SANTOS Next Of Kin [address] [place] [address] Santa Santos [facility] [address] [place] [address] Unavailable Care Team Providers Care Regulation Supervisor Name Role Phone AlberryBlanche Nikkie CARE WORKER Unavailable Unavailable Alberry, D Nikkie CARE WORKER Unavailable Unavailable Alberry, D Nikkie CARE WORKER Unavailable Unavailable Alberry, D Nikkie CARE WORKER Unavailable Unavailable Alberry, D Nikkie CARE WORKER Unavailable Unavailable Alberry, D Nikkie CARE WORKER Unavailable Unavailable Alberry, D Nikkie CARE WORKER Unavailable Unavailable Alberry, D Nikkie CARE WORKER Unavailable Unavailable Alberry, D Nikkie CARE WORKER Unavailable Unavailable Alberry, D Nikkie CARE WORKER Unavailable Unavailable Alberry, D Nikkie CARE WORKER Unavailable Unavailable Alberry, D Nikkie CARE WORKER Unavailable Unavailable Alberry, D Nikkie CARE WORKER Unavailable Unavailable Alberry, D Nikkie CARE WORKER Unavailable Unavailable Alberry, D Nikkie CARE WORKER Unavailable Unavailable Alberry, D Nikkie CARE WORKER Unavailable Unavailable Alberry, D Nikkie CARE WORKER Unavailable Unavailable Alberry, D Nikkie CARE WORKER Unavailable Unavailable Alberry, D Nikkie CARE WORKER Unavailable Unavailable Alberry, D Nikkie CARE WORKER Unavailable Unavailable Alberry, D Nikkie CARE WORKER Unavailable Unavailable Alberry, D Nikkie CARE WORKER Unavailable Unavailable Alberry, D Nikkie CARE WORKER Unavailable Unavailable Alberry, D Nikkie CARE WORKER Unavailable Unavailable Alberry, D Nikkie CARE WORKER Unavailable Unavailable Alberry, D Nikkie CARE WORKER Unavailable Unavailable Alberry, D Nikkie CARE WORKER Unavailable Unavailable Alberry, D Nikkie CARE WORKER Unavailable Unavailable Alberry, D Nikkie CARE WORKER Unavailable Unavailable Alberry, D Nikkie CARE WORKER Unavailable Unavailable Alberry, D Nikkie CARE WORKER Unavailable Unavailable Alberry, D Nikkie CARE WORKER Unavailable Unavailable Alberry, D Nikkie CARE WORKER Unavailable Unavailable Alberry, D Nikkie CARE WORKER Unavailable Unavailable Alberry, D Nikkie CARE WORKER Unavailable Unavailable Alberry, D Nikkie CARE WORKER Unavailable Unavailable Alberry, D Nikkie CARE WORKER Unavailable Unavailable Alberry, D Nikkie CARE WORKER Unavailable Unavailable Alberry, D Nikkie CARE WORKER Unavailable Unavailable Alberry, D Nikkie CARE WORKER Unavailable Unavailable Alberry, D Nikkie CARE WORKER Unavailable Unavailable Alberry, D Nikkie CARE WORKER Unavailable Unavailable Alberry, D Nikkie CARE WORKER Unavailable Unavailable Alberry, D Nikkie CARE WORKER Unavailable Unavailable Alberry, D Nikkie CARE WORKER Unavailable Unavailable Alberry, D Nikkie CARE WORKER Unavailable Unavailable Alberry, D Nikkie CARE WORKER Unavailable Unavailable Alberry, D Nikkie CARE WORKER Unavailable Unavailable Alberry, D Nikkie CARE WORKER Unavailable Unavailable Alberry, D Nikkie CARE WORKER Unavailable Unavailable Alberry, D Nikkie CARE WORKER Unavailable Unavailable Alberry, D Nikkie CARE WORKER Unavailable Unavailable Alberry, D Nikkie CARE WORKER Unavailable Unavailable Alberry, D Nikkie CARE WORKER Unavailable Unavailable Alberry, D Nikkie CARE WORKER Unavailable Unavailable Arizmendi, Rahul Unavailable Unavailable Arizmendi, Rahul Unavailable Unavailable Arizmendi, Rahul Unavailable Unavailable Arizmendi, Rahul Unavailable Unavailable Arizmendi, Rahul Unavailable Unavailable Arizmendi, Rahul Unavailable Unavailable Arizmendi, Rahul Unavailable Unavailable Arizmendi, Rahul Unavailable Unavailable Arizmendi, Rahul Unavailable Unavailable Arizmendi, Rahul Unavailable Unavailable Arizmendi, Rahul Unavailable Unavailable Arizmendi, Rahul Unavailable Unavailable Arizmendi, Rahul Unavailable Unavailable Arizmendi, Rahul Unavailable Unavailable Arizmendi, Rahul Unavailable Unavailable Arizmendi, Rahul Unavailable Unavailable Arizmendi, Rahul Unavailable Unavailable Arizmendi, Rahul Unavailable Unavailable Arizmendi, Rahul Unavailable Unavailable Arizmendi, Rahul Unavailable Unavailable Arizmendi, Rahul Unavailable Unavailable Arizmendi, Rahul Unavailable Unavailable Arizmendi, Rahul Unavailable Unavailable Arizmendi, Rahul Unavailable Unavailable Arizmendi, Rahul Unavailable Unavailable Arizmendi, Rahul Unavailable Unavailable Arizmendi, Rahul Unavailable Unavailable Arizmendi, Rahul Unavailable Unavailable Arizmedni, Rahul Unavailable Unavailable Arizmendi, Rahul Unavailable Unavailable Arizmendi, Rahul Unavailable Unavailable Arizmendi, Rahul Unavailable Unavailable Arizmendi, Rahul Unavailable Unavailable Arizmendi, Rahul Unavailable Unavailable Arizmendi, Rahul Unavailable Unavailable Arizmendi, Rahul Unavailable Unavailable Arizmendi, Rahul Unavailable Unavailable Arizmendi, Rahul Unavailable Unavailable Arizmendi, Rahul Unavailable Unavailable Arizmendi, Rahul Unavailable Unavailable Arizmendi, Rahul Unavailable Unavailable Arizmendi, Rahul Unavailable Unavailable Arizmendi, Rahul Unavailable Unavailable Arizmendi, Rahul Unavailable Unavailable Arizmendi, Rahul Unavailable Unavailable Mandappa, Sonia CASAC Unavailable Unavailable Mandappa, Sonia CASAC Unavailable Unavailable Mandappa, Sonia CASAC Unavailable Unavailable Mandappa, Sonia CASAC Unavailable Unavailable Blanche Santizo MD Unavailable Unavailable Blanche Santizo MD Unavailable Unavailable Blanche Santizo MD Unavailable Unavailable Blanche Santizo MD Unavailable Unavailable Blanche Santizo MD Unavailable Unavailable Blanche Santizo MD Unavailable Unavailable Blanche Santizo MD Unavailable Unavailable Blanche Santizo MD Unavailable Unavailable Blanche Santizo MD Unavailable Unavailable Blanche Santizo MD Unavailable Unavailable Blanche Santizo MD Unavailable Unavailable Blanche Santizo MD Unavailable Unavailable Blanche Santizo MD Unavailable Unavailable Blanche Santizo MD Unavailable Unavailable Blanche Santizo MD Unavailable Unavailable Vaneenenaam, Blanche Kam MD Unavailable Unavailable Vaneenenaam, Blanche Kam MD Unavailable Unavailable Vaneenenaam, Blanche Kam MD Unavailable Unavailable Vaneenenaam, Blanche Kam MD Unavailable Unavailable Vaneenenaam, Blanche Kam MD Unavailable Unavailable Vaneenenaam, Blanche Kam MD Unavailable Unavailable Vaneenenaam, Blanche Kam MD Unavailable Unavailable Vaneenenaam, Blanche Kam MD Unavailable Unavailable Vaneenenaam, Blanche Kam MD Unavailable Unavailable Vaneenenaam, Blanche Kam MD Unavailable Unavailable Vaneenenaam, Blanche Kam MD Unavailable Unavailable Vaneenenaam, Blanche Kam MD Unavailable Unavailable Vaneenenaam, Blanche Kam MD Unavailable Unavailable Vaneenenaam, Blanche Kam MD Unavailable Unavailable Vaneenenaam, Blanche Kam MD Unavailable Unavailable Vaneenenaam, Blanche Kam MD Unavailable Unavailable Vaneenenaam, Blanche Kam MD Unavailable Unavailable Vaneenenaam, Blanche Kam MD Unavailable Unavailable Vaneenenaam, Blanche Kam MD Unavailable Unavailable Vaneenenaam, Blanche Kam MD Unavailable Unavailable Vaneenenaam, Blanche Kam MD Unavailable Unavailable Vaneenenaam, Blanche Kam MD Unavailable Unavailable Vaneenenaam, Blanche Kam MD Unavailable Unavailable Vaneenenaam, Blanche Kam MD Unavailable Unavailable Vaneenenaam, Blanche Kam MD Unavailable Unavailable Vaneenenaam, Blanche Kam MD Unavailable Unavailable Vaneenenaam, Blanche Kam MD Unavailable Unavailable Vaneenenaam, Blanche Kam MD Unavailable Unavailable Vaneenenaam, Blanche Kam MD Unavailable Unavailable Vaneenenaam, Blanche Kam MD Unavailable Unavailable Fitzpatrick, Yahir Obregon MD Unavailable Unavailable Fitzpatrick, Yahir Obregon MD Unavailable Unavailable Fitzpatrick, Yahir Obregon MD Unavailable Unavailable Fitzpatrick, Yahir Obregon MD Unavailable Unavailable Fitzpatrick, Yahir Obregon MD Unavailable Unavailable Fitzpatrick, Yahir Obregon MD Unavailable Unavailable Fitzpatrick, Yahir Obregon MD Unavailable Unavailable Fitzpatrick, Yahir Obregon MD Unavailable Unavailable Fitzpatrick, Yahir Obregon MD Unavailable Unavailable Fitzpatrick, Yahir Obregon MD Unavailable Unavailable Fitzpatrick, Yahir Obregon MD Unavailable Unavailable Fitzpatrick, Yahir Obregon MD Unavailable Unavailable Fitzpatrick, Yahir Obregon MD Unavailable Unavailable Fitzpatrick, Yahir Obregon MD Unavailable Unavailable Fitzpatrick, Yahir Obregon MD Unavailable Unavailable Fitzpatrick, Yahir Obregon MD Unavailable Unavailable Fitzpatrick, Yahir Obregon MD Unavailable Unavailable Fitzpatrick, Yahir Obregon MD Unavailable Unavailable Fitzpatrick, Yahir Obregon MD Unavailable Unavailable Fitzpatrick, Yahir Obregon MD Unavailable Unavailable Fitzpatrick, Yahir Obregon MD Unavailable Unavailable Fitzpatrick, Yahir Obregon MD Unavailable Unavailable Fitzpatrick, Yahir Obregon MD Unavailable Unavailable Fitzpatrick, Yahir Obregon MD Unavailable Unavailable Fitzpatrick, Yahir Obregon MD Unavailable Unavailable Fitzpatrick, Yahir Obregon MD Unavailable Unavailable Fitzpatrick, Yahir Obregon MD Unavailable Unavailable Fitzpatrick, Yahir Obregon MD Unavailable Unavailable Fitzpatrick, Yahir Obregon MD Unavailable Unavailable Fitzpatrick, Yahir Obregon MD Unavailable Unavailable Fitzpatrick, Yahir Obregon MD Unavailable Unavailable Fitzpatrick, Yahir Obregon MD Unavailable Unavailable Fitzpatrick, Yahir Obregon MD Unavailable Unavailable Fitzpatrick, Yahir Obregon MD Unavailable Unavailable Fitzpatrick, Yahir Obregon MD Unavailable Unavailable Fitzpatrick, Yahir Obregon MD Unavailable Unavailable Fitzpatrick, Yahir Obregon MD Unavailable Unavailable Fitzpatrick, Yahir Obregon MD Unavailable Unavailable Fitzpatrick, Yahir Obregon MD Unavailable Unavailable Fitzpatrick, Yahir Obregon MD Unavailable Unavailable Fitzpatrick, Yahir Obregon MD Unavailable Unavailable Fitzpatrick, Yahir Obregon MD Unavailable Unavailable Fitzpatrick, Yahir Obregon MD Unavailable Unavailable Fitzpatrick, Yahir Obregon MD Unavailable Unavailable Fitzpatrick, Yahir Obregon MD Unavailable Unavailable Fitzpatrick, Yahir Obregon MD Unavailable Unavailable Fitzpatrick, Yahir Obregon MD Unavailable Unavailable Fitzpatrick, Yahir Obregon MD Unavailable Unavailable Fitzpatrick, Yahir Obregon MD Unavailable Unavailable Diaz, M Barratt PA Unavailable Unavailable Diaz, M Barratt PA Unavailable Unavailable Diaz, M Barratt PA Unavailable Unavailable Diaz, M Barratt PA Unavailable Unavailable Diaz, M Barratt PA Unavailable Unavailable Diaz, M Barratt PA Unavailable Unavailable Diaz, M Barratt PA Unavailable Unavailable Diaz, M Barratt PA Unavailable Unavailable Diaz, M Barratt PA Unavailable Unavailable Diaz, M Barratt PA Unavailable Unavailable Diaz, M Barratt PA Unavailable Unavailable Diaz, M Barratt PA Unavailable Unavailable Diaz, M Barratt PA Unavailable Unavailable Diaz, M Barratt PA Unavailable Unavailable Diaz, M Barratt PA Unavailable Unavailable Diaz, M Barratt PA Unavailable Unavailable Diaz, M Barratt PA Unavailable Unavailable Diaz, M Barratt PA Unavailable Unavailable Diaz, M Barratt PA Unavailable Unavailable Diaz, M Barratt PA Unavailable Unavailable Diaz, M Barratt PA Unavailable Unavailable Diaz, M Barratt PA Unavailable Unavailable Diaz, M Barratt PA Unavailable Unavailable Diaz, M Barratt PA Unavailable Unavailable Diaz, M Barratt PA Unavailable Unavailable Diaz, M Barratt PA Unavailable Unavailable Diaz, M Barratt PA Unavailable Unavailable Diaz, M Barratt PA Unavailable Unavailable Diaz, M Barratt PA Unavailable Unavailable DRAZEK, I KHAI PA Unavailable Unavailable DRAZEK, I KHAI PA Unavailable Unavailable DRAZEK, I KHAI PA Unavailable Unavailable DRAZEK, I KHAI PA Unavailable Unavailable DRAZEK, I KHAI PA Unavailable Unavailable DRAZEK, I KHAI PA Unavailable Unavailable DRAZEK, I KHAI PA Unavailable Unavailable DRAZEK, I KHAI PA Unavailable Unavailable DRAZEK, I KHAI PA Unavailable Unavailable DRAZEK, I KHAI PA Unavailable Unavailable DRAZEK, I KHAI PA Unavailable Unavailable DRAZEK, I KHAI PA Unavailable Unavailable DRAZEK, I KHAI PA Unavailable Unavailable DRAZEK, I KHAI PA Unavailable Unavailable DRAZEK, I KHAI PA Unavailable Unavailable DRAZEK, I KHAI PA Unavailable Unavailable DRAZEK, I KHAI PA Unavailable Unavailable DRAZEK, I KHAI PA Unavailable Unavailable DRAZEK, I KHAI PA Unavailable Unavailable DRAZEK, I KHAI PA Unavailable Unavailable DRAZEK, I KHAI PA Unavailable Unavailable DRAZEK, I KHAI PA Unavailable Unavailable DRAZEK, I KHAI PA Unavailable Unavailable DRAZEK, I KHAI PA Unavailable Unavailable DRAZEK, I KHAI PA Unavailable Unavailable DRAZEK, I KHAI PA Unavailable Unavailable DRAZEK, I KHAI PA Unavailable Unavailable DRAZEK, I KHAI PA Unavailable Unavailable DRAZEK, I KHAI PA Unavailable Unavailable DRAZEK, I KHAI PA Unavailable Unavailable Blanche Santizo MD Unavailable Unavailable Blanche Santizo MD Unavailable Unavailable Blanche Santizo MD Unavailable Unavailable Blanche Santizo MD Unavailable Unavailable Blanche Santizo MD Unavailable Unavailable Blanche Santizo MD Unavailable Unavailable Blanche Santizo MD Unavailable Unavailable Blanche Santizo MD Unavailable Unavailable Blanche Santizo MD Unavailable Unavailable Blanche Santizo MD Unavailable Unavailable Blanche Santizo MD Unavailable Unavailable Blanche Santizo MD Unavailable Unavailable Blanche Santizo MD Unavailable Unavailable Blanche Santizo MD Unavailable Unavailable Blanche Santizo MD Unavailable Unavailable Blanche Santizo MD Unavailable Unavailable Blanche Santizo MD Unavailable Unavailable Blanche Santizo MD Unavailable Unavailable Blanche Santizo MD Unavailable Unavailable Blanche Santizo MD Unavailable Unavailable Blanche Santizo MD Unavailable Unavailable Blanche Santizo MD Unavailable Unavailable Blanche Santizo MD Unavailable Unavailable Blanche Santizo MD Unavailable Unavailable Blanche Santizo MD Unavailable Unavailable VanBlanche quintero MD Unavailable Unavailable VaneenngaamBlanche MD Unavailable Unavailable VaneenngaamBlanche MD Unavailable Unavailable VaneenenaamBlanche MD Unavailable Unavailable VaneenngaamBlanche MD Unavailable Unavailable VaneenngaamBlanche MD Unavailable Unavailable VaneenngaamBlanche MD Unavailable Unavailable VanBlanche quintero MD Unavailable Unavailable VaneenngaamBlanche MD Unavailable Unavailable VaneenngaamBlanche MD Unavailable Unavailable VaneenngaamBlanche MD Unavailable Unavailable VaneenngaamBlanche MD Unavailable Unavailable VaneenngaamBlanche MD Unavailable Unavailable Blanche Santizo MD Unavailable Unavailable VanBlanche quintero MD Unavailable Unavailable VanBlanche quintero MD Unavailable Unavailable VanBlanche quintero MD Unavailable Unavailable Blanche Santizo MD Unavailable Unavailable Blanche Santizo MD Unavailable Unavailable Blanche Santizo MD Unavailable Unavailable Man RÍOS MD Unavailable Unavailable Man RÍOS MD Unavailable Unavailable Man RÍOS MD Unavailable Unavailable Man RÍOS MD Unavailable Unavailable Man RÍOS MD Unavailable Unavailable Man RÍOS MD Unavailable Unavailable Man RÍOS MD Unavailable Unavailable Man RÍOS MD Unavailable Unavailable Man RÍOS MD Unavailable Unavailable Man RÍOS MD Unavailable Unavailable Man RÍSO MD Unavailable Unavailable Man RÍOS MD Unavailable Unavailable Man RÍOS MD Unavailable Unavailable Man RÍOS MD Unavailable Unavailable Man RÍOS MD Unavailable Unavailable Man RÍOS MD Unavailable Unavailable Man RÍOS MD Unavailable Unavailable Man RÍOS MD Unavailable Unavailable Man RÍOS MD Unavailable Unavailable Man RÍOS MD Unavailable Unavailable Man RÍOS MD Unavailable Unavailable Man RÍOS MD Unavailable Unavailable Man RÍOS MD Unavailable Unavailable Man RÍOS MD Unavailable Unavailable Man RÍOS MD Unavailable Unavailable Man RÍOS MD Unavailable Unavailable Man RÍOS MD Unavailable Unavailable Man RÍOS MD Unavailable Unavailable Man RÍOS MD Unavailable Unavailable Man RÍOS MD Unavailable Unavailable Man RÍOS MD Unavailable Unavailable Man RÍOS MD Unavailable Unavailable aMn RÍOS MD Unavailable Unavailable Man RÍOS MD Unavailable Unavailable Man RÍOS MD Unavailable Unavailable Man RÍOS MD Unavailable Unavailable Man RÍOS MD Unavailable Unavailable Man RÍOS MD Unavailable Unavailable Man RÍOS MD Unavailable Unavailable Man RÍOS MD Unavailable Unavailable Man RÍOS MD Unavailable Unavailable Man RÍOS MD Unavailable Unavailable Man RÍOS MD Unavailable Unavailable Man RÍOS MD Unavailable Unavailable Man RÍOS MD Unavailable Unavailable Man RÍOS MD Unavailable Unavailable Man RÍOS MD Unavailable Unavailable Man RÍOS MD Unavailable Unavailable Man RÍOS MD Unavailable Unavailable Man RÍOS MD Unavailable Unavailable Man RÍOS MD Unavailable Unavailable Man RÍOS MD Unavailable Unavailable Man RÍOS MD Unavailable Unavailable Man RÍOS MD Unavailable Unavailable Man RÍOS MD Unavailable Unavailable Man RÍOS MD Unavailable Unavailable Man RÍOS MD Unavailable Unavailable Man RÍOS MD Unavailable Unavailable Man RÍOS MD Unavailable Unavailable Man RÍOS MD Unavailable Unavailable Man RÍOS MD Unavailable Unavailable Man RÍOS MD Unavailable Unavailable Man RÍOS MD Unavailable Unavailable Man RÍOS MD Unavailable Unavailable Man RÍOS MD Unavailable Unavailable Man RÍOS MD Unavailable Unavailable Man RÍOS MD Unavailable Unavailable Man RÍOS MD Unavailable Unavailable Man RÍOS MD Unavailable Unavailable Man RÍOS MD Unavailable Unavailable Man RÍOS MD Unavailable Unavailable Man RÍOS MD Unavailable Unavailable Man RÍOS MD Unavailable Unavailable Man RÍOS MD Unavailable Unavailable Man RÍOS MD Unavailable Unavailable Man RÍOS MD Unavailable Unavailable Man RÍOS MD Unavailable Unavailable Man RÍOS MD Unavailable Unavailable Man RÍOS MD Unavailable Unavailable Man RÍOS MD Unavailable Unavailable Man RÍOS MD Unavailable Unavailable Man RÍOS MD Unavailable Unavailable NON, PHYSICIAN STAFF Unavailable Unavailable Odette Epperson MD Unavailable Unavailable Odette Epperson MD Unavailable Unavailable Albert Eppersontech Unavailable Unavailable Odette Epperson MD Unavailable Unavailable Albert Eppersontech Unavailable Unavailable Odette Epperson MD Unavailable Unavailable Odette Epperson MD Unavailable Unavailable Odette Epperson MD Unavailable Unavailable Odette Epperson MD Unavailable Unavailable Odette Epperson MD Unavailable Unavailable Odette Epperson MD Unavailable Unavailable Odette Epperson MD Unavailable Unavailable Odette Epperson MD Unavailable Unavailable Odette Epperson MD Unavailable Unavailable Odette Epperson MD Unavailable Unavailable Odette Epperson MD Unavailable Unavailable Odette Epperson MD Unavailable Unavailable Odette Epperson MD Unavailable Unavailable Odette Epperson MD Unavailable Unavailable Odette Epperson MD Unavailable Unavailable Odette Epperson MD Unavailable Unavailable Odette Epperson MD Unavailable Unavailable Odette Epperson MD Unavailable Unavailable Odette Epperson MD Unavailable Unavailable Odette Epperson MD Unavailable Unavailable Odette Epperson MD Unavailable Unavailable Odette Epperson MD Unavailable Unavailable Odette Epperson MD Unavailable Unavailable Odette Epperson MD Unavailable Unavailable Odette Epperson MD Unavailable Unavailable Odette Epperson MD Unavailable Unavailable Odette Epperson MD Unavailable Unavailable Odette Epperson MD Unavailable Unavailable Odette Epperson MD Unavailable Unavailable Odette Epperson MD Unavailable Unavailable Odette Epperson MD Unavailable Unavailable Odette Epperson MD Unavailable Unavailable Odette Epperson MD Unavailable Unavailable Odette Epperson MD Unavailable Unavailable Odette Epperson MD Unavailable Unavailable Odette Epperson MD Unavailable Unavailable Odette Epperson MD Unavailable Unavailable Odette Epperson MD Unavailable Unavailable Odette Epperson MD Unavailable Unavailable Odette Epperson MD Unavailable Unavailable Odette Epperson MD Unavailable Unavailable Odette Epperson MD Unavailable Unavailable Odette Epperson MD Unavailable Unavailable Odette Epperson MD Unavailable Unavailable Odette Epperson MD Unavailable Unavailable Odette Epperson MD Unavailable Unavailable Odette Epperson MD Unavailable Unavailable Odette Epperson MD Unavailable Unavailable Odette Epperson MD Unavailable Unavailable Odette Epperson MD Unavailable Unavailable Odette Epperson MD Unavailable Unavailable Odette Epperson MD Unavailable Unavailable Odette Epperson MD Unavailable Unavailable TAPAN, M POLY PA Unavailable Unavailable TAPAN, M POLY PA Unavailable Unavailable TAPAN, M POLY PA Unavailable Unavailable TAPAN, M POLY PA Unavailable Unavailable TAPAN, M POLY PA Unavailable Unavailable TAPAN, M POLY PA Unavailable Unavailable TAPAN, M POLY PA Unavailable Unavailable TAPAN, M POLY PA Unavailable Unavailable TAPAN, M POLY PA Unavailable Unavailable TAPAN, M POLY PA Unavailable Unavailable TAPAN, M POLY PA Unavailable Unavailable TAPAN, M POLY PA Unavailable Unavailable TAPAN, M POLY PA Unavailable Unavailable TAPAN, M POLY PA Unavailable Unavailable TAPAN, M POLY PA Unavailable Unavailable TAPAN, M POLY PA Unavailable Unavailable TAPAN, M POLY PA Unavailable Unavailable TAPAN, M POLY PA Unavailable Unavailable TAPAN, M POLY PA Unavailable Unavailable TAPAN, M POLY PA Unavailable Unavailable TAPAN, M POLY PA Unavailable Unavailable TAPAN, M POLY PA Unavailable Unavailable TAPAN, M POLY PA Unavailable Unavailable TAPAN, M POLY PA Unavailable Unavailable Re-disclosure Warning The records that you are about to access may contain information from federally-assisted alcohol or drug abuse programs. If such information is present, then the following federally mandated warning applies: This information has been disclosed to you from records protected by federal confidentiality rules (42 CFR part 2). The federal rules prohibit you from making any further disclosure of this information unless further disclosure is expressly permitted by the written consent of the person to whom it pertains or as otherwise permitted by 42 CFR part 2. A general authorization for the release of medical or other information is NOT sufficient for this purpose. The Federal rules restrict any use of the information to criminally investigate or prosecute any alcohol or drug abuse patient.The records that you are about to access may contain highly sensitive health information, the redisclosure of which is protected by Article 27-F of the [place] State Public Health law. If you continue you may have access to information: Regarding HIV / AIDS; Provided by facilities licensed or operated by the [facility] Office of Mental Health; or Provided by the [facility] Office for People With Developmental Disabilities. If such information is present, then the following [facility] mandated warning applies: This information has been disclosed to you from confidential records which are protected by state law. State law prohibits you from making any further disclosure of this information without the specific written consent of the person to whom it pertains, or as otherwise permitted by law. Any unauthorized further disclosure in violation of state law may result in a fine or senior living sentence or both. A general authorization for the release of medical or other information is NOT sufficient authorization for further disc losure. Allergies and Adverse Reactions Type Description Substance Reaction Status Data Source(s ) No Known Drug Allergies No Known Drug Allergies <OTHER> [facility] No Known Environmental Allergies No Known Environmental Al lergies [facility] No Known Food Allergies No Known Food Allergies [facility] Encounters Encounter Providers Location Date Indications Data Source(s ) Outpatient [address] [facility] [id number] 03/03/2021 12:00:00 AM EDT eCW1 ([facility], [facility]) Unknown [address] [facility] [id number] 03/01/2021 12:00:00 AM EDT eCW1 ([facility]) Unknown [address] [facility] [place] [address] 02/21/2021 12:00:00 AM EDT eCW1 ([facility]) Unknown [address] [facility] [place] [address] 02/18/2021 12:00:00 AM EDT eCW1 ([facility]) Outpatient [address] [facility] [place] [address] 02/14/2021 12:00:00 AM EDT eCW1 ([facility]) Unknown [address] [facility] [place] [address] 02/11/2021 12:00:00 AM EDT eCW1 ([facility]) Outpatient [address] [facility] [place] [address] 02/03/2021 12:00:00 AM EDT eCW1 ([facility]) Office Visit Attender: Blanche Santizo MD Physical Therap y 01/26/2021 08:15:00 AM EDT MEDENT ([facility]) Office Visit Attender: Blanche Santizo MD Physical Therap y 12/20/2020 08:00:00 AM EDT MED[facility] ([facility]) [place] [address] [address] 12/20/2020 12:00:00 AM EDT eCW1 ([facility]) Office Visit Attender: KHAI ANDREWS Physical Therapy 2020 11:30:00 AM EDT MEDENT ([facility]) Outpatient Attender: Blanche Santizo MDConsultant: STAF F NON 11/11/2020 06:15:00 AM EDT - 11/11/2020 01:45:00 PM EDT [facility] Patient discharged. Outpatient Attender: Blanche Santizo MDConsultant: STAF F NON 11/10/2020 07:15:00 AM EDT - 11/10/2020 08:10:00 AM EDT [facility] Patient discharged. [place] [address] [place] [address] 11/03/2020 12:00:00 AM EDT eCW1 ([facility]) [place] [address] [place] [address] 11/02/2020 12:00:00 AM EDT eCW1 ([facility]) [place] [address] [place] [place] [address] 11/02/2020 12:00:00 AM EDT eCW1 ([facility]) [place] [address] [place] [address] 10/27/2020 12:00:00 AM EDT eCW1 ([facility]) [place] [address] [place] [place] [address] 10/14/2020 12:00:00 AM EDT eCW1 ([facility]) [place] [address] [address] 10/13/2020 12:00:00 AM EDT eCW1 ([facility]) [place] [address] [place] [address] 10/12/2020 12:00:00 AM EDT eCW1 ([facility]) Outpatient Attender: Blanche Santizo MD Physical Therap y 10/11/2020 08:45:00 AM EDT MEDENT ([facility]) [place] [address] [place] [place] [address] 10/04/2020 12:00:00 AM EDT eCW1 ([facility]) [place] [address] [place] [place] [address] 09/15/2020 12:00:00 AM EDT eCW1 ([facility]) [place] [address] [place] [address] 09/14/2020 12:00:00 AM EDT eCW1 ([facility]) [place] [address] [place] [address] 09/14/2020 12:00:00 AM EDT eCW1 ([facility]) [place] [address] [place] [place] [address] 09/13/2020 12:00:00 AM EDT eCW1 ([facility]) Outpatient Attender: POLY ANDREWS Physical Therapy 07/27 11:00:00 AM EDT MEDENT ([facility]) [place] [address] [place] [place] [address] 08/19/2020 12:00:00 AM EDT eCW1 ([facility]) Unknown [address] [place] [place] [address] 08/18/2020 12:00:00 AM EDT eCW1 ([facility]) Outpatient Referrer: Odette Epperson MD SJP.SARAH-SJP.SARAH 07/2020 12:00:00 AM EST - 07/28/2020 11:39:27 AM EST [facility] Unknown [address] [place] [place] [address] 07/07/2020 12:00:00 AM EST eCW1 ([facility]) Outpatient Referrer: Odette GOMEZ.SARAH-SJP.SARAH 07/2020 12:00:00 AM EST - 06/30/2020 10:35:36 AM EST [facility] Outpatient Attender: Odette TAYSARAH-SJP.SARAH 07/2020 12:00:00 AM EST - 06/30/2020 09:48:51 AM EST [facility] Unknown [address] [place] [place] [address] 06/29/2020 12:00:00 AM EST eCW1 ([facility]) [place] [address] [place] [place] [address] 06/28/2020 12:00:00 AM EST eCW1 ([facility]) [place] [address] [place] [address] 06/28/2020 12:00:00 AM EST eCW1 ([facility]) [place] [address] [facility] [place] [address] 06/24/2020 12:00:00 AM EST eCW1 ([facility]) [place] [address] [facility] [place] [address] 06/21/2020 12:00:00 AM EST eCW1 ([facility]) [place] [address] [place] [address] 06/21/2020 12:00:00 AM EST eCW1 ([facility]) Outpatient Attender: Blanche Santizo MD Physical Therap y 06/09/2020 08:00:00 AM EST [facility] ([facility]) Outpatient Attender: POLY ANDREWS Physical Therapy 08/2020 02:00:00 PM EST [facility] ([facility]) [place] [address] [place] [place] [address] 05/13/2020 12:00:00 AM EST eCW1 ([facility]) Outpatient Attender: Sabas Fitzpatrick MD Physical Therapy 04/30/2020 1 1:15:00 AM EST [facility] ([facility]) Office Visit Attender: Sabas Fitzpatrick MD Physical Therapy 2019 01:45:00 PM EDT [facility] ([facility]) [place] [address] [place] [address] 03/05/2020 12:00:00 AM EDT eCW1 ([facility]) Recurring Patient Referrer: Sonia Franmolly CASAC 03/02/2020 08:12:58 AM EDT [facility] Recurring Patient Attender: MANUEL RÍOS MDReferrer: Nikkie CRESPOP 03/02/2020 08:11:29 AM EDT [facility] Outpatient Attender: Sabas Fitzpatrick MD Physical Therapy 03/01/2020 0 3:00:00 PM EDT MED[facility] ([facility]) Outpatient Attender: Sabas Fitzpatrick MD Physical Therapy 02/17/2020 0 8:45:00 AM EDT MED[facility] ([facility]) OFFICE OUTPATIENT NEW 30 MINUTES Attender: Rahul Arizmendi Physical Therapy 02/10/2020 09:30:00 AM EDT [facility] ([facility]) [facility] [address] [place] [address] 02/05/2020 12:00:00 AM EDT eCW1 ([facility]) Outpatient Attender: Sabas Fitzpatrick MD Physical Therapy 02/04/2020 0 8:30:00 AM EDT [facility] ([facility]) OFFICE OUTPATIENT VISIT 15 MINUTES Attender: Bobby ANDREWS Physical Therapy 01/30/2020 03:30:00 PM EDT [facility] ([facility]) Immunizations Vaccine Date Status Description Data Source(s) COVID-19 VACCINE [facility] 08/25/2020 12:00:00 AM EDT completed [employer] Vaccine Series Complete: YESThis Data wa s Submitted to [facility] Via [employer]. Medications Medication Brand Name Start Date Product Form Dose Route Admi nistrative Instructions Pharmacy Instructions Status Indications Reaction Description Data Source(s) 250 mg 02/21/2021 12:00:00 AM EDT tablet 6 TAKE ONE TABLET BY MOUTH TWO TIMES A DAY AT 6AM AND 6PM FOR 3 DAYS TAKE ONE TABLET BY MOUTH TWO TIMES A DAY AT 6AM AND 6PM FOR 3 DAYS SOLD: 02/21/2021 [facility] 15 mg 02/21/2021 12:00:00 AM EDT tablet 30 TAKE ONE TABLET BY MOUTH EVERY 4 HOURS NEEDED FOR PAIN LEVEL (8-10) MAXIMUM DAILY DOSE = 6 TAKE ONE TABLET BY MOUTH EVERY 4 HOURS NEEDED FOR PAIN LEVEL (8-10) MAXIMUM DAILY DOSE = 6 SOLD: 02/22/2021 [facility] 5-325 mg 02/18/2021 12:00:00 AM EDT tablet 12 TAKE ONE TABLET BY MOUTH NEEDED EVERY 6 HOURS, MAXIMUM DAILY DOSE = 4 TAKE ONE TABLET BY MOUTH NEEDED EVERY 6 HOURS, MAXIMUM DAILY DOSE = 4 SOLD: 02/20/2021 [facility] Acetaminophen 325 MG / Oxycodone Hydroch loride 5 MG Oral Tablet [Percocet] Percocet 5-325 MG Percocet 5-325 MG 02/18/2021 12:00:00 AM EDT 1 .0 {tablet_as_needed} active Percocet 5-32 5 MG eCW1 ([facility]) Acetaminophen 325 MG / Oxycodone Hydroch loride 5 MG Oral Tablet [Percocet] Percocet 5-325 MG Percocet 5-325 MG 02/18/2021 12:00:00 AM EDT 1 .0 {tablet_as_needed} active Percocet 5-32 5 MG eCW1 ([facility]) Acetaminophen 325 MG / Oxycodone Hydroch loride 5 MG Oral Tablet [Percocet] Percocet 5-325 MG Percocet 5-325 MG 02/18/2021 12:00:00 AM EDT 1 .0 {tablet_as_needed} active Percocet 5-32 5 MG eCW1 ([facility]) Acetaminophen 325 MG / Oxycodone Hydroch loride 5 MG Oral Tablet [Percocet] Percocet 5-325 MG Percocet 5-325 MG 02/18/2021 12:00:00 AM EDT 1 .0 {tablet_as_needed} active Percocet 5-32 5 MG eCW1 ([facility]) 2 % 02/11/2021 12:00:00 AM EDT jelly 30 APPLY TOPICALLY EVERY 6 HOURS NEEDED FOR PAIN AT [facility] SITE APPLY TOPICALLY EVERY 6 HOURS NEEDED FOR PAIN AT GARC[facility] SITE SOLD: 02/11/2021 [facility] Senna Plus 50-8.6 MG Senna Plus 50-8.6 MG 02/10/2021 12:00:00 AM EDT active Senna Plus 50-8.6 MG eCW1 ([facility]) POLYETHYLENE GLYCOL 3350 142 MG/ML Oral Solution [Shahla lax] MiraLax 17 GM MiraLax 17 GM 02/10/2021 12:00:00 AM EDT 1.0 {packet_mixed_with_8_ou nces_of_fluid} active MiraLax 17 GM eCW1 ([facility]) POLYETHYLENE GLYCOL 3350 142 MG/ML Oral Solution [Shahla lax] MiraLax 17 GM MiraLax 17 GM 02/10/2021 12:00:00 AM EDT 1.0 {packet_mixed_with_8_ou nces_of_fluid} active MiraLax 17 GM eCW1 ([facility]) Morphine Sulfate 15 MG Extended Release Oral Tablet Mo rphine Sulfate ER 15 MG Morphine Sulfate ER 15 MG 02/10/2021 12:00:00 AM EDT 1.0 {tablet} active Morphine Sulfate ER 15 MG eCW1 ( [facility]) Lidocaine HCl 2 % UNK 02/10/2021 12:00:00 AM EDT 1. 0 {application_as_needed} active Lidocaine HCl 2 % eC W1 ([facility]) Lidocaine HCl 2 % UNK 02/10/2021 12:00:00 AM EDT 1. 0 {application_as_needed} active Lidocaine HCl 2 % eC W1 ([facility]) Lidocaine HCl 2 % UNK 02/10/2021 12:00:00 AM EDT 1. 0 {application_as_needed} active Lidocaine HCl 2 % eC W1 ([facility]) Lidocaine HCl 2 % UNK 02/10/2021 12:00:00 AM EDT 1. 0 {application_as_needed} active Lidocaine HCl 2 % eC W1 ([facility]) Lidocaine HCl 2 % UNK 02/10/2021 12:00:00 AM EDT 1. 0 {application_as_needed} active Lidocaine HCl 2 % eC W1 ([facility]) Morphine Sulfate 15 MG Extended Release Oral Tablet Mo rphine Sulfate ER 15 MG Morphine Sulfate ER 15 MG 02/10/2021 12:00:00 AM EDT 1.0 {tablet} active Morphine Sulfate ER 15 MG eCW1 ( [facility]) Senna Plus 50-8.6 MG Senna Plus 50-8.6 MG 02/10/2021 12:00:00 AM EDT active Senna Plus 50-8.6 MG eCW1 ([facility]) Morphine Sulfate 15 MG Extended Release Oral Tablet Mo rphine Sulfate ER 15 MG Morphine Sulfate ER 15 MG 02/10/2021 12:00:00 AM EDT 1.0 {tablet} active Morphine Sulfate ER 15 MG eCW1 ( [facility]) 15 mg 02/10/2021 12:00:00 AM EDT tablet 24 TAKE ONE TABLET BY MOUTH EVERY 4 HOURS NEEDED FOR SEVERE PAIN (PS 8-10) MAXIMUM DAILY DOSE = 6 TAKE ONE TABLET BY MOUTH EVERY 4 HOURS NEEDED FOR SEVERE PAIN (PS 8-10) MAXIMUM DAILY DOSE = 6 SOLD: 02/10/2021 [facility] Senna Plus 50-8.6 MG Senna Plus 50-8.6 MG 02/10/2021 12:00:00 AM EDT active Senna Plus 50-8.6 MG eCW1 ([facility]) Morphine Sulfate 30 MG Extended Release Oral Tablet Mo rphine Sulfate ER 30 MG Morphine Sulfate ER 30 MG 02/10/2021 12:00:00 AM EDT active Morphine Sulfate ER 30 MG eCW1 ([facility]) Lidocaine HCl 2 % UNK 02/10/2021 12:00:00 AM EDT 1. 0 {application_as_needed} active Lidocaine HCl 2 % eC W1 ([facility]) POLYETHYLENE GLYCOL 3350 142 MG/ML Oral Solution [Shahla lax] MiraLax 17 GM MiraLax 17 GM 02/10/2021 12:00:00 AM EDT 1.0 {packet_mixed_with_8_ou nces_of_fluid} active MiraLax 17 GM eCW1 ([facility]) 15 mg 02/10/2021 12:00:00 AM EDT tablet extended release 14 TAKE ONE TABLET BY MOUTH TWO TIMES A DAY MAXIMUM DAILY DOSE = 2 TAKE ONE TABLET BY MOUTH TWO TIMES A DAY MAXIMUM DAILY DOSE = 2 SOLD: 02/10/2021 [facility] Amoxicillin 875 MG / Clavulanate 125 MG Oral Tablet Amoxicillin-Pot Clavulanate 875-125 MG Amoxicillin-Pot Clavulanate 875-125 MG 02/03/2021 12:00:00 AM ED T 1.0 {tablet} active Amoxicillin-Pot Cla vulanate 875-125 MG eCW1 ([facility]) Amoxicillin 875 MG / Clavulanate 125 MG Oral Tablet 87 5-125 mg AMOXICILLIN/POTASSIUM CLAV 02/03/2021 12:00:00 AM EDT tablet 20 TAKE ONE TABLET BY MOUTH EVERY 12 HOURS FOR 10 DAYS TAKE ONE TABLET BY MOUTH EVERY 12 HOURS FOR 10 DAYS SOLD: 02/03/2021 [facility] 10 mg 01/28/2021 12:00:00 AM EDT tablet 20 TAKE ONE TABLET BY MOUTH EVERY 6 HOURS NEEDED FOR PAIN TAKE ONE TABLET BY MOUTH EVERY 6 HOURS A S NEEDED FOR PAIN SOLD: 01/28/2021 [facility] Acetaminophen 325 MG / Hydrocodone Bitartrate 5 MG Ora l Tablet 5-325 mg HYDROCODONE/ACETAMINOPHEN 12/20/2020 12:00:00 AM EDT tablet 20 TAKE ONE TABLET EVERY 4 TO 6 HOURS NEEDED FOR PAIN MAXIMUM DAILY DOSE = 6 TABLETS TAKE ONE TABLET EVERY 4 TO 6 HOURS NEEDED FOR PAIN MAXIMUM DAILY DOSE = 6 TABLETS SOLD: 12/21/2020 [facility] Acetaminophen 325 MG / Hydrocodone Bitartrate 5 MG Ora l Tablet 5-325 mg HYDROCODONE/ACETAMINOPHEN 11/11/2020 12:00:00 AM EDT tablet 20 TAKE ONE TABLET BY MOUTH EVERY 4 TO 6 HOURS NEEDED FOR POST OP PAIN, MAXIMUM DAILY DOSE = SIX TABLETS TAKE ONE TABLET BY MOUTH EVERY 4 TO 6 HO URS NEEDED FOR POST OP PAIN, MAXIMUM DAILY DOSE = SIX TABLETS SOLD: 11/11/2020 [facility] 0.4 mg 11/04/2020 12:00:00 AM EDT capsule 180 TAKE 2 CAPSULES BY MOUTH BEFORE BEDTIME TAKE 2 CAPSULES BY MOUTH BEFORE BEDTIME SOLD: 01/22/2021 [facility] 0.4 mg 11/04/2020 12:00:00 AM EDT capsule 180 TAKE 2 CAPSULES BY MOUTH BEFORE BEDTIME TAKE 2 CAPSULES BY MOUTH BEFORE BEDTIME SOLD: 11/05/2020 [facility] Finasteride 5 MG Oral Tablet FINASTERIDE 11/04/2020 12:00:00 AM EDT ta blet 90 TAKE ONE TABLET BY MOUTH EVERY DAY TAKE ONE TABLET BY MOUTH EVERY DAY SOLD: 11/11/2020 [facility] Azelastine hydrochloride 0.206 MG/ACTUAT Metered Dose Nasal [place] 205.5 mcg (0.15 %) AZELASTINE HCL 11/03/2020 12:00:00 AM EDT spray,non-aerosol 30 SPRAY TWO SPRAYS IN EACH NOSTRIL TWICE A DAY SPRAY TWO SPRAYS IN EACH NOSTRIL TWICE A DAY SOLD: 11/04/2020 [facility] 50 mcg/actuation 11/03/2020 12:00:00 AM EDT spray,suspension 16 SPRAY TWO SPRAYS IN EACH NOSTRIL EVERY DAY NEEDED SPRAY TWO SPRAYS IN EACH NOSTRIL EVERY DAY NEEDED SOLD: 11/04/2020 [facility] Acetaminophen 325 MG / Hydrocodone Bitartrate 5 MG Ora l Tablet Hydrocodone-Acetaminophen 10/22/2020 12:00:00 AM EDT active MEDENT ([facility]) Finasteride 5 MG Oral Tablet Finasteride 5 MG 10/04/2020 12:00:00 A M EDT 1.0 {tablet} active Finasteride 5 MG eCW1 ( [facility]) Tamsulosin hydrochloride 0.4 MG Oral Capsule Tamsulosi n HCl 0.4 MG Tamsulosin HCl 0.4 MG 10/04/2020 12:00:00 AM EDT 2.0 {capsule} active Tamsulosin HCl 0.4 MG eCW1 ([facility]) Finasteride 5 MG Oral Tablet Finasteride 5 MG 10/04/2020 12:00:00 A M EDT 1.0 {tablet} active Finasteride 5 MG eCW1 ( [facility]) Tamsulosin hydrochloride 0.4 MG Oral Capsule Tamsulosi n HCl 0.4 MG Tamsulosin HCl 0.4 MG 10/04/2020 12:00:00 AM EDT 2.0 {capsule} active Tamsulosin HCl 0.4 MG eCW1 ([facility]) Tamsulosin hydrochloride 0.4 MG Oral Capsule Tamsulosi n HCl 0.4 MG Tamsulosin HCl 0.4 MG 10/04/2020 12:00:00 AM EDT 2.0 {capsule} active Tamsulosin HCl 0.4 MG eCW1 ([facility]) Finasteride 5 MG Oral Tablet Finasteride 5 MG 10/04/2020 12:00:00 A M EDT 1.0 {tablet} active Finasteride 5 MG eCW1 ( [facility]) Finasteride 5 MG Oral Tablet Finasteride 5 MG 10/04/2020 12:00:00 A M EDT 1.0 {tablet} active Finasteride 5 MG eCW1 ( [facility]) Finasteride 5 MG Oral Tablet Finasteride 5 MG 10/04/2020 12:00:00 A M EDT 1.0 {tablet} active Finasteride 5 MG eCW1 ( [facility]) Tamsulosin hydrochloride 0.4 MG Oral Capsule Tamsulosi n HCl 0.4 MG Tamsulosin HCl 0.4 MG 10/04/2020 12:00:00 AM EDT 2.0 {capsule} active Tamsulosin HCl 0.4 MG eCW1 ([facility]) Finasteride 5 MG Oral Tablet Finasteride 5 MG 10/04/2020 12:00:00 A M EDT 1.0 {tablet} active Finasteride 5 MG eCW1 ( [facility]) Tamsulosin hydrochloride 0.4 MG Oral Capsule Tamsulosi n HCl 0.4 MG Tamsulosin HCl 0.4 MG 10/04/2020 12:00:00 AM EDT 2.0 {capsule} active Tamsulosin HCl 0.4 MG eCW1 ([facility]) Tamsulosin hydrochloride 0.4 MG Oral Capsule Tamsulosi n HCl 0.4 MG Tamsulosin HCl 0.4 MG 10/04/2020 12:00:00 AM EDT 2.0 {capsule} active Tamsulosin HCl 0.4 MG eCW1 ([facility]) Finasteride 5 MG Oral Tablet Finasteride 5 MG 10/04/2020 12:00:00 A M EDT 1.0 {tablet} active Finasteride 5 MG eCW1 ( [facility]) Finasteride 5 MG Oral Tablet Finasteride 5 MG 10/04/2020 12:00:00 A M EDT 1.0 {tablet} active Finasteride 5 MG eCW1 ( [facility]) Finasteride 5 MG Oral Tablet Finasteride 5 MG 10/04/2020 12:00:00 A M EDT 1.0 {tablet} active Finasteride 5 MG eCW1 ( [facility]) Tamsulosin hydrochloride 0.4 MG Oral Capsule Tamsulosi n HCl 0.4 MG Tamsulosin HCl 0.4 MG 10/04/2020 12:00:00 AM EDT 2.0 {capsule} active Tamsulosin HCl 0.4 MG eCW1 ([facility]) Tamsulosin hydrochloride 0.4 MG Oral Capsule Tamsulosi n HCl 0.4 MG Tamsulosin HCl 0.4 MG 10/04/2020 12:00:00 AM EDT 2.0 {capsule} active Tamsulosin HCl 0.4 MG eCW1 ([facility]) Finasteride 5 MG Oral Tablet Finasteride 5 MG 10/04/2020 12:00:00 A M EDT 1.0 {tablet} active Finasteride 5 MG eCW1 ( [facility]) Finasteride 5 MG Oral Tablet Finasteride 5 MG 10/04/2020 12:00:00 A M EDT 1.0 {tablet} active Finasteride 5 MG eCW1 ( [facility]) Finasteride 5 MG Oral Tablet Finasteride 5 MG 10/04/2020 12:00:00 A M EDT 1.0 {tablet} active Finasteride 5 MG eCW1 ( [facility]) 0.4 mg 10/04/2020 12:00:00 AM EDT capsule 60 TAKE TWO CAPSULES BY MOUTH AT BEDTIME TAKE TWO CAPSULES BY MOUTH AT BEDTIME SOLD: 10/04/2020 [facility] Tamsulosin hydrochloride 0.4 MG Oral Capsule Tamsulosi n HCl 0.4 MG Tamsulosin HCl 0.4 MG 10/04/2020 12:00:00 AM EDT 2.0 {capsule} active Tamsulosin HCl 0.4 MG eCW1 ([facility]) Tamsulosin hydrochloride 0.4 MG Oral Capsule Tamsulosi n HCl 0.4 MG Tamsulosin HCl 0.4 MG 10/04/2020 12:00:00 AM EDT 2.0 {capsule} active Tamsulosin HCl 0.4 MG eCW1 ([facility]) Finasteride 5 MG Oral Tablet FINASTERIDE 10/04/2020 12:00:00 AM EDT ta blet 30 TAKE ONE TABLET BY MOUTH EVERY DAY TAKE ONE TABLET BY MOUTH EVERY DAY SOLD: 10/04/2020 [facility] Tamsulosin hydrochloride 0.4 MG Oral Capsule Tamsulosi n HCl 0.4 MG Tamsulosin HCl 0.4 MG 10/04/2020 12:00:00 AM EDT 2.0 {capsule} active Tamsulosin HCl 0.4 MG eCW1 ([facility]) Tamsulosin hydrochloride 0.4 MG Oral Capsule Tamsulosi n HCl 0.4 MG Tamsulosin HCl 0.4 MG 10/04/2020 12:00:00 AM EDT 2.0 {capsule} active Tamsulosin HCl 0.4 MG eCW1 ([facility]) Tamsulosin hydrochloride 0.4 MG Oral Capsule Tamsulosi n HCl 0.4 MG Tamsulosin HCl 0.4 MG 10/04/2020 12:00:00 AM EDT 2.0 {capsule} active Tamsulosin HCl 0.4 MG eCW1 ([facility]) Finasteride 5 MG Oral Tablet Finasteride 5 MG 10/04/2020 12:00:00 A M EDT 1.0 {tablet} active Finasteride 5 MG eCW1 ( [facility]) Tamsulosin hydrochloride 0.4 MG Oral Capsule Tamsulosi n HCl 0.4 MG Tamsulosin HCl 0.4 MG 10/04/2020 12:00:00 AM EDT 2.0 {capsule} active Tamsulosin HCl 0.4 MG eCW1 ([facility]) Finasteride 5 MG Oral Tablet Finasteride 5 MG 10/04/2020 12:00:00 A M EDT 1.0 {tablet} active Finasteride 5 MG eCW1 ( [facility]) Finasteride 5 MG Oral Tablet Finasteride 5 MG 10/04/2020 12:00:00 A M EDT 1.0 {tablet} active Finasteride 5 MG eCW1 ( [facility]) Finasteride 5 MG Oral Tablet Finasteride 5 MG 10/04/2020 12:00:00 A M EDT 1.0 {tablet} active Finasteride 5 MG eCW1 ( [facility]) Tamsulosin hydrochloride 0.4 MG Oral Capsule Tamsulosi n HCl 0.4 MG Tamsulosin HCl 0.4 MG 10/04/2020 12:00:00 AM EDT 2.0 {capsule} active Tamsulosin HCl 0.4 MG eCW1 ([facility]) Tamsulosin hydrochloride 0.4 MG Oral Capsule Tamsulosi n HCl 0.4 MG Tamsulosin HCl 0.4 MG 10/04/2020 12:00:00 AM EDT 2.0 {capsule} active Tamsulosin HCl 0.4 MG eCW1 ([facility]) 0.4 mg 07/07/2020 12:00:00 AM EST capsule 90 TAKE ONE CAPSULE BY MOUTH EVERY DAY TAKE ONE CAPSULE BY MOUTH EVERY DAY SOLD: 07/08/2020 [facility] 75 mg 06/30/2020 12:00:00 AM EST tablet 30 TAKE ONE TABLET BY MOUTH EVERY DAY TAKE ONE TABLET BY MOUTH EVERY DAY SOLD: 06/30/2020 [facility] atorvastatin 40 MG Oral Tablet ATORVASTATIN CALCIUM 06/30/2020 1 2:00:00 AM EST tablet 30 TAKE ONE TABLET BY MOUTH EVERY D AY TAKE ONE TABLET BY MOUTH EVERY DAY SOLD: 06/30/2020 [facility] Shower Chair without wheels UNK 06/29/2020 12:00:00 AM EST active Shower Chair without wheels eCW1 ([facility]) Shower Chair without wheels UNK 06/29/2020 12:00:00 AM EST active Shower Chair without wheels eCW1 ([facility]) Shower Chair without wheels UNK 06/29/2020 12:00:00 AM EST active Shower Chair without wheels eCW1 ([facility]) Shower Chair without wheels UNK 06/29/2020 12:00:00 AM EST active Shower Chair without wheels eCW1 ([facility]) Shower Chair without wheels UNK 06/29/2020 12:00:00 AM EST active Shower Chair without wheels eCW1 ([facility]) Shower Chair without wheels UNK 06/29/2020 12:00:00 AM EST active Shower Chair without wheels eCW1 ([facility]) Shower Chair without wheels UNK 06/29/2020 12:00:00 AM EST active Shower Chair without wheels eCW1 ([facility]) Shower Chair without wheels UNK 06/29/2020 12:00:00 AM EST active Shower Chair without wheels eCW1 ([facility]) Shower Chair without wheels UNK 06/29/2020 12:00:00 AM EST active Shower Chair without wheels eCW1 ([facility]) Shower Chair without wheels UNK 06/29/2020 12:00:00 AM EST active Shower Chair without wheels eCW1 ([facility]) Shower Chair without wheels UNK 06/29/2020 12:00:00 AM EST active Shower Chair without wheels eCW1 ([facility]) Shower Chair without wheels UNK 06/29/2020 12:00:00 AM EST active Shower Chair without wheels eCW1 ([facility]) Shower Chair without wheels UNK 06/29/2020 12:00:00 AM EST active Shower Chair without wheels [email or web address] ([facility]) Polymyxin B 65897 UNT/ML / Trimethoprim 1 MG/ML Ophthalmic Solution [Polytrim] Polytrim 33544-5.1 UNIT/ML Polytrim 06364-1.1 UNIT/ML 06/21/2020 12:00:00 AM EST active Polytrim 24898-3. 1 UNIT/ML eCW1 ([facility]) Polymyxin B 12199 UNT/ML / Trimethoprim 1 MG/ML Ophthalmic Solution [Polytrim] Polytrim 31726-9.1 UNIT/ML Polytrim 51502-4.1 UNIT/ML 06/21/2020 12:00:00 AM EST active Polytrim 24692-2. 1 UNIT/ML eCW1 ([facility]) 10,000 unit- 1 mg/mL 06/21/2020 12:00:00 AM EST drops 10 INSTILL 1 DROP IN THE RIGHT EYE FOUR TIMES A DAY FOR 7 DAYS INSTILL 1 DROP IN THE RIGHT EYE FOUR TIMES A DAY FOR 7 DAYS SOLD: 06/22/2020 [facility] Polymyxin B 75139 UNT/ML / Trimethoprim 1 MG/ML Ophthalmic Solution [Polytrim] Polytrim 27611-4.1 UNIT/ML Polytrim 59560-6.1 UNIT/ML 06/21/2020 12:00:00 AM EST active Polytrim 52830-4. 1 UNIT/ML eCW1 ([facility]) Polymyxin B 66787 UNT/ML / Trimethoprim 1 MG/ML Ophthalmic Solution [Polytrim] Polytrim 57555-2.1 UNIT/ML Polytrim 61945-6.1 UNIT/ML 06/21/2020 12:00:00 AM EST active Polytrim 07190-8. 1 UNIT/ML eCW1 ([facility]) Polymyxin B 15530 UNT/ML / Trimethoprim 1 MG/ML Ophthalmic Solution [Polytrim] Polytrim 35558-0.1 UNIT/ML Polytrim 92001-2.1 UNIT/ML 06/21/2020 12:00:00 AM EST active Polytrim 32944-5. 1 UNIT/ML eCW1 ([facility]) Polymyxin B 95798 UNT/ML / Trimethoprim 1 MG/ML Ophthalmic Solution [Polytrim] Polytrim 63103-9.1 UNIT/ML Polytrim 17275-3.1 UNIT/ML 06/21/2020 12:00:00 AM EST active Polytrim 53984-7. 1 UNIT/ML eCW1 ([facility]) Polymyxin B 86054 UNT/ML / Trimethoprim 1 MG/ML Ophthalmic Solution [Polytrim] Polytrim 56049-7.1 UNIT/ML Polytrim 19433-5.1 UNIT/ML 06/21/2020 12:00:00 AM EST active Polytrim 53721-8. 1 UNIT/ML eCW1 ([facility]) Polymyxin B 04203 UNT/ML / Trimethoprim 1 MG/ML Ophthalmic Solution [Polytrim] Polytrim 41486-3.1 UNIT/ML Polytrim 86471-1.1 UNIT/ML 06/21/2020 12:00:00 AM EST active Polytrim 31808-8. 1 UNIT/ML eCW1 ([facility]) 15 mg 04/30/2020 12:00:00 AM EST tablet 30 TAKE ONE TABLET BY MOUTH EVERY DAY WITH FOOD OR MILK TAKE ONE TABLET BY MOUTH EVERY DAY WITH FOOD OR MILK S OLD: 04/30/2020 [facility] meloxicam 15 MG Oral Tablet Meloxicam 04/30/2020 12:00:00 AM EST ORAL active [facility] ([facility] ) 5-325 mg 03/18/2020 12:00:00 AM EDT tablet 6 TAKE ONE TABLET BY MOUTH EVERY 4 TO 6 HOURS NEEDED FOR POST OP PAIN, MAXIMUM DAILY DOSE = SIX TABLETS TAKE ONE TABLET BY MOUTH EVERY 4 TO 6 HOURS NEEDED FOR POST OP PAIN, MAXIMUM DAILY DOSE = SIX TABLETS SOLD: 03/18/2020 [facility] Acetaminophen 325 MG / Hydrocodone Bitartrate 5 MG Ora l Tablet Hydrocodone-Acetaminophen 03/02/2020 12:00:00 AM EDT active MEDENT ([facility] ) Acetaminophen 300 MG / Codeine Phosphate 30 MG Oral Ta blet Acetaminophen-Codeine #3 01/30/2020 12:00:00 AM EDT active [facility] ([facility] ) 300-30 mg 01/30/2020 12:00:00 AM EDT tablet 28 TAKE ONE TABLET BY MOUTH EVERY 6 HOURS NEEDED FOR PAIN , MAXIMUM DAILY DOSE = 4 TABLETS TAKE ONE TABLET BY MOUTH EVERY 6 HOURS NEEDED FOR PAIN , MAXIMUM DAILY DOSE = 4 TABLETS SOLD: 01/30/2020 [facility] tramadol hydrochloride 50 MG Oral Tablet Tramadol HCL 01/07/2020 12:00:00 AM EDT completed MED[facility] ([facility] ) gabapentin 300 MG Oral Capsule Gabapentin 01/07/2020 12:00:00 AM EDT ORAL completed [facility] ([facility]) Insurance Providers Payer name Policy type / Coverage type Policy ID Covered democrat ID Covered democrat's relationship to leone Policy Leone Plan Information [facility] [id number] SP [id number] NATIONAL ASSO PREFERRED PROVID [id number] SP [id number] [facility] AETNA HEALTHCARE [id number] SP [id number] [place] [id number] SP [id number] [place] [id number] SP [id number] [place] [id number] SP [id number] Bernard Purchase Plan F [id number] SELF [id number] CHEL[place] [id number] SP [id number] [place]HEL[place] [id number] SP [id number] [place] [id number] SP [id number] [place] [id number] SP 7 [id number] [place] [id number] SP 7 [id number] [place] [id number] SP [id number] Medicaid CSC Healthcare S D [id number] SELF [id number] Medicaid CSC Healthcare S D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 Supporting Document(s) Prothrombin Time 13.2 s 12.5-14.3 [facility] ([facility]) Inr 0.98 [facility] ([facility]) THERAPUTIC HUMAN INR VALUES INDICATIONS NORMAL RANGES PROPHYLAXIS/TREATMENT OF: VENOUS THROMBOSIS 2.0-3.0 PULMONARY EMBOLISM 2.0-3.0 PREVENTION OF SYSTEMIC EMBOLISM FROM: TISSUE HEART VALVES 2.0-3.0 ACUTE MYOCARDIAL INFARCTION 2.0-3.0 VALVULAR HEART DISEASE 2.0-3.0 ATRIAL FIBRILLATION 2.0-3.0 MECHANICAL VALVES(HIGH RISK) 2.5-3.5 RECURRENT MYOCARDIAL INFARCTION 2.5-3.5 Partial Thromboplastin Time 29.0 s 24.2-38.5 [facility] ([facility]) ID Date Data Source [id number] 06/02/2020 08:42:00 AM EST [facility] ([facility]) Name Value Range Interpretation Code Description Data Anabelle rce(s) Supporting Document(s) Platelets [#/volume] in Blood by Automated count 221 10 150-450 [facility] ([facility]) ID Date Data Source [id number] 05/06/2020 06:15:00 AM EST [facility] ([facility]) Name Value Range Interpretation Code Description Data Anabelle rce(s) Supporting Document(s) Antinuclear Antibodies Direct Laboratory test result [facility] ([facility]) Performed at: - [facility] [address] [id number] Art Preparator: Ada Barroso MD, Phone: [phone] ID Date Data Source [id number] 05/06/2020 06:15:00 AM EST [facility] ([facility] ) Name Value Range Interpretation Code Description Data Anabelle rce(s) Supporting Document(s) Laboratory test finding (navigational concept) Laboratory test result [facility] ([facility]) Laura Laboratory test result [facility] ([facility]) Erythrocyte sedimentation rate by Westergren method 5 mm/hr 0-20 [facility] ([facility]) Rheumatoid factor [Units/volume] in Serum or Plasma 13.2 IU/ml [facility] ([facility]) C reactive protein [Mass/volume] in Serum or Plasma by High sensitivity method 0.45 mg/dL 0.00-0.30 [facility] ([facility]) ID Date Data Source [id number] 05/06/2020 06:15:00 AM EST [facility] ([facility]) Name Value Range Interpretation Code Description Data Anabelle rce(s) Supporting Document(s) Red Blood Count 5.89 10 4.30-6.10 [facility] ([facility]) White Blood Count 6.3 10 4.0-10.0 [facility] ([facility]) Hemoglobin 15.1 g/dL 13.5-17.5 [facility] ([facility]) Mean Corpuscular Volume 84.6 fl 80.0-96.0 M [facility] ([facility]) Hematocrit 49.8 % 42.0-52.0 [facility] ([facility]) Red Cell Distribution Width 13.5 % 11.5-14.5 [facility] ([facility]) Mean Corpuscular Hemoglobin 25.6 pg 27.0-33.0 [facility] ([facility]) Mean Corpuscular HGB Conc 30.3 g/dL 32.0-36.5 [facility] ([facility]) Neutrophils % 58.9 % 36.0-66.0 [facility] ([facility]) Platelet Count, Automated 233 10 150-450 [facility] ([facility]) [place] % 6.6 % 0.0-5.0 [facility] ([facility]) Lymph % 30.4 % 24.0-44.0 [facility] ([facility]) Baso % 0.8 % 0.0-1.0 [facility] ([facility]) Immature Granulocyte % 0.3 % 0-3.0 [facility] ([facility]) Eos % 3.0 % 0.0-3.0 [facility] ([facility]) Neutrophils # 3.7 10 1.5-8.5 [facility] ([facility]) Nucleated Red Blood Cell % 0.0 % 0-0 [facility] ([facility]) Lymph # 1.9 10 1.5-5.0 [facility] ([facility]) [place] # 0.4 10 0.0-0.8 [facility] ([facility]) Baso # 0.1 10 0.0-0.2 [facility] ([facility]) Eos # 0.2 10 0.0-0.5 [facility] ([facility]) ID Date Data Source [id number] 03/13/2020 09:00:00 AM EDT [facility] ([facility]) Name Value Range Interpretation Code Description Data Anabelle rce(s) Supporting Document(s) Coronavirus 2019 Nasopharygeal Laboratory test result [facility] ([facility]) This nucleic acid amplification test was developed and its performance characteristics determined by [facility]. Nucleic acid amplification tests include PCR and TMA. This test has not been FDA cleared or approved. This test has been authorized by FDA under an Emergency Use Authorization (EUA). This test is only authorized for the duration of time the declaration that circumstances exist justifying the authorization of the emergency use of in vitro diagnostic tests for detection of SARS-CoV-2 virus and/or diagnosis of COVID-19 infection under section 564(b)(1) of the Act, 21 U.S.C. 360bbb-3 (b) (1), unless the authorization is terminated or revoked sooner. When diagnostic testing is negative, the possibility of a false negative result should be considered in the context of a patient's recent exposures and the presence of clinical signs and symptoms consistent with COVID-19. An individual without symptoms of COVID-19 and who is not shedding SARS-CoV-2 virus would expect to have a negative (not detected) result in this assay. Performed at: [facility] [id number] Art Preparator: Ada Barroso MD, Phone: [phone] Not Detected ID Date Data Source [id number] 03/13/2020 09:00:00 AM EDT [facility] Name Value Range Interpretation Code Description Data Anabelle rce(s) Supporting Document(s) SARS coronavirus 2 RNA [facility] This lab was ordered by [facility] and reported by [facility]. ID Date Data Source [id number] 02/18/2020 02:04:00 PM EDT [facility] ([facility]) Name Value Range Interpretation Code Description Data Anabelle rce(s) Supporting Document(s) Laboratory test finding (navigational concept) Laboratory test result [facility] ([facility]) ID Date Data Source [id number] 01/23/2020 12:00:00 AM EDT [facility] Diaz Pa-[facility] Patient Name: ELIZABETH SANTOS [facility] Date of : 1955 Date of Exam: 01/23/2020INGA [place] [id number]#: Fax: [phone] EXAM: MRI CERVICAL SPINE WITHOUT CONTRASTPROCEDURE INFORMATION:Exam: MR Cervical Spine Without ContrastExam date and time: 01/23/2020 12:28 PM Age: 64 years oldClinical indication: Neck pain TECHNIQUE: Imaging protocol: Multiplanarmagnetic resonance images of the cervical spine without contrast.COMPARISON: No relevant prior studies available.FINDINGS:Vertebrae: There is normal alignment of the visualized spine.Spinal cord: The cervical cord is normal in signal. There is flattening ofthe cord at the level of C3- C4. See C3-C4 findings below.C2-C3: There is thickening of the posterior longitudinal ligament. There ismild uncovertebral ridging. There is no disc bulge or herniation. There ismild central canal stenosis with narrowing of the anterior CSF space. Thereis no displacement or distortion of the spinal cord. The neural foramen arepatent.C3-C4: Endplate degenerative signal changes and endplate spurs are present.There is a disc osteophyte complex with asymmetric extension toward theright side with asymmetric right uncovertebral ridging. There is moderatestenosis of the spinal canal, with more prominent narrowing on the rightside. There is flattening the cord at this level on the right side. Noassociated abnormal signal is seen within the cord. There is narrowing ofthe bilateral neural foramen, right worse than left. The facet jointsappear unremarkable.C4-C5: The disc height is normal. There is a small disc osteophyte complex.There is mild central canal stenosis with effacement of the anterior CSFspace. There is no displacement or distortion of the cord. There is mildbilateral neural foraminal narrowing. There is mild hypertrophy of thefacet joints bilaterally.C5-C6: There is mild narrowing of the disc. There are endplate spurs. Thereis a diffuse disc osteophyte complex posteriorly. There is moderatestenosis of the spinal canal with effacement of the CSF spaces anteriorlyand posteriorly. There is no significant displacement or distortion of thecord. There is mild hypertrophy of the facet joints. There is mildbilateral neural foraminal narrowing. C6-C7: The disc is normal in height.There is a small central disc protrusion superimposed on a diffuse bulge ofthe disc. There is mild hypertrophy of the facet joints bilaterally.Central narrowing is mild. There is mild bilateral neural foraminalnarrowing.C7-T1: There is mild hypertrophy of the facet joints bilaterally. The discappears unremarkable. There is no significant central or foraminalstenosis.Vertebral arteries: Expected flow voids in the vertebral arteries.Soft tissues: The prevertebral soft tissues appear normal. The paraspinoussoft tissues appear unremarkable.IMPRESSION:1. Asymmetric disc osteophyte complex at C3-C4, resulting in asymmetricnarrowing of the spinal canal on the right side and flattening of thespinal cord at this level. No abnormal signal identified within the cord.2. Disc osteophyte complex at C5-C6, resulting in moderate stenosis of thespinal canal and mild bilateral neural foraminal narrowing.3. Small central protrusion at the C6-C7 disc, with mild central andforaminal stenosis at this level.4. Small disc osteophyte complex at C4-C5, with mild central and foraminalstenosis.Thank you for allowing us to participate in the care of your patient.Dictated and Authenticated by: Kierra Contreras MD 01/24/2020 8:54 AM [place] [facility] [place])Antonia/Rk you for referring RICARDO SANTOS to our office. Electronically Signed - VRKESHA 01/26/20 8:53 Name Value Range Interpretation Code Description Data Anabelle rce(s) Supporting Document(s) Procedure Social History Code Duration Value Status Description Data Source(s ) Smoking 03/03/2021 12:00:00 AM EDT Never Smoker completed Never S moker eCW1 ([facility]) Smoking 02/14/2021 12:00:00 AM EDT Never Smoker completed Never S moker eCW1 ([facility]) Smoking 02/14/2021 12:00:00 AM EDT Never Smoker completed Never S moker eCW1 ([facility]) Smoking 02/14/2021 12:00:00 AM EDT Never Smoker completed Never S moker eCW1 ([facility]) Smoking 02/14/2021 12:00:00 AM EDT Never Smoker completed Never S moker eCW1 ([facility]) Smoking 02/03/2021 12:00:00 AM EDT Never Smoker completed Never S moker eCW1 ([facility]) Smoking 02/03/2021 12:00:00 AM EDT Never Smoker completed Never S moker eCW1 ([facility]) Smoking 11/03/2020 12:00:00 AM EDT Never Smoker completed Never S moker eCW1 ([facility]) Smoking 11/03/2020 12:00:00 AM EDT Never Smoker completed Never S moker eCW1 ([facility]) Smoking 11/02/2020 12:00:00 AM EDT Never Smoker completed Never S moker eCW1 ([facility]) Smoking 11/02/2020 12:00:00 AM EDT Never Smoker completed Never S moker eCW1 ([facility]) Smoking 10/04/2020 12:00:00 AM EDT Never Smoker completed Never S moker eCW1 ([facility]) Smoking 10/04/2020 12:00:00 AM EDT Never Smoker completed Never S moker eCW1 ([facility]) Smoking 10/04/2020 12:00:00 AM EDT Never Smoker completed Never S moker eCW1 ([facility]) Smoking 10/04/2020 12:00:00 AM EDT Never Smoker completed Never S moker eCW1 ([facility]) Smoking 10/04/2020 12:00:00 AM EDT Never Smoker completed Never S moker eCW1 ([facility]) Smoking 09/14/2020 12:00:00 AM EDT Never Smoker completed Never S moker eCW1 ([facility]) Smoking 09/14/2020 12:00:00 AM EDT Never Smoker completed Never S moker eCW1 ([facility]) Smoking 09/14/2020 12:00:00 AM EDT Never Smoker completed Never S moker eCW1 ([facility]) Smoking 08/19/2020 12:00:00 AM EDT Never Smoker completed Never S moker eCW1 ([facility]) Smoking 08/19/2020 12:00:00 AM EDT Never Smoker completed Never S moker eCW1 ([facility]) Smoking 06/28/2020 12:00:00 AM EST Never Smoker completed Never S moker eCW1 ([facility]) Smoking 06/28/2020 12:00:00 AM EST Never Smoker completed Never S moker eCW1 ([facility]) Smoking 06/28/2020 12:00:00 AM EST Never Smoker completed Never S moker eCW1 ([facility]) Smoking 06/28/2020 12:00:00 AM EST Never Smoker completed Never S moker eCW1 ([facility]) Smoking 06/28/2020 12:00:00 AM EST Never Smoker completed Never S moker eCW1 ([facility]) Smoking 06/21/2020 12:00:00 AM EST Never Smoker completed Never S moker eCW1 ([facility]) Smoking 06/21/2020 12:00:00 AM EST Never Smoker completed Never S moker eCW1 ([facility]) Smoking 06/21/2020 12:00:00 AM EST Never Smoker completed Never S moker eCW1 ([facility]) Vital Signs ID Date Data Source UNK Name Value Range Interpretation Code Description Data Source(s) Body weight 266 [lb_av] 266 [lb_av] eCW1 ([facility]) Body height 65 [in_i] 65 [in_i] eCW1 ([facility]) Body mass index (BMI) [Ratio] 44.26 kg/m2 44.26 kg/m2 eCW1 ([facility]) Heart rate 104 /min 104 /min eCW1 ([facility]) Respiratory rate 18 /min 18 /min [facility] Body temperature 96.8 [degF] 96.8 [degF] eCW1 ( [facility]) Systolic blood pressure 132 mm[Hg] 132 mm[Hg] e CW1 ([facility]) Diastolic blood pressure 82 mm[Hg] 82 mm[Hg] eCW1 ([facility]) Body weight 275 [lb_av] 275 [lb_av] eCW1 ([facility]) Body weight 124.74 kg 124.74 kg eCW1 ([facility]) Body height 65 [in_i] 65 [in_i] eCW1 ([facility]) Body mass index (BMI) [Ratio] 45.76 kg/m2 45.76 kg/m2 eCW1 ([facility]) Heart rate 107 /min 107 /min eCW1 ([facility]) Respiratory rate 18 /min 18 /min eCW1 [facility] Body temperature 98.4 [degF] 98.4 [degF] eCW1 ( [facility]) Systolic blood pressure 162 mm[Hg] 162 mm[Hg] e CW1 ([facility]) Diastolic blood pressure 98 mm[Hg] 98 mm[Hg] eCW1 ([facility]) Respiratory rate 18 /min 18 /min eCW1 ([facility] Body weight 277 [lb_av] 277 [lb_av] eCW1 ([facility]) Body temperature 96.8 [degF] 96.8 [degF] eCW1 ( [facility]) Body height 65 [in_i] 65 [in_i] eCW1 ([facility]) Body mass index (BMI) [Ratio] 46.09 kg/m2 46.09 kg/m2 eCW1 ([facility]) Heart rate 91 /min 91 /min eCW1 ([facility]) Systolic blood pressure 150 mm[Hg] 150 mm[Hg] e CW1 ([facility]) Diastolic blood pressure 90 mm[Hg] 90 mm[Hg] eCW1 ([facility]) Body temperature 97.1 [degF] 97.1 [degF] [facility] ([facility]) Body weight 286 [lb_av] 286 [lb_av] eCW1 ([facility]) Body height 65 [in_i] 65 [in_i] eCW1 ([facility]) Body mass index (BMI) [Ratio] 47.59 kg/m2 47.59 kg/m2 eCW1 ([facility]) Heart rate 89 /min 89 /min eCW1 ([facility]) Respiratory rate 19 /min 19 /min eCW1 ([facility] Body temperature 97.1 [degF] 97.1 [degF] eCW1 ( [facility]) Systolic blood pressure 142 mm[Hg] 142 mm[Hg] e CW1 ([facility]) Diastolic blood pressure mm[Hg] eCW1 ([facility]) Body weight 286 [lb_av] 286 [lb_av] eCW1 ([facility]) Heart rate 98 /min 98 /min eCW1 ([facility]) Respiratory rate 18 /min 18 /min eCW1 [facility] Body temperature 98 [degF] 98 [degF] eCW1 ([facility] Systolic blood pressure 130 mm[Hg] 130 mm[Hg] e CW1 ([facility]) Diastolic blood pressure 80 mm[Hg] 80 mm[Hg] eCW1 ([facility]) Body height 65 [in_i] 65 [in_i] eCW1 ([facility]) Body mass index (BMI) [Ratio] 47.59 kg/m2 47.59 kg/m2 eCW1 ([facility]) Body temperature 97.5 [degF] 97.5 [degF] [facility] ([facility]) Body weight 285 [lb_av] 285 [lb_av] eCW1 ([facility]) Body height 65 [in_i] 65 [in_i] eCW1 ([facility]) Body mass index (BMI) [Ratio] 47.42 kg/m2 47.42 kg/m2 eCW1 ([facility]) Heart rate 6 /min 6 /min eCW1 ([facility]) Respiratory rate 18 /min 18 /min eCW1 ([facility] Body temperature 97.6 [degF] 97.6 [degF] eCW1 ( [facility]) Systolic blood pressure 134 mm[Hg] 134 mm[Hg] e CW1 ([facility]) Diastolic blood pressure 72 mm[Hg] 72 mm[Hg] eCW1 ([facility]) Body weight 287 [lb_av] 287 [lb_av] eCW1 ([facility]) Body height 65 [in_i] 65 [in_i] eCW1 ([facility]) Respiratory rate 18 /min 18 /min eCW1 ([facility]) Body mass index (BMI) [Ratio] 47.75 kg/m2 47.75 kg/m2 eCW1 ([facility]) Body temperature 97.1 [degF] 97.1 [degF] eCW1 ( [facility]) Systolic blood pressure 140 mm[Hg] 140 mm[Hg] e CW1 ([facility]) Heart rate 96 /min 96 /min eCW1 ([facility]) Diastolic blood pressure 80 mm[Hg] 80 mm[Hg] eCW1 ([facility]) Body weight 283.0 [lb_av] 283.0 [lb_av] eCW1 ([facility]) Body height 65 [in_i] 65 [in_i] eCW1 ([facility]) Body mass index (BMI) [Ratio] 47.09 kg/m2 47.09 kg/m2 eCW1 ([facility]) Heart rate 83 /min 83 /min eCW1 ([facility]) Respiratory rate 18 /min 18 /min eCW1 ([facility]) Body temperature 98.3 [degF] 98.3 [degF] eCW1 ( [facility]) Systolic blood pressure 138 mm[Hg] 138 mm[Hg] e CW1 ([facility]) Diastolic blood pressure 82 mm[Hg] 82 mm[Hg] eCW1 ([facility]) Body temperature 97.4 [degF] 97.4 [degF] MEDENT ([facility]) Body weight 291 [lb_av] 291 [lb_av] eCW1 ([facility]) Body height 65 [in_i] 65 [in_i] eCW1 ([facility]) Body mass index (BMI) [Ratio] 48.42 kg/m2 48.42 kg/m2 eCW1 ([facility]) Heart rate 86 /min 86 /min eCW1 ([facility]) Respiratory rate 18 /min 18 /min eCW1 ([facility]) Body temperature 98 [degF] 98 [degF] eCW1 ([facility]) Systolic blood pressure 146 mm[Hg] 146 mm[Hg] e CW1 ([facility]) Diastolic blood pressure 86 mm[Hg] 86 mm[Hg] eCW1 ([facility]) Body temperature 96.9 [degF] 96.9 [degF] MEDENT ([facility]) ID Date Data Source [id number] 12/09/2020 05:00:25 PM EDT [facility] Hospital Name Value Range Interpretation Code Description Data Source(s) WEIGHT RECORDED 250.00 pounds 250.00 pounds Health system Height 65 Inches 065 Inches [facility] Patient Treatment Plan of Care Planned Activity Planned Date Details Description Data Source (s) Acetaminophen 325 MG / Oxycodone Hydrochloride 5 MG Or al Tablet [Percocet] 02/18/2021 12:00:00 AM EDT eCW1 ([facility]) Acetaminophen 325 MG / Oxycodone Hydrochloride 5 MG Or al Tablet [Percocet] 02/18/2021 12:00:00 AM EDT eCW1 ([facility]) Acetaminophen 325 MG / Oxycodone Hydrochloride 5 MG Or al Tablet [Percocet] 02/18/2021 12:00:00 AM EDT eCW1 ([facility]) Acetaminophen 325 MG / Oxycodone Hydrochloride 5 MG Or al Tablet [Percocet] 02/18/2021 12:00:00 AM EDT eCW1 ([facility]) Amoxicillin 875 MG / Clavulanate 125 MG Oral Tablet 02/04/20 12:00:00 AM EDT eCW1 ([facility]) Finasteride 5 MG Oral Tablet 10/04/2020 12:00:00 AM EDT eCW1 ([facility]) Tamsulosin hydrochloride 0.4 MG Oral Capsule 10/04/2020 12:00:00 AM EDT eCW1 ([facility]) Tamsulosin hydrochloride 0.4 MG Oral Capsule 10/04/2020 12:00:00 AM EDT eCW1 ([facility]) Finasteride 5 MG Oral Tablet 10/04/2020 12:00:00 AM EDT eCW1 ([facility]) Tamsulosin hydrochloride 0.4 MG Oral Capsule 10/04/2020 12:00:00 AM EDT eCW1 ([facility]) Tamsulosin hydrochloride 0.4 MG Oral Capsule 10/04/2020 12:00:00 AM EDT eCW1 ([facility]) Finasteride 5 MG Oral Tablet 10/04/2020 12:00:00 AM EDT eCW1 ([facility]) Tamsulosin hydrochloride 0.4 MG Oral Capsule 10/04/2020 12:00:00 AM EDT eCW1 ([facility]) Finasteride 5 MG Oral Tablet 10/04/2020 12:00:00 AM EDT eCW1 ([facility]) Tamsulosin hydrochloride 0.4 MG Oral Capsule 10/04/2020 12:00:00 AM EDT eCW1 ([facility]) Finasteride 5 MG Oral Tablet 10/04/2020 12:00:00 AM EDT eCW1 ([facility]) Tamsulosin hydrochloride 0.4 MG Oral Capsule 10/04/2020 12:00:00 AM EDT eCW1 ([facility]) Finasteride 5 MG Oral Tablet 10/04/2020 12:00:00 AM EDT eCW1 ([facility]) Tamsulosin hydrochloride 0.4 MG Oral Capsule 10/04/2020 12:00:00 AM EDT eCW1 ([facility]) Finasteride 5 MG Oral Tablet 10/04/2020 12:00:00 AM EDT eCW1 ([facility]) Tamsulosin hydrochloride 0.4 MG Oral Capsule 10/04/2020 12:00:00 AM EDT eCW1 ([facility]) Finasteride 5 MG Oral Tablet 10/04/2020 12:00:00 AM EDT eCW1 ([facility]) Tamsulosin hydrochloride 0.4 MG Oral Capsule 10/04/2020 12:00:00 AM EDT eCW1 ([facility]) Finasteride 5 MG Oral Tablet 10/04/2020 12:00:00 AM EDT eCW1 ([facility]) Finasteride 5 MG Oral Tablet 10/04/2020 12:00:00 AM EDT eCW1 ([facility]) Shower Chair without wheels 06/29/2020 12:00:00 AM EST eCW1 ([facility]) Shower Chair without wheels 06/29/2020 12:00:00 AM EST eCW1 ([facility]) Shower Chair without wheels 06/29/2020 12:00:00 AM EST eCW1 ([facility]) Polymyxin B 43708 UNT/ML / Trimethoprim 1 MG/ML Ophtha lmic Solution [Polytrim] 06/21/2020 12:00:00 AM EST eCW1 ([facility]) Polymyxin B 52385 UNT/ML / Trimethoprim 1 MG/ML Ophtha lmic Solution [Polytrim] 06/21/2020 12:00:00 AM EST eCW1 ([facility]) Polymyxin B 32373 UNT/ML / Trimethoprim 1 MG/ML Ophtha lmic Solution [Polytrim] 06/21/2020 12:00:00 AM EST eCW1 ([facility])
[2021-03-09] MEDS ORDERED: MIDAZOLAM INJ 2MG/2ML VIAL (J2250 PER 1MG) As Ordered ONE (11:49)
[2021-03-09] MEDS ORDERED: ROCURONIUM BROMIDE 50 MG/5 ML VIAL As Ordered ONE ×3 (11:49→16:07)
[2021-03-09] MEDS ORDERED: fentaNYL 100 MCG/2 ML INJECTION (J3010) As Ordered ONE ×3 (11:49→16:08)
[2021-03-09] MEDS ORDERED: propofoL 200 MG/20 ML VIAL As Ordered ONE (11:49)
[2021-03-09] MEDS ORDERED: LIDOCAINE 2% 100MG/5ML SDV (FOR ANES.) As Ordered ONE (11:49)
[2021-03-09] MEDS ORDERED: ceFAZolin SOD 1 GM in D5W MINI-BAG PLUS 50 ML IV ONE (12:00)
[2021-03-09] MEDS ORDERED: ceFAZolin SOD 2 GM in IV 1 EA IV ONE (12:30)
[2021-03-09] MEDS ORDERED: ESMOLOL INJ 100MG/10ML VIAL As Ordered ONE (13:39)
[2021-03-09] MEDS ORDERED: ACETAMINOPHEN 1000MG 100ML IV BTL (OFIRMEV) (J0131 PER 10MG) As Ordered ONE (15:02)
[2021-03-09] MEDS ORDERED: FUROSEMIDE 100MG/10ML VIAL (J1940) As Ordered ONE (17:51)
[2021-03-09] MEDS ORDERED: SUGAMMADEX SODIUM 500 MG/5 ML VIAL (BRIDION) As Ordered ONE (19:01)
[2021-03-09] MEDS ORDERED: BACT800T5 PO (19:13)
[2021-03-09] MEDS ORDERED: ONDANSETRON 4MG/2ML VIAL IV PRN ×2 (19:20→21:40)
[2021-03-09] MEDS ORDERED: LR 1,000 ML IV SCH (19:20)
[2021-03-09] MEDS ORDERED: ACETAMINOPHEN TAB 650MG DOSE (2X325MG) PO PRN (19:25)
[2021-03-09 19:47] LABS: HEMATOCRIT 40.8 % (42.0-52.0); MEAN CORPUSCULAR HEMOGLOBIN 26.5 pg (27.0-33.0); MEAN CORPUSCULAR HGB CONC 31.9 g/dl (32.0-36.5); MEAN CORPUSCULAR VOLUME 83.1 fl (80.0-96.0); PLATELET COUNT, AUTOMATED 343 10^3/uL (150-450); RED BLOOD COUNT 4.91 10^6/uL (4.30-6.10); WHITE BLOOD COUNT 16.4 10^3/uL (4.0-10.0)
[2021-03-09 20:08] LABS: BLOOD UREA NITROGEN 17 MG/DL (7-18); CALCIUM LEVEL 8.5 MG/DL (8.8-10.2); CARBON DIOXIDE LEVEL 23 MEQ/L (21-32); CHLORIDE LEVEL 110 MEQ/L (98-107); GLOMERULAR FILTRATION RATE > 60.0 (>49); GLUCOSE, FASTING 157 MG/DL (70-100); POTASSIUM SERUM 4.9 MEQ/L (3.5-5.1); SODIUM LEVEL 141 MEQ/L (136-145)
[2021-03-09] MEDS: PERCOCET 5MG/325MG TAB PO PRN ×2 (20:14→20:58)
[2021-03-09] MEDS: fentaNYL 100 MCG/2 ML INJECTION (J3010) IV PRN ×4 (20:15→21:15)
[2021-03-09] MEDS ORDERED: oxyBUTYnin 5 MG TAB PO PRN ×2 (20:35→21:40)
[2021-03-09] MEDS ORDERED: KETOROLAC 30 MG/ML 1ML VIAL IV PRN (21:40)
[2021-03-09 22:30] VITALS: BP 110/76
[2021-03-09 23:00] VITALS: BP 117/93
[2021-03-09 23:30] VITALS: BP 119/93
[2021-03-10] MEDS: BACTRIM 160MG/800MG DS TAB PO SCH ×2 (00:27→09:53)
[2021-03-10 00:30] VITALS: BP 123/93
[2021-03-10 01:30] VITALS: BP 126/92
[2021-03-10 02:30] VITALS: BP 127/90
[2021-03-10 03:30] VITALS: BP 127/88
[2021-03-10 06:00] VITALS: BP 134/89
[2021-03-10 07:05] LABS: HEMATOCRIT 40.5 % (42.0-52.0); MEAN CORPUSCULAR HEMOGLOBIN 26.5 pg (27.0-33.0); MEAN CORPUSCULAR HGB CONC 32.1 g/dl (32.0-36.5); MEAN CORPUSCULAR VOLUME 82.7 fl (80.0-96.0); PLATELET COUNT, AUTOMATED 311 10^3/uL (150-450); WHITE BLOOD COUNT 13.4 10^3/uL (4.0-10.0)
--- NOTE | 2021-03-10 07:15 | RO ---
OPERATIVE NOTE DATE OF OPERATION: 03/09/2021 PREOPERATIVE DIAGNOSES: Benign prostatic hyperplasia; bladder stones. POSTOPERATIVE DIAGNOSES: Benign prostatic hyperplasia; bladder stones. PROCEDURES: Cystoscopy, button transurethral electrovaporization of the prostate, removal of bladder stones. SURGEON: Ramez May MD BROILER CHEF OR COOK: None. ANESTHESIA: General. OPERATIVE INDICATIONS: This is a 65-year-old male who was found to have multiple small bladder stones on recent CAT scan. He also has had urinary retention due to benign prostatic hyperplasia. He is brought to the operating room today for treatment. DESCRIPTION OF PROCEDURE: The patient was brought to the operating room and general anesthesia was induced. Prophylactic antibiotics were infused. He was placed in the dorsal lithotomy position and prepped and draped in the usual sterile fashion. A resectoscope was inserted in the urethral meatus and advanced into the bladder. Once inside the bladder, it was noted the patient had approximately 15-20 small bladder stones. All these stones were drained out of the bladder through the scope. He, of note, had trilobar benign prostatic hyperplasia. I then used a bipolar plasma button electrode to start vaporizing hyperplastic tissue, first on the median lobe and then circumferentially at the bladder neck. I then vaporized hyperplastic tissue in both lateral lobes. I kept doing this until there was a clear channel established. Throughout the procedure, I made sure not to vaporize close to the ureteral orifices or distal to the verumontanum. Once satisfied there was a clear channel, hemostasis was obtained using coagulation current. Once satisfied with hemostasis, the resectoscope was removed. An 18-Urdu Downs catheter was placed. The balloon was filled with 15 mm of sterile water and the catheter was connected to gravity drainage. This marked the conclusion of the procedure. The patient was then taken out of the dorsal lithotomy position, awaken from anesthesia and transferred to the recovery room in stable condition. ESTIMATED BLOOD LOSS: 150 mL. COMPLICATIONS: None. SPECIMENS: Bladder stones. PLAN: The patient will follow up in the urology clinic in approximately one week for catheter removal and a voiding trial.
[2021-03-10 07:34] LABS: BLOOD UREA NITROGEN 18 MG/DL (7-18); CALCIUM LEVEL 8.2 MG/DL (8.8-10.2); CARBON DIOXIDE LEVEL 26 MEQ/L (21-32); CHLORIDE LEVEL 108 MEQ/L (98-107); CREATININE FOR GFR 1.05 MG/DL (0.70-1.30); GLOMERULAR FILTRATION RATE > 60.0 (>49); GLUCOSE, FASTING 135 MG/DL (70-100); POTASSIUM SERUM 4.6 MEQ/L (3.5-5.1); SODIUM LEVEL 140 MEQ/L (136-145)
--- NOTE | 2021-03-10 08:15 | IPNPDOC ---
Subjective Review oF Systems Chief Complaint The patient is a 65-year-old male admitted with a reason for visit of Benign Prostatic Hyperplasia, Bladder Stones. Events since Last Encounter No acute events o/n. Patient denies pain. He has ambulated w/o difficulty. No n/v. No f/c/ns. Objective Physical Examination General Exam: Alert, Cooperative, No Acute Distress ABDOMEN EXAM: Soft Skin Exam: Nl turgor and temperature Neuro Exam: Normal Speech Psych Exam: Mental status NL, Mood NL Other physical findings catheter draining light pink urine Vital Signs/I&O Vital Signs Date Time Temp Pulse Resp B/P (MAP) Pulse Ox O2 Delivery O2 Flow Rate FiO2 03/10/21 06:00 97.9 117 19 134/89 (104) 95 Room Air I&O- Last 24 Hours up to 6 AM 03/10/21 05:59 Intake Total 3132 ml Output Total 500 ml Balance 2632 ml Laboratory Data Labs 24H Laboratory Tests 2 03/09/21 13:26: 03/09/21 19:31: Nucleated Red Blood Cells % (auto) 0.0, Anion Gap 8, Glomerular Filtration Rate > 60.0, Calcium Level 8.5L 03/10/21 06:49: Nucleated Red Blood Cells % (auto) 0.0, Anion Gap 6L, Glomerular Filtration Rate > 60.0, Calcium Level 8.2L CBC/BMP Laboratory Tests 03/09/21 19:31 03/10/21 06:49 Assessment/Plan Date Seen The patient was seen on 03/10/21. Patient Summary This is a 65 y/o M POD1 s/p cysto, button transurethral electrovaporization of the prostate, removal of bladder stones. He was admitted postop due to him being to drowsy for discharge last night. He feels well this morning and denies pain. His catheter is draining well. Hb stable at 13. Plan/VTE VTE Prophylaxis Ordered?: Yes VTE Exclusion Mechanical Proph: N/A:VTE Prophy Ordered Plan/Urinary Catheter Urinary Catheter: Other Catheter: (catheter to stay in for 7 days postop) Plan - regular diet - discharge home w/ catheter - will f/u in 1 wk for catheter removal and voiding trial DURAN CHASE MD Mar 10, 2021 08:15
[2021-03-10] MEDS ORDERED: OXYB5TAB10 PO (08:18)
[2021-03-10] MEDS ORDERED: DIVALPROEX 500 MG TAB PO SCH (09:00)
[2021-03-10] MEDS ORDERED: DOCUSATE SODIUM 100MG CAPSULE PO SCH (09:00)
[2021-03-10] MEDS ORDERED: carBAMazepine 200MG TABLET PO SCH (09:00)
[2021-03-10 10:00] VITALS: BP 130/65
[2021-03-16 17:07] LABS: Ca Ox Monohydrate 10 % (.); Size 5x4 mm (.); Uric Acid 90 % (.)
== END 2021-03-10 13:05 | disposition home or self-care (01) ==
LOC: M SDC 11:32 → M MS5PR 22:25 → M SDC 03-10 13:05
PROVIDERS: ATTEND Urology
DX: N40.1 Benign prostatic hyperplasia with lower urinary tract symptoms (principal); N21.0 Calculus in bladder; N20.0 Calculus of kidney; K21.9 Gastro-esophageal reflux disease without esophagitis; M17.0 Bilateral primary osteoarthritis of knee; G40.909 Epilepsy, unspecified, not intractable, without status epilepticus; G47.33 Obstructive sleep apnea (adult) (pediatric); R31.9 Hematuria, unspecified; M51.36 Other intervertebral disc degeneration, lumbar region; Z79.899 Other long term (current) drug therapy
CPT/HCPCS: 36415; 52601; 80048; 82365; 85027; 88300; 96374; C1769; J0131; J0690; J1885; J1940; J2250; J2405; J3010

== ENCOUNTER → 2021-05-24 | Outpatient (CLI) | payer MEDICARE ==
[~2021-05-24] MED LIST changes: +AMLO1TAB24 PO; +BACT800T5 PO; +BENZ-18 PO; +CEFD300CAP PO; +IBUP80TA PO; +LEVO750T13 PO; -LR 1,000 ML IV ONE; +METR-265 PO; +OXYB5TAB10 PO
[2021-05-24 06:47] LABS: HEMATOCRIT 47.6 % (42.0-52.0); HEMOGLOBIN 14.8 g/dl (13.5-17.5); MEAN CORPUSCULAR HEMOGLOBIN 25.3 pg (27.0-33.0); MEAN CORPUSCULAR HGB CONC 31.1 g/dl (32.0-36.5); MEAN CORPUSCULAR VOLUME 81.2 fl (80.0-96.0); PLATELET COUNT, AUTOMATED 266 10^3/uL (150-450); RED BLOOD COUNT 5.86 10^6/uL (4.30-6.10); WHITE BLOOD COUNT 6.7 10^3/uL (4.0-10.0)
[2021-05-24 07:06] LABS: BLOOD UREA NITROGEN 17 MG/DL (7-18); CALCIUM LEVEL 8.8 MG/DL (8.8-10.2); CARBON DIOXIDE LEVEL 27 MEQ/L (21-32); CHLORIDE LEVEL 110 MEQ/L (98-107); CREATININE FOR GFR 0.98 MG/DL (0.70-1.30); GLOMERULAR FILTRATION RATE > 60.0 (>49); GLUCOSE, FASTING 159 MG/DL (70-100); POTASSIUM SERUM 4.2 MEQ/L (3.5-5.1); SODIUM LEVEL 142 MEQ/L (136-145)
== END ==
LOC: M LAB 06:12
PROVIDERS: ATTEND Urology
DX: N20.0 Calculus of kidney (principal)

== ENCOUNTER → 2021-06-18 | Outpatient (CLI) | payer MEDICARE, OTHER ==
[~2021-06-18] MED LIST changes: -AMLO1TAB24 PO; -BENZ-18 PO; -CEFD300CAP PO; -IBUP80TA PO; -LEVO750T13 PO; -METR-265 PO
== END ==
LOC: M LABSMTC 09:04
PROVIDERS: ATTEND Anesthesiology
DX: Z01.818 Encounter for other preprocedural examination (principal); Z11.52 Encounter for screening for COVID-19

== ENCOUNTER 2021-06-23 06:15 | Day surgery (SDC) | payer MEDICARE ==
[~2021-06-23] VITALS: Ht 165.1 cm; Wt 123.4 kg
[~2021-06-23 06:15] MED LIST changes: -IBUP80TA PO; +LR 1,000 ML IV ONE; +ceFAZolin SOD 2 GM in IV 1 EA IV ONE
[2021-06-23] MEDS ORDERED: fentaNYL 100 MCG/2 ML INJECTION As Ordered ONE (07:52)
[2021-06-23] MEDS ORDERED: LIDOCAINE 2% 100MG/5ML SDV (FOR ANES.) As Ordered ONE (07:52)
[2021-06-23] MEDS ORDERED: propofoL 200 MG/20 ML VIAL As Ordered ONE (07:52)
[2021-06-23] MEDS ORDERED: MIDAZOLAM INJ 2MG/2ML VIAL (J2250 PER 1MG) As Ordered ONE (07:52)
[2021-06-23] MEDS ORDERED: OXYC1TAB23 PO (08:52)
[2021-06-23 10:15] VITALS: BP 130/70
[2021-06-23] MEDS ORDERED: IBUP80TA PO (18:24)
== END 2021-06-23 10:18 | disposition home or self-care (01) ==
LOC: M SDC 06:15
PROVIDERS: ATTEND Urology
DX: N20.0 Calculus of kidney (principal); G40.909 Epilepsy, unspecified, not intractable, without status epilepticus; N40.0 Benign prostatic hyperplasia without lower urinary tract symptoms; Z79.899 Other long term (current) drug therapy; Z20.822 Contact with and (suspected) exposure to COVID-19; R51.9 Headache, unspecified; S01.81XA Laceration without foreign body of other part of head, initial encounter; W19.XXXA Unspecified fall, initial encounter; Y92.230 Patient room in hospital as the place of occurrence of the external cause; Y93.9 Activity, unspecified; Y99.8 Other external cause status

== ENCOUNTER 2021-06-23 16:03 | Inpatient (IN) | payer MEDICARE ==
[~2021-06-23] VITALS: Ht 165.1 cm; Wt 123.5 kg
[~2021-06-23 16:03] MED LIST changes: -LR 1,000 ML IV ONE; -ceFAZolin SOD 2 GM in IV 1 EA IV ONE
[2021-06-23] MEDS: NS 1,000 ML IV SCH ×2 (16:35→23:11)
[2021-06-23] MEDS ORDERED: MORPHINE 4 MG/ML 1ML VIAL/SYRINGE (J2270) IV ONE (16:35)
[2021-06-23] MEDS ORDERED: ONDANSETRON 4MG/2ML VIAL IV ONE (16:35)
[2021-06-23 17:26] LABS: BASO # 0.1 10^3/uL (0.0-0.2); BASO % 0.5 % (0.0-1.0); EOS # 0.1 10^3/uL (0.0-0.5); EOS % 0.5 % (0.0-3.0); HEMATOCRIT 46.3 % (42.0-52.0); HEMOGLOBIN 14.7 g/dl (13.5-17.5); LYMPH # 1.4 10^3/uL (1.5-5.0); LYMPH % 12.4 % (24.0-44.0); MEAN CORPUSCULAR HEMOGLOBIN 25.3 pg (27.0-33.0); MEAN CORPUSCULAR HGB CONC 31.7 g/dl (32.0-36.5); MEAN CORPUSCULAR VOLUME 79.7 fl (80.0-96.0); MONO # 0.7 10^3/uL (0.0-0.8); MONO % 6.5 % (2.0-8.0); NEUTROPHILS % 79.7 % (36.0-66.0); PLATELET COUNT, AUTOMATED 253 10^3/uL (150-450); RED BLOOD COUNT 5.81 10^6/uL (4.30-6.10); WHITE BLOOD COUNT 11.3 10^3/uL (4.0-10.0)
[2021-06-23 17:48] LABS: ALBUMIN 4.2 GM/DL (3.2-5.2); ALT/SGPT 57 U/L (12-78); BILIRUBIN,DIRECT < 0.1 MG/DL (0.0-0.2); BILIRUBIN,TOTAL 0.4 MG/DL (0.2-1.0); BLOOD UREA NITROGEN 21 MG/DL (7-18); CALCIUM LEVEL 8.7 MG/DL (8.8-10.2); CARBON DIOXIDE LEVEL 24 MEQ/L (21-32); CHLORIDE LEVEL 107 MEQ/L (98-107); GLUCOSE, FASTING 141 MG/DL (70-100); LIPASE 507 U/L (73-393); POTASSIUM SERUM 4.4 MEQ/L (3.5-5.1); SODIUM LEVEL 141 MEQ/L (136-145); TOTAL PROTEIN 7.6 GM/DL (6.4-8.2)
[2021-06-23] MEDS ORDERED: IBUP80TA PO (18:24)
[2021-06-23] MEDS ORDERED: HOME MED LIST COMPLETE! XX SCH (18:30)
[2021-06-23] MEDS: HYDROMORPHONE HCL 0.5 MG/ 0.5 ML SYRINGE (J1170 PER 1) IV PRN (23:11)
[2021-06-23] MEDS ORDERED: NS 1,000 ML IV SCH (23:20)
[2021-06-23 23:55] VITALS: BP 124/78
[2021-06-24] MEDS: TAMSULOSIN 0.4 MG CAP PO SCH ×2 (00:48→20:35)
[2021-06-24] MEDS: DIVALPROEX 500 MG TAB PO SCH ×4 (00:49→20:35)
[2021-06-24] MEDS: FINASTERIDE 5 MG TAB PO SCH ×2 (00:49→20:35)
[2021-06-24] MEDS: carBAMazepine 200MG TABLET PO SCH ×3 (01:08→20:35)
[2021-06-24] MEDS: HYDROMORPHONE HCL 0.5 MG/ 0.5 ML SYRINGE (J1170 PER 1) IV PRN ×2 (02:15→08:27)
[2021-06-24 06:00] VITALS: BP 152/84
[2021-06-24] MEDS ORDERED: PERCOCET 5MG/325MG TAB PO PRN (07:30)
[2021-06-24] MEDS: cefTRIAXone SOD 1 GM in D5W MINI-BAG PLUS 50 ML IV SCH (08:28)
[2021-06-24] MEDS ORDERED: ONDANSETRON 4MG/2ML VIAL IV PRN (10:25)
[2021-06-24 11:54] LABS: BASO % 0.3 % (0.0-1.0); EOS % 0.1 % (0.0-3.0); HEMATOCRIT 37.3 % (42.0-52.0); LYMPH # 1.4 10^3/uL (1.5-5.0); LYMPH % 11.8 % (24.0-44.0); MEAN CORPUSCULAR HEMOGLOBIN 25.3 pg (27.0-33.0); MEAN CORPUSCULAR HGB CONC 30.8 g/dl (32.0-36.5); MEAN CORPUSCULAR VOLUME 82.2 fl (80.0-96.0); MONO # 0.8 10^3/uL (0.0-0.8); MONO % 6.8 % (2.0-8.0); NEUTROPHILS # 9.6 10^3/uL (1.5-8.5); NEUTROPHILS % 80.7 % (36.0-66.0); PLATELET COUNT, AUTOMATED 253 10^3/uL (150-450); RED BLOOD COUNT 4.54 10^6/uL (4.30-6.10); WHITE BLOOD COUNT 11.9 10^3/uL (4.0-10.0)
[2021-06-24 11:57] LABS: HEMOGLOBIN 11.5 g/dl (13.5-17.5)
[2021-06-24] MEDS ORDERED: HYDROMORPHONE HCL 0.5 MG/ 0.5 ML SYRINGE (J1170 PER 1) IV PRN (12:00)
[2021-06-24 12:07] LABS: MAGNESIUM LEVEL 2.4 MG/DL (1.8-2.4); URIC ACID 6.9 MG/DL (3.5-7.2)
[2021-06-24 12:19] LABS: CALCIUM LEVEL 8.3 MG/DL (8.8-10.2); CREATININE FOR GFR 1.71 MG/DL (0.70-1.30); POTASSIUM SERUM 4.7 MEQ/L (3.5-5.1)
[2021-06-24] MEDS: ANEXSIA, NORCO 7.5MG/325MG TABLET(HYDROCODONE/APAP) PO PRN (12:58)
[2021-06-24 14:00] VITALS: BP 124/76
[2021-06-24] MEDS: NS 1,000 ML IV SCH ×2 (15:28→20:36)
[2021-06-24 18:23] LABS: HEMATOCRIT 34.3 % (42.0-52.0); HEMOGLOBIN 10.7 g/dl (13.5-17.5)
[2021-06-24 18:34] LABS: CREATININE FOR GFR 1.81 MG/DL (0.70-1.30); GLOMERULAR FILTRATION RATE 40.3 (>49); POTASSIUM SERUM 4.1 MEQ/L (3.5-5.1)
[2021-06-24 20:30] VITALS: BP 106/96
[2021-06-24 21:49] LABS: HEMOGLOBIN 10.1 g/dl (13.5-17.5)
[2021-06-25 02:35] LABS: HEMATOCRIT 30.4 % (42.0-52.0); HEMOGLOBIN 9.4 g/dl (13.5-17.5)
[2021-06-25 06:00] VITALS: BP 108/67
[2021-06-25 06:46] LABS: BASO # 0.1 10^3/uL (0.0-0.2); BASO % 0.5 % (0.0-1.0); EOS # 0.1 10^3/uL (0.0-0.5); EOS % 1.1 % (0.0-3.0); HEMATOCRIT 28.9 % (42.0-52.0); HEMOGLOBIN 9.1 g/dl (13.5-17.5); LYMPH # 1.6 10^3/uL (1.5-5.0); LYMPH % 16.6 % (24.0-44.0); MEAN CORPUSCULAR HEMOGLOBIN 25.5 pg (27.0-33.0); MEAN CORPUSCULAR HGB CONC 31.5 g/dl (32.0-36.5); MONO # 0.9 10^3/uL (0.0-0.8); NEUTROPHILS % 72.4 % (36.0-66.0); PLATELET COUNT, AUTOMATED 196 10^3/uL (150-450); RED BLOOD COUNT 3.57 10^6/uL (4.30-6.10); WHITE BLOOD COUNT 9.6 10^3/uL (4.0-10.0)
[2021-06-25 06:53] LABS: CALCIUM LEVEL 7.9 MG/DL (8.8-10.2); CREATININE FOR GFR 1.48 MG/DL (0.70-1.30); GLOMERULAR FILTRATION RATE 50.8 (>49); MAGNESIUM LEVEL 2.3 MG/DL (1.8-2.4); POTASSIUM SERUM 4.5 MEQ/L (3.5-5.1)
[2021-06-25] MEDS: cefTRIAXone SOD 1 GM in D5W MINI-BAG PLUS 50 ML IV SCH (08:13)
[2021-06-25] MEDS: carBAMazepine 200MG TABLET PO SCH ×2 (08:13→21:01)
[2021-06-25] MEDS: NS 1,000 ML IV SCH (08:13)
[2021-06-25] MEDS: DIVALPROEX 500 MG TAB PO SCH ×3 (08:13→21:01)
[2021-06-25] MEDS: ANEXSIA, NORCO 7.5MG/325MG TABLET(HYDROCODONE/APAP) PO PRN ×3 (08:22→21:01)
[2021-06-25 13:26] LABS: BASO % 0.3 % (0.0-1.0); EOS # 0.1 10^3/uL (0.0-0.5); EOS % 0.9 % (0.0-3.0); HEMATOCRIT 30.5 % (42.0-52.0); HEMOGLOBIN 9.4 g/dl (13.5-17.5); LYMPH # 1.9 10^3/uL (1.5-5.0); LYMPH % 19.4 % (24.0-44.0); MEAN CORPUSCULAR HEMOGLOBIN 25.1 pg (27.0-33.0); MEAN CORPUSCULAR HGB CONC 30.8 g/dl (32.0-36.5); MEAN CORPUSCULAR VOLUME 81.3 fl (80.0-96.0); MONO # 0.7 10^3/uL (0.0-0.8); MONO % 7.1 % (2.0-8.0); NEUTROPHILS % 71.9 % (36.0-66.0); PLATELET COUNT, AUTOMATED 195 10^3/uL (150-450); RED BLOOD COUNT 3.75 10^6/uL (4.30-6.10); WHITE BLOOD COUNT 9.7 10^3/uL (4.0-10.0)
[2021-06-25 14:00] VITALS: BP 114/85
[2021-06-25 18:13] LABS: HEMATOCRIT 29.1 % (42.0-52.0)
[2021-06-25 20:00] VITALS: BP 111/70
[2021-06-25] MEDS: FINASTERIDE 5 MG TAB PO SCH (21:01)
[2021-06-25] MEDS: TAMSULOSIN 0.4 MG CAP PO SCH (21:02)
[2021-06-26 00:19] LABS: HEMATOCRIT 28.9 % (42.0-52.0); HEMOGLOBIN 8.9 g/dl (13.5-17.5)
[2021-06-26 05:25] VITALS: BP 150/82
[2021-06-26] MEDS: ACETAMINOPHEN TAB 650MG DOSE (2X325MG) PO PRN (05:45)
[2021-06-26 06:20] LABS: BASO % 0.3 % (0.0-1.0); EOS # 0.1 10^3/uL (0.0-0.5); EOS % 0.9 % (0.0-3.0); HEMATOCRIT 31.6 % (42.0-52.0); HEMOGLOBIN 9.8 g/dl (13.5-17.5); LYMPH # 0.9 10^3/uL (1.5-5.0); LYMPH % 8.6 % (24.0-44.0); MEAN CORPUSCULAR HEMOGLOBIN 25.1 pg (27.0-33.0); MEAN CORPUSCULAR VOLUME 80.8 fl (80.0-96.0); MONO # 0.9 10^3/uL (0.0-0.8); MONO % 8.1 % (2.0-8.0); NEUTROPHILS # 8.5 10^3/uL (1.5-8.5); NEUTROPHILS % 81.7 % (36.0-66.0); PLATELET COUNT, AUTOMATED 203 10^3/uL (150-450); RED BLOOD COUNT 3.91 10^6/uL (4.30-6.10); WHITE BLOOD COUNT 10.4 10^3/uL (4.0-10.0)
[2021-06-26 06:40] LABS: CALCIUM LEVEL 8.4 MG/DL (8.8-10.2); CREATININE FOR GFR 1.35 MG/DL (0.70-1.30); GLOMERULAR FILTRATION RATE 56.5 (>49); MAGNESIUM LEVEL 2.3 MG/DL (1.8-2.4); POTASSIUM SERUM 4.5 MEQ/L (3.5-5.1)
[2021-06-26] MEDS: cefTRIAXone SOD 1 GM in D5W MINI-BAG PLUS 50 ML IV SCH (08:22)
[2021-06-26] MEDS: carBAMazepine 200MG TABLET PO SCH ×2 (08:22→20:16)
[2021-06-26] MEDS: DIVALPROEX 500 MG TAB PO SCH ×3 (08:22→22:44)
[2021-06-26 08:29] LABS: ALBUMIN 3.2 GM/DL (3.2-5.2); BILIRUBIN,TOTAL 0.4 MG/DL (0.2-1.0); TOTAL PROTEIN 7.3 GM/DL (6.4-8.2)
[2021-06-26 09:35] VITALS: BP 140/73
[2021-06-26 12:23] VITALS: BP 158/81
[2021-06-26 13:07] LABS: HEMATOCRIT 29.4 % (42.0-52.0); HEMOGLOBIN 9.3 g/dl (13.5-17.5)
[2021-06-26] MEDS: guaiFENesin ER 600 MG TAB PO SCH ×2 (14:28→20:15)
[2021-06-26] MEDS: PIPERACILLIN/TAZOBACTAM SOD 3.375 GM in D5W MINI-BAG PLUS 50 ML IV SCH ×3 (14:28→22:44)
[2021-06-26 16:20] VITALS: BP 158/78
[2021-06-26 18:24] LABS: HEMATOCRIT 29.4 % (42.0-52.0); HEMOGLOBIN 9.4 g/dl (13.5-17.5)
[2021-06-26 20:00] VITALS: BP 142/90
[2021-06-26] MEDS: FINASTERIDE 5 MG TAB PO SCH (20:15)
[2021-06-26] MEDS: TAMSULOSIN 0.4 MG CAP PO SCH (20:15)
[2021-06-27] VITALS (10 sets, daily range): BP systolic 126–166; BP diastolic 58–92
[2021-06-27 00:22] LABS: HEMATOCRIT 28.5 % (42.0-52.0); HEMOGLOBIN 9.1 g/dl (13.5-17.5)
[2021-06-27] MEDS: ANEXSIA, NORCO 7.5MG/325MG TABLET(HYDROCODONE/APAP) PO PRN (04:37)
[2021-06-27] MEDS: PIPERACILLIN/TAZOBACTAM SOD 3.375 GM in D5W MINI-BAG PLUS 50 ML IV SCH ×3 (05:50→17:00)
[2021-06-27 06:42] LABS: BASO % 0.2 % (0.0-1.0); EOS # 0.1 10^3/uL (0.0-0.5); EOS % 1.1 % (0.0-3.0); HEMATOCRIT 29.5 % (42.0-52.0); HEMOGLOBIN 9.3 g/dl (13.5-17.5); LYMPH # 0.9 10^3/uL (1.5-5.0); LYMPH % 10.5 % (24.0-44.0); MEAN CORPUSCULAR HEMOGLOBIN 25.1 pg (27.0-33.0); MEAN CORPUSCULAR HGB CONC 31.5 g/dl (32.0-36.5); MEAN CORPUSCULAR VOLUME 79.7 fl (80.0-96.0); MONO # 0.8 10^3/uL (0.0-0.8); MONO % 9.3 % (2.0-8.0); NEUTROPHILS # 6.4 10^3/uL (1.5-8.5); NEUTROPHILS % 78.3 % (36.0-66.0); PLATELET COUNT, AUTOMATED 194 10^3/uL (150-450); WHITE BLOOD COUNT 8.1 10^3/uL (4.0-10.0)
[2021-06-27 07:01] LABS: CALCIUM LEVEL 8.2 MG/DL (8.8-10.2); CREATININE FOR GFR 1.33 MG/DL (0.70-1.30); GLOMERULAR FILTRATION RATE 57.4 (>49); MAGNESIUM LEVEL 2.4 MG/DL (1.8-2.4); POTASSIUM SERUM 4.1 MEQ/L (3.5-5.1)
[2021-06-27] MEDS: DIVALPROEX 500 MG TAB PO SCH ×3 (08:47→21:20)
[2021-06-27] MEDS: carBAMazepine 200MG TABLET PO SCH ×2 (08:47→21:20)
[2021-06-27] MEDS: guaiFENesin ER 600 MG TAB PO SCH ×2 (08:47→21:20)
[2021-06-27] MEDS ORDERED: ANEXSIA, NORCO 7.5MG/325MG TABLET(HYDROCODONE/APAP) PO PRN (09:15)
[2021-06-27] MEDS: ACETAMINOPHEN TAB 650MG DOSE (2X325MG) PO PRN (13:08)
[2021-06-27] MEDS ORDERED: amLODIPine 5 MG TAB PO ONE (17:00)
[2021-06-27] MEDS: FINASTERIDE 5 MG TAB PO SCH (21:21)
[2021-06-27] MEDS: TAMSULOSIN 0.4 MG CAP PO SCH (21:21)
[2021-06-28] VITALS: BP 138/87
[2021-06-28] MEDS: PIPERACILLIN/TAZOBACTAM SOD 3.375 GM in D5W MINI-BAG PLUS 50 ML IV SCH ×3 (00:44→11:23)
[2021-06-28 04:30] VITALS: BP 140/83
[2021-06-28 06:04] LABS: BASO % 0.4 % (0.0-1.0); EOS # 0.2 10^3/uL (0.0-0.5); EOS % 2.4 % (0.0-3.0); HEMATOCRIT 30.8 % (42.0-52.0); HEMOGLOBIN 9.7 g/dl (13.5-17.5); LYMPH # 1.1 10^3/uL (1.5-5.0); LYMPH % 15.2 % (24.0-44.0); MEAN CORPUSCULAR HEMOGLOBIN 25.3 pg (27.0-33.0); MEAN CORPUSCULAR HGB CONC 31.5 g/dl (32.0-36.5); MEAN CORPUSCULAR VOLUME 80.4 fl (80.0-96.0); MONO # 0.8 10^3/uL (0.0-0.8); MONO % 10.3 % (2.0-8.0); NEUTROPHILS # 5.4 10^3/uL (1.5-8.5); NEUTROPHILS % 71.3 % (36.0-66.0); PLATELET COUNT, AUTOMATED 263 10^3/uL (150-450); RED BLOOD COUNT 3.83 10^6/uL (4.30-6.10); WHITE BLOOD COUNT 7.5 10^3/uL (4.0-10.0)
[2021-06-28 06:35] LABS: CALCIUM LEVEL 8.4 MG/DL (8.8-10.2); CREATININE FOR GFR 1.3 MG/DL (0.70-1.30); MAGNESIUM LEVEL 2.5 MG/DL (1.8-2.4); POTASSIUM SERUM 3.9 MEQ/L (3.5-5.1)
[2021-06-28 07:40] VITALS: BP 155/88
[2021-06-28 08:17] VITALS: BP 144/85
[2021-06-28] MEDS: guaiFENesin ER 600 MG TAB PO SCH (08:17)
[2021-06-28] MEDS: carBAMazepine 200MG TABLET PO SCH (08:17)
[2021-06-28] MEDS: DIVALPROEX 500 MG TAB PO SCH (08:18)
[2021-06-28] MEDS ORDERED: amLODIPine 5 MG TAB PO SCH (09:00)
[2021-06-28] MEDS ORDERED: AMLO1TAB24 PO ×2 (10:25→20:24)
[2021-06-28] MEDS ORDERED: MUCI600T31 PO ×2 (10:25→20:24)
[2021-06-28] MEDS ORDERED: LEVO750T13 PO ×2 (10:25→20:24)
[2021-06-28] MEDS ORDERED: OXYC1TAB23 PO (20:24)
== END 2021-06-28 15:51 | disposition home health service (06) | DRG 907 ==
LOC: M ED 16:03 → M ED INP 20:55 → M MS5PR 23:51 → M PCU 06-26 09:26
PROVIDERS: ADMIT Internal Medicine; ATTEND Internal Medicine
PROC: 0TF33ZZ Fragmentation in Right Kidney Pelvis, Percutaneous Approach (ICD-10-PCS; principal; 2021-06-23)
DX: N99.820 Postprocedural hemorrhage of a genitourinary system organ or structure following a genitourinary system procedure (principal); J18.9 Pneumonia, unspecified organism; N17.9 Acute kidney failure, unspecified; N20.0 Calculus of kidney; G40.909 Epilepsy, unspecified, not intractable, without status epilepticus; N40.0 Benign prostatic hyperplasia without lower urinary tract symptoms; Z79.899 Other long term (current) drug therapy; Z20.822 Contact with and (suspected) exposure to COVID-19; R51.9 Headache, unspecified; S01.81XA Laceration without foreign body of other part of head, initial encounter; W19.XXXA Unspecified fall, initial encounter; Y92.230 Patient room in hospital as the place of occurrence of the external cause; Y99.8 Other external cause status; Y93.9 Activity, unspecified

== ENCOUNTER → 2021-06-23 | Outpatient (CLI) | payer MEDICARE ==
[~2021-06-23] MED LIST changes: +IBUP80TA PO
== END ==
LOC: M RAD 06:21
PROVIDERS: ATTEND Urology
DX: N20.0 Calculus of kidney (principal)

== ENCOUNTER 2021-06-28 17:36 | Inpatient (IN) | payer MEDICARE ==
[~2021-06-28] VITALS: Ht 165.1 cm; Wt 122.5 kg
[~2021-06-28 17:36] MED LIST changes: +AMLO1TAB24 PO; +IBUP80TA PO; +LEVO750T13 PO
[2021-06-28 19:15] LABS: BASO % 0.3 % (0.0-1.0); EOS # 0.1 10^3/uL (0.0-0.5); EOS % 1.3 % (0.0-3.0); HEMATOCRIT 34.5 % (42.0-52.0); HEMOGLOBIN 10.9 g/dl (13.5-17.5); LYMPH # 1.1 10^3/uL (1.5-5.0); LYMPH % 11.6 % (24.0-44.0); MEAN CORPUSCULAR HEMOGLOBIN 25.3 pg (27.0-33.0); MEAN CORPUSCULAR HGB CONC 31.6 g/dl (32.0-36.5); MONO # 1.1 10^3/uL (0.0-0.8); MONO % 11.1 % (2.0-8.0); NEUTROPHILS # 7.2 10^3/uL (1.5-8.5); NEUTROPHILS % 75.4 % (36.0-66.0); PLATELET COUNT, AUTOMATED 333 10^3/uL (150-450); RED BLOOD COUNT 4.31 10^6/uL (4.30-6.10); WHITE BLOOD COUNT 9.6 10^3/uL (4.0-10.0)
[2021-06-28 19:38] LABS: CK-MB VALUE MASS < 1.0 NG/ML (<3.6); CPK CREATINE PHOSPHOKINASE 74 U/L (39-308); MB/CK RELATIVE INDEX 1.35 (< OR =4)
[2021-06-28 19:42] LABS: ALBUMIN 3.3 GM/DL (3.2-5.2); ALT/SGPT 47 U/L (12-78); BILIRUBIN,DIRECT 0.2 MG/DL (0.0-0.2); BILIRUBIN,TOTAL 0.6 MG/DL (0.2-1.0); BLOOD UREA NITROGEN 22 MG/DL (7-18); CALCIUM LEVEL 8.7 MG/DL (8.8-10.2); CARBON DIOXIDE LEVEL 23 MEQ/L (21-32); CHLORIDE LEVEL 110 MEQ/L (98-107); CREATININE FOR GFR 1.25 MG/DL (0.70-1.30); GLOMERULAR FILTRATION RATE > 60.0 (>49); GLUCOSE, FASTING 115 MG/DL (70-100); POTASSIUM SERUM 4.3 MEQ/L (3.5-5.1); SODIUM LEVEL 142 MEQ/L (136-145); THYROID STIMULATING HORMONE 0.644 uIU/ML (0.358-3.740); TOTAL PROTEIN 7.2 GM/DL (6.4-8.2)
[2021-06-28] MEDS ORDERED: OXYC1TAB23 PO (20:24)
[2021-06-28] MEDS ORDERED: AMLO1TAB24 PO (20:24)
[2021-06-28] MEDS ORDERED: LEVO750T13 PO (20:24)
[2021-06-28] MEDS ORDERED: MUCI600T31 PO (20:24)
[2021-06-28] MEDS ORDERED: HOME MED LIST COMPLETE! XX SCH (20:25)
[2021-06-28] MEDS ORDERED: MOM 30ML SUSPENSION UDC PO PRN (20:55)
[2021-06-28] MEDS: carBAMazepine 200MG TABLET PO SCH (21:00)
[2021-06-28] MEDS: guaiFENesin ER 600 MG TAB PO SCH (21:00)
[2021-06-28] MEDS: FINASTERIDE 5 MG TAB PO SCH (21:00)
[2021-06-28] MEDS: DOCUSATE SODIUM 100MG CAPSULE PO SCH (21:00)
[2021-06-28] MEDS: TAMSULOSIN 0.4 MG CAP PO SCH (21:00)
[2021-06-28] MEDS: DIVALPROEX 500 MG TAB PO SCH (21:00)
[2021-06-28 22:12] LABS: CARBAMAZEPINE (TEGRETOL) LEVEL 11.4 UG/ML (4.0-10.0); VALPROIC ACID (DEPAKOTE) 61.5 UG/ML (50.0-100.0)
[2021-06-28] MEDS: ACETAMINOPHEN TAB 650MG DOSE (2X325MG) PO PRN (22:43)
[2021-06-29] MEDS: ACETAMINOPHEN TAB 650MG DOSE (2X325MG) PO PRN ×2 (00:34→20:04)
[2021-06-29 00:51] VITALS: BP 147/93
[2021-06-29] MEDS ORDERED: FOSFOMYCIN TROMETHAMINE 3 GM POWDER PACKET (MONUROL) PO ONE (01:00)
[2021-06-29] MEDS: LevoFLOXacin 750 MG TABLET PO SCH (05:59)
[2021-06-29 06:00] VITALS: BP 148/88
[2021-06-29 06:39] LABS: HEMATOCRIT 32.4 % (42.0-52.0); HEMOGLOBIN 10.2 g/dl (13.5-17.5); MEAN CORPUSCULAR HEMOGLOBIN 25.2 pg (27.0-33.0); MEAN CORPUSCULAR HGB CONC 31.5 g/dl (32.0-36.5); PLATELET COUNT, AUTOMATED 291 10^3/uL (150-450); RED BLOOD COUNT 4.05 10^6/uL (4.30-6.10); WHITE BLOOD COUNT 8.2 10^3/uL (4.0-10.0)
[2021-06-29 07:05] LABS: BLOOD UREA NITROGEN 21 MG/DL (7-18); CALCIUM LEVEL 8.6 MG/DL (8.8-10.2); CARBON DIOXIDE LEVEL 25 MEQ/L (21-32); CHLORIDE LEVEL 110 MEQ/L (98-107); CREATININE FOR GFR 1.15 MG/DL (0.70-1.30); GLOMERULAR FILTRATION RATE > 60.0 (>49); GLUCOSE, FASTING 97 MG/DL (70-100); MAGNESIUM LEVEL 2.4 MG/DL (1.8-2.4); POTASSIUM SERUM 3.8 MEQ/L (3.5-5.1); SODIUM LEVEL 139 MEQ/L (136-145)
[2021-06-29] MEDS: guaiFENesin ER 600 MG TAB PO SCH ×2 (08:44→20:03)
[2021-06-29] MEDS: DIVALPROEX 500 MG TAB PO SCH ×3 (08:44→20:04)
[2021-06-29] MEDS: carBAMazepine 200MG TABLET PO SCH ×2 (08:44→20:03)
[2021-06-29] MEDS: DOCUSATE SODIUM 100MG CAPSULE PO SCH ×3 (08:47→20:09)
[2021-06-29] MEDS: amLODIPine 5 MG TAB PO SCH (08:47)
[2021-06-29 14:07] VITALS: BP 163/93
[2021-06-29] MEDS: FINASTERIDE 5 MG TAB PO SCH (20:02)
[2021-06-29] MEDS: TAMSULOSIN 0.4 MG CAP PO SCH (20:03)
[2021-06-29 22:00] VITALS: BP 157/86
[2021-06-29 22:45] LABS: HEMATOCRIT 34.6 % (42.0-52.0); HEMOGLOBIN 10.8 g/dl (13.5-17.5); MEAN CORPUSCULAR HEMOGLOBIN 25.2 pg (27.0-33.0); MEAN CORPUSCULAR HGB CONC 31.2 g/dl (32.0-36.5); MEAN CORPUSCULAR VOLUME 80.8 fl (80.0-96.0); PLATELET COUNT, AUTOMATED 305 10^3/uL (150-450); RED BLOOD COUNT 4.28 10^6/uL (4.30-6.10); WHITE BLOOD COUNT 9.1 10^3/uL (4.0-10.0)
[2021-06-29] MEDS: PERCOCET 5MG/325MG TAB PO PRN (22:48)
[2021-06-29 23:05] LABS: BLOOD UREA NITROGEN 19 MG/DL (7-18); CALCIUM LEVEL 8.5 MG/DL (8.8-10.2); CARBON DIOXIDE LEVEL 25 MEQ/L (21-32); CHLORIDE LEVEL 109 MEQ/L (98-107); CREATININE FOR GFR 1.21 MG/DL (0.70-1.30); GLOMERULAR FILTRATION RATE > 60.0 (>49); GLUCOSE, FASTING 106 MG/DL (70-100); SODIUM LEVEL 139 MEQ/L (136-145)
[2021-06-29] MEDS ORDERED: IPRATROPIUM 0.5MG/ALBUTEROL 2.5MG INH SOL UD 3ML (DUONEB) NEB ONE (23:05)
[2021-06-30] MEDS ORDERED: NS 1,000 ML IV ONE
[2021-06-30] MEDS ORDERED: cefTRIAXone SOD 1 GM in D5W MINI-BAG PLUS 50 ML IV ONE ×2
[2021-06-30 05:00] VITALS: BP 148/75
[2021-06-30] MEDS: LevoFLOXacin 750 MG TABLET PO SCH (06:39)
[2021-06-30] MEDS: DOCUSATE SODIUM 100MG CAPSULE PO SCH ×2 (09:00→21:00)
[2021-06-30] MEDS: carBAMazepine 200MG TABLET PO SCH ×2 (10:01→21:18)
[2021-06-30] MEDS: DIVALPROEX 500 MG TAB PO SCH ×3 (10:03→21:19)
[2021-06-30] MEDS: guaiFENesin ER 600 MG TAB PO SCH ×2 (10:03→21:19)
[2021-06-30] MEDS: amLODIPine 5 MG TAB PO SCH (10:06)
[2021-06-30 14:00] VITALS: BP 125/66
[2021-06-30 20:00] VITALS: BP 160/100
[2021-06-30] MEDS: FINASTERIDE 5 MG TAB PO SCH (21:18)
[2021-06-30] MEDS: TAMSULOSIN 0.4 MG CAP PO SCH (21:19)
[2021-06-30] MEDS: PERCOCET 5MG/325MG TAB PO PRN (21:20)
[2021-07-01 05:23] VITALS: BP 145/89
[2021-07-01] MEDS: LevoFLOXacin 750 MG TABLET PO SCH (05:52)
[2021-07-01] MEDS: guaiFENesin ER 600 MG TAB PO SCH ×2 (09:00→20:00)
[2021-07-01] MEDS: DOCUSATE SODIUM 100MG CAPSULE PO SCH ×2 (09:00→20:01)
[2021-07-01] MEDS: amLODIPine 5 MG TAB PO SCH (09:05)
[2021-07-01] MEDS: DIVALPROEX 500 MG TAB PO SCH ×3 (09:06→20:00)
[2021-07-01] MEDS: carBAMazepine 200MG TABLET PO SCH ×2 (09:06→20:00)
[2021-07-01 10:05] LABS: HEMATOCRIT 33.6 % (42.0-52.0); HEMOGLOBIN 10.4 g/dl (13.5-17.5); MEAN CORPUSCULAR HEMOGLOBIN 24.9 pg (27.0-33.0); MEAN CORPUSCULAR VOLUME 80.6 fl (80.0-96.0); PLATELET COUNT, AUTOMATED 338 10^3/uL (150-450); RED BLOOD COUNT 4.17 10^6/uL (4.30-6.10); WHITE BLOOD COUNT 8.4 10^3/uL (4.0-10.0)
[2021-07-01 10:23] LABS: BLOOD UREA NITROGEN 18 MG/DL (7-18); CALCIUM LEVEL 8.2 MG/DL (8.8-10.2); CARBON DIOXIDE LEVEL 23 MEQ/L (21-32); CHLORIDE LEVEL 109 MEQ/L (98-107); CREATININE FOR GFR 1.03 MG/DL (0.70-1.30); GLOMERULAR FILTRATION RATE > 60.0 (>49); GLUCOSE, FASTING 100 MG/DL (70-100); SODIUM LEVEL 140 MEQ/L (136-145)
[2021-07-01 10:30] LABS: ERYTHROCYTE SEDIMENTATION RATE 67 mm/hr (0-20)
[2021-07-01 14:00] VITALS: BP 156/83
[2021-07-01] MEDS: ACETAMINOPHEN TAB 650MG DOSE (2X325MG) PO PRN (16:59)
[2021-07-01 17:07] LABS: MYCOPLASMA PNEUMONIAE IgG 497 U/mL (0-99); MYCOPLASMA PNEUMONIAE IgM <770 U/mL (0-769)
[2021-07-01] MEDS: PIPERACILLIN/TAZOBACTAM SOD 4.5 GM in D5W MINI-BAG PLUS 50 ML IV SCH ×2 (18:07→23:38)
[2021-07-01] MEDS: FINASTERIDE 5 MG TAB PO SCH (20:00)
[2021-07-01] MEDS: TAMSULOSIN 0.4 MG CAP PO SCH (20:01)
[2021-07-01 22:00] VITALS: BP 113/81
[2021-07-02] MEDS: PIPERACILLIN/TAZOBACTAM SOD 4.5 GM in D5W MINI-BAG PLUS 50 ML IV SCH ×4 (05:12→23:31)
[2021-07-02 06:00] VITALS: BP 145/81
[2021-07-02 06:40] LABS: HEMATOCRIT 31.4 % (42.0-52.0); HEMOGLOBIN 9.6 g/dl (13.5-17.5); MEAN CORPUSCULAR HGB CONC 30.6 g/dl (32.0-36.5); MEAN CORPUSCULAR VOLUME 81.8 fl (80.0-96.0); PLATELET COUNT, AUTOMATED 336 10^3/uL (150-450); RED BLOOD COUNT 3.84 10^6/uL (4.30-6.10); WHITE BLOOD COUNT 9.2 10^3/uL (4.0-10.0)
[2021-07-02 06:56] LABS: BLOOD UREA NITROGEN 17 MG/DL (7-18); CALCIUM LEVEL 8.5 MG/DL (8.8-10.2); CARBON DIOXIDE LEVEL 25 MEQ/L (21-32); CHLORIDE LEVEL 108 MEQ/L (98-107); CREATININE FOR GFR 1.13 MG/DL (0.70-1.30); GLOMERULAR FILTRATION RATE > 60.0 (>49); GLUCOSE, FASTING 113 MG/DL (70-100); POTASSIUM SERUM 3.7 MEQ/L (3.5-5.1); SODIUM LEVEL 139 MEQ/L (136-145)
[2021-07-02] MEDS: DOCUSATE SODIUM 100MG CAPSULE PO SCH ×3 (09:00→20:26)
[2021-07-02] MEDS: DIVALPROEX 500 MG TAB PO SCH ×3 (09:39→20:21)
[2021-07-02] MEDS: guaiFENesin ER 600 MG TAB PO SCH ×2 (09:39→20:21)
[2021-07-02] MEDS: carBAMazepine 200MG TABLET PO SCH ×2 (09:39→20:21)
[2021-07-02] MEDS: VANCOMYCIN HCL 1,000 MG, VIAL MATE ADAPTER 1 EACH in NS 250 ML IV SCH ×2 (09:39→17:04)
[2021-07-02] MEDS: amLODIPine 5 MG TAB PO SCH (09:43)
[2021-07-02 13:07] LABS: MYCOPLASMA PNEUMONIAE IgG 526 U/mL (0-99); MYCOPLASMA PNEUMONIAE IgM <770 U/mL (0-769)
[2021-07-02 14:00] VITALS: BP 142/90
[2021-07-02] MEDS: FINASTERIDE 5 MG TAB PO SCH (20:21)
[2021-07-02] MEDS: TAMSULOSIN 0.4 MG CAP PO SCH (20:21)
[2021-07-02 21:57] VITALS: BP 120/61
[2021-07-03] MEDS: VANCOMYCIN HCL 1,000 MG, VIAL MATE ADAPTER 1 EACH in NS 250 ML IV SCH ×3 (00:51→16:43)
[2021-07-03] MEDS: PIPERACILLIN/TAZOBACTAM SOD 4.5 GM in D5W MINI-BAG PLUS 50 ML IV SCH ×4 (05:47→23:26)
[2021-07-03 05:59] VITALS: BP 140/72
[2021-07-03 06:59] LABS: HEMATOCRIT 34.1 % (42.0-52.0); HEMOGLOBIN 10.5 g/dl (13.5-17.5); MEAN CORPUSCULAR HEMOGLOBIN 25.1 pg (27.0-33.0); MEAN CORPUSCULAR HGB CONC 30.8 g/dl (32.0-36.5); MEAN CORPUSCULAR VOLUME 81.4 fl (80.0-96.0); PLATELET COUNT, AUTOMATED 404 10^3/uL (150-450); RED BLOOD COUNT 4.19 10^6/uL (4.30-6.10); WHITE BLOOD COUNT 11.7 10^3/uL (4.0-10.0)
[2021-07-03 07:20] LABS: BLOOD UREA NITROGEN 18 MG/DL (7-18); CALCIUM LEVEL 8.7 MG/DL (8.8-10.2); CARBON DIOXIDE LEVEL 25 MEQ/L (21-32); CHLORIDE LEVEL 106 MEQ/L (98-107); CREATININE FOR GFR 1.17 MG/DL (0.70-1.30); GLOMERULAR FILTRATION RATE > 60.0 (>49); GLUCOSE, FASTING 101 MG/DL (70-100); POTASSIUM SERUM 3.8 MEQ/L (3.5-5.1); SODIUM LEVEL 138 MEQ/L (136-145)
[2021-07-03] MEDS: DOCUSATE SODIUM 100MG CAPSULE PO SCH ×2 (07:48→20:35)
[2021-07-03] MEDS: guaiFENesin ER 600 MG TAB PO SCH ×2 (09:33→20:25)
[2021-07-03] MEDS: DIVALPROEX 500 MG TAB PO SCH ×3 (09:33→20:25)
[2021-07-03] MEDS: carBAMazepine 200MG TABLET PO SCH ×2 (09:33→20:25)
[2021-07-03] MEDS: amLODIPine 5 MG TAB PO SCH (09:35)
[2021-07-03] MEDS: TAMSULOSIN 0.4 MG CAP PO SCH (20:24)
[2021-07-03] MEDS: FINASTERIDE 5 MG TAB PO SCH (20:25)
[2021-07-03 21:00] VITALS: BP 146/81
[2021-07-04] MEDS: VANCOMYCIN HCL 1,000 MG, VIAL MATE ADAPTER 1 EACH in NS 250 ML IV SCH (00:47)
[2021-07-04] MEDS: PIPERACILLIN/TAZOBACTAM SOD 4.5 GM in D5W MINI-BAG PLUS 50 ML IV SCH ×4 (05:18→23:49)
[2021-07-04 06:00] VITALS: BP 145/81
[2021-07-04 08:12] LABS: HEMATOCRIT 32.9 % (42.0-52.0); HEMOGLOBIN 10.2 g/dl (13.5-17.5); MEAN CORPUSCULAR HEMOGLOBIN 25.1 pg (27.0-33.0); PLATELET COUNT, AUTOMATED 377 10^3/uL (150-450); RED BLOOD COUNT 4.06 10^6/uL (4.30-6.10); WHITE BLOOD COUNT 8.7 10^3/uL (4.0-10.0)
[2021-07-04 08:27] LABS: C REACTIVE PROTEIN QUANTITATIV 12.8 MG/DL (0.00-0.30); CALCIUM LEVEL 8.8 MG/DL (8.8-10.2); CREATININE FOR GFR 1.29 MG/DL (0.70-1.30); GLOMERULAR FILTRATION RATE 59.5 (>49); POTASSIUM SERUM 3.7 MEQ/L (3.5-5.1)
[2021-07-04 08:35] LABS: ERYTHROCYTE SEDIMENTATION RATE 83 mm/hr (0-20)
[2021-07-04] MEDS: DOCUSATE SODIUM 100MG CAPSULE PO SCH ×2 (09:00→20:36)
[2021-07-04] MEDS: carBAMazepine 200MG TABLET PO SCH ×2 (10:18→20:36)
[2021-07-04] MEDS: guaiFENesin ER 600 MG TAB PO SCH ×2 (10:18→20:35)
[2021-07-04] MEDS: DIVALPROEX 500 MG TAB PO SCH ×3 (10:18→20:36)
[2021-07-04] MEDS: VANCOMYCIN HCL 750 MG, VIAL MATE ADAPTER 1 EACH in NS 250 ML IV SCH ×2 (10:19→18:32)
[2021-07-04] MEDS: amLODIPine 5 MG TAB PO SCH (10:19)
[2021-07-04 14:00] VITALS: BP 146/83
[2021-07-04 16:09] LABS: BODY FLUID CULTURE Not indicated. (.); ORGANISM ID Not indicated. (.); SPECIMEN SOURCE Urine (.); URINE STREP PNEUMONIAE ANTIGEN Negative (Negative)
[2021-07-04] MEDS: FINASTERIDE 5 MG TAB PO SCH (20:35)
[2021-07-04] MEDS: TAMSULOSIN 0.4 MG CAP PO SCH (20:36)
[2021-07-04 21:00] VITALS: BP 139/84
[2021-07-05] MEDS: VANCOMYCIN HCL 750 MG, VIAL MATE ADAPTER 1 EACH in NS 250 ML IV SCH (02:27)
[2021-07-05] MEDS: PIPERACILLIN/TAZOBACTAM SOD 4.5 GM in D5W MINI-BAG PLUS 50 ML IV SCH (05:51)
[2021-07-05 06:00] VITALS: BP 142/84
[2021-07-05 07:14] LABS: HEMATOCRIT 34.3 % (42.0-52.0); HEMOGLOBIN 10.6 g/dl (13.5-17.5); MEAN CORPUSCULAR HEMOGLOBIN 25.1 pg (27.0-33.0); MEAN CORPUSCULAR HGB CONC 30.9 g/dl (32.0-36.5); MEAN CORPUSCULAR VOLUME 81.3 fl (80.0-96.0); PLATELET COUNT, AUTOMATED 425 10^3/uL (150-450); RED BLOOD COUNT 4.22 10^6/uL (4.30-6.10)
[2021-07-05 07:38] LABS: BLOOD UREA NITROGEN 18 MG/DL (7-18); CALCIUM LEVEL 8.6 MG/DL (8.8-10.2); CARBON DIOXIDE LEVEL 27 MEQ/L (21-32); CHLORIDE LEVEL 110 MEQ/L (98-107); CREATININE FOR GFR 1.06 MG/DL (0.70-1.30); GLOMERULAR FILTRATION RATE > 60.0 (>49); GLUCOSE, FASTING 96 MG/DL (70-100); POTASSIUM SERUM 3.9 MEQ/L (3.5-5.1); SODIUM LEVEL 143 MEQ/L (136-145)
[2021-07-05] MEDS: DOCUSATE SODIUM 100MG CAPSULE PO SCH ×2 (09:00→19:42)
[2021-07-05] MEDS: guaiFENesin ER 600 MG TAB PO SCH ×2 (09:00→20:53)
[2021-07-05] MEDS: carBAMazepine 200MG TABLET PO SCH ×2 (10:07→20:53)
[2021-07-05] MEDS: amLODIPine 5 MG TAB PO SCH (10:07)
[2021-07-05] MEDS: DIVALPROEX 500 MG TAB PO SCH ×3 (10:08→20:53)
[2021-07-05 13:20] LABS: C REACTIVE PROTEIN QUANTITATIV 9.63 MG/DL (0.00-0.30)
[2021-07-05 14:00] VITALS: BP 148/88
[2021-07-05] MEDS: CEFDINIR 300 MG CAP (OMNICEF) PO SCH ×2 (14:50→20:53)
[2021-07-05] MEDS: metroNIDAZOLE (FLAGYL) 500MG TABLET PO SCH ×2 (14:50→20:53)
[2021-07-05] MEDS: TAMSULOSIN 0.4 MG CAP PO SCH (20:53)
[2021-07-05] MEDS: FINASTERIDE 5 MG TAB PO SCH (20:53)
[2021-07-05 22:00] VITALS: BP 116/80
[2021-07-06] MEDS: metroNIDAZOLE (FLAGYL) 500MG TABLET PO SCH ×2 (05:27→15:10)
[2021-07-06 06:00] VITALS: BP 136/88
[2021-07-06 06:20] LABS: HEMATOCRIT 35.3 % (42.0-52.0); HEMOGLOBIN 10.9 g/dl (13.5-17.5); MEAN CORPUSCULAR HEMOGLOBIN 24.7 pg (27.0-33.0); MEAN CORPUSCULAR HGB CONC 30.9 g/dl (32.0-36.5); PLATELET COUNT, AUTOMATED 441 10^3/uL (150-450); RED BLOOD COUNT 4.41 10^6/uL (4.30-6.10); WHITE BLOOD COUNT 10.1 10^3/uL (4.0-10.0)
[2021-07-06 06:43] LABS: BLOOD UREA NITROGEN 16 MG/DL (7-18); CALCIUM LEVEL 8.6 MG/DL (8.8-10.2); CARBON DIOXIDE LEVEL 26 MEQ/L (21-32); CHLORIDE LEVEL 110 MEQ/L (98-107); CREATININE FOR GFR 1.03 MG/DL (0.70-1.30); GLOMERULAR FILTRATION RATE > 60.0 (>49); GLUCOSE, FASTING 96 MG/DL (70-100); POTASSIUM SERUM 4.2 MEQ/L (3.5-5.1); SODIUM LEVEL 142 MEQ/L (136-145)
[2021-07-06] MEDS: DOCUSATE SODIUM 100MG CAPSULE PO SCH (09:00)
[2021-07-06] MEDS: guaiFENesin ER 600 MG TAB PO SCH (09:17)
[2021-07-06] MEDS: CEFDINIR 300 MG CAP (OMNICEF) PO SCH (09:17)
[2021-07-06] MEDS: DIVALPROEX 500 MG TAB PO SCH ×2 (09:18→15:10)
[2021-07-06] MEDS: carBAMazepine 200MG TABLET PO SCH (09:18)
[2021-07-06 09:20] VITALS: BP 137/87
[2021-07-06] MEDS: amLODIPine 5 MG TAB PO SCH (09:20)
[2021-07-06] MEDS ORDERED: CEFD300CAP PO (14:13)
[2021-07-06] MEDS ORDERED: METR-265 PO (14:13)
[2021-07-07 16:11] LABS: LEGIONELLA ANTIGEN URINE Negative (Negative)
== END 2021-07-06 18:32 | disposition home or self-care (01) | DRG 948 ==
LOC: M ED 17:36 → M ED INP 17:37 → M MSPAV 06-29 00:51 → OBSVTOIN 06-29 09:52
PROVIDERS: ADMIT Family Medicine; ATTEND Internal Medicine
DX: R53.1 Weakness (principal); S37.011A Minor contusion of right kidney, initial encounter; G40.909 Epilepsy, unspecified, not intractable, without status epilepticus; E78.5 Hyperlipidemia, unspecified; G47.33 Obstructive sleep apnea (adult) (pediatric); K21.9 Gastro-esophageal reflux disease without esophagitis; N40.0 Benign prostatic hyperplasia without lower urinary tract symptoms; Z20.822 Contact with and (suspected) exposure to COVID-19; Z79.899 Other long term (current) drug therapy; W01.0XXA Fall on same level from slipping, tripping and stumbling without subsequent striking against object, initial encounter; Y92.009 Unspecified place in unspecified non-institutional (private) residence as the place of occurrence of the external cause; K52.9 Noninfective gastroenteritis and colitis, unspecified; I10 Essential (primary) hypertension; Z72.3 Lack of physical exercise; R50.9 Fever, unspecified

== ENCOUNTER 2021-07-10 06:17 | Inpatient (IN) | payer MEDICARE ==
[~2021-07-10] VITALS: Ht 165.1 cm; Wt 122.2 kg
[~2021-07-10 06:17] MED LIST changes: +CEFD300CAP PO; +METR-265 PO
[2021-07-10 07:00] LABS: BASO # 0.1 10^3/uL (0.0-0.2); BASO % 0.7 % (0.0-1.0); EOS # 0.2 10^3/uL (0.0-0.5); EOS % 1.4 % (0.0-3.0); HEMATOCRIT 35.3 % (42.0-52.0); HEMOGLOBIN 10.8 g/dl (13.5-17.5); LYMPH # 1.9 10^3/uL (1.5-5.0); MEAN CORPUSCULAR HEMOGLOBIN 24.9 pg (27.0-33.0); MEAN CORPUSCULAR HGB CONC 30.6 g/dl (32.0-36.5); MEAN CORPUSCULAR VOLUME 81.5 fl (80.0-96.0); MONO # 1.2 10^3/uL (0.0-0.8); MONO % 10.5 % (2.0-8.0); NEUTROPHILS # 7.5 10^3/uL (1.5-8.5); NEUTROPHILS % 67.8 % (36.0-66.0); PLATELET COUNT, AUTOMATED 490 10^3/uL (150-450); RED BLOOD COUNT 4.33 10^6/uL (4.30-6.10)
[2021-07-10 07:15] LABS: ABG BASE EXCESS 0.9 (-2.0-2.0); ABG HCO3 24.5 MEQ/L (22.0-26.0); ABG O2 SATURATION 93.4 % (95.0-99.0); ABG PARTIAL PRESSURE CO2 35.5 mmHg (35.0-45.0); ABG PARTIAL PRESSURE O2 65.1 mmHg (75.0-100.0); ABG STANDARD HCO3 25.2 MEQ/L (22.0-26.0); ABG TOTAL CO2 25.6 MEQ/L (23.0-31.0); ABG pH (ARTERIAL) 7.457 UNITS (7.350-7.450)
[2021-07-10 07:27] LABS: CK-MB VALUE MASS < 1.0 NG/ML (<3.6); CPK CREATINE PHOSPHOKINASE 46 U/L (39-308); MB/CK RELATIVE INDEX 2.17 (< OR =4)
[2021-07-10 07:29] LABS: ALBUMIN 2.9 GM/DL (3.2-5.2); ALT/SGPT 42 U/L (12-78); BILIRUBIN,DIRECT 0.2 MG/DL (0.0-0.2); BILIRUBIN,TOTAL 0.5 MG/DL (0.2-1.0); BLOOD UREA NITROGEN 14 MG/DL (7-18); CALCIUM LEVEL 8.3 MG/DL (8.8-10.2); CARBON DIOXIDE LEVEL 24 MEQ/L (21-32); CHLORIDE LEVEL 108 MEQ/L (98-107); CREATININE FOR GFR 1.03 MG/DL (0.70-1.30); GLOMERULAR FILTRATION RATE > 60.0 (>49); GLUCOSE, FASTING 90 MG/DL (70-100); NT-PRO BNP 50 PG/ML (<125); POTASSIUM SERUM 4.3 MEQ/L (3.5-5.1); SODIUM LEVEL 141 MEQ/L (136-145)
[2021-07-10] MEDS: MORPHINE 2 MG/ML 1ML VIAL (J2270) IV PRN ×2 (07:56→09:14)
[2021-07-10] MEDS ORDERED: ISOVUE-370 76% 100ML VIAL As Ordered ONE (07:57)
[2021-07-10 08:46] LABS: CK-MB VALUE MASS < 1.0 NG/ML (<3.6); CPK CREATINE PHOSPHOKINASE 42 U/L (39-308); MB/CK RELATIVE INDEX 2.38 (< OR =4)
[2021-07-10] MEDS ORDERED: ACETAMINOPHEN TAB 650MG DOSE (2X325MG) PO PRN (10:45)
[2021-07-10] MEDS: HYDROMORPHONE HCL 0.5 MG/ 0.5 ML SYRINGE (J1170 PER 1) IV PRN (10:48)
[2021-07-10] MEDS ORDERED: cefTRIAXone SOD 1 GM in D5W MINI-BAG PLUS 50 ML IV SCH (11:00)
[2021-07-10] MEDS ORDERED: HOME MED LIST COMPLETE! XX SCH (11:20)
[2021-07-10] MEDS ORDERED: AZITHROMYCIN INJ 500 MG, VIAL MATE ADAPTER 1 EACH in NS 250 ML IV SCH (12:00)
[2021-07-10 12:43] LABS: INR 1.16; PROTHROMBIN TIME 15.2 SECONDS (12.7-14.5)
[2021-07-10 12:44] LABS: PARTIAL THROMBOPLASTIN TIME 36.1 SECONDS (25.9-37.0)
[2021-07-10 15:46] VITALS: BP 140/83
[2021-07-10] MEDS ORDERED: MORPHINE 4 MG/ML 1ML VIAL/SYRINGE (J2270) IV PRN (15:55)
[2021-07-10] MEDS: DIVALPROEX 500 MG TAB PO SCH ×2 (16:00→20:11)
[2021-07-10] MEDS: TAMSULOSIN 0.4 MG CAP PO SCH (20:10)
[2021-07-10] MEDS: FINASTERIDE 5 MG TAB PO SCH (20:11)
[2021-07-10] MEDS: guaiFENesin ER 600 MG TAB PO SCH (20:11)
[2021-07-10] MEDS: carBAMazepine 200MG TABLET PO SCH (20:11)
[2021-07-10 21:00] VITALS: BP 145/88
[2021-07-11 06:00] VITALS: BP 140/85
[2021-07-11 06:36] LABS: HEMATOCRIT 33.1 % (42.0-52.0); HEMOGLOBIN 10.1 g/dl (13.5-17.5); MEAN CORPUSCULAR HEMOGLOBIN 24.8 pg (27.0-33.0); MEAN CORPUSCULAR HGB CONC 30.5 g/dl (32.0-36.5); MEAN CORPUSCULAR VOLUME 81.3 fl (80.0-96.0); PLATELET COUNT, AUTOMATED 444 10^3/uL (150-450); RED BLOOD COUNT 4.07 10^6/uL (4.30-6.10); WHITE BLOOD COUNT 8.9 10^3/uL (4.0-10.0)
[2021-07-11 06:58] LABS: BLOOD UREA NITROGEN 17 MG/DL (7-18); CALCIUM LEVEL 8.3 MG/DL (8.8-10.2); CARBON DIOXIDE LEVEL 26 MEQ/L (21-32); CHLORIDE LEVEL 108 MEQ/L (98-107); CREATININE FOR GFR 0.97 MG/DL (0.70-1.30); GLOMERULAR FILTRATION RATE > 60.0 (>49); GLUCOSE, FASTING 83 MG/DL (70-100); MAGNESIUM LEVEL 2.1 MG/DL (1.8-2.4); POTASSIUM SERUM 4.2 MEQ/L (3.5-5.1); SODIUM LEVEL 141 MEQ/L (136-145)
[2021-07-11 07:35] VITALS: BP 136/81
[2021-07-11] MEDS: HYDROMORPHONE HCL 0.5 MG/ 0.5 ML SYRINGE (J1170 PER 1) IV PRN (07:49)
[2021-07-11] MEDS: DIVALPROEX 500 MG TAB PO SCH ×3 (09:53→19:54)
[2021-07-11] MEDS: guaiFENesin ER 600 MG TAB PO SCH ×2 (09:53→19:54)
[2021-07-11] MEDS: carBAMazepine 200MG TABLET PO SCH ×2 (09:53→19:53)
[2021-07-11] MEDS: amLODIPine 5 MG TAB PO SCH (09:54)
[2021-07-11] MEDS ORDERED: MORPHINE 4 MG/ML 1ML VIAL/SYRINGE (J2270) IV PRN (10:05)
[2021-07-11] MEDS: BENZONATATE 100MG CAPSULE PO SCH ×3 (11:20→19:54)
[2021-07-11] MEDS: PERCOCET 5MG/325MG TAB PO PRN ×2 (12:49→18:45)
[2021-07-11 14:00] VITALS: BP 132/77
[2021-07-11] MEDS: TAMSULOSIN 0.4 MG CAP PO SCH (19:53)
[2021-07-11] MEDS: FINASTERIDE 5 MG TAB PO SCH (19:54)
[2021-07-11 22:00] VITALS: BP 133/79
[2021-07-12] MEDS: PERCOCET 5MG/325MG TAB PO PRN ×4 (02:23→20:18)
[2021-07-12 06:00] VITALS: BP 131/80
[2021-07-12 08:12] LABS: HEMATOCRIT 36.2 % (42.0-52.0); HEMOGLOBIN 10.9 g/dl (13.5-17.5); MEAN CORPUSCULAR HEMOGLOBIN 24.7 pg (27.0-33.0); MEAN CORPUSCULAR HGB CONC 30.1 g/dl (32.0-36.5); MEAN CORPUSCULAR VOLUME 82.1 fl (80.0-96.0); PLATELET COUNT, AUTOMATED 509 10^3/uL (150-450); RED BLOOD COUNT 4.41 10^6/uL (4.30-6.10); WHITE BLOOD COUNT 9.8 10^3/uL (4.0-10.0)
[2021-07-12 08:32] LABS: BLOOD UREA NITROGEN 15 MG/DL (7-18); CALCIUM LEVEL 8.5 MG/DL (8.8-10.2); CARBON DIOXIDE LEVEL 25 MEQ/L (21-32); CHLORIDE LEVEL 108 MEQ/L (98-107); CREATININE FOR GFR 0.99 MG/DL (0.70-1.30); GLOMERULAR FILTRATION RATE > 60.0 (>49); GLUCOSE, FASTING 86 MG/DL (70-100); POTASSIUM SERUM 4.3 MEQ/L (3.5-5.1); SODIUM LEVEL 139 MEQ/L (136-145)
[2021-07-12 09:15] VITALS: BP 131/80
[2021-07-12] MEDS: BENZONATATE 100MG CAPSULE PO SCH ×3 (09:25→20:14)
[2021-07-12] MEDS: amLODIPine 5 MG TAB PO SCH (09:28)
[2021-07-12] MEDS: carBAMazepine 200MG TABLET PO SCH ×2 (09:30→20:14)
[2021-07-12] MEDS: DIVALPROEX 500 MG TAB PO SCH ×3 (09:30→20:14)
[2021-07-12] MEDS: guaiFENesin ER 600 MG TAB PO SCH ×2 (09:31→20:14)
[2021-07-12 14:00] VITALS: BP 107/64
[2021-07-12] MEDS: TAMSULOSIN 0.4 MG CAP PO SCH (20:14)
[2021-07-12] MEDS: FINASTERIDE 5 MG TAB PO SCH (20:14)
[2021-07-12 22:00] VITALS: BP 138/80
[2021-07-13 06:00] VITALS: BP 147/91
[2021-07-13 06:09] LABS: HEMOGLOBIN 10.1 g/dl (13.5-17.5); MEAN CORPUSCULAR HEMOGLOBIN 24.6 pg (27.0-33.0); MEAN CORPUSCULAR HGB CONC 30.6 g/dl (32.0-36.5); MEAN CORPUSCULAR VOLUME 80.5 fl (80.0-96.0); PLATELET COUNT, AUTOMATED 448 10^3/uL (150-450)
[2021-07-13 06:39] LABS: BLOOD UREA NITROGEN 15 MG/DL (7-18); CALCIUM LEVEL 8.3 MG/DL (8.8-10.2); CARBON DIOXIDE LEVEL 27 MEQ/L (21-32); CHLORIDE LEVEL 109 MEQ/L (98-107); CREATININE FOR GFR 0.97 MG/DL (0.70-1.30); GLOMERULAR FILTRATION RATE > 60.0 (>49); GLUCOSE, FASTING 85 MG/DL (70-100); POTASSIUM SERUM 4.2 MEQ/L (3.5-5.1); SODIUM LEVEL 141 MEQ/L (136-145)
[2021-07-13 08:00] VITALS: BP 147/91
[2021-07-13] MEDS: carBAMazepine 200MG TABLET PO SCH ×2 (08:16→21:15)
[2021-07-13] MEDS: BENZONATATE 100MG CAPSULE PO SCH ×3 (08:16→21:15)
[2021-07-13] MEDS: DIVALPROEX 500 MG TAB PO SCH ×3 (08:16→21:15)
[2021-07-13] MEDS: PERCOCET 5MG/325MG TAB PO PRN (08:16)
[2021-07-13] MEDS: guaiFENesin ER 600 MG TAB PO SCH ×2 (08:16→21:15)
[2021-07-13] MEDS: amLODIPine 5 MG TAB PO SCH (09:00)
[2021-07-13 14:00] VITALS: BP 137/86
[2021-07-13] MEDS: TAMSULOSIN 0.4 MG CAP PO SCH (21:14)
[2021-07-13] MEDS: FINASTERIDE 5 MG TAB PO SCH (21:15)
[2021-07-14 06:34] VITALS: BP 124/71
[2021-07-14 06:49] LABS: HEMATOCRIT 33.8 % (42.0-52.0); HEMOGLOBIN 10.2 g/dl (13.5-17.5); MEAN CORPUSCULAR HEMOGLOBIN 24.8 pg (27.0-33.0); MEAN CORPUSCULAR HGB CONC 30.2 g/dl (32.0-36.5); MEAN CORPUSCULAR VOLUME 82.2 fl (80.0-96.0); PLATELET COUNT, AUTOMATED 470 10^3/uL (150-450); RED BLOOD COUNT 4.11 10^6/uL (4.30-6.10); WHITE BLOOD COUNT 8.1 10^3/uL (4.0-10.0)
[2021-07-14 07:09] LABS: BLOOD UREA NITROGEN 14 MG/DL (7-18); CALCIUM LEVEL 8.4 MG/DL (8.8-10.2); CARBON DIOXIDE LEVEL 26 MEQ/L (21-32); CHLORIDE LEVEL 110 MEQ/L (98-107); CREATININE FOR GFR 0.97 MG/DL (0.70-1.30); GLOMERULAR FILTRATION RATE > 60.0 (>49); GLUCOSE, FASTING 85 MG/DL (70-100); POTASSIUM SERUM 4.4 MEQ/L (3.5-5.1); SODIUM LEVEL 141 MEQ/L (136-145)
[2021-07-14 08:00] VITALS: BP 124/71
[2021-07-14] MEDS: guaiFENesin ER 600 MG TAB PO SCH (08:01)
[2021-07-14] MEDS: PERCOCET 5MG/325MG TAB PO PRN ×2 (08:02→15:42)
[2021-07-14] MEDS: DIVALPROEX 500 MG TAB PO SCH ×2 (08:02→15:43)
[2021-07-14] MEDS: carBAMazepine 200MG TABLET PO SCH (08:02)
[2021-07-14] MEDS: BENZONATATE 100MG CAPSULE PO SCH ×2 (08:02→15:42)
[2021-07-14 08:03] VITALS: BP 129/72
[2021-07-14] MEDS: amLODIPine 5 MG TAB PO SCH (08:03)
[2021-07-14] MEDS ORDERED: PERCOCET PO (10:10)
[2021-07-14] MEDS ORDERED: BENZ-18 PO (10:10)
[2021-07-14 14:00] VITALS: BP 124/78
== END 2021-07-14 18:32 | disposition home health service (06) | DRG 920 ==
LOC: M ED 06:17 → M ED INP 10:42 → ENRESERV 15:21 → M MSPAV 15:51
PROVIDERS: ADMIT Internal Medicine; ATTEND Internal Medicine
DX: N99.840 Postprocedural hematoma of a genitourinary system organ or structure following a genitourinary system procedure (principal); Z68.41 Body mass index [BMI] 40.0-44.9, adult; J90 Pleural effusion, not elsewhere classified; D62 Acute posthemorrhagic anemia; G40.909 Epilepsy, unspecified, not intractable, without status epilepticus; E78.5 Hyperlipidemia, unspecified; G47.33 Obstructive sleep apnea (adult) (pediatric); E66.01 Morbid (severe) obesity due to excess calories; K21.9 Gastro-esophageal reflux disease without esophagitis; N20.0 Calculus of kidney; N40.0 Benign prostatic hyperplasia without lower urinary tract symptoms; Y83.8 Other surgical procedures as the cause of abnormal reaction of the patient, or of later complication, without mention of misadventure at the time of the procedure; Z79.899 Other long term (current) drug therapy

== ENCOUNTER → 2021-07-20 | Outpatient (CLI) | payer MEDICARE ==
[~2021-07-20] MED LIST changes: +BENZ-18 PO
[2021-07-20 13:37] LABS: HEMOGLOBIN 11.9 g/dl (13.5-17.5); MEAN CORPUSCULAR HEMOGLOBIN 25.2 pg (27.0-33.0); MEAN CORPUSCULAR HGB CONC 30.5 g/dl (32.0-36.5); MEAN CORPUSCULAR VOLUME 82.5 fl (80.0-96.0); PLATELET COUNT, AUTOMATED 445 10^3/uL (150-450); RED BLOOD COUNT 4.73 10^6/uL (4.30-6.10); WHITE BLOOD COUNT 7.9 10^3/uL (4.0-10.0)
[2021-07-20 14:02] LABS: BLOOD UREA NITROGEN 19 MG/DL (7-18); CALCIUM LEVEL 9.3 MG/DL (8.8-10.2); CARBON DIOXIDE LEVEL 29 MEQ/L (21-32); CHLORIDE LEVEL 105 MEQ/L (98-107); CREATININE FOR GFR 1.06 MG/DL (0.70-1.30); FERRITIN 348 NG/ML (26-388); GLOMERULAR FILTRATION RATE > 60.0 (>49); GLUCOSE, FASTING 86 MG/DL (70-100); IRON (FE) 52 UG/DL (65-175); PERCENT SATURATION 15.2 % (19.7-50.0); POTASSIUM SERUM 5.2 MEQ/L (3.5-5.1); SODIUM LEVEL 141 MEQ/L (136-145); TOTAL IRON BINDING CAPACITY 342 UG/DL (250-450)
== END ==
LOC: M PLALAB 08:25
PROVIDERS: ATTEND Family Medicine
DX: S37.011D Minor contusion of right kidney, subsequent encounter (principal); D50.8 Other iron deficiency anemias

== ENCOUNTER → 2021-08-16 | Outpatient (CLI) | payer MEDICARE | LOC: M RAD 07:33 | PROVIDERS: ATTEND Family Medicine | DX: J18.9 Pneumonia, unspecified organism (principal) ==

== ENCOUNTER → 2021-09-02 | Outpatient (CLI) | payer MEDICARE ==
[2021-09-02 10:32] LABS: HEMATOCRIT 41.1 % (42.0-52.0); HEMOGLOBIN 13.2 g/dl (13.5-17.5); MEAN CORPUSCULAR HEMOGLOBIN 26.3 pg (27.0-33.0); MEAN CORPUSCULAR HGB CONC 32.1 g/dl (32.0-36.5); MEAN CORPUSCULAR VOLUME 81.9 fl (80.0-96.0); PLATELET COUNT, AUTOMATED 236 10^3/uL (150-450); RED BLOOD COUNT 5.02 10^6/uL (4.30-6.10); WHITE BLOOD COUNT 5.5 10^3/uL (4.0-10.0)
[2021-09-02 10:38] LABS: BLOOD UREA NITROGEN 18 MG/DL (7-18); CREATININE FOR GFR 0.98 MG/DL (0.70-1.30); GLUCOSE, FASTING 104 MG/DL (70-100)
[2021-09-02 10:39] LABS: ALBUMIN 3.5 GM/DL (3.2-5.2); ALT/SGPT 36 U/L (12-78); BILIRUBIN,TOTAL 0.2 MG/DL (0.2-1.0); CALCIUM LEVEL 8.6 MG/DL (8.8-10.2); CARBON DIOXIDE LEVEL 30 MEQ/L (21-32); CHLORIDE LEVEL 110 MEQ/L (98-107); FERRITIN 112 NG/ML (26-388); GLOMERULAR FILTRATION RATE > 60.0 (>49); IRON (FE) 60 UG/DL (65-175); PERCENT SATURATION 18.1 % (19.7-50.0); POTASSIUM SERUM 4.4 MEQ/L (3.5-5.1); SODIUM LEVEL 144 MEQ/L (136-145); TOTAL IRON BINDING CAPACITY 332 UG/DL (250-450); TOTAL PROTEIN 7.6 GM/DL (6.4-8.2)
== END ==
LOC: M PLALAB 08:12
PROVIDERS: ATTEND Family Medicine
DX: K76.0 Fatty (change of) liver, not elsewhere classified (principal); D50.8 Other iron deficiency anemias

== ENCOUNTER → 2021-10-13 | Outpatient (REF) | payer MEDICARE | LOC: M SFHCPLAZ 10:32 | PROVIDERS: ATTEND Family Medicine | DX: J06.9 Acute upper respiratory infection, unspecified (principal) ==

== ENCOUNTER → 2021-11-07 | Outpatient (CLI) | payer MEDICARE ==
[2021-11-07 11:42] LABS: HEMOGLOBIN 14.1 g/dl (13.5-17.5); MEAN CORPUSCULAR HGB CONC 31.3 g/dl (32.0-36.5); MEAN CORPUSCULAR VOLUME 82.9 fl (80.0-96.0); PLATELET COUNT, AUTOMATED 204 10^3/uL (150-450); RED BLOOD COUNT 5.43 10^6/uL (4.30-6.10); WHITE BLOOD COUNT 5.2 10^3/uL (4.0-10.0)
[2021-11-07 11:56] LABS: HEMOGLOBIN A1c 5.7 %
[2021-11-07 12:26] LABS: ALBUMIN 3.7 GM/DL (3.2-5.2); ALT/SGPT 35 U/L (12-78); BILIRUBIN,TOTAL 0.2 MG/DL (0.2-1.0); BLOOD UREA NITROGEN 22 MG/DL (7-18); CALCIUM LEVEL 9.2 MG/DL (8.8-10.2); CARBON DIOXIDE LEVEL 29 MEQ/L (21-32); CHLORIDE LEVEL 111 MEQ/L (98-107); CHOLESTEROL LEVEL 285 MG/DL (<200); CHOLESTEROL RISK RATIO 5.089 (<5); CREATININE FOR GFR 1.01 MG/DL (0.70-1.30); FREE T4 0.68 NG/DL (0.76-1.46); GLOMERULAR FILTRATION RATE > 60.0 (>49); GLUCOSE, FASTING 126 MG/DL (70-100); HDL CHOLESTEROL 56 MG/DL (>40); LDL CHOLESTEROL 194 MG/DL (<100); NON-HDL-C 229 MG/DL; POTASSIUM SERUM 4.8 MEQ/L (3.5-5.1); SODIUM LEVEL 143 MEQ/L (136-145); TOTAL 25(OH) VITAMIN D 8.1 NG/ML (30.0-100.0); TOTAL PROTEIN 7.5 GM/DL (6.4-8.2); TRIGLYCERIDES LEVEL 174 MG/DL (<150); VITAMIN B12 LEVEL 551 PG/ML (247-911)
[2021-11-07 13:53] LABS: MALB URINE SIEMENS 58.2 MG/L; MAU/CREAT RATIO 31.4 MCG/MG (0.0-30.0)
[2021-11-08 14:18] LABS: LIPOPROTEIN (a) 148.3 nmol/L (<75.0); PSA TOTAL 0.5 ng/mL (0.0-4.0)
== END ==
LOC: M PLALAB 09:37
PROVIDERS: ATTEND Internal Medicine Hematology
DX: K76.0 Fatty (change of) liver, not elsewhere classified (principal); R97.20 Elevated prostate specific antigen [PSA]; Z79.899 Other long term (current) drug therapy

== ENCOUNTER → 2022-01-09 | Outpatient (CLI) | payer MEDICARE ==
[~2022-01-09] MED LIST changes: +LEVO1TAB40 PO; -LEVO750T13 PO
== END ==
LOC: M RAD 11:40
PROVIDERS: ATTEND Urology
DX: N20.0 Calculus of kidney (principal)

== ENCOUNTER → 2022-01-11 | Outpatient (REF) | payer MEDICARE ==
[2022-01-11 15:36] LABS: APPEARANCE, URINE MANUAL HAZY (CLEAR); COLOR, URINE MANUAL YELLOW (YELLOW)
[2022-01-11 15:37] LABS: PROTEIN, URINE MANUAL NEGATIVE (NEGATIVE); SPECIFIC GRAVITY,URINE MANUAL 1.025 (1.002-1.035)
[2022-01-11 15:38] LABS: BILIRUBIN, URINE MANUAL NEGATIVE (NEGATIVE); BLOOD URINE MANUAL NEGATIVE (NEGATIVE); GLUCOSE, URINE (UA) MANUAL NEGATIVE (NEGATIVE); KETONE, URINE MANUAL NEGATIVE (NEGATIVE); LEUKOCYTE ESTERASE, URINE MAN NEGATIVE (NEGATIVE); NITRITE, URINE MANUAL NEGATIVE (NEGATIVE); UROBILINOGEN, URINE MANUAL NORMAL (NORMAL)
[2022-01-11 16:03] LABS: RBC, URINE NONE SEEN /hpf (0-3); SQUAMOUS EPITHELIAL CELL URINE SMALL AMOUNT /hpf (SMALL AMT); WBC, URINE 0-1 /hpf (0-3)
[2022-01-11 16:04] LABS: AMORPHOUS SEDIMENT, URINE SMALL AMOUNT (NEGATIVE); BACTERIA, URINE NONE SEEN; HYALINE CAST, URINE NONE SEEN /lpf (0-1); MUCUS, URINE SMALL AMOUNT (NEGATIVE); SPERM, URINE SMALL AMOUNT
== END ==
LOC: M SMT 13:11
PROVIDERS: ATTEND Urology
DX: N20.0 Calculus of kidney (principal)

== ENCOUNTER 2022-04-25 15:32 | Inpatient (IN) | payer MEDICARE ==
[~2022-04-25] VITALS: Ht 165.1 cm; Wt 124.6 kg
[~2022-04-25 15:32] MED LIST changes: -ATOR80TA59; -ATOR80TA59 PO; -ECOT81TA5 PO
[2022-04-25] MEDS ORDERED: ATOR80TA59 (15:49)
[2022-04-25] MEDS ORDERED: ISOVUE-370 76% 100ML VIAL As Ordered ONE (17:19)
[2022-04-25 17:32] LABS: BASO % 0.5 % (0.0-1.0); EOS # 0.2 10^3/uL (0.0-0.5); EOS % 2.7 % (0.0-3.0); HEMATOCRIT 41.4 % (42.0-52.0); HEMOGLOBIN 13.7 g/dl (13.5-17.5); LYMPH # 2.2 10^3/uL (1.5-5.0); MEAN CORPUSCULAR HEMOGLOBIN 27.8 pg (27.0-33.0); MEAN CORPUSCULAR HGB CONC 33.1 g/dl (32.0-36.5); MONO # 0.5 10^3/uL (0.0-0.8); MONO % 7.7 % (2.0-8.0); NEUTROPHILS % 51.8 % (36.0-66.0); PLATELET COUNT, AUTOMATED 204 10^3/uL (150-450); RED BLOOD COUNT 4.93 10^6/uL (4.30-6.10); WHITE BLOOD COUNT 5.8 10^3/uL (4.0-10.0)
[2022-04-25 17:52] LABS: CHLORIDE LEVEL 108 MMOL/L (98-107); POTASSIUM SERUM 4.1 MMOL/L (3.5-5.1); SODIUM LEVEL 142 MMOL/L (136-145)
[2022-04-25 17:53] LABS: CARBON DIOXIDE LEVEL 27 MMOL/L (20-31)
[2022-04-25 17:58] LABS: GLUCOSE, FASTING 112 MG/DL (74-106)
[2022-04-25 17:59] LABS: BLOOD UREA NITROGEN 18 MG/DL (9-23); CALCIUM LEVEL 8.5 MG/DL (8.3-10.6); VALPROIC ACID (DEPAKOTE) 70.1 UG/ML (50.0-100.0)
[2022-04-25 18:00] LABS: CK-MB VALUE MASS < 1.0 NG/ML (<3.6); CPK CREATINE PHOSPHOKINASE 167 U/L (46-171); MB/CK RELATIVE INDEX 0.59 (< OR =4); RSV AMPLIFICATION NEGATIVE (NEGATIVE)
[2022-04-25 18:01] LABS: CREATININE FOR GFR 0.81 MG/DL (0.70-1.30); GLOMERULAR FILTRATION RATE > 60.0 (>49)
[2022-04-25 18:32] LABS: INR 1.06
[2022-04-25 18:33] LABS: PARTIAL THROMBOPLASTIN TIME 29.9 SECONDS (24.8-34.2)
[2022-04-25] MEDS ORDERED: FINA5TAB2 PO (20:13)
[2022-04-25] MEDS ORDERED: HOME MED LIST COMPLETE! XX SCH (20:15)
[2022-04-25] MEDS ORDERED: ASPIRIN 81MG CHEW TABLET PO ONE (22:00)
[2022-04-26] VITALS (10 sets, daily range): BP systolic 127–158; BP diastolic 74–86; O2SAT 93
[2022-04-26] MEDS: carBAMazepine 200MG TABLET PO SCH ×3 (01:58→21:48)
[2022-04-26] MEDS: TAMSULOSIN 0.4 MG CAP PO SCH ×2 (01:58→21:48)
[2022-04-26] MEDS: DIVALPROEX 500 MG TAB PO SCH ×4 (01:59→21:49)
[2022-04-26] MEDS: FINASTERIDE 5MG TAB PO SCH ×2 (02:00→21:48)
[2022-04-26 06:07] LABS: HEMOGLOBIN A1c 5.4 % (4.0-6.0)
[2022-04-26 06:15] LABS: CHLORIDE LEVEL 106 MMOL/L (98-107); POTASSIUM SERUM 4.1 MMOL/L (3.5-5.1); SODIUM LEVEL 142 MMOL/L (136-145)
[2022-04-26 06:16] LABS: ALBUMIN 3.5 G/DL (3.2-5.2); CARBON DIOXIDE LEVEL 26 MMOL/L (20-31)
[2022-04-26 06:21] LABS: BLOOD UREA NITROGEN 16 MG/DL (9-23); CALCIUM LEVEL 8.4 MG/DL (8.3-10.6); GLUCOSE, FASTING 97 MG/DL (74-106); TRIGLYCERIDES LEVEL 65 MG/DL (<150)
[2022-04-26 06:22] LABS: ALKALINE PHOSPHATASE 72 U/L (46-116)
[2022-04-26 06:23] LABS: ALT/SGPT 42 U/L (7.0-40); AST/SGOT 26 U/L (<34); BILIRUBIN,TOTAL 0.4 MG/DL (0.3-1.2); CHOLESTEROL LEVEL 139 MG/DL (<200); CHOLESTEROL RISK RATIO 2.94 (<5); GLOMERULAR FILTRATION RATE > 60.0 (>49); HDL CHOLESTEROL 47.2 MG/DL (>40); LDL CHOLESTEROL 78.8 MG/DL (<100); NON-HDL-C 92 MG/DL
[2022-04-26 06:24] LABS: THYROID STIMULATING HORMONE 1.296 uIU/ML (0.55-4.78); TOTAL PROTEIN 6.5 G/DL (5.7-8.2)
[2022-04-26] MEDS: ATORVASTATIN 20 MG TAB PO SCH (08:41)
[2022-04-26] MEDS: ASPIRIN 81MG CHEW TABLET PO SCH (08:41)
[2022-04-26] MEDS: ENOXAPARIN 40MG/0.4ML SYRINGE (J1650 PER 10MG) SC SCH (08:44)
[2022-04-26] MEDS: amLODIPine 5 MG TAB PO SCH (08:44)
[2022-04-26 10:47] LABS: BASO % 0.6 % (0.0-1.0); EOS # 0.1 10^3/uL (0.0-0.5); EOS % 2.3 % (0.0-3.0); HEMATOCRIT 41.5 % (42.0-52.0); HEMOGLOBIN 13.5 g/dl (13.5-17.5); LYMPH # 1.9 10^3/uL (1.5-5.0); MEAN CORPUSCULAR HEMOGLOBIN 27.3 pg (27.0-33.0); MEAN CORPUSCULAR HGB CONC 32.5 g/dl (32.0-36.5); MEAN CORPUSCULAR VOLUME 83.8 fl (80.0-96.0); MONO # 0.4 10^3/uL (0.0-0.8); MONO % 7.5 % (2.0-8.0); NEUTROPHILS # 2.8 10^3/uL (1.5-8.5); NEUTROPHILS % 53.4 % (36.0-66.0); PLATELET COUNT, AUTOMATED 191 10^3/uL (150-450); RED BLOOD COUNT 4.95 10^6/uL (4.30-6.10); WHITE BLOOD COUNT 5.3 10^3/uL (4.0-10.0)
[2022-04-26] MEDS ORDERED: PROHANCE 279.3MG/ML 5ML VIAL As Ordered ONE (12:27)
[2022-04-26] MEDS ORDERED: PROHANCE 279.3MG/ML 15ML VIAL As Ordered ONE (12:28)
[2022-04-27] VITALS: BP 134/80
[2022-04-27 01:00] VITALS: BP 134/80
[2022-04-27 05:00] VITALS: BP 134/83
[2022-04-27 06:00] VITALS: BP 134/83
[2022-04-27 06:24] LABS: BASO % 0.7 % (0.0-1.0); EOS # 0.1 10^3/uL (0.0-0.5); EOS % 2.4 % (0.0-3.0); HEMATOCRIT 39.6 % (42.0-52.0); LYMPH # 2.1 10^3/uL (1.5-5.0); LYMPH % 38.2 % (24.0-44.0); MEAN CORPUSCULAR HEMOGLOBIN 27.7 pg (27.0-33.0); MEAN CORPUSCULAR HGB CONC 32.8 g/dl (32.0-36.5); MEAN CORPUSCULAR VOLUME 84.3 fl (80.0-96.0); MONO # 0.4 10^3/uL (0.0-0.8); MONO % 7.1 % (2.0-8.0); NEUTROPHILS # 2.8 10^3/uL (1.5-8.5); NEUTROPHILS % 51.2 % (36.0-66.0); PLATELET COUNT, AUTOMATED 188 10^3/uL (150-450); WHITE BLOOD COUNT 5.4 10^3/uL (4.0-10.0)
[2022-04-27 06:40] LABS: BLOOD UREA NITROGEN 17 MG/DL (9-23); CALCIUM LEVEL 8.2 MG/DL (8.3-10.6); CARBON DIOXIDE LEVEL 29 MMOL/L (20-31); CHLORIDE LEVEL 107 MMOL/L (98-107); CREATININE FOR GFR 0.92 MG/DL (0.70-1.30); GLOMERULAR FILTRATION RATE > 60.0 (>49); GLUCOSE, FASTING 92 MG/DL (74-106); POTASSIUM SERUM 4.2 MMOL/L (3.5-5.1); SODIUM LEVEL 142 MMOL/L (136-145)
[2022-04-27] MEDS ORDERED: ECOT81TA5 PO (08:39)
[2022-04-27] MEDS ORDERED: ATOR80TA59 PO (08:39)
[2022-04-27] MEDS: ASPIRIN 81MG CHEW TABLET PO SCH (08:55)
[2022-04-27 08:56] VITALS: BP 136/80
[2022-04-27] MEDS: ENOXAPARIN 40MG/0.4ML SYRINGE (J1650 PER 10MG) SC SCH (08:56)
[2022-04-27] MEDS: carBAMazepine 200MG TABLET PO SCH (08:56)
[2022-04-27] MEDS: DIVALPROEX 500 MG TAB PO SCH (08:56)
[2022-04-27] MEDS: amLODIPine 5 MG TAB PO SCH (08:56)
[2022-04-27] MEDS: ATORVASTATIN 20 MG TAB PO SCH (08:56)
== END 2022-04-27 10:39 | disposition home or self-care (01) | DRG 69 ==
LOC: M ED 15:32 → M ED INP 20:39 → ENRESERV 04-26 00:16 → M MSPAV 04-26 01:30
PROVIDERS: ADMIT Family Medicine; ATTEND Internal Medicine
PROC: B246ZZZ Ultrasonography of Right and Left Heart (ICD-10-PCS; principal; 2022-04-26)
DX: G45.9 Transient cerebral ischemic attack, unspecified (principal); R47.01 Aphasia; Z68.42 Body mass index [BMI] 45.0-49.9, adult; G40.909 Epilepsy, unspecified, not intractable, without status epilepticus; G43.109 Migraine with aura, not intractable, without status migrainosus; I10 Essential (primary) hypertension; F44.4 Conversion disorder with motor symptom or deficit; E66.01 Morbid (severe) obesity due to excess calories; E78.5 Hyperlipidemia, unspecified; G47.33 Obstructive sleep apnea (adult) (pediatric); K21.9 Gastro-esophageal reflux disease without esophagitis; N40.0 Benign prostatic hyperplasia without lower urinary tract symptoms; M10.9 Gout, unspecified; R26.89 Other abnormalities of gait and mobility; Z80.0 Family history of malignant neoplasm of digestive organs; Z80.7 Family history of other malignant neoplasms of lymphoid, hematopoietic and related tissues; Z87.442 Personal history of urinary calculi; Z79.899 Other long term (current) drug therapy

== ENCOUNTER → 2022-04-25 | Outpatient (CLI) | payer MEDICARE ==
[~2022-04-25] MED LIST changes: +ATOR80TA59; +ATOR80TA59 PO; +ECOT81TA5 PO
[2022-04-25 11:00] LABS: HEMATOCRIT 45.5 % (42.0-52.0); HEMOGLOBIN 14.3 g/dl (13.5-17.5); MEAN CORPUSCULAR HGB CONC 31.4 g/dl (32.0-36.5); MEAN CORPUSCULAR VOLUME 85.8 fl (80.0-96.0); PLATELET COUNT, AUTOMATED 231 10^3/uL (150-450); WHITE BLOOD COUNT 5.8 10^3/uL (4.0-10.0)
[2022-04-25 11:20] LABS: CHLORIDE LEVEL 106 MMOL/L (98-107); POTASSIUM SERUM 4.4 MMOL/L (3.5-5.1); SODIUM LEVEL 144 MMOL/L (136-145)
[2022-04-25 11:21] LABS: ALBUMIN 3.9 G/DL (3.2-5.2); CARBON DIOXIDE LEVEL 31 MMOL/L (20-31)
[2022-04-25 11:25] LABS: BLOOD UREA NITROGEN 19 MG/DL (9-23); TRIGLYCERIDES LEVEL 86 MG/DL (<150)
[2022-04-25 11:26] LABS: ALKALINE PHOSPHATASE 83 U/L (46-116); CALCIUM LEVEL 8.7 MG/DL (8.3-10.6); GLUCOSE, FASTING 99 MG/DL (74-106)
[2022-04-25 11:28] LABS: ALT/SGPT 52 U/L (7.0-40); AST/SGOT 35 U/L (<34); BILIRUBIN,TOTAL 0.4 MG/DL (0.3-1.2); CHOLESTEROL LEVEL 157 MG/DL (<200); CHOLESTEROL RISK RATIO 2.81 (<5); CREATININE FOR GFR 0.89 MG/DL (0.70-1.30); GLOMERULAR FILTRATION RATE > 60.0 (>49); HDL CHOLESTEROL 55.8 MG/DL (>40); NON-HDL-C 101 MG/DL; TOTAL PROTEIN 7.1 G/DL (5.7-8.2)
[2022-04-25 11:34] LABS: THYROID STIMULATING HORMONE 1.321 uIU/ML (0.55-4.78); TOTAL 25(OH) VITAMIN D 11.2 NG/ML (20.0-100.0)
[2022-04-25 11:36] LABS: FREE T4 0.93 NG/DL (0.89-1.76); VITAMIN B12 LEVEL 590 PG/ML (211-911)
[2022-04-25 11:39] LABS: CREATININE, URINE 204.6 MG/DL
[2022-04-25 11:42] LABS: MAU/CREAT RATIO 26.8 MCG/MG (0.0-30.0)
[2022-04-25 12:08] LABS: HEMOGLOBIN A1c 5.5 % (4.0-6.0)
[2022-04-26 15:08] LABS: INSULIN LEVEL 26.3 uIU/mL (2.6-24.9); LIPOPROTEIN (a) 227.5 nmol/L (<75.0)
== END ==
LOC: M PLALAB 08:09
PROVIDERS: ATTEND Internal Medicine Hematology
DX: E78.5 Hyperlipidemia, unspecified (principal)

== ENCOUNTER → 2022-04-25 | Outpatient (CLI) | payer MEDICARE ==
[2022-04-25 10:57] LABS: BASO % 0.5 % (0.0-1.0); EOS # 0.1 10^3/uL (0.0-0.5); EOS % 2.3 % (0.0-3.0); HEMATOCRIT 45.1 % (42.0-52.0); HEMOGLOBIN 14.3 g/dl (13.5-17.5); LYMPH # 2.3 10^3/uL (1.5-5.0); LYMPH % 39.9 % (24.0-44.0); MEAN CORPUSCULAR HEMOGLOBIN 27.1 pg (27.0-33.0); MEAN CORPUSCULAR HGB CONC 31.7 g/dl (32.0-36.5); MEAN CORPUSCULAR VOLUME 85.4 fl (80.0-96.0); MONO # 0.4 10^3/uL (0.0-0.8); MONO % 7.1 % (2.0-8.0); NEUTROPHILS # 2.9 10^3/uL (1.5-8.5); NEUTROPHILS % 49.9 % (36.0-66.0); PLATELET COUNT, AUTOMATED 215 10^3/uL (150-450); RED BLOOD COUNT 5.28 10^6/uL (4.30-6.10); WHITE BLOOD COUNT 5.8 10^3/uL (4.0-10.0)
[2022-04-25 11:03] LABS: CHLORIDE LEVEL 106 MMOL/L (98-107); POTASSIUM SERUM 4.6 MMOL/L (3.5-5.1); SODIUM LEVEL 144 MMOL/L (136-145)
[2022-04-25 11:04] LABS: ALBUMIN 3.9 G/DL (3.2-5.2); CARBON DIOXIDE LEVEL 31 MMOL/L (20-31)
[2022-04-25 11:09] LABS: CALCIUM LEVEL 8.9 MG/DL (8.3-10.6); GLUCOSE, FASTING 99 MG/DL (74-106)
[2022-04-25 11:10] LABS: ALKALINE PHOSPHATASE 84 U/L (46-116); BLOOD UREA NITROGEN 19 MG/DL (9-23)
[2022-04-25 11:11] LABS: ALT/SGPT 53 U/L (7.0-40); AST/SGOT 35 U/L (<34)
[2022-04-25 11:12] LABS: BILIRUBIN,TOTAL 0.4 MG/DL (0.3-1.2); GLOMERULAR FILTRATION RATE > 60.0 (>49); TOTAL PROTEIN 7.2 G/DL (5.7-8.2)
== END ==
LOC: M PLALAB 08:12
PROVIDERS: ATTEND Physician Assistant
DX: R47.89 Other speech disturbances (principal)

== ENCOUNTER 2022-05-22 08:54 | Emergency (ER) | payer MEDICARE ==
[~2022-05-22] VITALS: Ht 165.1 cm; Wt 109.1 kg
[~2022-05-22 08:54] MED LIST changes: +ATOR80TA59; +ATOR80TA59 PO; +ECOT81TA5 PO
[2022-05-22 08:56] VITALS: BP 132/79
== END 2022-05-22 09:00 | disposition left against medical advice (07) ==
LOC: M ED 08:54
DX: Z53.21 Procedure and treatment not carried out due to patient leaving prior to being seen by health care provider (principal)

== ENCOUNTER → 2022-08-04 | Outpatient (CLI) | payer MEDICARE | LOC: M WHC 09:09 | PROVIDERS: ATTEND Urology | DX: M54.50 Low back pain, unspecified (principal) ==

== ENCOUNTER → 2022-08-15 | Outpatient (CLI) | payer MEDICARE ==
[2022-08-15 07:16] LABS: HEMATOCRIT 42.8 % (42.0-52.0); HEMOGLOBIN 13.9 g/dl (13.5-17.5); MEAN CORPUSCULAR HEMOGLOBIN 27.3 pg (27.0-33.0); MEAN CORPUSCULAR HGB CONC 32.5 g/dl (32.0-36.5); MEAN CORPUSCULAR VOLUME 84.1 fl (80.0-96.0); PLATELET COUNT, AUTOMATED 179 10^3/uL (150-450); RED BLOOD COUNT 5.09 10^6/uL (4.30-6.10); WHITE BLOOD COUNT 6.6 10^3/uL (4.0-10.0)
[2022-08-15 07:52] LABS: ALBUMIN 3.6 G/DL (3.2-5.2); ALKALINE PHOSPHATASE 77 U/L (46-116); ALT/SGPT 48 U/L (7.0-40); AST/SGOT 20 U/L (<34); BILIRUBIN,TOTAL 0.4 MG/DL (0.3-1.2); BLOOD UREA NITROGEN 21 MG/DL (9-23); CALCIUM LEVEL 8.5 MG/DL (8.3-10.6); CARBON DIOXIDE LEVEL 29 MMOL/L (20-31); CHLORIDE LEVEL 108 MMOL/L (98-107); CHOLESTEROL LEVEL 175 MG/DL (<200); CREATININE FOR GFR 0.86 MG/DL (0.70-1.30); GLOMERULAR FILTRATION RATE > 60.0 (>49); GLUCOSE, FASTING 91 MG/DL (74-106); HDL CHOLESTEROL 58.2 MG/DL (>40); LDL CHOLESTEROL 99.2 MG/DL (<100); NON-HDL-C 116.8 MG/DL; POTASSIUM SERUM 4.2 MMOL/L (3.5-5.1); SODIUM LEVEL 142 MMOL/L (136-145); TOTAL PROTEIN 6.7 G/DL (5.7-8.2); TRIGLYCERIDES LEVEL 88 MG/DL (<150)
[2022-08-15 07:54] LABS: CREATININE, URINE 135.1 MG/DL
[2022-08-15 07:56] LABS: THYROID STIMULATING HORMONE 1.974 uIU/ML (0.55-4.78); TOTAL 25(OH) VITAMIN D 11.6 NG/ML (20.0-100.0)
[2022-08-15 07:57] LABS: FREE T4 0.91 NG/DL (0.89-1.76); VITAMIN B12 LEVEL 584 PG/ML (211-911)
[2022-08-15 08:03] LABS: C REACTIVE PROTEIN QUANTITATIV < 0.40 MG/DL (<1.0)
[2022-08-15 08:08] LABS: HEMOGLOBIN A1c 5.7 % (4.0-6.0)
[2022-08-16 15:08] LABS: LIPOPROTEIN (a) 209.9 nmol/L (<75.0)
== END ==
LOC: M LAB 06:23
PROVIDERS: ATTEND Internal Medicine Hematology
DX: Z00.00 Encounter for general adult medical examination without abnormal findings (principal); E78.00 Pure hypercholesterolemia, unspecified; Z12.5 Encounter for screening for malignant neoplasm of prostate
CPT/HCPCS: 36415; 80053; 80061; 82043; 82306; 82607; 83036; 83525; 83695; 84439; 84443; 85027; 86140; G0103

== ENCOUNTER 2022-09-06 03:32 | Emergency (ER) | payer MEDICARE ==
[~2022-09-06] VITALS: Ht 165.1 cm; Wt 111.4 kg
[~2022-09-06 03:32] MED LIST changes: +FLUT50SP17; -FLUTISP
[2022-09-06 03:55] LABS: BASO # 0.1 10^3/uL (0.0-0.2); BASO % 0.8 % (0.0-1.0); EOS # 0.2 10^3/uL (0.0-0.5); EOS % 2.9 % (0.0-3.0); HEMATOCRIT 41.9 % (42.0-52.0); LYMPH # 2.9 10^3/uL (1.5-5.0); LYMPH % 44.3 % (24.0-44.0); MEAN CORPUSCULAR HEMOGLOBIN 27.8 pg (27.0-33.0); MEAN CORPUSCULAR HGB CONC 33.4 g/dl (32.0-36.5); MEAN CORPUSCULAR VOLUME 83.1 fl (80.0-96.0); MONO # 0.4 10^3/uL (0.0-0.8); MONO % 6.8 % (2.0-8.0); NEUTROPHILS # 2.9 10^3/uL (1.5-8.5); NEUTROPHILS % 44.7 % (36.0-66.0); PLATELET COUNT, AUTOMATED 193 10^3/uL (150-450); RED BLOOD COUNT 5.04 10^6/uL (4.30-6.10); WHITE BLOOD COUNT 6.5 10^3/uL (4.0-10.0)
[2022-09-06 04:11] LABS: INR 0.99; PROTHROMBIN TIME 13.3 SECONDS (12.5-14.5)
[2022-09-06 04:12] LABS: PARTIAL THROMBOPLASTIN TIME 26.6 SECONDS (24.8-34.2)
[2022-09-06 04:18] LABS: LIPASE 34 U/L (12-53)
[2022-09-06 04:20] LABS: ALBUMIN 3.6 G/DL (3.2-5.2); ALKALINE PHOSPHATASE 70 U/L (46-116); ALT/SGPT 48 U/L (7.0-40); AST/SGOT 34 U/L (<34); BILIRUBIN,DIRECT < 0.1 MG/DL (<0.4); BILIRUBIN,TOTAL 0.2 MG/DL (0.3-1.2); BLOOD UREA NITROGEN 22 MG/DL (9-23); CALCIUM LEVEL 8.2 MG/DL (8.3-10.6); CARBON DIOXIDE LEVEL 27 MMOL/L (20-31); CHLORIDE LEVEL 108 MMOL/L (98-107); CREATININE FOR GFR 0.84 MG/DL (0.70-1.30); GLOMERULAR FILTRATION RATE > 60.0 (>49); GLUCOSE, FASTING 112 MG/DL (74-106); POTASSIUM SERUM 4.6 MMOL/L (3.5-5.1); SODIUM LEVEL 139 MMOL/L (136-145); TOTAL PROTEIN 6.7 G/DL (5.7-8.2)
[2022-09-06 04:21] LABS: CK-MB VALUE MASS < 1.0 NG/ML (<3.6)
[2022-09-06 04:25] LABS: FREE T4 0.87 NG/DL (0.89-1.76); THYROID STIMULATING HORMONE 2.721 uIU/ML (0.55-4.78)
[2022-09-06 04:30] LABS: CPK CREATINE PHOSPHOKINASE 152 U/L (46-171); MB/CK RELATIVE INDEX 0.65 (< OR =4)
[2022-09-06] MEDS ORDERED: ISOVUE-370 76% 100ML VIAL As Ordered ONE (04:38)
[2022-09-06 05:40] LABS: CK-MB VALUE MASS < 1.0 NG/ML (<3.6)
[2022-09-06 05:42] LABS: CPK CREATINE PHOSPHOKINASE 125 U/L (46-171)
[2022-09-06] MEDS ORDERED: METAL LOCK LOOP XX ONE (06:03)
[2022-09-06 06:37] VITALS: BP 127/63
== END 2022-09-06 06:41 | disposition home or self-care (01) ==
LOC: M ED 03:32 → EDBD 03:32 → M ED 06:41
DX: R07.9 Chest pain, unspecified (principal); R91.1 Solitary pulmonary nodule; E78.5 Hyperlipidemia, unspecified; G47.33 Obstructive sleep apnea (adult) (pediatric); N40.0 Benign prostatic hyperplasia without lower urinary tract symptoms; Z87.442 Personal history of urinary calculi
CPT/HCPCS: 71046; 71275; 74177; 80048; 80076; 82550; 82553; 83690; 84439; 84443; 84484; 85025; 85610; 85730; 93005; 93041; 94760; 99285; Q9967

== ENCOUNTER → 2023-02-02 | Outpatient (CLI) | payer MEDICARE | LOC: M RAD 12:56 | PROVIDERS: ATTEND Urology | DX: N20.0 Calculus of kidney (principal) ==

== ENCOUNTER → 2023-04-02 | Outpatient (CLI) | payer MEDICARE ==
[~2023-04-02] MED LIST changes: +LOSA100T46; +LOTR1CRE3 TOP; -OXYB5TAB10 PO; +OXYB5TAB11 PO; +PERC5TAB12 PO
[2023-04-02 16:19] LABS: HEMOGLOBIN 14.5 g/dl (13.5-17.5); MEAN CORPUSCULAR HEMOGLOBIN 26.7 pg (27.0-33.0); MEAN CORPUSCULAR HGB CONC 32.2 g/dl (32.0-36.5); MEAN CORPUSCULAR VOLUME 82.7 fl (80.0-96.0); PLATELET COUNT, AUTOMATED 228 10^3/uL (150-450); RED BLOOD COUNT 5.44 10^6/uL (4.30-6.10); WHITE BLOOD COUNT 7.1 10^3/uL (4.0-10.0)
[2023-04-02 16:25] LABS: C REACTIVE PROTEIN QUANTITATIV < 0.40 MG/DL (<1.0)
[2023-04-02 16:34] LABS: ALBUMIN 3.7 G/DL (3.2-5.2); ALKALINE PHOSPHATASE 91 U/L (46-116); ALT/SGPT 42 U/L (7.0-40); AST/SGOT 24 U/L (<34); BILIRUBIN,TOTAL 0.3 MG/DL (0.3-1.2); BLOOD UREA NITROGEN 23 MG/DL (9-23); CALCIUM LEVEL 8.9 MG/DL (8.3-10.6); CARBON DIOXIDE LEVEL 29 MMOL/L (20-31); CHLORIDE LEVEL 105 MMOL/L (98-107); CHOLESTEROL LEVEL 185 MG/DL (<200); CHOLESTEROL RISK RATIO 3.04 (<5); FREE T4 0.84 NG/DL (0.89-1.76); GLOMERULAR FILTRATION RATE > 60.0 (>49); GLUCOSE, FASTING 79 MG/DL (74-106); HDL CHOLESTEROL 60.7 MG/DL (>40); LDL CHOLESTEROL 102.7 MG/DL (<100); NON-HDL-C 124.3 MG/DL; POTASSIUM SERUM 4.8 MMOL/L (3.5-5.1); SODIUM LEVEL 141 MMOL/L (136-145); THYROID STIMULATING HORMONE 1.325 uIU/ML (0.55-4.78); TOTAL 25(OH) VITAMIN D 7.5 NG/ML (20.0-100.0); TOTAL PROTEIN 7.4 G/DL (5.7-8.2); TRIGLYCERIDES LEVEL 108 MG/DL (<150); VITAMIN B12 LEVEL 437 PG/ML (211-911)
[2023-04-02 16:42] LABS: MAU/CREAT RATIO 28.6 MCG/MG (0.0-30.0)
[2023-04-02 17:19] LABS: HEMOGLOBIN A1c 5.7 % (4.0-6.0)
== END ==
LOC: M PLALAB 13:36
PROVIDERS: ATTEND Internal Medicine Hematology
DX: I10 Essential (primary) hypertension (principal); Z79.899 Other long term (current) drug therapy

== ENCOUNTER → 2023-04-03 | Outpatient (CLI) | payer MEDICARE ==
[~2023-04-03] MED LIST changes: -LOSA100T46; -PERC5TAB12 PO
== END ==
LOC: M WHC 09:21
PROVIDERS: ATTEND Internal Medicine Hematology
DX: R10.11 Right upper quadrant pain (principal)

== ENCOUNTER 2023-04-04 17:43 | Emergency (ER) | payer MEDICARE ==
[~2023-04-04] VITALS: Ht 165.1 cm; Wt 125.1 kg
[~2023-04-04 17:43] MED LIST changes: -LOTR1CRE3 TOP
[2023-04-04 17:44] VITALS: BP 174/95; TEMP 97.5; O2SAT 95
[2023-04-04] MEDS ORDERED: LOTR1CRE3 TOP (19:09)
== END 2023-04-04 19:23 | disposition home or self-care (01) ==
LOC: M ED 17:43
DX: B35.6 Tinea cruris (principal); Z79.899 Other long term (current) drug therapy

== ENCOUNTER 2023-04-07 09:10 | Emergency (ER) | payer MEDICARE ==
[~2023-04-07] VITALS: Ht 165.1 cm; Wt 126.2 kg
[~2023-04-07 09:10] MED LIST changes: +LOTR1CRE3 TOP
[2023-04-07] MEDS ORDERED: LOSA100T46 (09:24)
[2023-04-07] MEDS ORDERED: ONDANSETRON 4MG 2ML VIAL IV ONE (09:35)
[2023-04-07] MEDS: MORPHINE 4 MG/ML 1ML VIAL IV PRN ×2 (10:12→11:31)
[2023-04-07 10:25] LABS: BASO % 0.5 % (0.0-1.0); EOS # 0.1 10^3/uL (0.0-0.5); EOS % 1.9 % (0.0-3.0); HEMATOCRIT 42.2 % (42.0-52.0); HEMOGLOBIN 13.9 g/dl (13.5-17.5); LYMPH # 1.8 10^3/uL (1.5-5.0); LYMPH % 27.3 % (24.0-44.0); MEAN CORPUSCULAR HGB CONC 32.9 g/dl (32.0-36.5); MEAN CORPUSCULAR VOLUME 82.1 fl (80.0-96.0); MONO # 0.5 10^3/uL (0.0-0.8); NEUTROPHILS % 62.1 % (36.0-66.0); PLATELET COUNT, AUTOMATED 213 10^3/uL (150-450); RED BLOOD COUNT 5.14 10^6/uL (4.30-6.10); WHITE BLOOD COUNT 6.4 10^3/uL (4.0-10.0)
[2023-04-07] MEDS ORDERED: ISOVUE-370 76% 100ML VIAL As Ordered ONE (10:42)
[2023-04-07 10:45] LABS: ALBUMIN 3.4 G/DL (3.2-5.2); BILIRUBIN,DIRECT 0.1 MG/DL (<0.4); BILIRUBIN,TOTAL 0.4 MG/DL (0.3-1.2)
[2023-04-07] MEDS ORDERED: KETOROLAC 30 MG/ML 1ML VIAL IV ONE (12:35)
[2023-04-07] MEDS ORDERED: PERC5TAB12 PO (12:47)
[2023-04-07] MEDS ORDERED: IBUP-1022 PO (12:47)
[2023-04-07 13:21] VITALS: BP 150/75; TEMP 97.8; O2SAT 95
== END 2023-04-07 13:20 | disposition home or self-care (01) ==
LOC: M ED 09:10
DX: M25.511 Pain in right shoulder (principal); R07.89 Other chest pain; I50.9 Heart failure, unspecified; E78.9 Disorder of lipoprotein metabolism, unspecified; G47.30 Sleep apnea, unspecified; Z79.899 Other long term (current) drug therapy; Z79.82 Long term (current) use of aspirin
CPT/HCPCS: 71045; 71275; 72125; 73030; 80047; 80076; 83690; 84484; 85025; 93005; 93041; 94760; 96374; 96375; 96376; 99284; J1885; J2405; Q9967

== ENCOUNTER → 2023-05-29 | Outpatient (CLI) | payer MEDICARE ==
[~2023-05-29] MED LIST changes: -FLUT50SP17; +FLUTISP; +LOSA100T46; +PERC5TAB12 PO
[2023-05-29 18:26] LABS: BASO # 0.1 10^3/uL (0.0-0.2); BASO % 0.9 % (0.0-1.0); EOS # 0.1 10^3/uL (0.0-0.5); EOS % 2.4 % (0.0-3.0); HEMATOCRIT 43.6 % (42.0-52.0); HEMOGLOBIN 14.2 g/dl (13.5-17.5); LYMPH # 2.4 10^3/uL (1.5-5.0); LYMPH % 41.9 % (24.0-44.0); MEAN CORPUSCULAR HEMOGLOBIN 27.1 pg (27.0-33.0); MEAN CORPUSCULAR HGB CONC 32.6 g/dl (32.0-36.5); MEAN CORPUSCULAR VOLUME 83.2 fl (80.0-96.0); MONO # 0.4 10^3/uL (0.0-0.8); MONO % 7.2 % (2.0-8.0); NEUTROPHILS # 2.7 10^3/uL (1.5-8.5); NEUTROPHILS % 47.4 % (36.0-66.0); PLATELET COUNT, AUTOMATED 222 10^3/uL (150-450); RED BLOOD COUNT 5.24 10^6/uL (4.30-6.10); WHITE BLOOD COUNT 5.7 10^3/uL (4.0-10.0)
[2023-05-29 18:56] LABS: VALPROIC ACID (DEPAKOTE) 100.2 UG/ML (50.0-100.0)
[2023-05-29 18:58] LABS: ALBUMIN 3.6 G/DL (3.2-5.2); ALKALINE PHOSPHATASE 85 U/L (46-116); ALT/SGPT 34 U/L (7.0-40); AST/SGOT 24 U/L (<34); BILIRUBIN,TOTAL 0.3 MG/DL (0.3-1.2); BLOOD UREA NITROGEN 24 MG/DL (9-23); CALCIUM LEVEL 8.7 MG/DL (8.3-10.6); CARBON DIOXIDE LEVEL 29 MMOL/L (20-31); CHLORIDE LEVEL 107 MMOL/L (98-107); CREATININE FOR GFR 0.83 MG/DL (0.70-1.30); GLOMERULAR FILTRATION RATE > 60.0 (>49); GLUCOSE, FASTING 92 MG/DL (74-106); POTASSIUM SERUM 4.7 MMOL/L (3.5-5.1); SODIUM LEVEL 142 MMOL/L (136-145)
== END ==
LOC: M PLALAB 15:23
PROVIDERS: ATTEND Internal Medicine Hematology
DX: G40.909 Epilepsy, unspecified, not intractable, without status epilepticus (principal)

== ENCOUNTER → 2023-06-23 | Outpatient (CLI) | payer MEDICARE | LOC: M LAB 08:49 | PROVIDERS: ATTEND Internal Medicine Hematology | DX: G40.909 Epilepsy, unspecified, not intractable, without status epilepticus (principal) ==

== ENCOUNTER 2023-09-20 22:52 | Emergency (ER) | payer MEDICARE ==
[~2023-09-20] VITALS: Ht 165.1 cm; Wt 128.0 kg
[~2023-09-20 22:52] MED LIST changes: -MIRA1POW3 PO; +MIRA33506 PO; -OXYB5TAB11 PO; +OXYB5TAB14 PO
[2023-09-20 23:07] VITALS: TEMP 97.8
[2023-09-20 23:53] LABS: BASO % 0.8 % (0.0-1.0); EOS # 0.1 10^3/uL (0.0-0.5); EOS % 2.3 % (0.0-3.0); HEMATOCRIT 39.8 % (42.0-52.0); HEMOGLOBIN 13.2 g/dl (13.5-17.5); LYMPH # 2.4 10^3/uL (1.5-5.0); LYMPH % 44.6 % (24.0-44.0); MEAN CORPUSCULAR HEMOGLOBIN 27.3 pg (27.0-33.0); MEAN CORPUSCULAR HGB CONC 33.2 g/dl (32.0-36.5); MEAN CORPUSCULAR VOLUME 82.2 fl (80.0-96.0); MONO # 0.4 10^3/uL (0.0-0.8); MONO % 7.5 % (2.0-8.0); NEUTROPHILS # 2.4 10^3/uL (1.5-8.5); NEUTROPHILS % 44.4 % (36.0-66.0); PLATELET COUNT, AUTOMATED 170 10^3/uL (150-450); RED BLOOD COUNT 4.84 10^6/uL (4.30-6.10); WHITE BLOOD COUNT 5.3 10^3/uL (4.0-10.0)
[2023-09-21 00:11] LABS: BLOOD UREA NITROGEN 15 MG/DL (9-23); CALCIUM LEVEL 8.4 MG/DL (8.3-10.6); CARBON DIOXIDE LEVEL 30 MMOL/L (20-31); CHLORIDE LEVEL 106 MMOL/L (98-107); CK-MB VALUE MASS < 1.0 NG/ML (<3.6); CREATININE FOR GFR 0.91 MG/DL (0.70-1.30); GLOMERULAR FILTRATION RATE > 60.0 (>49); GLUCOSE, FASTING 112 MG/DL (74-106); POTASSIUM SERUM 4.1 MMOL/L (3.5-5.1); SODIUM LEVEL 141 MMOL/L (136-145)
[2023-09-21 00:16] LABS: CPK CREATINE PHOSPHOKINASE 117 U/L (46-171); MB/CK RELATIVE INDEX 0.85 (< OR =4)
[2023-09-21 01:45] LABS: CK-MB VALUE MASS < 1.0 NG/ML (<3.6)
[2023-09-21 01:50] LABS: CPK CREATINE PHOSPHOKINASE 129 U/L (46-171); MB/CK RELATIVE INDEX 0.77 (< OR =4)
[2023-09-21 02:00] VITALS: BP 168/90
[2023-09-21 02:07] VITALS: O2SAT 99
== END 2023-09-21 02:27 | disposition home or self-care (01) ==
LOC: M ED 22:52
DX: R07.9 Chest pain, unspecified (principal); I25.2 Old myocardial infarction; K21.9 Gastro-esophageal reflux disease without esophagitis; I10 Essential (primary) hypertension; G47.33 Obstructive sleep apnea (adult) (pediatric); Z79.1 Long term (current) use of non-steroidal anti-inflammatories (NSAID); Z79.899 Other long term (current) drug therapy

== ENCOUNTER → 2023-09-22 | Outpatient (CLI) | payer MEDICARE ==
[2023-09-22 08:45] LABS: HEMATOCRIT 44.1 % (42.0-52.0); HEMOGLOBIN 14.5 g/dl (13.5-17.5); MEAN CORPUSCULAR HEMOGLOBIN 27.7 pg (27.0-33.0); MEAN CORPUSCULAR HGB CONC 32.9 g/dl (32.0-36.5); MEAN CORPUSCULAR VOLUME 84.3 fl (80.0-96.0); PLATELET COUNT, AUTOMATED 194 10^3/uL (150-450); RED BLOOD COUNT 5.23 10^6/uL (4.30-6.10); WHITE BLOOD COUNT 5.4 10^3/uL (4.0-10.0)
[2023-09-22 08:56] LABS: HEMOGLOBIN A1c 5.9 % (4.0-6.0)
[2023-09-22 09:09] LABS: C REACTIVE PROTEIN QUANTITATIV < 0.40 MG/DL (<1.0)
[2023-09-22 09:15] LABS: ALBUMIN 3.6 G/DL (3.2-5.2); ALKALINE PHOSPHATASE 95 U/L (46-116); ALT/SGPT 29 U/L (7.0-40); AST/SGOT 26 U/L (<34); BILIRUBIN,TOTAL 0.4 MG/DL (0.3-1.2); BLOOD UREA NITROGEN 18 MG/DL (9-23); CALCIUM LEVEL 9.6 MG/DL (8.3-10.6); CARBON DIOXIDE LEVEL 32 MMOL/L (20-31); CHLORIDE LEVEL 105 MMOL/L (98-107); CHOLESTEROL LEVEL 189 MG/DL (<200); CHOLESTEROL RISK RATIO 3.19 (<5); CREATININE FOR GFR 0.94 MG/DL (0.70-1.30); FREE T4 0.81 NG/DL (0.89-1.76); GLOMERULAR FILTRATION RATE > 60.0 (>49); GLUCOSE, FASTING 94 MG/DL (74-106); HDL CHOLESTEROL 59.2 MG/DL (>40); NON-HDL-C 129.8 MG/DL; POTASSIUM SERUM 4.6 MMOL/L (3.5-5.1); PSA SCREENING 0.31 NG/ML (< 4.00); SODIUM LEVEL 141 MMOL/L (136-145); THYROID STIMULATING HORMONE 1.632 uIU/ML (0.55-4.78); TOTAL 25(OH) VITAMIN D 5.9 NG/ML (20.0-100.0); TOTAL PROTEIN 7.1 G/DL (5.7-8.2); TRIGLYCERIDES LEVEL 99 MG/DL (<150); VITAMIN B12 LEVEL 697 PG/ML (211-911)
[2023-09-22 09:19] LABS: CREATININE, URINE 151.1 MG/DL
== END ==
LOC: M LAB 08:02
PROVIDERS: ATTEND Internal Medicine Hematology
DX: I10 Essential (primary) hypertension (principal); Z12.5 Encounter for screening for malignant neoplasm of prostate; Z79.899 Other long term (current) drug therapy
CPT/HCPCS: 36415; 80053; 80061; 82043; 82306; 82607; 83036; 84439; 84443; 85027; 86140; G0103

== ENCOUNTER 2023-10-05 13:21 | Emergency (ER) | payer MEDICARE ==
[~2023-10-05] VITALS: Ht 165.1 cm; Wt 128.2 kg
[~2023-10-05 13:21] MED LIST changes: +DOXY-323; -DOXY-443
[2023-10-05] MEDS ORDERED: DIVA250T67 (13:40)
[2023-10-05 14:00] LABS: BASO # 0.1 10^3/uL (0.0-0.2); BASO % 0.6 % (0.0-1.0); EOS # 0.1 10^3/uL (0.0-0.5); EOS % 0.6 % (0.0-3.0); HEMATOCRIT 38.9 % (42.0-52.0); HEMOGLOBIN 12.9 g/dl (13.5-17.5); LYMPH # 2.3 10^3/uL (1.5-5.0); LYMPH % 26.5 % (24.0-44.0); MEAN CORPUSCULAR HEMOGLOBIN 27.3 pg (27.0-33.0); MEAN CORPUSCULAR HGB CONC 33.2 g/dl (32.0-36.5); MEAN CORPUSCULAR VOLUME 82.4 fl (80.0-96.0); MONO # 0.5 10^3/uL (0.0-0.8); MONO % 6.3 % (2.0-8.0); NEUTROPHILS # 5.6 10^3/uL (1.5-8.5); NEUTROPHILS % 65.4 % (36.0-66.0); PLATELET COUNT, AUTOMATED 236 10^3/uL (150-450); RED BLOOD COUNT 4.72 10^6/uL (4.30-6.10); WHITE BLOOD COUNT 8.6 10^3/uL (4.0-10.0)
[2023-10-05 14:19] LABS: INR 1.11
[2023-10-05 14:33] LABS: BLOOD UREA NITROGEN 43 MG/DL (9-23); CALCIUM LEVEL 9.1 MG/DL (8.3-10.6); CARBON DIOXIDE LEVEL 25 MMOL/L (20-31); CHLORIDE LEVEL 109 MMOL/L (98-107); CPK CREATINE PHOSPHOKINASE 76 U/L (46-171); CREATININE FOR GFR 0.74 MG/DL (0.70-1.30); GLOMERULAR FILTRATION RATE > 60.0 (>49); GLUCOSE, FASTING 109 MG/DL (74-106); POTASSIUM SERUM 5.2 MMOL/L (3.5-5.1); SODIUM LEVEL 141 MMOL/L (136-145)
[2023-10-05 14:34] LABS: CK-MB VALUE MASS < 1.0 NG/ML (<3.6); MB/CK RELATIVE INDEX 1.31 (< OR =4)
[2023-10-05] MEDS: PANTOPRAZOLE 40MG VIAL IV ONE (14:35)
[2023-10-05] MEDS: NS 1,000 ML IV SCH (14:35)
[2023-10-05] MEDS ORDERED: ISOVUE-370 76% 100ML VIAL As Ordered ONE (14:54)
[2023-10-05 18:15] VITALS: BP 139/77; TEMP 98.4; O2SAT 96
== END 2023-10-05 18:43 | disposition short-term general hospital (02) ==
LOC: M ED 13:21 → EDBD 13:21 → M ED 18:43
DX: K92.2 Gastrointestinal hemorrhage, unspecified (principal); R00.0 Tachycardia, unspecified; I10 Essential (primary) hypertension; E78.5 Hyperlipidemia, unspecified; G47.33 Obstructive sleep apnea (adult) (pediatric); Z79.1 Long term (current) use of non-steroidal anti-inflammatories (NSAID); Z79.899 Other long term (current) drug therapy
CPT/HCPCS: 36415; 74174; 80048; 80156; 82550; 82553; 84484; 85025; 85610; 86850; 86900; 86901; 93005; 93041; 94760; 96374; 99285; C9113; Q9967

== ENCOUNTER → 2023-10-17 | Outpatient (CLI) | payer MEDICARE ==
[~2023-10-17] MED LIST changes: +DIVA250T67
[2023-10-17 12:47] LABS: BASO % 0.6 % (0.0-1.0); EOS # 0.1 10^3/uL (0.0-0.5); EOS % 1.4 % (0.0-3.0); HEMATOCRIT 31.7 % (42.0-52.0); LYMPH # 1.9 10^3/uL (1.5-5.0); LYMPH % 29.9 % (24.0-44.0); MEAN CORPUSCULAR HEMOGLOBIN 27.3 pg (27.0-33.0); MEAN CORPUSCULAR HGB CONC 31.5 g/dl (32.0-36.5); MEAN CORPUSCULAR VOLUME 86.6 fl (80.0-96.0); MONO # 0.5 10^3/uL (0.0-0.8); MONO % 8.2 % (2.0-8.0); NEUTROPHILS # 3.8 10^3/uL (1.5-8.5); NEUTROPHILS % 59.4 % (36.0-66.0); PLATELET COUNT, AUTOMATED 298 10^3/uL (150-450); RED BLOOD COUNT 3.66 10^6/uL (4.30-6.10); WHITE BLOOD COUNT 6.3 10^3/uL (4.0-10.0)
== END ==
LOC: M PLALAB 10:16
PROVIDERS: ATTEND Internal Medicine Hematology
DX: K92.2 Gastrointestinal hemorrhage, unspecified (principal)

== ENCOUNTER 2023-12-09 09:34 | Emergency (ER) | payer MEDICARE ==
[~2023-12-09] VITALS: Ht 170.2 cm; Wt 117.5 kg
[~2023-12-09 09:34] MED LIST changes: -AZEL0.055 NARES; +AZEL1SPR4 NARES; -DIVA250T67; +DIVA250T67 PO
[2023-12-09] MEDS ORDERED: MOLN200C (09:51)
[2023-12-09] MEDS ORDERED: PANT40TA29 (09:51)
[2023-12-09 12:19] VITALS: BP 138/66; TEMP 97.5; O2SAT 97
== END 2023-12-09 15:16 | disposition home or self-care (01) ==
LOC: M ED 09:34
DX: U07.1 COVID-19 (principal); J20.9 Acute bronchitis, unspecified; R05.9 Cough, unspecified; I10 Essential (primary) hypertension; E78.5 Hyperlipidemia, unspecified; K21.9 Gastro-esophageal reflux disease without esophagitis; G40.89 Other seizures; N40.0 Benign prostatic hyperplasia without lower urinary tract symptoms; Z79.899 Other long term (current) drug therapy

== ENCOUNTER → 2024-01-02 | Outpatient (CLI) | payer MEDICARE ==
[~2024-01-02] MED LIST changes: +MOLN200C; +PANT40TA29
== END ==
LOC: M RAD 14:10
PROVIDERS: ATTEND Urology
DX: N20.0 Calculus of kidney (principal)

== ENCOUNTER → 2024-03-24 | Outpatient (CLI) | payer MEDICARE ==
[~2024-03-24] MED LIST changes: -DOXY-323; +DOXY-441
== END ==
LOC: M PLALAB 16:22
PROVIDERS: ATTEND Internal Medicine Hematology
DX: J06.9 Acute upper respiratory infection, unspecified (principal)

== ENCOUNTER 2024-05-05 08:35 | Day surgery (SDC) | payer MEDICARE ==
[~2024-05-05] VITALS: Ht 165.1 cm; Wt 121.6 kg
[~2024-05-05 08:35] MED LIST changes: +FLUT1BLS5 INH; +NEBI5TAB2 PO; -PANT40TA29; +PANT40TA29 PO; +PRED20TA PO
[2024-05-05] MEDS ORDERED: propofoL 200 MG/20 ML VIAL As Ordered ONE (10:03)
[2024-05-05] MEDS ORDERED: fentaNYL 100 MCG/2 ML INJECTION As Ordered ONE (10:04)
[2024-05-05] MEDS ORDERED: MIDAZOLAM INJ 2MG/2ML VIAL As Ordered ONE (10:32)
[2024-05-05 11:09] VITALS: TEMP 97.6
[2024-05-05 11:28] VITALS: BP 130/71; O2SAT 96
== END 2024-05-05 12:04 | disposition home or self-care (01) ==
LOC: M OPP 08:35
PROVIDERS: ATTEND Internal Medicine Gastroenterology
DX: Z12.11 Encounter for screening for malignant neoplasm of colon (principal); Z12.12 Encounter for screening for malignant neoplasm of rectum; D12.2 Benign neoplasm of ascending colon; D12.4 Benign neoplasm of descending colon; K57.30 Diverticulosis of large intestine without perforation or abscess without bleeding; K64.8 Other hemorrhoids; K31.89 Other diseases of stomach and duodenum; K21.9 Gastro-esophageal reflux disease without esophagitis; Z87.11 Personal history of peptic ulcer disease; G40.909 Epilepsy, unspecified, not intractable, without status epilepticus; I10 Essential (primary) hypertension; E78.00 Pure hypercholesterolemia, unspecified; Z86.73 Personal history of transient ischemic attack (TIA), and cerebral infarction without residual deficits; Z79.899 Other long term (current) drug therapy; G47.30 Sleep apnea, unspecified; N40.0 Benign prostatic hyperplasia without lower urinary tract symptoms
CPT/HCPCS: 43239; 45385; 88305; J2250; J3010

== ENCOUNTER 2024-06-02 06:31 | Emergency (ER) | payer MEDICARE ==
[~2024-06-02] VITALS: Ht 165.1 cm; Wt 122.6 kg
[2024-06-02 07:08] LABS: BASO # 0.1 10^3/uL (0.0-0.2); BASO % 0.9 % (0.0-1.0); EOS # 0.1 10^3/uL (0.0-0.5); EOS % 2.6 % (0.0-3.0); HEMATOCRIT 43.2 % (42.0-52.0); HEMOGLOBIN 14.2 g/dl (13.5-17.5); LYMPH # 2.5 10^3/uL (1.5-5.0); LYMPH % 45.9 % (24.0-44.0); MEAN CORPUSCULAR HEMOGLOBIN 27.2 pg (27.0-33.0); MEAN CORPUSCULAR HGB CONC 32.9 g/dl (32.0-36.5); MEAN CORPUSCULAR VOLUME 82.6 fl (80.0-96.0); MONO # 0.3 10^3/uL (0.0-0.8); MONO % 5.7 % (2.0-8.0); NEUTROPHILS # 2.4 10^3/uL (1.5-8.5); NEUTROPHILS % 44.5 % (36.0-66.0); PLATELET COUNT, AUTOMATED 233 10^3/uL (150-450); RED BLOOD COUNT 5.23 10^6/uL (4.30-6.10); WHITE BLOOD COUNT 5.4 10^3/uL (4.0-10.0)
[2024-06-02 07:44] LABS: BLOOD UREA NITROGEN 20 MG/DL (9-23); CALCIUM LEVEL 8.6 MG/DL (8.3-10.6); CARBON DIOXIDE LEVEL 26 MMOL/L (20-31); CHLORIDE LEVEL 108 MMOL/L (98-107); CK-MB VALUE MASS < 1.0 NG/ML (<3.6); CREATININE FOR GFR 0.85 MG/DL (0.70-1.30); GLOMERULAR FILTRATION RATE > 60.0 (>49); GLUCOSE, FASTING 98 MG/DL (74-106); MAGNESIUM LEVEL 1.7 MG/DL (1.8-2.4); POTASSIUM SERUM 4.5 MMOL/L (3.5-5.1); SODIUM LEVEL 143 MMOL/L (136-145)
[2024-06-02 07:46] LABS: CPK CREATINE PHOSPHOKINASE 130 U/L (46-171); MB/CK RELATIVE INDEX 0.76 (< OR =4)
[2024-06-02 10:23] LABS: VALPROIC ACID (DEPAKOTE) 58.2 UG/ML (50.0-100.0)
[2024-06-02] MEDS ORDERED: CETI10CH PO (11:37)
[2024-06-02] MEDS ORDERED: PRED20TA PO (11:37)
[2024-06-02 11:47] VITALS: BP 129/71; TEMP 97.1; O2SAT 99
== END 2024-06-02 11:49 | disposition home or self-care (01) ==
LOC: M ED 06:31
DX: R51.9 Headache, unspecified (principal); I44.7 Left bundle-branch block, unspecified; G40.909 Epilepsy, unspecified, not intractable, without status epilepticus; Z79.52 Long term (current) use of systemic steroids; Z79.899 Other long term (current) drug therapy

== ENCOUNTER 2024-06-07 05:58 | Inpatient (IN) | payer MEDICARE ==
[~2024-06-07] VITALS: Ht 165.1 cm; Wt 124.4 kg
[~2024-06-07 05:58] MED LIST changes: +CETI10CH PO
[2024-06-07 06:28] LABS: VENOUS BASE EXCESS 1.9 (-2.0-2.0); VENOUS HCO3 28.6 MMOL/L (23.0-27.0); VENOUS O2 SATURATION 64.2 % (60.0-80.0); VENOUS PARTIAL PRESSURE CO2 52.3 mmHg (38.0-50.0); VENOUS PARTIAL PRESSURE O2 33.1 mmHg (30.0-50.0); VENOUS PH 7.355 UNITS (7.330-7.430); VENOUS STANDARD HCO3 25.2 MMOL/L; VENOUS TOTAL CO2 30.2 MMOL/L (24.0-28.0)
[2024-06-07 06:36] LABS: BASO % 0.5 % (0.0-1.0); EOS % 0.5 % (0.0-3.0); HEMATOCRIT 45.7 % (42.0-52.0); HEMOGLOBIN 14.9 g/dl (13.5-17.5); LYMPH # 1.1 10^3/uL (1.5-5.0); LYMPH % 18.7 % (24.0-44.0); MEAN CORPUSCULAR HEMOGLOBIN 27.1 pg (27.0-33.0); MEAN CORPUSCULAR HGB CONC 32.6 g/dl (32.0-36.5); MEAN CORPUSCULAR VOLUME 83.2 fl (80.0-96.0); MONO # 0.5 10^3/uL (0.0-0.8); MONO % 9.2 % (2.0-8.0); NEUTROPHILS # 4.1 10^3/uL (1.5-8.5); NEUTROPHILS % 70.1 % (36.0-66.0); PLATELET COUNT, AUTOMATED 179 10^3/uL (150-450); RED BLOOD COUNT 5.49 10^6/uL (4.30-6.10); WHITE BLOOD COUNT 5.9 10^3/uL (4.0-10.0)
[2024-06-07 07:06] LABS: CK-MB VALUE MASS < 1.0 NG/ML (<3.6)
[2024-06-07 07:08] LABS: ALBUMIN 3.5 G/DL (3.2-5.2); ALKALINE PHOSPHATASE 78 U/L (40-129); ALT/SGPT 43 U/L (7.0-40); AST/SGOT 38 U/L (<34); BILIRUBIN,DIRECT 0.1 MG/DL (<0.4); BILIRUBIN,TOTAL 0.4 MG/DL (0.3-1.2); BLOOD UREA NITROGEN 20 MG/DL (9-23); CALCIUM LEVEL 8.5 MG/DL (8.3-10.6); CARBON DIOXIDE LEVEL 31 MMOL/L (20-31); CHLORIDE LEVEL 105 MMOL/L (98-107); CPK CREATINE PHOSPHOKINASE 77 U/L (46-171); CREATININE FOR GFR 0.95 MG/DL (0.70-1.30); GLOMERULAR FILTRATION RATE > 60.0 (>49); GLUCOSE, FASTING 116 MG/DL (74-106); MB/CK RELATIVE INDEX 1.29 (< OR =4); POTASSIUM SERUM 4.2 MMOL/L (3.5-5.1); SODIUM LEVEL 144 MMOL/L (136-145); TOTAL PROTEIN 7.1 G/DL (5.7-8.2)
[2024-06-07] MEDS: ALBUTEROL SULFATE 2.5MG/0.5ML INH NEB SOLN NEB ONE (07:36)
[2024-06-07 07:58] LABS: CK-MB VALUE MASS < 1.0 NG/ML (<3.6)
[2024-06-07] MEDS: NS 500 ML IV ONE (08:04)
[2024-06-07 08:09] LABS: CPK CREATINE PHOSPHOKINASE 76 U/L (46-171); MB/CK RELATIVE INDEX 1.31 (< OR =4)
[2024-06-07] MEDS: ACETAMINOPHEN 325 MG TAB PO ONE (09:14)
[2024-06-07] MEDS ORDERED: ISOVUE-370 76% 100ML VIAL As Ordered ONE (10:07)
[2024-06-07 10:46] LABS: CK-MB VALUE MASS < 1.0 NG/ML (<3.6)
[2024-06-07 10:47] LABS: CPK CREATINE PHOSPHOKINASE 99 U/L (46-171); MB/CK RELATIVE INDEX 1.01 (< OR =4)
[2024-06-07] MEDS: ASPIRIN 81MG CHEW TABLET PO ONE (11:32)
[2024-06-07] MEDS ORDERED: ALBUTEROL SULFATE 2.5MG/0.5ML INH NEB SOLN NEB PRN (14:00)
[2024-06-07] MEDS ORDERED: ATOR80TA59 PO (15:02)
[2024-06-07] MEDS: IPRATROPIUM 0.5MG/ALBUTEROL 2.5MG INH SOL UD 3ML (DUONEB) NEB SCH (15:08)
[2024-06-07] MEDS ORDERED: HOME MED LIST COMPLETE! XX SCH (15:35)
[2024-06-07 21:16] LABS: VENOUS BASE EXCESS -1.2 (-2.0-2.0); VENOUS HCO3 23.3 MMOL/L (23.0-27.0); VENOUS O2 SATURATION 85.6 % (60.0-80.0); VENOUS PARTIAL PRESSURE CO2 38.4 mmHg (38.0-50.0); VENOUS PARTIAL PRESSURE O2 48.9 mmHg (30.0-50.0); VENOUS STANDARD HCO3 23.2 MMOL/L; VENOUS TOTAL CO2 24.4 MMOL/L (24.0-28.0)
[2024-06-07] MEDS: ACETAMINOPHEN 325 MG TAB PO PRN (22:26)
[2024-06-07] MEDS: TAMSULOSIN 0.4 MG CAP PO SCH (22:26)
[2024-06-07] MEDS: DIVALPROEX 500 MG TAB PO SCH (22:26)
[2024-06-07] MEDS: FINASTERIDE 5MG TAB PO SCH (22:27)
[2024-06-07] MEDS: OSELTAMIVIR PHOSPHATE 75 MG CAP (TAMIFLU) PO SCH (22:27)
[2024-06-07] MEDS: carBAMazepine 200MG TABLET PO SCH (22:39)
[2024-06-08] MEDS: NS (Normal Saline) 0.9% 1,000 ML IV ONE (00:09)
[2024-06-08] MEDS: NS (Normal Saline) 0.9% 1,000 ML IV SCH (04:50)
[2024-06-08 07:41] LABS: BASO % 0.4 % (0.0-1.0); HEMATOCRIT 43.5 % (42.0-52.0); LYMPH # 1.2 10^3/uL (1.5-5.0); LYMPH % 21.7 % (24.0-44.0); MEAN CORPUSCULAR HEMOGLOBIN 27.2 pg (27.0-33.0); MEAN CORPUSCULAR HGB CONC 32.2 g/dl (32.0-36.5); MEAN CORPUSCULAR VOLUME 84.5 fl (80.0-96.0); MONO # 0.9 10^3/uL (0.0-0.8); MONO % 15.9 % (2.0-8.0); NEUTROPHILS # 3.4 10^3/uL (1.5-8.5); NEUTROPHILS % 61.6 % (36.0-66.0); PLATELET COUNT, AUTOMATED 179 10^3/uL (150-450); RED BLOOD COUNT 5.15 10^6/uL (4.30-6.10); WHITE BLOOD COUNT 5.5 10^3/uL (4.0-10.0)
[2024-06-08 08:21] LABS: BLOOD UREA NITROGEN 17 MG/DL (9-23); CALCIUM LEVEL 8.3 MG/DL (8.3-10.6); CARBON DIOXIDE LEVEL 26 MMOL/L (20-31); CHLORIDE LEVEL 102 MMOL/L (98-107); CREATININE FOR GFR 0.84 MG/DL (0.70-1.30); GLOMERULAR FILTRATION RATE > 60.0 (>49); GLUCOSE, FASTING 98 MG/DL (74-106); MAGNESIUM LEVEL 1.8 MG/DL (1.8-2.4); POTASSIUM SERUM 4.2 MMOL/L (3.5-5.1); SODIUM LEVEL 139 MMOL/L (136-145)
[2024-06-08] MEDS: ASPIRIN 81MG CHEW TABLET PO SCH (09:57)
[2024-06-08] MEDS: PANTOPRAZOLE 40MG TAB (PROTONIX) PO SCH (09:58)
[2024-06-08] MEDS: ATORVASTATIN 20 MG TAB PO SCH (09:58)
[2024-06-08] MEDS: NEBIVOLOL 5 MG TAB (BYSTOLIC) PO SCH (10:04)
[2024-06-08] MEDS: ENOXAPARIN 40MG/0.4ML SYRINGE (J1650 PER 10MG) SC SCH (10:05)
[2024-06-08 12:04] VITALS: BP 104/55; TEMP 98.5; O2SAT 90
[2024-06-08] MEDS: NYSTATIN CREAM 15GM TOP SCH (20:39)
[2024-06-09 06:43] LABS: BASO % 0.3 % (0.0-1.0); EOS % 0.1 % (0.0-3.0); HEMATOCRIT 40.8 % (42.0-52.0); HEMOGLOBIN 13.2 g/dl (13.5-17.5); LYMPH # 1.2 10^3/uL (1.5-5.0); LYMPH % 17.4 % (24.0-44.0); MEAN CORPUSCULAR HEMOGLOBIN 26.5 pg (27.0-33.0); MEAN CORPUSCULAR HGB CONC 32.4 g/dl (32.0-36.5); MEAN CORPUSCULAR VOLUME 81.9 fl (80.0-96.0); MONO # 0.8 10^3/uL (0.0-0.8); MONO % 11.2 % (2.0-8.0); NEUTROPHILS # 4.7 10^3/uL (1.5-8.5); NEUTROPHILS % 70.7 % (36.0-66.0); PLATELET COUNT, AUTOMATED 161 10^3/uL (150-450); RED BLOOD COUNT 4.98 10^6/uL (4.30-6.10); WHITE BLOOD COUNT 6.7 10^3/uL (4.0-10.0)
[2024-06-09 07:06] LABS: BLOOD UREA NITROGEN 18 MG/DL (9-23); CALCIUM LEVEL 7.6 MG/DL (8.3-10.6); CARBON DIOXIDE LEVEL 25 MMOL/L (20-31); CHLORIDE LEVEL 106 MMOL/L (98-107); GLOMERULAR FILTRATION RATE > 60.0 (>49); GLUCOSE, FASTING 106 MG/DL (74-106); MAGNESIUM LEVEL 1.8 MG/DL (1.8-2.4); POTASSIUM SERUM 4.4 MMOL/L (3.5-5.1); SODIUM LEVEL 141 MMOL/L (136-145)
[2024-06-09 12:00] VITALS: BP 126/62; TEMP 97.8; O2SAT 92
[2024-06-09 14:30] VITALS: BP 125/71; TEMP 98.4; O2SAT 93
[2024-06-09 20:29] VITALS: BP 125/72; TEMP 98.6; O2SAT 91
[2024-06-10 03:42] VITALS: BP 113/70; TEMP 98.1; O2SAT 91
[2024-06-10 06:13] LABS: BASO % 0.2 % (0.0-1.0); EOS % 0.5 % (0.0-3.0); HEMATOCRIT 36.9 % (42.0-52.0); HEMOGLOBIN 11.8 g/dl (13.5-17.5); LYMPH # 1.6 10^3/uL (1.5-5.0); LYMPH % 27.7 % (24.0-44.0); MEAN CORPUSCULAR HEMOGLOBIN 26.8 pg (27.0-33.0); MEAN CORPUSCULAR VOLUME 83.7 fl (80.0-96.0); MONO # 0.6 10^3/uL (0.0-0.8); MONO % 9.8 % (2.0-8.0); NEUTROPHILS # 3.4 10^3/uL (1.5-8.5); NEUTROPHILS % 61.4 % (36.0-66.0); PLATELET COUNT, AUTOMATED 146 10^3/uL (150-450); RED BLOOD COUNT 4.41 10^6/uL (4.30-6.10); WHITE BLOOD COUNT 5.6 10^3/uL (4.0-10.0)
[2024-06-10 06:33] LABS: BLOOD UREA NITROGEN 19 MG/DL (9-23); CALCIUM LEVEL 7.4 MG/DL (8.3-10.6); CARBON DIOXIDE LEVEL 25 MMOL/L (20-31); CHLORIDE LEVEL 108 MMOL/L (98-107); CREATININE FOR GFR 0.75 MG/DL (0.70-1.30); GLOMERULAR FILTRATION RATE > 60.0 (>49); GLUCOSE, FASTING 89 MG/DL (74-106); POTASSIUM SERUM 3.9 MMOL/L (3.5-5.1); SODIUM LEVEL 142 MMOL/L (136-145)
[2024-06-10 12:06] VITALS: BP 109/70; TEMP 97.9; O2SAT 92
[2024-06-10 20:56] VITALS: BP 125/71; TEMP 98.1; O2SAT 92
[2024-06-11] MEDS: guaiFENesin DM LIQ 10ML UD PO PRN (02:46)
[2024-06-11 03:26] VITALS: BP 126/71; TEMP 98.6; O2SAT 96
[2024-06-11 06:49] LABS: BASO % 0.4 % (0.0-1.0); EOS # 0.1 10^3/uL (0.0-0.5); EOS % 1.3 % (0.0-3.0); HEMATOCRIT 34.8 % (42.0-52.0); HEMOGLOBIN 11.2 g/dl (13.5-17.5); LYMPH # 1.2 10^3/uL (1.5-5.0); LYMPH % 26.3 % (24.0-44.0); MEAN CORPUSCULAR HEMOGLOBIN 26.9 pg (27.0-33.0); MEAN CORPUSCULAR HGB CONC 32.2 g/dl (32.0-36.5); MEAN CORPUSCULAR VOLUME 83.7 fl (80.0-96.0); MONO # 0.5 10^3/uL (0.0-0.8); MONO % 10.2 % (2.0-8.0); NEUTROPHILS # 2.8 10^3/uL (1.5-8.5); NEUTROPHILS % 61.4 % (36.0-66.0); PLATELET COUNT, AUTOMATED 141 10^3/uL (150-450); RED BLOOD COUNT 4.16 10^6/uL (4.30-6.10); WHITE BLOOD COUNT 4.6 10^3/uL (4.0-10.0)
[2024-06-11 07:15] LABS: BLOOD UREA NITROGEN 14 MG/DL (9-23); CALCIUM LEVEL 7.8 MG/DL (8.3-10.6); CARBON DIOXIDE LEVEL 25 MMOL/L (20-31); CHLORIDE LEVEL 109 MMOL/L (98-107); CREATININE FOR GFR 0.64 MG/DL (0.70-1.30); GLOMERULAR FILTRATION RATE > 60.0 (>49); GLUCOSE, FASTING 86 MG/DL (74-106); MAGNESIUM LEVEL 1.9 MG/DL (1.8-2.4); SODIUM LEVEL 142 MMOL/L (136-145)
[2024-06-11 11:50] VITALS: BP 128/68; TEMP 98.1; O2SAT 95
[2024-06-11 20:21] VITALS: BP 126/68; TEMP 98.1; O2SAT 96
[2024-06-12 03:48] VITALS: BP 132/69; TEMP 97.5; O2SAT 94
[2024-06-12 05:57] LABS: BASO % 0.4 % (0.0-1.0); EOS # 0.1 10^3/uL (0.0-0.5); EOS % 2.6 % (0.0-3.0); HEMATOCRIT 37.3 % (42.0-52.0); HEMOGLOBIN 11.8 g/dl (13.5-17.5); LYMPH # 1.3 10^3/uL (1.5-5.0); LYMPH % 28.4 % (24.0-44.0); MEAN CORPUSCULAR HEMOGLOBIN 26.8 pg (27.0-33.0); MEAN CORPUSCULAR HGB CONC 31.6 g/dl (32.0-36.5); MEAN CORPUSCULAR VOLUME 84.8 fl (80.0-96.0); MONO # 0.5 10^3/uL (0.0-0.8); NEUTROPHILS # 2.7 10^3/uL (1.5-8.5); NEUTROPHILS % 58.2 % (36.0-66.0); PLATELET COUNT, AUTOMATED 160 10^3/uL (150-450); WHITE BLOOD COUNT 4.7 10^3/uL (4.0-10.0)
[2024-06-12 06:20] LABS: BLOOD UREA NITROGEN 12 MG/DL (9-23); CALCIUM LEVEL 7.9 MG/DL (8.3-10.6); CARBON DIOXIDE LEVEL 25 MMOL/L (20-31); CHLORIDE LEVEL 108 MMOL/L (98-107); CREATININE FOR GFR 0.64 MG/DL (0.70-1.30); GLOMERULAR FILTRATION RATE > 60.0 (>49); GLUCOSE, FASTING 89 MG/DL (74-106); MAGNESIUM LEVEL 1.9 MG/DL (1.8-2.4); POTASSIUM SERUM 3.9 MMOL/L (3.5-5.1); SODIUM LEVEL 143 MMOL/L (136-145)
[2024-06-12 12:00] VITALS: BP 148/76; TEMP 97.5; O2SAT 96
[2024-06-12 20:00] VITALS: BP 138/73; TEMP 97.7; O2SAT 96
[2024-06-13 04:00] VITALS: BP 156/83; TEMP 97.9; O2SAT 96
[2024-06-13 10:37] VITALS: BP 132/76
[2024-06-13 12:00] VITALS: BP 135/77; TEMP 98.5; O2SAT 95
[2024-06-13] MEDS ORDERED: GUAI10ELDM PO (15:08)
[2024-06-13] MEDS ORDERED: OSEL75CA PO (15:08)
[2024-06-13 16:25] VITALS: BP 140/86; TEMP 97.9; O2SAT 94
== END 2024-06-13 16:38 | disposition home health service (06) | DRG 193 ==
LOC: EDBD 05:58 → M ED 05:58 → M ED INP 13:58 → M MSPAV 06-09 14:36
PROVIDERS: ADMIT Student in an Organized Health Care Education/Training Program; ATTEND Internal Medicine
DX: J10.1 Influenza due to other identified influenza virus with other respiratory manifestations (principal); J96.01 Acute respiratory failure with hypoxia; G93.41 Metabolic encephalopathy; I10 Essential (primary) hypertension; E78.5 Hyperlipidemia, unspecified; K21.9 Gastro-esophageal reflux disease without esophagitis; G47.33 Obstructive sleep apnea (adult) (pediatric); N40.0 Benign prostatic hyperplasia without lower urinary tract symptoms; M10.9 Gout, unspecified; K76.0 Fatty (change of) liver, not elsewhere classified; R51.9 Headache, unspecified; J20.8 Acute bronchitis due to other specified organisms; G31.84 Mild cognitive impairment of uncertain or unknown etiology; R41.2 Retrograde amnesia; Z79.899 Other long term (current) drug therapy

== ENCOUNTER 2024-07-19 04:05 | Emergency (ER) | payer MEDICARE ==
[~2024-07-19] VITALS: Ht 165.1 cm; Wt 109.1 kg
[~2024-07-19 04:05] MED LIST changes: +GUAI10ELDM PO; +OSEL75CA PO
[2024-07-19 10:02] LABS: BASO % 0.5 % (0.0-1.0); EOS # 0.1 10^3/uL (0.0-0.5); EOS % 1.5 % (0.0-3.0); HEMATOCRIT 45.2 % (42.0-52.0); HEMOGLOBIN 14.3 g/dl (13.5-17.5); LYMPH # 1.9 10^3/uL (1.5-5.0); LYMPH % 32.4 % (24.0-44.0); MEAN CORPUSCULAR HEMOGLOBIN 27.6 pg (27.0-33.0); MEAN CORPUSCULAR HGB CONC 31.6 g/dl (32.0-36.5); MEAN CORPUSCULAR VOLUME 87.3 fl (80.0-96.0); MONO # 0.3 10^3/uL (0.0-0.8); MONO % 5.1 % (2.0-8.0); NEUTROPHILS # 3.6 10^3/uL (1.5-8.5); NEUTROPHILS % 60.3 % (36.0-66.0); PLATELET COUNT, AUTOMATED 249 10^3/uL (150-450); RED BLOOD COUNT 5.18 10^6/uL (4.30-6.10); WHITE BLOOD COUNT 5.9 10^3/uL (4.0-10.0)
[2024-07-19] MEDS: ACETAMINOPHEN 500 MG TAB PO ONE (10:10)
[2024-07-19] MEDS: METHOCARBAMOL 1,000 MG/10 ML VIAL IV ONE (10:10)
[2024-07-19] MEDS: KETOROLAC 30 MG/ML 1ML VIAL IV ONE (10:11)
[2024-07-19 10:27] LABS: LIPASE 34 U/L (12-53)
[2024-07-19 10:32] LABS: ALBUMIN 3.7 G/DL (3.2-5.2); ALKALINE PHOSPHATASE 83 U/L (40-129); ALT/SGPT 19 U/L (7.0-40); AST/SGOT 15 U/L (<34); BILIRUBIN,DIRECT 0.1 MG/DL (<0.4); BILIRUBIN,TOTAL 0.4 MG/DL (0.3-1.2); BLOOD UREA NITROGEN 14 MG/DL (9-23); CALCIUM LEVEL 9.2 MG/DL (8.3-10.6); CARBON DIOXIDE LEVEL 28 MMOL/L (20-31); CHLORIDE LEVEL 109 MMOL/L (98-107); CREATININE FOR GFR 0.74 MG/DL (0.70-1.30); GLOMERULAR FILTRATION RATE > 60.0 (>49); GLUCOSE, FASTING 86 MG/DL (74-106); POTASSIUM SERUM 4.8 MMOL/L (3.5-5.1); SODIUM LEVEL 144 MMOL/L (136-145); TOTAL PROTEIN 7.7 G/DL (5.7-8.2)
[2024-07-19] MEDS ORDERED: ISOVUE-370 76% 100ML VIAL As Ordered ONE (11:05)
[2024-07-19] MEDS: MORPHINE 4 MG/ML 1ML VIAL IV ONE (13:50)
[2024-07-19] MEDS ORDERED: MIRA3350 PO (14:46)
[2024-07-19] MEDS ORDERED: COLA100C5 PO (14:46)
[2024-07-19] MEDS: FLEET ENEMA PR PRN (15:29)
[2024-07-19] MEDS ORDERED: METH-1164 PO (15:35)
[2024-07-19 15:52] VITALS: BP 157/70; TEMP 97.3; O2SAT 96
== END 2024-07-19 16:12 | disposition home or self-care (01) ==
LOC: M ED 04:05
DX: K59.00 Constipation, unspecified (principal); G89.29 Other chronic pain; G40.909 Epilepsy, unspecified, not intractable, without status epilepticus; Z79.899 Other long term (current) drug therapy
CPT/HCPCS: 74177; 80048; 80076; 83690; 85025; 93041; 96374; 96375; 99284; J1100; J1885; J2800; Q9967

== ENCOUNTER → 2024-07-21 | Outpatient (CLI) | payer MEDICARE ==
[~2024-07-21] MED LIST changes: +COLA100C5 PO; +METH-1164 PO
[2024-07-21 18:15] LABS: BASO % 0.7 % (0.0-1.0); EOS # 0.1 10^3/uL (0.0-0.5); EOS % 1.2 % (0.0-3.0); HEMATOCRIT 41.8 % (42.0-52.0); HEMOGLOBIN 13.5 g/dl (13.5-17.5); LYMPH # 2.6 10^3/uL (1.5-5.0); MEAN CORPUSCULAR HEMOGLOBIN 27.9 pg (27.0-33.0); MEAN CORPUSCULAR HGB CONC 32.3 g/dl (32.0-36.5); MEAN CORPUSCULAR VOLUME 86.4 fl (80.0-96.0); MONO # 0.5 10^3/uL (0.0-0.8); MONO % 7.5 % (2.0-8.0); NEUTROPHILS # 2.8 10^3/uL (1.5-8.5); NEUTROPHILS % 47.1 % (36.0-66.0); PLATELET COUNT, AUTOMATED 273 10^3/uL (150-450); RED BLOOD COUNT 4.84 10^6/uL (4.30-6.10)
[2024-07-21 18:21] LABS: ERYTHROCYTE SEDIMENTATION RATE 8 mm/hr (0-20)
== END ==
LOC: M PLAIMG 15:53
PROVIDERS: ATTEND Physician Assistant Medical
DX: M54.9 Dorsalgia, unspecified (principal); M47.814 Spondylosis without myelopathy or radiculopathy, thoracic region

== ENCOUNTER → 2024-10-06 | Outpatient (CLI) | payer MEDICARE ==
[~2024-10-06] MED LIST changes: +MORP-137 PO; +MORP-138 PO; -MORP15TASA PO; -MSIR30TA PO; +TAMS-18 PO
[2024-10-06 10:58] LABS: BASO % 0.7 % (0.0-1.0); EOS # 0.1 10^3/uL (0.0-0.5); EOS % 1.9 % (0.0-3.0); HEMATOCRIT 44.3 % (42.0-52.0); HEMOGLOBIN 14.4 g/dl (13.5-17.5); LYMPH # 2.4 10^3/uL (1.5-5.0); LYMPH % 39.6 % (24.0-44.0); MEAN CORPUSCULAR HEMOGLOBIN 27.6 pg (27.0-33.0); MEAN CORPUSCULAR HGB CONC 32.5 g/dl (32.0-36.5); MEAN CORPUSCULAR VOLUME 84.9 fl (80.0-96.0); MONO # 0.5 10^3/uL (0.0-0.8); MONO % 7.8 % (2.0-8.0); NEUTROPHILS # 2.9 10^3/uL (1.5-8.5); NEUTROPHILS % 49.5 % (36.0-66.0); PLATELET COUNT, AUTOMATED 205 10^3/uL (150-450); RED BLOOD COUNT 5.22 10^6/uL (4.30-6.10); WHITE BLOOD COUNT 5.9 10^3/uL (4.0-10.0)
[2024-10-06 11:00] LABS: TOTAL IRON BINDING CAPACITY 336 UG/DL (250-425)
[2024-10-06 11:01] LABS: ALBUMIN 3.6 G/DL (3.2-5.2); ALKALINE PHOSPHATASE 91 U/L (40-129); ALT/SGPT 28 U/L (7.0-40); AST/SGOT 19 U/L (<34); BILIRUBIN,TOTAL 0.4 MG/DL (0.3-1.2); BLOOD UREA NITROGEN 21 MG/DL (9-23); CALCIUM LEVEL 8.9 MG/DL (8.3-10.6); CARBON DIOXIDE LEVEL 32 MMOL/L (20-31); CHLORIDE LEVEL 106 MMOL/L (98-107); CHOLESTEROL LEVEL 184 MG/DL (<200); CHOLESTEROL RISK RATIO 3.43 (<5); CREATININE FOR GFR 0.82 MG/DL (0.70-1.30); GLOMERULAR FILTRATION RATE > 90.0 (>49); GLUCOSE, FASTING 91 MG/DL (74-106); HDL CHOLESTEROL 53.6 MG/DL (>40); LDL CHOLESTEROL 106.2 MG/DL (<100); NON-HDL-C 130.4 MG/DL; POTASSIUM SERUM 4.7 MMOL/L (3.5-5.1); SODIUM LEVEL 145 MMOL/L (136-145); TOTAL PROTEIN 7.1 G/DL (5.7-8.2); TRIGLYCERIDES LEVEL 121 MG/DL (<150)
[2024-10-06 11:02] LABS: FREE T4 0.85 NG/DL (0.89-1.76); IRON (FE) 77 UG/DL (65-175); PERCENT SATURATION 22.9 % (19.7-50.0); THYROID STIMULATING HORMONE 1.966 uIU/ML (0.55-4.78)
[2024-10-06 11:28] LABS: HEMOGLOBIN A1c 5.9 % (4.0-6.0)
== END ==
LOC: M PLALAB 07:51
PROVIDERS: ATTEND Student in an Organized Health Care Education/Training Program
DX: I10 Essential (primary) hypertension (principal); D50.9 Iron deficiency anemia, unspecified; Z12.5 Encounter for screening for malignant neoplasm of prostate
CPT/HCPCS: 36415; 80053; 80061; 82652; 83036; 83550; 84439; 84443; 85025; G0103

== ENCOUNTER 2024-11-24 13:04 | Inpatient (IN) | payer OTHER, MEDICARE ==
[~2024-11-24] VITALS: Ht 165.1 cm; Wt 126.1 kg
[~2024-11-24 13:04] MED LIST changes: +DIVA-41 PO; -DIVA500T94 PO; +LIDO1ADH93 TOP; -LIDO5DIS41 TOP
[2024-11-24] MEDS: ACETAMINOPHEN 500 MG TAB PO ONE (14:43)
[2024-11-24] MEDS ORDERED: GABA-284 PO (19:40)
[2024-11-24] MEDS ORDERED: MIRALAX *UNIT DOSE* 17 GM PACKET PO PRN (19:40)
[2024-11-24] MEDS ORDERED: METO1TAB7 PO (19:40)
[2024-11-24] MEDS ORDERED: LEVOTAB10 PO (19:40)
[2024-11-24] MEDS ORDERED: HOME MED LIST COMPLETE! XX SCH (19:40)
[2024-11-24] MEDS ORDERED: MONT10TA97 PO (19:40)
[2024-11-24 20:31] LABS: BASO # 0.0 10^3/uL (0.0-0.2); BASO % 0.3 % (0.0-1.0); EOS # 0.1 10^3/uL (0.0-0.5); EOS % 1.3 % (0.0-3.0); LYMPH # 2.1 10^3/uL (1.5-5.0); LYMPH % 33.5 % (24.0-44.0); MONO # 0.4 10^3/uL (0.0-0.8); MONO % 6.4 % (2.0-8.0); NEUTROPHILS # 3.7 10^3/uL (1.5-8.5); NEUTROPHILS % 58.3 % (36.0-66.0); PLATELET COUNT, AUTOMATED 206 10^3/uL (150-450)
[2024-11-24 20:46] LABS: INR 1.01
[2024-11-24] MEDS: LR 1,000 ML IV SCH (21:00)
[2024-11-24] MEDS: FINASTERIDE 5 MG TAB PO SCH (21:00)
[2024-11-24] MEDS: GABAPENTIN 400 MG CAP PO SCH (21:00)
[2024-11-24] MEDS: METOPROLOL TART 25 MG TABLET PO SCH (21:00)
[2024-11-24] MEDS: TAMSULOSIN 0.4 MG CAP PO SCH (21:00)
[2024-11-24] MEDS: DIVALPROEX 500 MG TAB PO SCH (21:00)
[2024-11-24 21:08] LABS: ALT/SGPT 47 U/L (7.0-40); AST/SGOT 46 U/L (<34); CALCIUM LEVEL 8.3 MG/DL (8.3-10.6); CARBON DIOXIDE LEVEL 28 MMOL/L (20-31); CHLORIDE LEVEL 107 MMOL/L (98-107); CREATININE FOR GFR 0.89 MG/DL (0.70-1.30); GLOMERULAR FILTRATION RATE > 90.0 (>49); POTASSIUM SERUM 4.3 MMOL/L (3.5-5.1); SODIUM LEVEL 147 MMOL/L (136-145)
[2024-11-25] VITALS (7 sets, daily range): BP systolic 119–143; BP diastolic 60–79; TEMP 96.1–98.7; O2SAT 96–100
[2024-11-25] MEDS: MORPHINE 2 MG/ML 1 ML VIAL IV PRN (02:16)
[2024-11-25] MEDS: KETOROLAC 30 MG/ML 1 ML VIAL IV PRN (04:42)
[2024-11-25] MEDS: ceFAZolin SOD 1 GM in DEXTROSE 5% (D5W) ADV/MINI-BAG 50 ML IV SCH (06:18)
[2024-11-25] MEDS ORDERED: PANTOPRAZOLE 40MG VIAL IV SCH (09:00)
[2024-11-25 09:46] LABS: BASO # 0.0 10^3/uL (0.0-0.2); BASO % 0.5 % (0.0-1.0); EOS # 0.1 10^3/uL (0.0-0.5); EOS % 2.1 % (0.0-3.0); LYMPH # 2.2 10^3/uL (1.5-5.0); LYMPH % 38.9 % (24.0-44.0); MONO # 0.4 10^3/uL (0.0-0.8); MONO % 6.5 % (2.0-8.0); NEUTROPHILS # 2.9 10^3/uL (1.5-8.5); NEUTROPHILS % 51.8 % (36.0-66.0); PLATELET COUNT, AUTOMATED 177 10^3/uL (150-450)
[2024-11-25] MEDS: HEPARIN SOD 5000 UNITS/ML 1 ML VIAL/SYRINGE SQ SCH (09:54)
[2024-11-25] MEDS: PANTOPRAZOLE 40MG TAB PO SCH (09:55)
[2024-11-25] MEDS: ACETAMINOPHEN 500 MG TAB PO SCH (09:55)
[2024-11-25] MEDS: MONTELUKAST 10 MG TAB PO SCH (09:56)
[2024-11-25] MEDS: MIRALAX *UNIT DOSE* 17 GM PACKET PO SCH (09:56)
[2024-11-25 10:08] LABS: CALCIUM LEVEL 7.7 MG/DL (8.3-10.6); CARBON DIOXIDE LEVEL 27 MMOL/L (20-31); CHLORIDE LEVEL 108 MMOL/L (98-107); CREATININE FOR GFR 0.69 MG/DL (0.70-1.30); GLOMERULAR FILTRATION RATE > 90.0 (>49); POTASSIUM SERUM 4.3 MMOL/L (3.5-5.1); SODIUM LEVEL 146 MMOL/L (136-145)
[2024-11-25] MEDS: MORPHINE 4 MG/ML 1 ML VIAL IV PRN (10:55)
[2024-11-25] MEDS: KETOROLAC 30 MG/ML 1 ML VIAL IV SCH (12:37)
[2024-11-25] MEDS: ATORVASTATIN 20 MG TAB PO SCH (20:46)
[2024-11-26 04:12] VITALS: BP 145/84; TEMP 97.8; O2SAT 93
[2024-11-26 06:49] LABS: BASO # 0.0 10^3/uL (0.0-0.2); BASO % 0.3 % (0.0-1.0); EOS # 0.1 10^3/uL (0.0-0.5); EOS % 1.5 % (0.0-3.0); LYMPH # 1.4 10^3/uL (1.5-5.0); LYMPH % 22.7 % (24.0-44.0); MONO # 0.4 10^3/uL (0.0-0.8); MONO % 6.4 % (2.0-8.0); NEUTROPHILS # 4.2 10^3/uL (1.5-8.5); NEUTROPHILS % 68.9 % (36.0-66.0); PLATELET COUNT, AUTOMATED 173 10^3/uL (150-450)
[2024-11-26 07:13] LABS: CALCIUM LEVEL 8.1 MG/DL (8.3-10.6); CARBON DIOXIDE LEVEL 26 MMOL/L (20-31); CHLORIDE LEVEL 105 MMOL/L (98-107); CREATININE FOR GFR 0.65 MG/DL (0.70-1.30); GLOMERULAR FILTRATION RATE > 90.0 (>49); POTASSIUM SERUM 4.6 MMOL/L (3.5-5.1); SODIUM LEVEL 143 MMOL/L (136-145)
[2024-11-26 08:00] VITALS: BP 119/63; TEMP 96.8; O2SAT 96
[2024-11-26 11:52] VITALS: BP 115/71; TEMP 96.7; O2SAT 94
[2024-11-26] MEDS: KETOROLAC TROMETHAMINE 10 MG TAB PO SCH (16:02)
[2024-11-26 20:29] VITALS: BP 123/64; TEMP 97.3; O2SAT 96
[2024-11-26 23:10] VITALS: BP 130/58; TEMP 97.1; O2SAT 95
[2024-11-27 04:00] VITALS: BP 134/70; TEMP 97.2; O2SAT 96
[2024-11-27 06:09] LABS: CALCIUM LEVEL 8.2 MG/DL (8.3-10.6); CARBON DIOXIDE LEVEL 26 MMOL/L (20-31); CHLORIDE LEVEL 105 MMOL/L (98-107); CREATININE FOR GFR 0.66 MG/DL (0.70-1.30); GLOMERULAR FILTRATION RATE > 90.0 (>49); POTASSIUM SERUM 4.3 MMOL/L (3.5-5.1); SODIUM LEVEL 142 MMOL/L (136-145)
[2024-11-27] MEDS ORDERED: LIDOCAINE 2% 100 MG/5 ML SDV (FOR ANES.) As Ordered ONE (07:02)
[2024-11-27 07:53] VITALS: BP 127/68; TEMP 97.1; O2SAT 96
[2024-11-27 08:13] LABS: BASO # 0.0 10^3/uL (0.0-0.2); BASO % 0.3 % (0.0-1.0); EOS # 0.1 10^3/uL (0.0-0.5); EOS % 1.6 % (0.0-3.0); LYMPH # 1.8 10^3/uL (1.5-5.0); LYMPH % 31.3 % (24.0-44.0); MONO # 0.4 10^3/uL (0.0-0.8); MONO % 7.1 % (2.0-8.0); NEUTROPHILS # 3.4 10^3/uL (1.5-8.5); NEUTROPHILS % 59.7 % (36.0-66.0); PLATELET COUNT, AUTOMATED 167 10^3/uL (150-450)
[2024-11-27 09:49] VITALS: BP 127/68
[2024-11-27 16:43] VITALS: BP 130/69; TEMP 97.4; O2SAT 96
[2024-11-27] MEDS ORDERED: ACET-683 PO (16:46)
[2024-11-27] MEDS ORDERED: IBUP-1022 PO (16:46)
[2024-11-27] MEDS ORDERED: OXYC-517 PO (16:46)
== END 2024-11-27 18:29 | disposition home health service (06) | DRG 347 ==
LOC: M ED 13:04 → EDBD 13:04 → M ED INP 19:37 → M PCU 11-25 02:02
PROVIDERS: ADMIT Student in an Organized Health Care Education/Training Program; ATTEND Internal Medicine Nephrology
DX: S22.060A Wedge compression fracture of T7-T8 vertebra, initial encounter for closed fracture (principal); I10 Essential (primary) hypertension; E78.5 Hyperlipidemia, unspecified; G47.33 Obstructive sleep apnea (adult) (pediatric); K21.9 Gastro-esophageal reflux disease without esophagitis; N40.0 Benign prostatic hyperplasia without lower urinary tract symptoms; M19.90 Unspecified osteoarthritis, unspecified site; M10.9 Gout, unspecified; M51.360 Other intervertebral disc degeneration, lumbar region with discogenic back pain only; V43.52XA Car driver injured in collision with other type car in traffic accident, initial encounter; Y92.410 Unspecified street and highway as the place of occurrence of the external cause; Y93.89 Activity, other specified; Y99.8 Other external cause status; M47.816 Spondylosis without myelopathy or radiculopathy, lumbar region; G89.29 Other chronic pain; R51.9 Headache, unspecified; Z87.442 Personal history of urinary calculi; Z86.73 Personal history of transient ischemic attack (TIA), and cerebral infarction without residual deficits; Z79.899 Other long term (current) drug therapy

== ENCOUNTER → 2024-12-29 | Outpatient (CLI) | payer MEDICARE ==
[~2024-12-29] MED LIST changes: +ACET-683 PO; +GABA-284 PO; +LEVOTAB10 PO; +METO1TAB7 PO; +MONT10TA97 PO; +OXYC-517 PO
[2024-12-29 11:28] LABS: VALPROIC ACID (DEPAKOTE) 54.8 UG/ML (50.0-100.0)
[2024-12-29 11:31] LABS: FREE T4 0.9 NG/DL (0.89-1.76)
== END ==
LOC: M PLALAB 07:16
PROVIDERS: ATTEND Student in an Organized Health Care Education/Training Program
DX: R79.89 Other specified abnormal findings of blood chemistry (principal); Z79.899 Other long term (current) drug therapy

== ENCOUNTER → 2025-01-12 | Outpatient (CLI) | payer OTHER, MEDICARE | LOC: M RAD 08:26 | PROVIDERS: ATTEND Physician Assistant | DX: S22.068S Other fracture of T7-T8 thoracic vertebra, sequela (principal); M47.814 Spondylosis without myelopathy or radiculopathy, thoracic region ==

== ENCOUNTER 2025-02-06 19:30 | Emergency (ER) | payer MEDICARE, OTHER ==
[~2025-02-06 19:30] MED LIST changes: +CARB-19 PO; -CARB1TAB20 PO; -GUAI10ELDM PO; +GUAI1SYP10 PO; -IBUP-1022 PO; +IBUP600T42 PO
[2025-02-06 20:23] LABS: PLATELET COUNT, AUTOMATED 155 10^3/uL (150-450)
[2025-02-06 20:31] LABS: EOSINOPHILS 1 % (0-3); LYMPHOCYTES 29 % (16-44); MONOCYTES 2 % (0-5); NEUTROPHILS 68 % (28-66)
[2025-02-06 20:33] LABS: PLATELET ESTIMATE NORMAL (NORMAL)
[2025-02-06 20:40] LABS: CK-MB VALUE MASS < 1.0 NG/ML (<3.6)
[2025-02-06 20:43] LABS: ALT/SGPT 45 U/L (7.0-40); AST/SGOT 47 U/L (<34); C REACTIVE PROTEIN QUANTITATIV 0.67 MG/DL (<1.0); CALCIUM LEVEL 9.0 MG/DL (8.3-10.6); CARBON DIOXIDE LEVEL 25 MMOL/L (20-31); CHLORIDE LEVEL 105 MMOL/L (98-107); CREATININE FOR GFR 0.82 MG/DL (0.70-1.30); GLOMERULAR FILTRATION RATE > 90.0 (>49); POTASSIUM SERUM 4.7 MMOL/L (3.5-5.1); SODIUM LEVEL 141 MMOL/L (136-145)
[2025-02-06] MEDS: cefTRIAXone SOD 2 GM in DEXTROSE 5% (D5W) ADV/MINI-BAG 50 ML IV ONE (20:46)
[2025-02-06] MEDS: NS 0.9% IV ONE (20:47)
[2025-02-06] MEDS: [UNRECOGNIZED DRUG - OTHER] IV ONE (20:47)
[2025-02-06] MEDS: ACETAMINOPHEN 325 MG TAB PO ONE (20:48)
[2025-02-06 20:50] LABS: CPK CREATINE PHOSPHOKINASE 96 U/L (46-171)
[2025-02-06 21:09] LABS: INR 0.97
[2025-02-06 21:18] LABS: CK-MB VALUE MASS < 1.0 NG/ML (<3.6)
[2025-02-06 21:24] LABS: CPK CREATINE PHOSPHOKINASE 66 U/L (46-171)
[2025-02-06 23:19] VITALS: BP 142/93
[2025-02-06 23:52] LABS: APPEARANCE, URINE HAZY (CLEAR); BACTERIA, URINE AUTO NEGATIVE (NEGATIVE); BILIRUBIN, URINE AUTO NEGATIVE (NEGATIVE); BLOOD, URINE BLOOD NEGATIVE (NEGATIVE); GLUCOSE, URINE (UA) AUTO NEGATIVE (NEGATIVE); KETONE, URINE AUTO 1+ mg/dL (NEGATIVE); LEUKOCYTE ESTERASE, URINE AUTO 3+ (NEGATIVE); NITRITE, URINE AUTO NEGATIVE (NEGATIVE); PROTEIN, URINE AUTO NEGATIVE (NEGATIVE); RBC, URINE AUTO 2 /HPF (0-3); SPECIFIC GRAVITY URINE AUTO 1.021 (1.002-1.035); SQUAMOUS EPITHELIAL CELL UR AU 0 /HPF (0-6); UROBILINOGEN, URINE AUTO 0.2 mg/dL (0.0-2.0); WBC, URINE AUTO 1 /HPF (0-3)
[2025-02-07] VITALS: TEMP 99.6
[2025-02-07 00:15] VITALS: O2SAT 95
[2025-02-07] MEDS ORDERED: DULO1CAP5 PO (17:24)
[2025-02-07] MEDS ORDERED: OXYC-517 PO (17:24)
== END 2025-02-07 01:01 | disposition home or self-care (01) ==
LOC: M ED 19:30
DX: R41.82 Altered mental status, unspecified (principal); I44.7 Left bundle-branch block, unspecified; I10 Essential (primary) hypertension; E78.5 Hyperlipidemia, unspecified; Z86.73 Personal history of transient ischemic attack (TIA), and cerebral infarction without residual deficits; Z79.899 Other long term (current) drug therapy

== ENCOUNTER 2025-02-07 13:46 | Observation (INO) | payer MEDICARE ==
[2025-02-07 15:34] LABS: PLATELET COUNT, AUTOMATED 174 10^3/uL (150-450)
[2025-02-07 15:40] LABS: ALT/SGPT 50 U/L (7.0-40); AST/SGOT 56 U/L (<34); CALCIUM LEVEL 8.5 MG/DL (8.3-10.6); CARBON DIOXIDE LEVEL 25 MMOL/L (20-31); CHLORIDE LEVEL 106 MMOL/L (98-107); CREATININE FOR GFR 0.78 MG/DL (0.70-1.30); GLOMERULAR FILTRATION RATE > 90.0 (>49); POTASSIUM SERUM 4.5 MMOL/L (3.5-5.1); SODIUM LEVEL 140 MMOL/L (136-145)
[2025-02-07 16:22] LABS: ATYPICAL LYMPH 2 % (0-5); BASOPHILS 1 % (0-1); EOSINOPHILS 2 % (0-3); LYMPHOCYTES 18 % (16-44); MONOCYTES 8 % (0-5); NEUTROPHILS 69 % (28-66)
[2025-02-07 16:27] LABS: PLATELET ESTIMATE NORMAL (NORMAL)
[2025-02-07 16:29] LABS: CK-MB VALUE MASS < 1.0 NG/ML (<3.6)
[2025-02-07 16:31] LABS: CPK CREATINE PHOSPHOKINASE 73 U/L (46-171)
[2025-02-07] MEDS ORDERED: OXYC-517 PO (17:24)
[2025-02-07] MEDS ORDERED: DULO1CAP5 PO (17:24)
[2025-02-07] MEDS ORDERED: HOME MED LIST COMPLETE! XX SCH (17:25)
[2025-02-07 19:06] LABS: KETONE, URINE AUTO RFX 1+ mg/dL (NEGATIVE); LEUKOCYTE ESTERASE UR AUTO RFX NEGATIVE (NEGATIVE); MUCUS, URINE RFX SMALL (NEGATIVE); NITRITE, URINE AUTO RFX NEGATIVE (NEGATIVE); RBC, URINE AUTO RFX 0 /HPF (0-3); SQUAM EPITHELIAL CELL UR AURFX 0 /HPF (0-6); WBC, URINE AUTO RFX 1 /HPF (0-3)
[2025-02-07 23:09] VITALS: BP 166/83; TEMP 97.5; O2SAT 93
[2025-02-07] MEDS: GABAPENTIN 400 MG CAP PO SCH (23:16)
[2025-02-07] MEDS: TAMSULOSIN 0.4 MG CAP PO SCH (23:17)
[2025-02-07] MEDS: KETOROLAC 30 MG/ML 1 ML VIAL IV SCH (23:17)
[2025-02-07] MEDS: DIVALPROEX 500 MG TAB PO SCH (23:17)
[2025-02-08 03:34] VITALS: BP 132/70; TEMP 97.3; O2SAT 96
[2025-02-08 07:58] LABS: BASO # 0.0 10^3/uL (0.0-0.2); BASO % 0.6 % (0.0-1.0); EOS # 0.1 10^3/uL (0.0-0.5); EOS % 1.9 % (0.0-3.0); LYMPH # 2.5 10^3/uL (1.5-5.0); LYMPH % 39.4 % (24.0-44.0); MONO # 0.7 10^3/uL (0.0-0.8); MONO % 10.6 % (2.0-8.0); NEUTROPHILS # 3.0 10^3/uL (1.5-8.5); NEUTROPHILS % 46.9 % (36.0-66.0); PLATELET COUNT, AUTOMATED 157 10^3/uL (150-450)
[2025-02-08] MEDS: MONTELUKAST 10 MG TAB PO SCH (08:25)
[2025-02-08] MEDS: PANTOPRAZOLE 40MG TAB PO SCH (08:25)
[2025-02-08] MEDS: METOPROLOL SUCC. 50 MG *XL* TAB PO SCH (08:26)
[2025-02-08 08:38] LABS: CALCIUM LEVEL 8.0 MG/DL (8.3-10.6); CARBON DIOXIDE LEVEL 29.0 MMOL/L (20-31); CHLORIDE LEVEL 104.0 MMOL/L (98-107); CREATININE FOR GFR 0.93 MG/DL (0.70-1.30); GLOMERULAR FILTRATION RATE 89.4 (>49); POTASSIUM SERUM 4.5 MMOL/L (3.5-5.1); SODIUM LEVEL 142.0 MMOL/L (136-145)
[2025-02-08] MEDS: ACETAMINOPHEN 325 MG TAB PO PRN (08:43)
[2025-02-08 12:22] VITALS: BP 107/67; TEMP 97; O2SAT 94
[2025-02-08] MEDS: ATORVASTATIN 20 MG TAB PO SCH (20:03)
[2025-02-08] MEDS: FINASTERIDE 5 MG TAB PO SCH (20:03)
[2025-02-08 20:05] VITALS: BP 106/64; TEMP 97.2; O2SAT 97
[2025-02-09 04:06] VITALS: BP 110/64; TEMP 97.3; O2SAT 96
[2025-02-09 07:01] LABS: BASO # 0.1 10^3/uL (0.0-0.2); BASO % 1.1 % (0.0-1.0); EOS # 0.2 10^3/uL (0.0-0.5); EOS % 3.4 % (0.0-3.0); LYMPH # 2.6 10^3/uL (1.5-5.0); LYMPH % 46.6 % (24.0-44.0); MONO # 0.6 10^3/uL (0.0-0.8); MONO % 9.9 % (2.0-8.0); NEUTROPHILS # 2.2 10^3/uL (1.5-8.5); NEUTROPHILS % 38.6 % (36.0-66.0); PLATELET COUNT, AUTOMATED 161 10^3/uL (150-450)
[2025-02-09 07:21] LABS: ALT/SGPT 55 U/L (7.0-40); AST/SGOT 55 U/L (<34); CALCIUM LEVEL 7.8 MG/DL (8.3-10.6); CARBON DIOXIDE LEVEL 29 MMOL/L (20-31); CHLORIDE LEVEL 104 MMOL/L (98-107); CREATININE FOR GFR 0.82 MG/DL (0.70-1.30); GLOMERULAR FILTRATION RATE > 90.0 (>49); POTASSIUM SERUM 4.2 MMOL/L (3.5-5.1); SODIUM LEVEL 142 MMOL/L (136-145)
[2025-02-09 11:18] LABS: MAGNESIUM LEVEL 1.9 MG/DL (1.8-2.4)
[2025-02-09 12:30] VITALS: BP 116/63; TEMP 97.2; O2SAT 95
[2025-02-09 12:32] VITALS: BP 133/75
[2025-02-09 12:34] VITALS: BP 132/77
[2025-02-09 19:45] VITALS: BP 169/90; TEMP 97.3; O2SAT 95
[2025-02-09 20:30] VITALS: BP 139/71
[2025-02-10 03:20] VITALS: BP 137/72; TEMP 97.2; O2SAT 96
[2025-02-10 06:18] LABS: BASO # 0.0 10^3/uL (0.0-0.2); BASO % 0.8 % (0.0-1.0); EOS # 0.2 10^3/uL (0.0-0.5); EOS % 3.4 % (0.0-3.0); LYMPH # 2.2 10^3/uL (1.5-5.0); LYMPH % 44.6 % (24.0-44.0); MONO # 0.4 10^3/uL (0.0-0.8); MONO % 8.5 % (2.0-8.0); NEUTROPHILS # 2.1 10^3/uL (1.5-8.5); NEUTROPHILS % 42.5 % (36.0-66.0); PLATELET COUNT, AUTOMATED 179 10^3/uL (150-450)
[2025-02-10 06:39] LABS: CALCIUM LEVEL 8.3 MG/DL (8.3-10.6); CARBON DIOXIDE LEVEL 30 MMOL/L (20-31); CHLORIDE LEVEL 107 MMOL/L (98-107); CREATININE FOR GFR 0.84 MG/DL (0.70-1.30); GLOMERULAR FILTRATION RATE > 90.0 (>49); POTASSIUM SERUM 4.3 MMOL/L (3.5-5.1); SODIUM LEVEL 140 MMOL/L (136-145)
[2025-02-10 09:02] VITALS: BP 140/73
[2025-02-10 12:00] VITALS: BP 134/67; TEMP 97.3; O2SAT 99
[2025-02-10] MEDS ORDERED: TAMS-18 PO (15:41)
[2025-02-10] MEDS ORDERED: METO1TAB7 PO (15:41)
== END 2025-02-10 16:56 | disposition home or self-care (01) ==
LOC: M ED 13:46 → EDBD 13:46 → M ED INP 21:36 → INTOOBSV 21:36 → M MSPAV 22:53
PROVIDERS: ADMIT Internal Medicine Nephrology; ATTEND Student in an Organized Health Care Education/Training Program
DX: M48.02 Spinal stenosis, cervical region (principal); I44.7 Left bundle-branch block, unspecified; I10 Essential (primary) hypertension; E78.5 Hyperlipidemia, unspecified; E66.01 Morbid (severe) obesity due to excess calories; M51.369 Other intervertebral disc degeneration, lumbar region without mention of lumbar back pain or lower extremity pain; N40.1 Benign prostatic hyperplasia with lower urinary tract symptoms; K76.0 Fatty (change of) liver, not elsewhere classified; R74.01 Elevation of levels of liver transaminase levels; F03.90 Unspecified dementia, unspecified severity, without behavioral disturbance, psychotic disturbance, mood disturbance, and anxiety; G47.33 Obstructive sleep apnea (adult) (pediatric); K21.9 Gastro-esophageal reflux disease without esophagitis; M19.90 Unspecified osteoarthritis, unspecified site; K27.9 Peptic ulcer, site unspecified, unspecified as acute or chronic, without hemorrhage or perforation; S22.060D Wedge compression fracture of T7-T8 vertebra, subsequent encounter for fracture with routine healing; M10.9 Gout, unspecified; G40.909 Epilepsy, unspecified, not intractable, without status epilepticus; R26.89 Other abnormalities of gait and mobility; Z79.899 Other long term (current) drug therapy; Z86.73 Personal history of transient ischemic attack (TIA), and cerebral infarction without residual deficits; W19.XXXA Unspecified fall, initial encounter; Y92.9 Unspecified place or not applicable
CPT/HCPCS: 36415; 70450; 71045; 72125; 72128; 72131; 80048; 80076; 81001; 82150; 82550; 82553; 83605; 83735; 84145; 84443; 84484; 85025; 85610; 85730; 86140; 86850; 86900; 86901; 87040; 87486; 87581; 87633; 87798; 93005; 93041; 94760; 96374; 96376; 97116; 97161; 97162; 97165; 99285; G0378; J0696; J1885

== ENCOUNTER → 2025-02-11 | Outpatient (CLI) | payer MEDICARE ==
[~2025-02-11] MED LIST changes: +DULO1CAP5 PO
== END ==
LOC: M RAD 12:49
PROVIDERS: ATTEND Urology
DX: N20.0 Calculus of kidney (principal); N28.1 Cyst of kidney, acquired

== ENCOUNTER → 2025-02-13 | Outpatient (CLI) | payer OTHER, MEDICARE | LOC: M PLAIMG 12:20 | PROVIDERS: ATTEND Physician Assistant | DX: Z53.9 Procedure and treatment not carried out, unspecified reason (principal) ==

== ENCOUNTER → 2025-02-13 | Outpatient (CLI) | payer OTHER, MEDICARE | LOC: M PLAIMG 13:48 | PROVIDERS: ATTEND Physician Assistant | DX: S22.068D Other fracture of T7-T8 thoracic vertebra, subsequent encounter for fracture with routine healing (principal); Y93.9 Activity, unspecified; Y92.9 Unspecified place or not applicable ==

== ENCOUNTER → 2025-02-24 | Outpatient (REF) | payer OTHER, MEDICARE | LOC: M SFHCLERA 16:55 | DX: J06.9 Acute upper respiratory infection, unspecified (principal) ==

== ENCOUNTER → 2025-03-02 | Outpatient (CLI) | payer MEDICARE ==
[2025-03-02 13:31] LABS: BASO # 0.1 10^3/uL (0.0-0.2); BASO % 0.5 % (0.0-1.0); EOS # 0.1 10^3/uL (0.0-0.5); EOS % 1.3 % (0.0-3.0); LYMPH # 3.1 10^3/uL (1.5-5.0); LYMPH % 32.3 % (24.0-44.0); MONO # 0.6 10^3/uL (0.0-0.8); MONO % 6.0 % (2.0-8.0); NEUTROPHILS # 5.7 10^3/uL (1.5-8.5); NEUTROPHILS % 59.6 % (36.0-66.0); PLATELET COUNT, AUTOMATED 299 10^3/uL (150-450)
== END ==
LOC: M PLALAB 10:48
PROVIDERS: ATTEND Student in an Organized Health Care Education/Training Program
DX: G40.909 Epilepsy, unspecified, not intractable, without status epilepticus (principal); J40 Bronchitis, not specified as acute or chronic

== ENCOUNTER → 2025-03-06 | Outpatient (CLI) | payer MEDICARE ==
[~2025-03-06] MED LIST changes: +AMOX875T2; +DOXY-441 PO
== END ==
LOC: M PLAIMG 14:55
PROVIDERS: ATTEND Student in an Organized Health Care Education/Training Program
DX: J40 Bronchitis, not specified as acute or chronic (principal)

== ENCOUNTER 2025-03-08 13:50 | Emergency (ER) | payer MEDICARE ==
[~2025-03-08] VITALS: Ht 165.1 cm; Wt 118.2 kg
[~2025-03-08 13:50] MED LIST changes: -AMOX875T2; -DOXY-441 PO
[2025-03-08] MEDS ORDERED: AMOX875T2 (14:58)
[2025-03-08 16:15] VITALS: BP 147/76; TEMP 96.7; O2SAT 97
[2025-03-08] MEDS ORDERED: MUCI600T31 PO (16:15)
[2025-03-08] MEDS ORDERED: DOXY-441 PO (16:15)
== END 2025-03-08 16:19 | disposition home or self-care (01) ==
LOC: M ED 13:50
DX: R05.9 Cough, unspecified (principal); B34.1 Enterovirus infection, unspecified; Z79.2 Long term (current) use of antibiotics; Z79.899 Other long term (current) drug therapy

== ENCOUNTER → 2025-03-16 | Outpatient (CLI) | payer OTHER, MEDICARE ==
[~2025-03-16] MED LIST changes: +AMOX875T2; +DOXY-441 PO
== END ==
LOC: M RAD 08:09
PROVIDERS: ATTEND Physician Assistant
DX: S22.068D Other fracture of T7-T8 thoracic vertebra, subsequent encounter for fracture with routine healing (principal); W18.30XD Fall on same level, unspecified, subsequent encounter

== ENCOUNTER → 2025-05-08 | Outpatient (CLI) | payer MEDICARE ==
[2025-05-08 16:16] LABS: ESTIMATED AVERAGE GLUCOSE 114.0 MG/DL (60-110)
[2025-05-08 16:30] LABS: VITAMIN B12 LEVEL 399.0 PG/ML (211-911)
== END ==
LOC: M PLALAB 14:17
PROVIDERS: ATTEND Student in an Organized Health Care Education/Training Program
DX: R41.89 Other symptoms and signs involving cognitive functions and awareness (principal); Z79.899 Other long term (current) drug therapy